=== PATIENT | female | born 1935 | race Hispanic/Latino ===

== ENCOUNTER 2018-04-25 15:42 | Inpatient (IN) | payer OTHER ==
--- OUTSIDE RECORDS SUMMARY | 2018-04-25 15:45 | XMS REPORT | Clinical Summary ---
:1935 Author Organization [facility] Address [address] [place] [address] Care Team Providers Name Role Phone Brandie Wilkerson DO Primary Care Provider Allergies Active Allergy Reactions Severity Noted Date Comments No Known Drug Allergies 05/27/2016 Current Medications Prescription Sig. Disp. Refills Start Date End Date Status amLODIPine Take 5 mg by mouth 06/24/2016 Active (NORVASC) 5 mg daily. tablet TRADJENTA 5 mg Take 5 mg by mouth 3 06/18/2016 Active tablet daily with breakfast. aspirin (ECOTRIN) Take 81 mg by Active 81 MG enteric mouth daily. coated tablet CHOLECALCIFEROL, Take 3,000 Units Active VITAMIN D3, by mouth daily. (VITAMIN D3 ORAL) clopidogrel Take 1 tablet (75 90 tablet 3 03/03/2017 Active (PLAVIX) 75 mg mg total) by mouth tablet once daily. fenofibrate Take 1 tablet (145 90 tablet 3 05/06/2017 Active (TRICOR) 145 MG mg total) by mouth tabletIndications: daily. Coronary artery disease involving [place] heart with angina pectoris, unspecified vessel or lesion type (HCC) pravastatin Take 1 tablet (80 90 tablet 3 06/07/2017 Active (PRAVACHOL) 80 MG mg total) by mouth tablet once daily. alendronate Take 70 mg by Active (FOSAMAX) 70 MG mouth every 7 tablet days. Take in the morning with a full glass of water on an empty stomach, do NOT take anything else by mouth or lie down for the next 30 min. famotidine TAKE 1 TABLET BY 60 tablet 0 09/23/2017 Active (PEPCID) 20 MG MOUTH NIGHTLY tablet NEEDED FOR HEARTBURN FOR UP TO 30 DAYS levothyroxine 01/21/2018 Active (SYNTHROID, LEVOXYL) 50 mcg tablet furosemide (LASIX) Take 80 mg by 3 04/22/2016 07/26/19 Discontinued 80 mg tablet mouth once daily. 18 metoprolol Take 25 mg by 3 04/20/2016 07/26/19 Discontinued succinate XL mouth 2 (two) 18 (TOPROL-XL) 25 mg times a day. 24 hr tablet pravastatin Take 80 mg by 3 05/25/2016 06/07/20 Discontinued (PRAVACHOL) 80 MG mouth once daily. 17 tablet metroNIDAZOLE metronidazole 500 07/09/20 Discontinued (FLAGYL) 500 MG mg tablet 17 tablet MULTIVIT-MINERALS/ Take by mouth. 07/09/20 Discontinued FERROUS FUM (MULTI 17 VITAMIN ORAL) potassium chloride Take 1 tablet (10 90 tablet 3 07/01/2016 07/09/20 Discontinued (K-DUR,KLOR-CON) mEq total) by 17 10 MEQ CR mouth once daily. tabletIndications: Essential hypertension fenofibrate Take 1 tablet (145 90 tablet 3 07/03/2016 05/06/20 Discontinued (TRICOR) 145 MG mg total) by mouth 17 tabletIndications: daily. Coronary artery disease involving [place] heart with angina pectoris, unspecified vessel or lesion type (HCC) valsartan (DIOVAN) Take 40 mg by 0 02/19/2017 07/26/19 Discontinued 40 MG tablet mouth daily. 18 alendronate TAKE 1 TABLET ONCE 0 06/09/2017 07/09/20 Discontinued (FOSAMAX) 70 MG A WEEK 17 tablet colchicine 0.6 mg Take 1 tablet (0.6 90 tablet 3 07/09/2017 07/26/19 Discontinued tablet mg total) by mouth 18 daily. metoprolol Take 0.5 tablets 15 tablet 0 07/27/2017 08/26/19 succinate XL (12.5 mg total) by 18 (TOPROL-XL) 25 mg mouth daily for 30 24 hr tablet days. famotidine Take 1 tablet (20 60 tablet 0 07/26/2017 07/26/19 Discontinued (PEPCID) 20 MG mg total) by mouth 18 tablet 2 (two) times a day for 30 days. furosemide (LASIX) Take 1 tablet (40 30 tablet 0 07/27/2017 08/26/19 40 mg tablet mg total) by mouth 18 daily for 30 days. famotidine Take 1 tablet (20 60 tablet 0 07/26/2017 08/25/19 (PEPCID) 20 MG mg total) by mouth 18 tablet nightly as needed for heartburn for up to 30 days. Active Problems Problem Noted Date hypotension due to pericardial effusion 07/21/2017 cardio-renal syndrome 07/21/2017 H/O AICD 07/21/2017 Overview: [employer] Coronary artery disease involving [place] heart with angina pectoris ([facility]) Overview: Added automatically from request for surgery [id number] large anterior pericardial effusion s/p window 03/02/2017 Systolic congestive heart failure ([facility]) 03/02/2017 Stented coronary artery 06/30/2016 PAD (peripheral artery disease) ([facility]) 06/30/2016 Chronic kidney disease, stage III (moderate) ([facility]) 06/30/2016 Cardiomyopathy ([facility]) 05/27/2016 Coronary arteriosclerosis 05/27/2016 Essential hypertension 05/27/2016 Hyperlipidemia 05/27/2016 Encounters Date Type Specialty Care Team Description 01/25/2018 Office Visit Cardiology Mandeep Sellers CAD in [place] artery ( Primary Dx); MD Don Ischemic cardiomyopathy 09/22/2017 Refill Internal Medicine Nedra Pruitt MD 08/11/2017 Telephone Cardiology Rand Mckeon MA 08/10/2017 Office Visit Cardiology Mandeep Sellers Pericardial effusion ( Primary Dx); MD Don Systolic congestive heart failure, unspecified congestive heart failure chronicity 07/27/2017 Patient Outreach Quality Ingrid Patel, PharmCurtis 07/21/2017 Anesthesia Event Cardiothoracic Ronda Vaughn MD 07/21/2017 Procedure Pass Cardiothoracic Surgery 07/21/2017 Surgery Cardiothoracic Fuentes, Michael, Pericardial Surgery Joes Valle MD 07/20/2017 Hospital Cardiovascular Ahmed, Pericardial effusion (Primary Dx) ; - Encounter MD Matias Cardiomyopathy, unspecified type; 07/26/2017 Jadyn Pure hypercholesterolemia MD Love 07/09/2017 Hospital Procedural Mandeep Sellers Essential hypertension ( Primary Dx); Encounter Cardiology MD Don Pericardial effusion; Coronary artery disease involving [place] heart with angina pectoris, unspecified vessel or lesion type 07/09/2017 Procedure Pass Procedural Cardiology 07/09/2017 Surgery Procedural Mandeep Sellers Cv periocardiocentesis Cardiology MD Don [[id number] (CPT)] 07/06/2017 Orders Only Cardiology Linda Pericardial effusion (Primary Dx); RYLIE Arevalo Coronary artery disease involving [place] heart with angina pectoris, unspecified vessel or lesion type 06/29/2017 Office Visit Cardiology Mandeep Sellers Pericardial effusion ( Primary Dx); MD Don Coronary arteriosclerosis; Cardiomyopathy, unspecified type 06/07/2017 Refill Cardiology Linda Med Refill RYLIE Arevalo 05/06/2017 Refill Cardiology Ankit Purcell MA Med Refill after 04/24/2017 Family History Relation Name Status Comments Father Mother Social History Tobacco Use Types Packs/Day Years Used Date Never Smoker Smokeless Tobacco: Never Used Alcohol Use Drinks/Week oz/Week Comments No Sex Assigned at Date Recorded Not on file Last Filed Vital Signs Vital Sign Reading Time Taken Blood Pressure 149/75 01/25/2018 8:38 AM CDT Pulse 68 01/25/2018 8:38 AM CDT Temperature 35.7 C (96.3 F) 07/26/2017 7:43 AM PERIPHERAL EDP EQUIPMENT OPERATOR Respiratory Rate 20 07/26/2017 1:11 PM PERIPHERAL EDP EQUIPMENT OPERATOR Oxygen Saturation 92% 07/26/2017 1:05 PM PERIPHERAL EDP EQUIPMENT OPERATOR Inhaled Oxygen Concentration - - Weight 67.6 kg (149 lb) 01/25/2018 8:38 AM CDT Height 149.9 cm (4' 11") 08/10/2017 8:10 AM PERIPHERAL EDP EQUIPMENT OPERATOR Body Mass Index 30.09 01/25/2018 8:38 AM CDT Plan of Treatment Date Type Specialty Care Team Description 08/02/2018 Office Visit Cardiology Mandeep Sellers MD [address] [address] Health Maintenance Due Date Last Done Comments SHINGRIX VACCINE (#1) 1987 ZOSTER VACCINE 1997 PNEUMOCOCCAL POLYSACCHARIDE VACCINE AGE 65 AND OVER 2002 PNEUMOCOCCAL-13 2002 INFLUENZA VACCINE 02/16/2018 Implants Implanted Type Area Shipfitters Supervisor Device Expiration Model / Identifier Date Serial / Lot Kit Prcrdocnts Perivac - [id number] Central N/A: N/A BOST[place] [id number] / Implanted: 07/09/2017 (Quantity not on file) Venous SCIENTIFIC EDDI / Catheters Drain Wnd Chnl 24fr 5/16in Rnd Hbls Fl-Flut Pari - [id number] Surgical N/A: N/ A [employer] DIV OF 11/15/2021 [id number] / Implanted: Qty: 1 on 07/21/2017 by Jose Dill MD Implants; JESSE & / Expanders; JESSE Extenders; Surgical Wires Procedures Procedure Name Priority Date/Time Associated Comments Diagnosis ECHOCARDIOGRAM 2D Routine 08/10/2017 12:14 Systolic congestive Results for this COMPLETE W MMODE PM PERIPHERAL EDP EQUIPMENT OPERATOR heart failure, procedure are in SPECTRAL COLOR DOPPLER unspecified the results (17336) congestive heart section. failure chronicity Pericardial effusion XR CHEST 2 VW Routine 08/10/2017 9:46 Systolic congestive Results for this AM PERIPHERAL EDP EQUIPMENT OPERATOR heart failure, procedure are in unspecified the results congestive heart section. failure chronicity Pericardial effusion POC GLUCOSE Routine 07/26/2017 11:24 Results for this AM PERIPHERAL EDP EQUIPMENT OPERATOR procedure are in the results section. POC GLUCOSE Routine 07/26/2017 7:42 Results for this AM PERIPHERAL EDP EQUIPMENT OPERATOR procedure are in the results section. XR CHEST 1 VW PORTABLE Routine 07/26/2017 6:50 Results for this AM PERIPHERAL EDP EQUIPMENT OPERATOR procedure are in the results section. HC COMPLETE BLD COUNT Routine 07/26/2017 4:52 Results for this W/AUTO DIFF AM PERIPHERAL EDP EQUIPMENT OPERATOR procedure are in the results section. ZZESTIMATED GFR Routine 07/26/2017 4:00 Results for this AM PERIPHERAL EDP EQUIPMENT OPERATOR procedure are in the results section. BASIC METABOLIC PANEL Routine 07/26/2017 4:00 Results for this AM PERIPHERAL EDP EQUIPMENT OPERATOR procedure are in the results section. PHOSPHORUS LEVEL Routine 07/26/2017 4:00 Results for this AM PERIPHERAL EDP EQUIPMENT OPERATOR procedure are in the results section. MAGNESIUM LEVEL Routine 07/26/2017 4:00 Results for this AM PERIPHERAL EDP EQUIPMENT OPERATOR procedure are in the results section. POC GLUCOSE Routine 07/25/2017 8:51 Results for this PM PERIPHERAL EDP EQUIPMENT OPERATOR procedure are in the results section. POC GLUCOSE Routine 07/25/2017 5:13 Results for this PM PERIPHERAL EDP EQUIPMENT OPERATOR procedure are in the results section. XR CHEST 1 VW PORTABLE STAT 07/25/2017 12:38 Results for this PM PERIPHERAL EDP EQUIPMENT OPERATOR procedure are in the results section. POC GLUCOSE Routine 07/25/2017 11:56 Results for this AM PERIPHERAL EDP EQUIPMENT OPERATOR procedure are in the results section. POC GLUCOSE Routine 07/25/2017 7:41 Results for this AM PERIPHERAL EDP EQUIPMENT OPERATOR procedure are in the results section. ZZESTIMATED GFR Routine 07/25/2017 4:00 Results for this AM PERIPHERAL EDP EQUIPMENT OPERATOR procedure are in the results section. BASIC METABOLIC PANEL Routine 07/25/2017 4:00 Results for this AM PERIPHERAL EDP EQUIPMENT OPERATOR procedure are in the results section. HC COMPLETE BLD COUNT Routine 07/25/2017 4:00 Results for this W/AUTO DIFF AM PERIPHERAL EDP EQUIPMENT OPERATOR procedure are in the results section. PHOSPHORUS LEVEL Routine 07/25/2017 4:00 Results for this AM PERIPHERAL EDP EQUIPMENT OPERATOR procedure are in the results section. MAGNESIUM LEVEL Routine 07/25/2017 4:00 Results for this AM PERIPHERAL EDP EQUIPMENT OPERATOR procedure are in the results section. POC GLUCOSE Routine 07/24/2017 9:47 Results for this PM PERIPHERAL EDP EQUIPMENT OPERATOR procedure are in the results section. XR CHEST 1 VW PORTABLE STAT 07/24/2017 5:40 Results for this PM PERIPHERAL EDP EQUIPMENT OPERATOR procedure are in the results section. ECHOCARDIOGRAM 2D STAT 07/24/2017 5:35 Results for this COMPLETE W MMODE PM PERIPHERAL EDP EQUIPMENT OPERATOR procedure are in SPECTRAL COLOR DOPPLER the results (60999) section. POC GLUCOSE Routine 07/24/2017 5:29 Results for this PM PERIPHERAL EDP EQUIPMENT OPERATOR procedure are in the results section. XR CHEST 1 VW PORTABLE Routine 07/24/2017 12:22 Results for this PM PERIPHERAL EDP EQUIPMENT OPERATOR procedure are in the results section. POC GLUCOSE Routine 07/24/2017 7:41 Results for this AM PERIPHERAL EDP EQUIPMENT OPERATOR procedure are in the results section. XR CHEST 1 VW PORTABLE Routine 07/24/2017 6:45 Results for this AM PERIPHERAL EDP EQUIPMENT OPERATOR procedure are in the results section. HC COMPLETE BLD COUNT Routine 07/24/2017 5:42 Results for this W/AUTO DIFF AM PERIPHERAL EDP EQUIPMENT OPERATOR procedure are in the results section. ZZESTIMATED GFR Routine 07/24/2017 4:00 Results for this AM PERIPHERAL EDP EQUIPMENT OPERATOR procedure are in the results section. PHOSPHORUS LEVEL Routine 07/24/2017 4:00 Results for this AM PERIPHERAL EDP EQUIPMENT OPERATOR procedure are in the results section. MAGNESIUM LEVEL Routine 07/24/2017 4:00 Results for this AM PERIPHERAL EDP EQUIPMENT OPERATOR procedure are in the results section. BASIC METABOLIC PANEL Routine 07/24/2017 4:00 Results for this AM PERIPHERAL EDP EQUIPMENT OPERATOR procedure are in the results section. POC GLUCOSE Routine 07/23/2017 9:28 Results for this PM PERIPHERAL EDP EQUIPMENT OPERATOR procedure are in the results section. POC GLUCOSE Routine 07/23/2017 4:41 Results for this PM PERIPHERAL EDP EQUIPMENT OPERATOR procedure are in the results section. POC GLUCOSE Routine 07/23/2017 12:16 Results for this PM PERIPHERAL EDP EQUIPMENT OPERATOR procedure are in the results section. HC COMPLETE BLD COUNT STAT 07/23/2017 11:35 Results for this W/AUTO DIFF AM PERIPHERAL EDP EQUIPMENT OPERATOR procedure are in the results section. XR CHEST 1 VW PORTABLE Routine 07/23/2017 11:25 Results for this AM PERIPHERAL EDP EQUIPMENT OPERATOR procedure are in the results section. ZZESTIMATED GFR STAT 07/23/2017 11:19 Results for this AM PERIPHERAL EDP EQUIPMENT OPERATOR procedure are in the results section. PHOSPHORUS LEVEL STAT 07/23/2017 11:19 Results for this AM PERIPHERAL EDP EQUIPMENT OPERATOR procedure are in the results section. MAGNESIUM LEVEL STAT 07/23/2017 11:19 Results for this AM PERIPHERAL EDP EQUIPMENT OPERATOR procedure are in the results section. COMPREHENSIVE METABOLIC STAT 07/23/2017 11:19 Results for this PANEL AM PERIPHERAL EDP EQUIPMENT OPERATOR procedure are in the results section. POC GLUCOSE Routine 07/23/2017 7:41 Results for this AM PERIPHERAL EDP EQUIPMENT OPERATOR procedure are in the results section. POC GLUCOSE Routine 07/22/2017 8:59 Results for this PM PERIPHERAL EDP EQUIPMENT OPERATOR procedure are in the results section. POC GLUCOSE Routine 07/22/2017 4:39 Results for this PM PERIPHERAL EDP EQUIPMENT OPERATOR procedure are in the results section. POC GLUCOSE Routine 07/22/2017 11:13 Results for this AM PERIPHERAL EDP EQUIPMENT OPERATOR procedure are in the results section. POC GLUCOSE Routine 07/22/2017 7:18 Results for this AM PERIPHERAL EDP EQUIPMENT OPERATOR procedure are in the results section. XR CHEST 1 VW PORTABLE Routine 07/22/2017 6:45 Results for this AM PERIPHERAL EDP EQUIPMENT OPERATOR procedure are in the results section. HC COMPLETE BLD COUNT Routine 07/22/2017 5:30 Results for this W/AUTO DIFF AM PERIPHERAL EDP EQUIPMENT OPERATOR procedure are in the results section. SEDIMENTATION RATE Routine 07/22/2017 5:30 Results for this AM PERIPHERAL EDP EQUIPMENT OPERATOR procedure are in the results section. ZZESTIMATED GFR Routine 07/22/2017 4:00 Results for this AM PERIPHERAL EDP EQUIPMENT OPERATOR procedure are in the results section. COMPREHENSIVE METABOLIC Routine 07/22/2017 4:00 Results for this PANEL AM PERIPHERAL EDP EQUIPMENT OPERATOR procedure are in the results section. TOTAL IRON BINDING Routine 07/22/2017 4:00 Results for this CAPACITY AM PERIPHERAL EDP EQUIPMENT OPERATOR procedure are in the results section. FERRITIN LEVEL Routine 07/22/2017 4:00 Results for this AM PERIPHERAL EDP EQUIPMENT OPERATOR procedure are in the results section. C-REACTIVE PROTEIN Routine 07/22/2017 4:00 Results for this AM PERIPHERAL EDP EQUIPMENT OPERATOR procedure are in the results section. US RENAL Routine 07/21/2017 9:35 Results for this PM PERIPHERAL EDP EQUIPMENT OPERATOR procedure are in the results section. POC GLUCOSE Routine 07/21/2017 8:57 Results for this PM PERIPHERAL EDP EQUIPMENT OPERATOR procedure are in the results section. POC GLUCOSE Routine 07/21/2017 5:33 Results for this PM PERIPHERAL EDP EQUIPMENT OPERATOR procedure are in the results section. PROTEIN, MISC FLUID Timed 07/21/2017 4:48 Results for this PM PERIPHERAL EDP EQUIPMENT OPERATOR procedure are in the results section. LDH, MISC FLUID Timed 07/21/2017 4:48 Results for this PM PERIPHERAL EDP EQUIPMENT OPERATOR procedure are in the results section. CELL COUNT AND Timed 07/21/2017 4:48 Results for this DIFFERENTIAL, BODY PM PERIPHERAL EDP EQUIPMENT OPERATOR procedure are in FLUID the results section. ZZESTIMATED GFR Timed 07/21/2017 3:57 Results for this PM PERIPHERAL EDP EQUIPMENT OPERATOR procedure are in the results section. HC COMPLETE BLD COUNT Timed 07/21/2017 3:57 Results for this W/AUTO DIFF PM PERIPHERAL EDP EQUIPMENT OPERATOR procedure are in the results section. COMPREHENSIVE METABOLIC Timed 07/21/2017 3:57 Results for this PANEL PM PERIPHERAL EDP EQUIPMENT OPERATOR procedure are in the results section. LACTIC ACID LEVEL Timed 07/21/2017 3:57 Results for this PM PERIPHERAL EDP EQUIPMENT OPERATOR procedure are in the results section. XR CHEST 1 VW PORTABLE Routine 07/21/2017 3:08 Results for this PM PERIPHERAL EDP EQUIPMENT OPERATOR procedure are in the results section. CELL COUNT AND Routine 07/21/2017 2:57 Results for this DIFFERENTIAL, BODY PM PERIPHERAL EDP EQUIPMENT OPERATOR procedure are in FLUID the results section. AFB STAIN Timed 07/21/2017 1:10 Results for this PM PERIPHERAL EDP EQUIPMENT OPERATOR procedure are in the results section. GRAM STAIN Timed 07/21/2017 1:10 Results for this PM PERIPHERAL EDP EQUIPMENT OPERATOR procedure are in the results section. AFB STAIN Timed 07/21/2017 1:10 Results for this PM PERIPHERAL EDP EQUIPMENT OPERATOR procedure are in the results section. GRAM STAIN Timed 07/21/2017 1:10 Results for this PM PERIPHERAL EDP EQUIPMENT OPERATOR procedure are in the results section. FUNGUS SMEAR Timed 07/21/2017 1:10 Results for this PM PERIPHERAL EDP EQUIPMENT OPERATOR procedure are in the results section. AFB CULTURE Timed 07/21/2017 1:10 Results for this PM PERIPHERAL EDP EQUIPMENT OPERATOR procedure are in the results section. AEROBIC CULTURE Timed 07/21/2017 1:10 Results for this PM PERIPHERAL EDP EQUIPMENT OPERATOR procedure are in the results section. FUNGUS CULTURE Timed 07/21/2017 1:10 Results for this PM PERIPHERAL EDP EQUIPMENT OPERATOR procedure are in the results section. ANAEROBIC CULTURE Timed 07/21/2017 1:10 Results for this PM PERIPHERAL EDP EQUIPMENT OPERATOR procedure are in the results section. FUNGUS SMEAR Timed 07/21/2017 1:10 Results for this PM PERIPHERAL EDP EQUIPMENT OPERATOR procedure are in the results section. AFB CULTURE Timed 07/21/2017 1:10 Results for this PM PERIPHERAL EDP EQUIPMENT OPERATOR procedure are in the results section. AEROBIC CULTURE Timed 07/21/2017 1:10 Results for this PM PERIPHERAL EDP EQUIPMENT OPERATOR procedure are in the results section. FUNGUS CULTURE Timed 07/21/2017 1:10 Results for this PM PERIPHERAL EDP EQUIPMENT OPERATOR procedure are in the results section. ANAEROBIC CULTURE Timed 07/21/2017 1:10 Results for this PM PERIPHERAL EDP EQUIPMENT OPERATOR procedure are in the results section. KS AN ELECTIVE Routine 07/21/2017 1:09 ENDOTRACHEAL AIRWAY PM PERIPHERAL EDP EQUIPMENT OPERATOR Procedure Note - Ronda Vaughn MD - 07/21/2017 1:09 PM PERIPHERAL EDP EQUIPMENT OPERATOR Airway Performed by: RONDA VAUGHN Authorized by: RONDA VAUGHN Location: OR Urgency: Elective Difficult Airway: No Anesthesiologist: RONDA VAUGHN Performed by: resident/SEWAGE PLANT OPERATOR Preoxygenated with 100% O2: Yes C-spine Precautions Maintained Throughout: Yes Mask Ventilation: Easy mask Final Airway Type: Endotracheal airway Final Endotracheal Airway: ETT Cuffed: Yes Technique Used: Direct laryngoscopy Devices/Methods Used in Placement: Intubating stylet Insertion Site: Oral Blade Type: Jacob Laryngoscope Blade/Videolaryngoscope Blade Size: 2 ETT Size (mm): 7.0 Cuff at minimum occlusion pressure: Yes Measured from: Lips Placement Verified by: CO2 detection, direct visualization and equal breath sounds Laryngoscopic view: Grade IIa - partial view of glottis Rapid Sequence Induction (RSI): No Modified RSI: No Number of Attempts at Approach: 1 CYTOLOGY (NON-GYNECOLOGICAL) Routine 07/21/2017 1:07 PM Results for this REQUEST PERIPHERAL EDP EQUIPMENT OPERATOR procedure are in the results section. GLUCOSE LEVEL, SYRINGE STAT 07/21/2017 1:05 PM Results for this PERIPHERAL EDP EQUIPMENT OPERATOR procedure are in the results section. IONIZED CALCIUM, ARTERIAL STAT 07/21/2017 1:05 PM Results for this PERIPHERAL EDP EQUIPMENT OPERATOR procedure are in the results section. HEMOGLOBIN, SYRINGE STAT 07/21/2017 1:05 PM Results for this PERIPHERAL EDP EQUIPMENT OPERATOR procedure are in the results section. POTASSIUM, SYRINGE STAT 07/21/2017 1:05 PM Results for this PERIPHERAL EDP EQUIPMENT OPERATOR procedure are in the results section. ARTERIAL BLOOD GAS, CORRECTED STAT 07/21/2017 1:05 PM Results for this PERIPHERAL EDP EQUIPMENT OPERATOR procedure are in the results section. SODIUM LEVEL, SYRINGE STAT 07/21/2017 1:05 PM Results for this PERIPHERAL EDP EQUIPMENT OPERATOR procedure are in the results section. ARTERIAL LINE Routine 07/21/2017 12:45 PM PERIPHERAL EDP EQUIPMENT OPERATOR Procedure Note - Ronda Vaughn MD - 07/21/2017 12:45 PM PERIPHERAL EDP EQUIPMENT OPERATOR Arterial line Performed by: RONDA VAUGHN Authorized by: RONDA VAUGHN Patient Location: Pre-op Staff: Anesthesiologist: RONDA VAUGHN Performed by: Anesthesiologist Pre-procedure: patient identified, IV checked, site and side verified, risks and benefits discussed, procedure verified, surgical consent complete, patient position confirmed, monitors and equipment checked and pre-op evaluation complete MSBT: antiseptic used, all elements of maximal sterile barrier technique followed, hand hygiene performed, cap/gown used by other personnel and solutions labeled Indications: Indications: hemodynamic monitoring Anesthesia: Anesthesia: Local infiltration Procedure Details: Arterial Line placement: Placed pre-induction Line placement site: Radial Line placement side: Right Arterial line gauge: 20 G Number of attempts: 1 Ultrasound guidance used: No Post-procedure: Post-procedure: Sterile dressing applied Post procedure circulation, sensation, movement: Normal Patient tolerance: Patient tolerated the procedure well with no immediate complications HC COMPLETE BLD COUNT Routine 07/21/2017 12:21 Results for this W/AUTO DIFF PM PERIPHERAL EDP EQUIPMENT OPERATOR procedure are in the results section. PARTIAL THROMBOPLASTIN Routine 07/21/2017 12:21 Results for this TIME (PTT) PM PERIPHERAL EDP EQUIPMENT OPERATOR procedure are in the results section. PROTHROMBIN TIME WITH INR Routine 07/21/2017 12:21 Results for this PM PERIPHERAL EDP EQUIPMENT OPERATOR procedure are in the results section. ZZESTIMATED GFR Routine 07/21/2017 12:13 Results for this PM PERIPHERAL EDP EQUIPMENT OPERATOR procedure are in the results section. LDH Routine 07/21/2017 12:13 Results for this PM PERIPHERAL EDP EQUIPMENT OPERATOR procedure are in the results section. COMPREHENSIVE METABOLIC Routine 07/21/2017 12:13 Results for this PANEL PM PERIPHERAL EDP EQUIPMENT OPERATOR procedure are in the results section. TYPE AND SCREEN Routine 07/21/2017 12:13 Results for this PM PERIPHERAL EDP EQUIPMENT OPERATOR procedure are in the results section. PARATHYROID HORMONE Routine 07/21/2017 12:13 Results for this PM PERIPHERAL EDP EQUIPMENT OPERATOR procedure are in the results section. POC GLUCOSE Routine 07/21/2017 11:27 Results for this AM PERIPHERAL EDP EQUIPMENT OPERATOR procedure are in the results section. SURGICAL PATHOLOGY REQUEST Routine 07/21/2017 8:46 Results for this AM PERIPHERAL EDP EQUIPMENT OPERATOR procedure are in the results section. UREA NITROGEN, URINE, Routine 07/21/2017 7:45 Results for this RANDOM AM PERIPHERAL EDP EQUIPMENT OPERATOR procedure are in the results section. SODIUM LEVEL, URINE, Routine 07/21/2017 7:45 Results for this RANDOM AM PERIPHERAL EDP EQUIPMENT OPERATOR procedure are in the results section. POC GLUCOSE Routine 07/21/2017 7:40 Results for this AM PERIPHERAL EDP EQUIPMENT OPERATOR procedure are in the results section. BLOOD CULTURE, AEROBIC & Routine 07/21/2017 2:15 Results for this ANAEROBIC AM PERIPHERAL EDP EQUIPMENT OPERATOR procedure are in the results section. C4 COMPLEMENT COMPONENT Routine 07/21/2017 2:00 Results for this AM PERIPHERAL EDP EQUIPMENT OPERATOR procedure are in the results section. LDH Routine 07/21/2017 2:00 Results for this AM PERIPHERAL EDP EQUIPMENT OPERATOR procedure are in the results section. C3 COMPLEMENT COMPONENT Routine 07/21/2017 2:00 Results for this AM PERIPHERAL EDP EQUIPMENT OPERATOR procedure are in the results section. ZZESTIMATED GFR Routine 07/21/2017 2:00 Results for this AM PERIPHERAL EDP EQUIPMENT OPERATOR procedure are in the results section. BASIC METABOLIC PANEL Routine 07/21/2017 2:00 Results for this AM PERIPHERAL EDP EQUIPMENT OPERATOR procedure are in the results section. HC COMPLETE BLD COUNT Routine 07/21/2017 2:00 Results for this W/AUTO DIFF AM PERIPHERAL EDP EQUIPMENT OPERATOR procedure are in the results section. ANTI-NEUTROPHILIC Routine 07/21/2017 2:00 Results for this CYTOPLASMIC ABS PANEL AM PERIPHERAL EDP EQUIPMENT OPERATOR procedure are in the results section. HANY Routine 07/21/2017 2:00 Results for this AM PERIPHERAL EDP EQUIPMENT OPERATOR procedure are in the results section. BLOOD CULTURE, AEROBIC & Routine 07/21/2017 2:00 Results for this ANAEROBIC AM PERIPHERAL EDP EQUIPMENT OPERATOR procedure are in the results section. POC GLUCOSE Routine 07/20/2017 9:14 Results for this PM PERIPHERAL EDP EQUIPMENT OPERATOR procedure are in the results section. CREATININE LEVEL, URINE, Routine 07/20/2017 7:48 Results for this RANDOM PM PERIPHERAL EDP EQUIPMENT OPERATOR procedure are in the results section. PROTEIN, URINE, RANDOM Routine 07/20/2017 7:48 Results for this PM PERIPHERAL EDP EQUIPMENT OPERATOR procedure are in the results section. POC GLUCOSE Routine 07/20/2017 5:35 Results for this PM PERIPHERAL EDP EQUIPMENT OPERATOR procedure are in the results section. URINALYSIS SCREEN AND STAT 07/20/2017 2:48 Results for this MICROSCOPY, WITH REFLEX TO PM PERIPHERAL EDP EQUIPMENT OPERATOR procedure are in CULTURE the results section. GRAM STAIN STAT 07/20/2017 2:48 Results for this PM PERIPHERAL EDP EQUIPMENT OPERATOR procedure are in the results section. URINE CULTURE STAT 07/20/2017 2:48 Results for this PM PERIPHERAL EDP EQUIPMENT OPERATOR procedure are in the results section. ZZESTIMATED GFR Timed 07/20/2017 2:46 Results for this PM PERIPHERAL EDP EQUIPMENT OPERATOR procedure are in the results section. BASIC METABOLIC PANEL Timed 07/20/2017 2:46 Results for this PM PERIPHERAL EDP EQUIPMENT OPERATOR procedure are in the results section. TROPONIN Timed 07/20/2017 2:46 Results for this PM PERIPHERAL EDP EQUIPMENT OPERATOR procedure are in the results section. ECG 12-LEAD STAT 07/20/2017 2:24 Results for this PM PERIPHERAL EDP EQUIPMENT OPERATOR procedure are in the results section. POC GLUCOSE Routine 07/20/2017 11:57 Results for this AM PERIPHERAL EDP EQUIPMENT OPERATOR procedure are in the results section. RESPIRATORY PATHOGEN PANEL Routine 07/20/2017 11:30 Results for this AM PERIPHERAL EDP EQUIPMENT OPERATOR procedure are in the results section. URINE DRUGS OF ABUSE Timed 07/20/2017 11:10 Results for this SCREEN AM PERIPHERAL EDP EQUIPMENT OPERATOR procedure are in the results section. XR CHEST 1 VW PORTABLE STAT 07/20/2017 10:37 Results for this AM PERIPHERAL EDP EQUIPMENT OPERATOR procedure are in the results section. B NATRIURETIC PEPTIDE Timed 07/20/2017 10:23 Results for this AM PERIPHERAL EDP EQUIPMENT OPERATOR procedure are in the results section. HC COMPLETE BLD COUNT Timed 07/20/2017 10:22 Results for this W/AUTO DIFF AM PERIPHERAL EDP EQUIPMENT OPERATOR procedure are in the results section. HEMOGLOBIN A1C Timed 07/20/2017 10:21 Results for this AM PERIPHERAL EDP EQUIPMENT OPERATOR procedure are in the results section. PARTIAL THROMBOPLASTIN Timed 07/20/2017 10:21 Results for this TIME (PTT) AM PERIPHERAL EDP EQUIPMENT OPERATOR procedure are in the results section. PROTHROMBIN TIME WITH INR Timed 07/20/2017 10:21 Results for this AM PERIPHERAL EDP EQUIPMENT OPERATOR procedure are in the results section. POC GLUCOSE Routine 07/20/2017 9:46 Results for this AM PERIPHERAL EDP EQUIPMENT OPERATOR procedure are in the results section. ECHOCARDIOGRAM 2D COMPLETE STAT 07/20/2017 9:37 Results for this W MMODE SPECTRAL COLOR AM PERIPHERAL EDP EQUIPMENT OPERATOR procedure are in DOPPLER ([id number]) the results section. ZZESTIMATED GFR Timed 07/20/2017 8:46 Results for this AM PERIPHERAL EDP EQUIPMENT OPERATOR procedure are in the results section. TROPONIN Timed 07/20/2017 8:46 Results for this AM PERIPHERAL EDP EQUIPMENT OPERATOR procedure are in the results section. T4, FREE Timed 07/20/2017 8:46 Results for this AM PERIPHERAL EDP EQUIPMENT OPERATOR procedure are in the results section. THYROID STIMULATING Timed 07/20/2017 8:46 Results for this HORMONE AM PERIPHERAL EDP EQUIPMENT OPERATOR procedure are in the results section. COMPREHENSIVE METABOLIC Timed 07/20/2017 8:46 Results for this PANEL AM PERIPHERAL EDP EQUIPMENT OPERATOR procedure are in the results section. CV ECHO 2D FOLLOW UP OR Routine 07/09/2017 4:36 Results for this LIMITED STUDY PM PERIPHERAL EDP EQUIPMENT OPERATOR procedure are in the results section. CV PERICARDIOCENTESIS Routine 07/09/2017 4:35 Pericardial PM PERIPHERAL EDP EQUIPMENT OPERATOR effusion Coronary artery disease involving [place] heart with angina pectoris, unspecified vessel or lesion type CREATININE LEVEL, MISC Routine 07/09/2017 4:18 Results for this FLUID PM PERIPHERAL EDP EQUIPMENT OPERATOR procedure are in the results section. SODIUM LEVEL, MISC FLUID Routine 07/09/2017 4:18 Results for this PM PERIPHERAL EDP EQUIPMENT OPERATOR procedure are in the results section. GLUCOSE LEVEL, MISC FLUID Routine 07/09/2017 4:18 Results for this PM PERIPHERAL EDP EQUIPMENT OPERATOR procedure are in the results section. CELL COUNT AND Routine 07/09/2017 4:18 Results for this DIFFERENTIAL, BODY FLUID PM PERIPHERAL EDP EQUIPMENT OPERATOR procedure are in the results section. TRIGLYCERIDES, MISC FLUID Routine 07/09/2017 4:18 Results for this PM PERIPHERAL EDP EQUIPMENT OPERATOR procedure are in the results section. PROTEIN, MISC FLUID Routine 07/09/2017 4:18 Results for this PM PERIPHERAL EDP EQUIPMENT OPERATOR procedure are in the results section. LIPASE LEVEL, MISC FLUID Routine 07/09/2017 4:18 Results for this PM PERIPHERAL EDP EQUIPMENT OPERATOR procedure are in the results section. CHOLESTEROL, MISC FLUID Routine 07/09/2017 4:18 Results for this PM PERIPHERAL EDP EQUIPMENT OPERATOR procedure are in the results section. AMYLASE LEVEL, MISC FLUID Routine 07/09/2017 4:18 Results for this PM PERIPHERAL EDP EQUIPMENT OPERATOR procedure are in the results section. ALBUMIN, MISC FLUID Routine 07/09/2017 4:18 Results for this PM PERIPHERAL EDP EQUIPMENT OPERATOR procedure are in the results section. LDH, MISC FLUID Routine 07/09/2017 4:18 Results for this PM PERIPHERAL EDP EQUIPMENT OPERATOR procedure are in the results section. CYTOLOGY Routine 07/09/2017 4:10 Results for this (NON-GYNECOLOGICAL) PM PERIPHERAL EDP EQUIPMENT OPERATOR procedure are in REQUEST the results section. CYTOLOGY Routine 07/09/2017 4:10 Results for this (NON-GYNECOLOGICAL) PM PERIPHERAL EDP EQUIPMENT OPERATOR procedure are in REQUEST the results section. POTASSIUM LEVEL STAT 07/09/2017 12:09 Results for this PM PERIPHERAL EDP EQUIPMENT OPERATOR procedure are in the results section. HC COMPLETE BLD COUNT STAT 07/09/2017 10:45 Results for this W/AUTO DIFF AM PERIPHERAL EDP EQUIPMENT OPERATOR procedure are in the results section. POC GLUCOSE Routine 07/09/2017 10:35 Results for this AM PERIPHERAL EDP EQUIPMENT OPERATOR procedure are in the results section. ECG 12-LEAD STAT 07/09/2017 10:18 Results for this AM PERIPHERAL EDP EQUIPMENT OPERATOR procedure are in the results section. ZZESTIMATED GFR STAT 07/09/2017 10:11 Results for this AM PERIPHERAL EDP EQUIPMENT OPERATOR procedure are in the results section. BASIC METABOLIC PANEL STAT 07/09/2017 10:11 Results for this AM PERIPHERAL EDP EQUIPMENT OPERATOR procedure are in the results section. ECHOCARDIOGRAM 2D COMPLETE Routine 06/29/2017 1:06 Pericardial Results for this W MMODE SPECTRAL COLOR PM PERIPHERAL EDP EQUIPMENT OPERATOR effusion procedure are in DOPPLER ([id number]) the results section. after 04/24/2017 Results Echocardiogram complete w contrast and 3D if needed (08/10/2017 12:14 PM) Narrative Performed At [facility] Echocardiography Report Pat.Name:Alyssa GOMEZ.ID:[id number] .Date: 08/10/2017 Refer.MD:MANDEEP SELLERS MD Exam Time: 11:37:00 AM Study Type:Routine Echo Height:60inWeight: 148lb BSA: 1.64 m2 DOBAge:1935,82Y Sex: FEMALEBP:139/65 Sonogrphr: Shamika Guy RDCS, RVTPat. Stat.:Outpatient Room:[facility] Status:Final Echo Event ID:[id number] Order ID:[id number] Reason for Study:S/P pericardial effusion, Systolic congestive heart failure History / Clinical:Diabetes, Hyperlipidemia, Hypertension Procedures:2D Echo, Colorflow Doppler Race:C SUMMARY: Small effusion Large anterior MN FINDINGS: LV: LV size is upper limits of normal. There is mild concentric LVhypertrophy. LV EF is mildly depressed. Estimated EF is 45-49%. RV: RV size is normal. RV systolic function is normal. LA: LA volume is mildly enlarged. RA: RA size is normal. AO: Aortic root diameter is normal. STEPHANIE: Small anterior pericardial effusion. Extra echoes within the pericardialspace suggesting presence of fibro-adhesive material. AV: Moderate thickening and calcification of AV leaflets. Mild aorticregurgitation. Mild aortic valve stenosis. MV: Mild mitral annular calcification. Mild mitral regurgitation. PV: No structural PV abnormalities noted. TV: No structural TV abnormalities noted. Mild tricuspid regurgitation Blankenship: LV relaxation is impaired. Other:Estimated PA systolic pressure is 35 mmHg, assuming a mean RAPof 5 mmHg. MEASUREMENTS: 2D Parasternal [place] LVOT 1.2 cmLA Ds4 cm LVIDd5.6 cmIndex3.4 cm/m Ao An1.4 cm LVIDs3.1 cmAo Rtd 3 cm Index1.9 cm/m LV%fs 44.4 % LV Ihim255 g(87-129) IVSd 0.9 cmRWT0.3 LVPWd0.8 cm LA Sng Plane LA Area 17.9 cm2(8.8-23.4) LA Vol49.1 ml Index29.9 ml/m LA LngAx 5.5 cm DOPPLER AV For Flow/Valve Assess AV pkVel 201.1 cm/s (100-170) AV ET293 msec AV mnVel 128.3 cm/Dorota AC/ET 0.4 AV pkPG 16.2 mmHgAV TVI37.6 cm AV Mean G7.6 mmHgAVpkAcRt 2382.5 cm/s2 AV AC121 msec (83-118) WALL MOTION: RESTING WALL MOTION: Apical Anterior, Apical Septal, Apical Inferior, Apical Lateral, Apical del angel are akinetic.Mid Anterior, Mid Anteroseptal, Mid Inferoseptal del angel are hypokinetic. Normal in all other del angel. Wall Index=1.8 Signed 08/11/2017 08:30 AM Soraya Jackson M.D. Procedure Note Interface, Radiology Results In - 08/11/2017 8:30 AM PERIPHERAL EDP EQUIPMENT OPERATOR [facility] Echocardiography Report Pat.Name: MENDY GOMEZ Pat.ID: [id number] .Date: 08/10/2017 Refer.MD: MANDEEP SELLERS MD Exam Time: 11:37:00 AM Study Type:Routine Echo Height: 60in Weight: 148lb BSA: 1.64 m2 Age: 9 1935,82Y Sex: FEMALE BP: 139/65 Sonogrphr: Shamika Guy RDCS, RVT Pat. Stat.:Outpatient Room: [place] Study Status:Final Echo Event ID:[id number] Order ID: [id number] Reason for Study:S/P pericardial effusion, Systolic congestive heart failure History / Clinical:Diabetes, Hyperlipidemia, Hypertension Procedures:2D Echo, Colorflow Doppler Race: C SUMMARY: Small effusion Large anterior MN FINDINGS: LV: LV size is upper limits of normal. There is mild concentric LV hypertrophy. LV EF is mildly depressed. Estimated EF is 45-49%. RV: RV size is normal. RV systolic function is normal. LA: LA volume is mildly enlarged. RA: RA size is normal. AO: Aortic root diameter is normal. STEPHANIE: Small anterior pericardial effusion. Extra echoes within the pericardial space suggesting presence of fibro-adhesive material. AV: Moderate thickening and calcification of AV leaflets. Mild aortic regurgitation. Mild aortic valve stenosis. MV: Mild mitral annular calcification. Mild mitral regurgitation. PV: No structural PV abnormalities noted. TV: No structural TV abnormalities noted. Mild tricuspid regurgitation Blankenship: LV relaxation is impaired. Other: Estimated PA systolic pressure is 35 mmHg, assuming a mean RAP of 5 mmHg. MEASUREMENTS: 2D Parasternal [place] LVOT 1.2 cm LA Ds 4 cm LVIDd 5.6 cm Index 3.4 cm/m Ao An 1.4 cm LVIDs 3.1 cm Ao Rtd 3 cm Index 1.9 cm/m LV%fs 44.4 % LV Mass 185 g (87-129) IVSd 0.9 cm RWT 0.3 LVPWd 0.8 cm LA Sng Plane LA Area 17.9 cm2 (8.8-23.4) LA Vol 49.1 ml Index 29.9 ml/m LA LngAx 5.5 cm DOPPLER AV For Flow/Valve Assess AV pkVel 201.1 cm/s (100-170) AV ET 293 msec AV mnVel 128.3 cm/s AV AC/ET 0.4 AV pkPG 16.2 mmHg AV TVI 37.6 cm AV Mean G 7.6 mmHg AVpkAcRt 2382.5 cm/s2 AV AC 121 msec (83-118) WALL MOTION: RESTING WALL MOTION: Apical Anterior, Apical Septal, Apical Inferior, Apical Lateral, Apical del angel are akinetic. Mid Anterior, Mid Anteroseptal, Mid Inferoseptal del angel are hypokinetic. Normal in all other del angel. Wall Index=1.8 Signed 08/11/2017 08:30 AM Soraya Jackson M.D. Performing Organization Address [facility]/Zipcode Phone Number [facility] [address] [place] [address] XR Chest 2 Vw (08/10/2017 9:46 AM) Narrative Performed At EXAMINATION:XR CHEST 2 VW HM [facility] CLINICAL HISTORY:I50.20 Unspecified systolic (congestive) heart failure, I31.3 Pericardial effusion (noninflammatory), CHFPERICARDIAL EFFUSION IMPRESSION: Follow-up PA and lateral views compared to July 26 demonstrates interval improvement in pulmonary vascular congestion. Minimal residual blunting of the costophrenic angles. There is no segmental infiltrate. Transvenous pacemaker remains in place. Heart size is slightly enlarged. [facility]-[id number] Procedure Note Hm Interface, Radiology Results Incoming - 08/10/2017 11:03 AM PERIPHERAL EDP EQUIPMENT OPERATOR EXAMINATION: XR CHEST 2 VW CLINICAL HISTORY: I50.20 Unspecified systolic (congestive) heart failure, I31.3 Pericardial effusion (noninflammatory), CHF PERICARDIAL EFFUSION IMPRESSION: Follow-up PA and lateral views compared to July 26 demonstrates interval improvement in pulmonary vascular congestion. Minimal residual blunting of the costophrenic angles. There is no segmental infiltrate. Transvenous pacemaker remains in place. Heart size is slightly enlarged. [facility]-[id number] Performing Organization Address [facility] Phone Number [facility] [address] [place] [address] POC glucose (07/26/2017 11:24 AM)Only the most recent of26 resultswithin the time period is included. POC glucose 140 (H) 65 - 99 mg/dL [facility] DEPARTMENT OF PATHOLOGY AND Comment: GENOMIC MEDICINE [facility] Notified RN Meter ID: [id number] Senior Telecommunications Consultant: Ney Reza Performing Organization Address [facility]/Zipcode Phone Number [facility] DEPARTMENT OF PATHOLOGY AND [address] [place] [address] GENOMIC MEDICINE XR Chest 1 Vw Portable (07/26/2017 6:50 AM)Only the most recent of9 resultswithin the time period is included. Narrative Performed At EXAMINATION:XR CHEST 1 VW PORTABLE [facility] CLINICAL HISTORY:Chest Tube Placement COMPARISON:07/25/2017 IMPRESSION: 1.Left subclavian unipolar pacemaker/defibrillator is present. 2.The heart is moderately enlarged. The aorta is atherosclerotic. 3.Vascular congestion, bibasilar volume loss, and tiny bilateral pleural effusions persist. [facility]-[id number] Procedure Note Hm Interface, Radiology Results Incoming - 07/26/2017 7:32 AM PERIPHERAL EDP EQUIPMENT OPERATOR EXAMINATION: XR CHEST 1 VW PORTABLE CLINICAL HISTORY: Chest Tube Placement COMPARISON: 07/25/2017 IMPRESSION: 1. Left subclavian unipolar pacemaker/defibrillator is present. 2. The heart is moderately enlarged. The aorta is atherosclerotic. 3. Vascular congestion, bibasilar volume loss, and tiny bilateral pleural effusions persist. [facility]-[id number] Performing Organization Address City/State/Zipcode Phone Number [facility] [address] [place] [address] CBC with platelet and differential (07/26/2017 4:52 AM)Only the most recent of10 resultswithin the time period is included. WBC 8.32 4.50 - 11.00 k/uL [facility] DEPARTMENT OF PATHOLOGY AND GENOMIC MEDICINE RBC 3.13 (L) 4.20 - 5.50 m/uL [facility] DEPARTMENT OF PATHOLOGY AND GENOMIC MEDICINE HGB 9.4 (L) 12.0 - 16.0 g/dL [facility] DEPARTMENT OF PATHOLOGY AND GENOMIC MEDICINE HCT 30.0 (L) 37.0 - 47.0 % [facility] DEPARTMENT OF PATHOLOGY AND GENOMIC MEDICINE MCV 95.8 82.0 - 100.0 fL [facility] DEPARTMENT OF PATHOLOGY AND GENOMIC MEDICINE MCH 30.0 27.0 - 34.0 pg [facility] DEPARTMENT OF PATHOLOGY AND GENOMIC MEDICINE MCHC 31.3 31.0 - 37.0 g/dL [facility] DEPARTMENT OF PATHOLOGY AND GENOMIC MEDICINE RDW - SD 47.2 37.0 - 55.0 fL [facility] DEPARTMENT OF PATHOLOGY AND GENOMIC MEDICINE MPV 10.5 8.8 - 13.2 fL [facility] DEPARTMENT OF PATHOLOGY AND GENOMIC MEDICINE Platelet count 388 150 - 400 k/uL [facility] DEPARTMENT OF PATHOLOGY AND GENOMIC MEDICINE Nucleated RBC 0.00 /100 WBC [facility] DEPARTMENT OF PATHOLOGY AND GENOMIC MEDICINE Neutrophils 69.5 (H) 39.0 - 69.0 % [facility] DEPARTMENT OF PATHOLOGY AND GENOMIC MEDICINE Lymphocytes 11.3 (L) 25.0 - 45.0 % [facility] DEPARTMENT OF PATHOLOGY AND GENOMIC MEDICINE Monocytes 11.7 (H) 0.0 - 10.0 % [facility] DEPARTMENT OF PATHOLOGY AND GENOMIC MEDICINE Eosinophils 5.9 (H) 0.0 - 5.0 % [facility] DEPARTMENT OF PATHOLOGY AND GENOMIC MEDICINE Basophils 0.5 0.0 - 1.0 % [facility] DEPARTMENT OF PATHOLOGY AND GENOMIC MEDICINE Immature granulocytes 1.1 (H)Comment: 0.0 - 1.0 % [facility] DEPARTMENT OF "Immature PATHOLOGY AND GENOMIC granulocytes" MEDICINE (promyelocytes, myelocytes, metamyelocytes) Specimen Blood Performing Organization Address [facility] Phone Number [facility] DEPARTMENT OF PATHOLOGY AND [address] [place] [address] Estimated GFR (07/26/2017 4:00 AM)Only the most recent of11 resultswithin the time period is included. GFR Non Af Amer 21 (A) mL/min/1.73 m2 [facility] DEPARTMENT OF PATHOLOGY AND GENOMIC MEDICINE GFR Af Amer 26 (A) mL/min/1.73 m2 [facility] DEPARTMENT OF Comment: PATHOLOGY AND GENOMIC Chronic kidney disease: <60 mL/min/1.73m2 MEDICINE Kidney failure: <15 mL/min/1.73m2 The estimated GFR is calculated from the IDMS-traceable Modification of Diet in Renal Disease Equation. The accuracy of the calculation is poor when the creatinine is normal. Calculated values >90 mL/min/1.73m2 are not reported. This equation has not been validated in children (<18 years), women, the elderly (>70 years), or ethnic groups other than Caucasians and Americans. Specimen Plasma specimen Performing Organization Address [facility] Phone Number [facility] DEPARTMENT OF PATHOLOGY AND [address] [place] [address] Phosphorus level (07/26/2017 4:00 AM)Only the most recent of4 resultswithin the time period is included. Phosphorus 2.8 2.4 - 4.5 mg/dL [facility] DEPARTMENT OF PATHOLOGY AND GENOMIC MEDICINE Specimen Plasma specimen Performing Organization Address [facility] Phone Number [facility] DEPARTMENT OF PATHOLOGY AND [address] [place] [address] Magnesium level (07/26/2017 4:00 AM)Only the most recent of4 resultswithin the time period is included. Magnesium 2.7 (H) 1.6 - 2.4 mg/dL [facility] DEPARTMENT OF PATHOLOGY AND GENOMIC MEDICINE Specimen Plasma specimen Performing Organization Address City/[facility]/Zipcode Phone Number [facility] DEPARTMENT OF PATHOLOGY AND [address] MEDICINE Basic metabolic panel (07/26/2017 4:00 AM)Only the most recent of6 resultswithin the time period is included. Sodium 140 135 - 148 mEq/L [facility] DEPARTMENT OF PATHOLOGY AND GENOMIC MEDICINE Potassium 5.0 3.5 - 5.0 mEq/L [facility] DEPARTMENT OF PATHOLOGY AND GENOMIC MEDICINE Chloride 100 98 - 112 mEq/L [facility] DEPARTMENT OF PATHOLOGY AND GENOMIC MEDICINE CO2 29 24 - 31 mEq/L [facility] DEPARTMENT OF PATHOLOGY AND GENOMIC MEDICINE Anion gap 11 7 - 15 mEq/L [facility] DEPARTMENT OF PATHOLOGY Comment: [facility] GENOMIC [facility] Starting from October , anion gap calculation no longer incorporates potassium. Please note the change. BUN 56 (H) 8 - 23 mg/dL [facility] DEPARTMENT OF PATHOLOGY AND GENOMIC MEDICINE Creatinine 2.2 (H) 0.5 - 0.9 mg/dL [facility] DEPARTMENT OF PATHOLOGY AND GENOMIC MEDICINE Glucose 102 (H) 65 - 99 mg/dL [facility] DEPARTMENT OF PATHOLOGY AND GENOMIC MEDICINE Calcium 9.0 8.8 - 10.2 mg/dL [facility] DEPARTMENT OF PATHOLOGY AND GENOMIC MEDICINE Specimen Plasma specimen Performing Organization Address City/[facility] Phone Number [facility] DEPARTMENT OF PATHOLOGY AND [address] [place] [address] Echocardiogram complete w contrast and 3D if needed (07/24/2017 5:35 PM) Narrative Performed At [facility] Echocardiography Report [address]Name:Alyssa GOMEZ.ID:[id number] .Date: 07/24/2017Exam Time: 4:40:00 PM Study Type:Routine EchoHeight:60in Weight:164lb BSA: 1.72 m2 DOBAge:1935,82Y Sex: FEMALE BP:124/80HR: 64 bpm Sonogrphr: Madeleine Penaloza. Stat.:Inpatient Room:[id number] Status:Final Echo Event ID:[id number] Order ID:[id number] Reason for Study:pericardial effusion s/p chest tube removal. Hypotensive again. Plese do with respiratory variation to look for constriction History / Clinical:Diabetes, Hyperlipidemia, Hypertension Procedures:2D Echo, Colorflow Doppler, Portable, Stat, Intravenous Definity Contrast Race:C SUMMARY: LV EF is normal. Abnormal regional wall motion. LA volume is moderately enlarged. Small to moderate circumferential pericardial effusion. Extra echoes within the pericardial space suggesting presence of fibro-adhesive material. LV respiratory variation is not present. Diastolic dysfunction Grade II (Moderate): Impaired relaxation with elevated LV filling pressures. Estimated PA systolic pressure is 37 mmHg, assuming a mean RAP of 10 mmHg. Mild aortic valve stenosis. FINDINGS: LV: LV size is normal. LV EF is normal. EF=60%. Abnormal regionalwall motion. RV: RV size is normal. A pacemaker wire is seen in the RV. RV systolicfunction is normal. LA: LA volume is moderately enlarged. RA: RA volume is difficult to assess. A pacemaker wire is seen. AO: Aortic root diameter is normal. STEPHANIE: Small to moderate circumferential pericardial effusion. Extraechoes within the pericardial space suggesting presenceof fibro-adhesive material. AV: Moderate thickening and calcification of AV leaflets. Mild aorticregurgitation. Mild aortic valve stenosis. MV: Mild mitral annular calcification. PV: No structural PV abnormalities noted. TV: No structural TV abnormalities noted. Mild tricuspid regurgitation Blankenship: LV respiratory variation is not present. Diastolic dysfunctionGrade II (Moderate): Impaired relaxation with elevatedLV filling pressures. Other:Estimated PA systolic pressure is 37 mmHg, assuming a mean RAPof 10 mmHg. MEASUREMENTS: 2D Parasternal Long [place] LVOT 1.8 cmLVPWd0.6 cm LVIDd5.2 cmIndex3 cm/m LV Sqkr266.2 g(87-129) LVIDs2.4 cmLVM Index 86.2 g/m2 LV%fs 54.1 % RWT0.2 IVSd 1 cm LV EF SinglePlane LV Ad 40.4 cm2(9.5-22.3) LVESV 59 ml Index34.3 ml/m WKVES348.7 ml (59-136) Index86.5 ml/m LV SV 89.7 ml LV As 23.8 cm2(4-11.6) LV EF 60.3 %(55-75) LV Sng Plane LV Ad 40.4 cm2(9.5-22.3) NQNMI104 ml (59-136) Index87.2 ml/m LA Sng Plane LA Area 23.8 cm2(8.8-23.4) LA Vol80 ml Index46.5 ml/m LA LngAx 6 cm DOPPLER AV For Flow/HAILEY AV pkVel 282 cm/s (100-170) AV AC/ET 0.3 AV mnVel 200.9 cm/Dorota TVI58.7 cm AV pkPG 31.8 snCgNIuoBbAh2001 cm/s2 AV Mean G 18.8 mmHgAV ElJu575.5 cm/s2 AV AC 79 msec (83-118) AV Area1.2 cm2(3-5) AV ET292 msec LVOT For Flow LVOT Area2.5 cm2 LVOT SV 69.2 ml XTYKzoFtw256.9 cm/sHR68.2 bpm LVOTpkPG 7.6 mmHgLVOT CO4.7 l/min LVOTmnPG 3.3 mmHgLVOT CI2.7 l/m/m2 LVOT TVI27.2 cm WALL MOTION: RESTING WALL MOTION: Apical Anterior, Apical Septal, Apical Inferior, Apical Lateral, Apical del angel are akinetic.Mid Anterior, Mid Anteroseptal del angel are hypokinetic.Mid Inferoseptal, Mid Inferolateral, Mid Anterolateral del angel are mildly hypokinetic. Normal in all other del angel. Wall Index=1.8 Signed 07/24/2017 06:56 PM Bogdan Licona M.D. Procedure Note Interface, Radiology Results In - 07/24/2017 6:57 PM PERIPHERAL EDP EQUIPMENT OPERATOR Echocardiography Report [id number]Name: MENDY GOMEZ Pat.ID: [id number] .Date: 07/24/2017 Exam Time: 4:40:00 PM Study Type:Routine Echo Height: 60in Weight: 164lb BSA: 1.72 m2 Age: 7 1935,82Y Sex: FEMALE BP: 124/80 HR: 64 bpm Sonogrphr: MARIELA Penaloza Pat. Stat.:Inpatient Room: [facility] Study Status:Final Echo Event ID:[id number] Order ID: [id number] Reason for Study:pericardial effusion s/p chest tube removal. Hypotensive again. Plese do with respiratory variation to look for constriction History / Clinical:Diabetes, Hyperlipidemia, Hypertension Procedures:2D Echo, Colorflow Doppler, Portable, Stat, Intravenous Definity Contrast Race: C SUMMARY: LV EF is normal. Abnormal regional wall motion. LA volume is moderately enlarged. Small to moderate circumferential pericardial effusion. Extra echoes within the pericardial space suggesting presence of fibro-adhesive material. LV respiratory variation is not present. Diastolic dysfunction Grade II (Moderate): Impaired relaxation with elevated LV filling pressures. Estimated PA systolic pressure is 37 mmHg, assuming a mean RAP of 10 mmHg. Mild aortic valve stenosis. FINDINGS: LV: LV size is normal. LV EF is normal. EF=60%. Abnormal regional wall motion. RV: RV size is normal. A pacemaker wire is seen in the RV. RV systolic function is normal. LA: LA volume is moderately enlarged. RA: RA volume is difficult to assess. A pacemaker wire is seen. AO: Aortic root diameter is normal. STEPHANIE: Small to moderate circumferential pericardial effusion. Extra echoes within the pericardial space suggesting presence of fibro-adhesive material. AV: Moderate thickening and calcification of AV leaflets. Mild aortic regurgitation. Mild aortic valve stenosis. MV: Mild mitral annular calcification. PV: No structural PV abnormalities noted. TV: No structural TV abnormalities noted. Mild tricuspid regurgitation Blankenship: LV respiratory variation is not present. Diastolic dysfunction Grade II (Moderate): Impaired relaxation with elevated LV filling pressures. Other: Estimated PA systolic pressure is 37 mmHg, assuming a mean RAP of 10 mmHg. MEASUREMENTS: 2D Parasternal Long [place] LVOT 1.8 cm LVPWd 0.6 cm LVIDd 5.2 cm Index 3 cm/m LV Mass 148.2 g (87-129) LVIDs 2.4 cm LVM Index 86.2 g/m2 LV%fs 54.1 % RWT 0.2 IVSd 1 cm LV EF SinglePlane LV Ad 40.4 cm2 (9.5-22.3) LVESV 59 ml Index 34.3 ml/m LVEDV 148.7 ml (59-136) Index 86.5 ml/m LV SV 89.7 ml LV As 23.8 cm2 (4-11.6) LV EF 60.3 % (55-75) LV Sng Plane LV Ad 40.4 cm2 (9.5-22.3) LVEDV 150 ml (59-136) Index 87.2 ml/m LA Sng Plane LA Area 23.8 cm2 (8.8-23.4) LA Vol 80 ml Index 46.5 ml/m LA LngAx 6 cm DOPPLER AV For Flow/HAILEY AV pkVel 282 cm/s (100-170) AV AC/ET 0.3 AV mnVel 200.9 cm/s AV TVI 58.7 cm AV pkPG 31.8 mmHg AVpkAcRt 5023 cm/s2 AV Mean G 18.8 mmHg AV DeRt 964.5 cm/s2 AV AC 79 msec (83-118) AV Area 1.2 cm2 (3-5) AV ET 292 msec LVOT For Flow LVOT Area 2.5 cm2 LVOT SV 69.2 ml LVOTpkVel 137.9 cm/s HR 68.2 bpm LVOTpkPG 7.6 mmHg LVOT CO 4.7 l/min LVOTmnPG 3.3 mmHg LVOT CI 2.7 l/m/m2 LVOT TVI 27.2 cm WALL MOTION: RESTING WALL MOTION: Apical Anterior, Apical Septal, Apical Inferior, Apical Lateral, Apical del angel are akinetic. Mid Anterior, Mid Anteroseptal del angel are hypokinetic. Mid Inferoseptal, Mid Inferolateral, Mid Anterolateral del angel are mildly hypokinetic. Normal in all other del angel. Wall Index=1.8 Signed 07/24/2017 06:56 PM Bogdan Licona M.D. Performing Organization Address City/[facility]/Zipcode Phone Number [facility] [address] [place] [address] Comprehensive metabolic panel (07/23/2017 11:19 AM)Only the most recent of5 resultswithin the time period is included. Sodium 137 135 - 148 mEq/L [facility] DEPARTMENT OF PATHOLOGY AND GENOMIC MEDICINE Potassium 4.6 3.5 - 5.0 mEq/L [facility] DEPARTMENT OF PATHOLOGY AND GENOMIC MEDICINE Chloride 95 (L) 98 - 112 mEq/L [facility] DEPARTMENT OF PATHOLOGY AND GENOMIC MEDICINE CO2 28 24 - 31 mEq/L [facility] DEPARTMENT OF PATHOLOGY AND GENOMIC MEDICINE Anion gap 14 7 - 15 mEq/L [facility] DEPARTMENT OF Comment: PATHOLOGY AND GENOMIC Starting from October , anion gap calculation MEDICINE no longer incorporates potassium. Please note the change. BUN 72 (H) 8 - 23 mg/dL [facility] DEPARTMENT OF PATHOLOGY AND GENOMIC MEDICINE Creatinine 3.3 (H) 0.5 - 0.9 mg/dL [facility] DEPARTMENT OF PATHOLOGY AND GENOMIC MEDICINE Glucose 123 (H) 65 - 99 mg/dL [facility] DEPARTMENT OF PATHOLOGY AND GENOMIC MEDICINE Calcium 8.5 (L) 8.8 - 10.2 mg/dL [facility] DEPARTMENT OF PATHOLOGY AND GENOMIC MEDICINE Protein 6.5 6.3 - 8.3 g/dL [facility] DEPARTMENT OF Comment: PATHOLOGY AND GENOMIC [place] 4.6-7.0 g/dL MEDICINE 1 week 4.4-7.6 g/dL 7 months-1year5.1-7.3 g/dL 1-2 years5.6-7.5 g/dL >3 years6.0-8.0 g/dL 18-150 6.3-8.3 g/dL Albumin 2.4 (L) 3.5 - 5.0 g/dL [facility] DEPARTMENT OF PATHOLOGY AND GENOMIC MEDICINE A/G ratio 0.6 (L) 0.7 - 3.8 [facility] DEPARTMENT OF PATHOLOGY AND GENOMIC MEDICINE Alkaline phosphatase 50 35 - 104 U/L [facility] DEPARTMENT OF PATHOLOGY AND GENOMIC MEDICINE AST 52 (H) 10 - 35 U/L [facility] DEPARTMENT OF PATHOLOGY AND GENOMIC MEDICINE ALT 20 5 - 50 U/L [facility] DEPARTMENT OF PATHOLOGY AND GENOMIC MEDICINE Total bilirubin 0.3 0.0 - 1.2 mg/dL [facility] DEPARTMENT OF PATHOLOGY AND GENOMIC MEDICINE Specimen Plasma specimen Performing Organization Address City/[facility] Phone Number [facility] DEPARTMENT OF PATHOLOGY AND [address] [place] [id number] [facility] Sedimentation rate (07/22/2017 5:30 AM) Sedimentation rate 122 (H) 0 - 20 mm/hr [facility] DEPARTMENT OF PATHOLOGY AND GENOMIC MEDICINE Specimen Blood Performing Organization Address City/[facility] Hospital[facility] Phone Number [facility] DEPARTMENT OF PATHOLOGY AND [address] [place] [id number] [facility] Total iron binding capacity (07/22/2017 4:00 AM) Iron level 32 (L) 37 - 145 ug/dL [facility] DEPARTMENT OF PATHOLOGY AND GENOMIC MEDICINE Iron binding capacity 226 200 - 400 ug/dL [facility] DEPARTMENT OF PATHOLOGY AND GENOMIC MEDICINE % Saturation 14.2 (L) 15.0 - 38.0 % [facility] DEPARTMENT OF PATHOLOGY AND GENOMIC MEDICINE Specimen Plasma specimen Performing Organization Address [facility] Phone Number [facility] DEPARTMENT OF PATHOLOGY AND [address] [place] [address] C-reactive protein (07/22/2017 4:00 AM) CRP 9.41 (H) 0.00 - 0.50 mg/dL [facility] DEPARTMENT OF PATHOLOGY AND GENOMIC MEDICINE Specimen Plasma specimen Performing Organization Address [facility] Phone Number [facility] DEPARTMENT OF PATHOLOGY AND [address] [place] [address] Ferritin level (07/22/2017 4:00 AM) Ferritin level 533 (H) 13 - 150 ng/mL [facility] DEPARTMENT OF PATHOLOGY AND GENOMIC MEDICINE Specimen Plasma specimen Performing Organization Address [facility] Phone Number [facility] DEPARTMENT OF PATHOLOGY AND [address] [place] [address] US Renal (07/21/2017 9:35 PM) Narrative Performed At Examination:US RENAL [facility] Clinical History: Elevated abnormal renal function tests Comparison: None. Findings: Bilateral renal ultrasound was performed. The right kidney measures 9.6 x 4.1 x 4.8 cm. The cortex measures 0.9 cm. The left kidney measures 9.6 x 4.4 x 4.5 cm. The cortex measures 1.0 cm. No hydronephrosis or urinary calculus is seen. Urinary bladder is unremarkable. IMPRESSION: 1. No focal abnormality identified in the kidneys. 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 Findings: Bilateral renal ultrasound was performed. The right kidney measures 9.6 x 4.1 x 4.8 cm. The cortex measures 0.9 cm. The left kidney measures 9.6 x 4.4 x 4.5 cm. The cortex measures 1.0 cm. No hydronephrosis or urinary calculus is seen. Urinary bladder is unremarkable. IMPRESSION: 1. No focal abnormality identified in the kidneys. [facility]-[id number] Performing Organization Address [facility] Phone Number [facility] [address] [place] [address] Cell count and differential, body fluid (07/21/2017 4:48 PM)Only the most recent of3 resultswithin the time period is included. [facility] [place] type Pericardial [facility] DEPARTMENT OF PATHOLOGY AND GENOMIC MEDICINE Color, fluid Footnote [facility] DEPARTMENT OF Comment: PATHOLOGY AND GENOMIC Unable to perform cell count, LDH and TP due to insufficient sample (only a MEDICINE couple of drops of specimen remains in cup sent to [place]). Called Roxi Swain/D9W07/22/201712:56 RC1. Patient will be credited for tests. Appearance, fluid Footnote [facility] DEPARTMENT OF PATHOLOGY AND GENOMIC MEDICINE RBC, fluid SEE COMMENTComment: /[facility] DEPARTMENT OF Footnote--------- PATHOLOGY AND GENOMIC MEDICINE Nucleated cells, fluid SEE COMMENTComment: /[facility] DEPARTMENT OF Footnote--------- PATHOLOGY AND GENOMIC MEDICINE Fluid mononuclear cell Footnote [facility] DEPARTMENT OF PATHOLOGY AND GENOMIC MEDICINE Specimen Fluid Narrative Performed At ESTEL[facility] SEA CELL COUNT, LDH, [facility] DEPARTMENT OF PATHOLOGY AND GENOMIC TP07/22/201711:47 AD MEDICINE Performing Organization Address City/[facility] Hospitalcode Phone Number [facility] DEPARTMENT PATHOLOGY AND [address] [place] [address] GENOMIC MEDICINE Protein, misc fluid (07/21/2017 4:48 PM)Only the most recent of2 resultswithin the time period is included. Fluid type Pericardial [facility] DEPARTMENT OF PATHOLOGY AND GENOMIC MEDICINE Protein, fluid SEE COMMENT g/dL [facility] DEPARTMENT OF PATHOLOGY Comment: AND GENOMIC MEDICINE Analysis performed on Leslie 8000 analyzer. This is not an approved methodology for this specimen type;accuracy and clinical significance uncertain. Footnote--------- Specimen Fluid Narrative Performed At SETELA SEA CELL COUNT, LDH, [facility] DEPARTMENT OF PATHOLOGY AND GENOMIC TP07/22/201711:47 AD MEDICINE Performing Organization Address City/[facility] Phone Number [facility] DEPARTMENT PATHOLOGY AND [address] [place] [address] GENOMIC MEDICINE [facility] (07/21/2017 4:48 PM)Only the most recent of2 resultswithin the time period is included. Fluid type Pericardial [facility] DEPARTMENT OF PATHOLOGY AND GENOMIC MEDICINE LDH, fluid SEE COMMENT U/L [facility] DEPARTMENT OF PATHOLOGY AND Comment: GENOMIC MEDICINE Analysis performed on Leslie 8000 analyzer. This is not an approved methodology for this specimen type;accuracy and clinical significance uncertain. Footnote--------- Unable to perform cell count, LDH and TP due to insufficient sample (only a couple of drops of specimen remains in cup sent to [facility]). Called Roxi Swain/D9W 07/22/2017 12:56 RC1. Patient will be credited for tests. Specimen Fluid Narrative Performed At [facility] CELL COUNT, LDH, [facility] DEPARTMENT OF PATHOLOGY AND GENOMIC TP07/22/201711:47 AD MEDICINE Performing Organization Address [facility] Phone Number [facility] DEPARTMENT OF PATHOLOGY AND [address] [place] [address] GENOMIC MEDICINE Lactic acid level (07/21/2017 3:57 PM) Lactic acid 1.8 0.5 - 2.2 mmol/L [facility] DEPARTMENT OF PATHOLOGY AND GENOMIC MEDICINE Specimen Blood Performing Organization Address [facility] Phone Number [facility] DEPARTMENT OF PATHOLOGY AND [address] [place] [address] [employer] MEDICINE Fungus smear (07/21/2017 1:10 PM)Only the most recent of2 resultswithin the time period is included. Fungus smear No fungi observed. [facility] DEPARTMENT OF PATHOLOGY Comment: AND GENOMIC MEDICINE Specimen Information Specimen Source: Pericardial fluid Specimen Site: Other #B Specimen Pericardial fluid Narrative Performed At ESTELA [employer] CELL COUNT, LDH, [facility] DEPARTMENT OF PATHOLOGY AND GENOMIC TP07/22/201711:47 AD MEDICINE Performing Organization Address [facility] Phone Number [facility] DEPARTMENT OF PATHOLOGY AND [address] [place] [address] [employer] MEDICINE AFB culture (07/21/2017 1:10 PM)Only the most recent of2 resultswithin the time period is included. AFB culture isolate No growth after 6 weeks of incubation. [facility] DEPARTMENT OF PATHOLOGY Comment: AND GENOMIC MEDICINE Specimen Information Specimen Source: Pericardial fluid Specimen Site: Other #B Specimen Pericardial fluid - Other Narrative Performed At ESTELA ADDED CELL COUNT, LDH, [facility] DEPARTMENT OF PATHOLOGY AND GENOMIC TP07/22/201711:47 AD MEDICINE Performing Organization Address [facility] Phone Number [facility] DEPARTMENT OF PATHOLOGY AND [address] [place] [address] GENOMIC MEDICINE Aerobic culture (07/21/2017 1:10 PM)Only the most recent of2 resultswithin the time period is included. Aerobic culture isolate No growth after 3 days. [facility] DEPARTMENT OF Comment: PATHOLOGY AND GENOMIC Specimen Information MEDICINE Specimen Source: Pericardial fluid Specimen Site: Other #B Specimen Pericardial fluid - Other Narrative Performed At ESTELA ADDED CELL COUNT, LDH, [facility] DEPARTMENT OF PATHOLOGY AND GENOMIC TP07/22/201711:47 AD MEDICINE Performing Organization Address City/[facility] Phone Number [facility] DEPARTMENT OF PATHOLOGY AND [address] [place] [address] GENOMIC MEDICINE Gram stain (07/21/2017 1:10 PM)Only the most recent of3 resultswithin the time period is included. Gram stain isolate No WBC's or organisms seen. [facility] DEPARTMENT OF PATHOLOGY Comment: AND GENOMIC MEDICINE Specimen Information Specimen Source: Pericardial fluid Specimen Site: Other #A Specimen Pericardial fluid Performing Organization Address [facility] Phone Number [facility] DEPARTMENT OF PATHOLOGY AND [address] [place] [address] GENOMIC MEDICINE AFB stain (07/21/2017 1:10 PM)Only the most recent of2 resultswithin the time period is included. AFB stain No acid fast bacilli (AFB) seen. [facility] DEPARTMENT OF PATHOLOGY AND Comment: GENOMIC MEDICINE Specimen Information Specimen Source: Pericardial fluid Specimen Site: Other #A Specimen Pericardial fluid Performing Organization Address [facility] Phone Number [facility] DEPARTMENT OF PATHOLOGY AND [address] [place] [address] GENOMIC MEDICINE Fungus culture (07/21/2017 1:10 PM)Only the most recent of2 resultswithin the time period is included. Fungus culture isolate No growth after 4 weeks of incubation. [facility] DEPARTMENT OF Comment: PATHOLOGY AND GENOMIC Specimen Information MEDICINE Specimen Source: Pericardial fluid Specimen Site: Other #B Specimen Pericardial fluid - Other Narrative Performed At ESTELA ADDED CELL COUNT, LDH, [facility] DEPARTMENT OF PATHOLOGY AND GENOMIC TP07/22/201711:47 AD MEDICINE Performing Organization Address [facility] Phone Number [facility] DEPARTMENT OF PATHOLOGY AND [address] [place] [address] GENOMIC MEDICINE Anaerobic culture (07/21/2017 1:10 PM)Only the most recent of2 resultswithin the time period is included. Anaerobic culture No anaerobic organisms isolated. [facility] DEPARTMENT OF isolate Comment: PATHOLOGY AND GENOMIC Specimen Information MEDICINE Specimen Source: Pericardial fluid Specimen Site: Other #B Specimen Pericardial fluid - Other Narrative Performed At ESTELA SEA CELL COUNT, LDH, [facility] DEPARTMENT OF PATHOLOGY AND GENOMIC TP07/22/201711:47 AD MEDICINE Performing Organization Address [facility] Phone Number [facility] DEPARTMENT OF PATHOLOGY AND [address] [place] [address] GENOMIC MEDICINE Cytology (non-gynecological) request (07/21/2017 1:07 PM)Only the most recent of3 resultswithin the time period is included. [facility] DEPARTMENT OF PATHOLOGY AND GENOMIC MEDICINE Cytology See link below for PDF [facility] DEPARTMENT OF (non-gynecological) report Lab Report PATHOLOGY AND GENOMIC MEDICINE Result status This is Final Report to [facility] DEPARTMENT OF [id number] PATHOLOGY AND GENOMIC MEDICINE Performing Organization Address [facility] Phone Number [facility] DEPARTMENT OF PATHOLOGY AND [address] [place] [address] MEDICINE Sodium level, syringe (07/21/2017 1:05 PM) Sodium, syringe 136 135 - 148 mEq/L [facility] DEPARTMENT OF PATHOLOGY AND GENOMIC MEDICINE Specimen Blood Performing Organization Address [facility] Phone Number [facility] DEPARTMENT OF PATHOLOGY AND [address] [place], [place] [phone] GENOMIC MEDICINE Potassium, syringe (07/21/2017 1:05 PM) Potassium, syringe 5.1 (H) 3.5 - 5.0 mEq/L [facility] DEPARTMENT OF PATHOLOGY AND GENOMIC MEDICINE Specimen Blood Performing Organization Address [facility] Phone Number [facility] DEPARTMENT OF PATHOLOGY AND [address] [place] [address] Ionized calcium, arterial (07/21/2017 1:05 PM) Ionized calcium, arterial 1.09 (L) 1.11 - 1.32 mmol/L [facility] DEPARTMENT OF PATHOLOGY AND GENOMIC MEDICINE Specimen Blood Performing Organization Address City/[facility] Phone Number [facility] DEPARTMENT OF PATHOLOGY AND [address] [place], [place] [phone] [facility] Hemoglobin, syringe (07/21/2017 1:05 PM) Hemoglobin, syringe 8.8 (L) 12.0 - 16.0 g/dL [facility] DEPARTMENT OF PATHOLOGY AND GENOMIC MEDICINE Specimen Blood Performing Organization Address [facility] Phone Number [facility] DEPARTMENT OF PATHOLOGY AND [address] [place] [address] Glucose level, syringe (07/21/2017 1:05 PM) Glucose, syringe 103 (H) 65 - 99 mg/dL [facility] DEPARTMENT OF PATHOLOGY AND GENOMIC MEDICINE Specimen Blood Performing Organization Address [facility] Phone Number [facility] [facility] DEPARTMENT OF PATHOLOGY AND [address] [place] [address] Arterial blood gas, corrected (07/21/2017 1:05 PM) pH, arterial 7.27 (L) 7.35 - 7.45 [facility] DEPARTMENT OF PATHOLOGY AND GENOMIC MEDICINE pCO2, arterial 40 35 - 45 mmHg [facility] DEPARTMENT OF PATHOLOGY AND GENOMIC MEDICINE pO2, arterial 173 (H) 80 - 90 mmHg [facility] DEPARTMENT OF PATHOLOGY AND GENOMIC MEDICINE Temperature, Celsius 37.0 Degrees C [facility] DEPARTMENT OF PATHOLOGY AND GENOMIC MEDICINE O2 saturation, arterial 98 95 - 100 % [facility] DEPARTMENT OF PATHOLOGY AND GENOMIC MEDICINE pH, arterial corrected 7.27 [facility] DEPARTMENT OF PATHOLOGY AND GENOMIC MEDICINE pCO2, arterial corrected 40 mmHg [facility] DEPARTMENT OF PATHOLOGY AND GENOMIC MEDICINE pO2, arterial corrected 173 mmHg [facility] DEPARTMENT OF PATHOLOGY AND GENOMIC MEDICINE Base excess, arterial -8 (L) -2 - 2 mEq/L [facility] DEPARTMENT OF PATHOLOGY AND GENOMIC MEDICINE Specimen Blood Performing Organization Address [facility] Phone Number [facility] DEPARTMENT OF PATHOLOGY AND [address] [place] [address] Partial thromboplastin time, activated (07/21/2017 12:21 PM)Only the most recent of2 resultswithin the time period is included. PTT 37.4 (H) 23.0 - 36.0 sec [facility] DEPARTMENT OF PATHOLOGY Comment: AND GENOMIC MEDICINE PTT therapeutic range for unfractionated heparin is 61.0-112.0 seconds which corresponds to Anti-Xa 0.3-0.7 U/ml. Specimen Blood Performing Organization Address [facility] Phone Number [facility] DEPARTMENT OF PATHOLOGY AND [address] [place] [address] Prothrombin time with INR (07/21/2017 12:21 PM)Only the most recent of2 resultswithin the time period is included. Prothrombin time 20.9 (H) 12.0 - 15.0 sec [facility] DEPARTMENT OF PATHOLOGY AND GENOMIC MEDICINE INR 1.8 [facility] DEPARTMENT OF Comment: PATHOLOGY AND GENOMIC The International Normalized Ratio (INR) is a therapeutic MEDICINE monitoring tool for patients who are stable on oral anticoagulant therapy. An INR of 2.0-3.0 is suggested for deep vein thrombosis/pulmonary embolism. Specimen Blood Performing Organization Address City/State/Zipcode Phone Number [facility] DEPARTMENT OF PATHOLOGY AND [address] [place] [address] GENOMIC MEDICINE Type and screen (07/21/2017 12:13 PM) ABO grouping A [facility] DEPARTMENT OF PATHOLOGY AND GENOMIC MEDICINE Rh type POS [facility] DEPARTMENT OF PATHOLOGY AND GENOMIC MEDICINE Antibody screen (gel) NEG [facility] DEPARTMENT OF PATHOLOGY AND GENOMIC MEDICINE Specimen Blood Performing Organization Address [facility] Phone Number [facility] DEPARTMENT OF PATHOLOGY AND [address] [place] [address] Parathyroid hormone (07/21/2017 12:13 PM) PTH 232 (H) 15 - 65 pg/mL [facility] DEPARTMENT OF PATHOLOGY AND GENOMIC MEDICINE Specimen Blood Performing Organization Address [facility]/Zipcode Phone Number [facility] DEPARTMENT OF PATHOLOGY AND [address] [place] [address] LDH (07/21/2017 12:13 PM)Only the most recent of2 resultswithin the time period is included. LDH 303 (H) 87 - 225 U/L [facility] DEPARTMENT OF PATHOLOGY AND GENOMIC MEDICINE Specimen Plasma specimen Performing Organization Address City/[facility]/Zipcode Phone Number [facility] DEPARTMENT OF PATHOLOGY AND [address] [place] [address] Surgical pathology request (07/21/2017 8:46 AM) [facility] DEPARTMENT OF PATHOLOGY AND GENOMIC MEDICINE Surgical pathology report See link below for PDF [facility] DEPARTMENT OF Lab Report PATHOLOGY AND GENOMIC MEDICINE Result status This is Final Report to [facility] DEPARTMENT OF [id number] PATHOLOGY AND GENOMIC MEDICINE Performing Organization Address City/[facility]/Zipcode Phone Number [facility] DEPARTMENT OF PATHOLOGY AND [address] [place] [address] Urea nitrogen, urine, random (07/21/2017 7:45 AM) Urea nitrogen, urine, random 277 mg/dL [facility] DEPARTMENT OF PATHOLOGY AND GENOMIC MEDICINE Specimen Urine Narrative Performed At ADD ON URINE UREA NITROGEN BY HIWOT [facility] DEPARTMENT OF PATHOLOGY AND GENOMIC AT07/21/201710:09//FREDDY1 MEDICINE Performing Organization Address [facility] Phone Number [facility] DEPARTMENT OF PATHOLOGY AND [address] [place] [address] Sodium level, urine, random (07/21/2017 7:45 AM) Sodium, urine, random 46 mEq/L [facility] DEPARTMENT OF PATHOLOGY AND GENOMIC MEDICINE Specimen Urine Narrative Performed At ADD ON URINE UREA NITROGEN BY HIWOT [facility] DEPARTMENT OF PATHOLOGY AND GENOMIC AT07/21/201710:09//FREDDY1 MEDICINE Performing Organization Address [facility] Phone Number [facility] DEPARTMENT OF PATHOLOGY AND [address] [place] [address] Blood culture, aerobic & anaerobic (07/21/2017 2:15 AM)Only the most recent of2 resultswithin the time period is included. Blood culture isolate No growth after 5 days of incubation. [facility] DEPARTMENT OF Comment: PATHOLOGY AND GENOMIC Specimen Information MEDICINE Specimen Source: Blood Specimen Site: Forearm, left Specimen Blood - Forearm, left Performing Organization Address [facility] Phone Number [facility] DEPARTMENT OF PATHOLOGY AND [address] [place] [address] MEDICINE Anti-neutrophilic cytoplasmic Abs panel (07/21/2017 2:00 AM) ANCA screen Negative Negative [facility] DEPARTMENT OF PATHOLOGY AND GENOMIC MEDICINE Specimen Blood Performing Organization Address City/[facility] Phone Number [facility] DEPARTMENT OF PATHOLOGY AND [address] [place] [address] C3 complement component (07/21/2017 2:00 AM) C3 complement 149 90 - 180 mg/dL [facility] DEPARTMENT OF PATHOLOGY AND GENOMIC MEDICINE Specimen Plasma specimen Performing Organization Address [facility] Phone Number [facility] DEPARTMENT OF PATHOLOGY AND [address] [place] [address] C4 complement component (07/21/2017 2:00 AM) C4 complement 21 10 - 40 mg/dL [facility] DEPARTMENT OF PATHOLOGY AND GENOMIC MEDICINE Specimen Plasma specimen Performing Organization Address [facility] Phone Number [facility] DEPARTMENT OF PATHOLOGY AND [address] [place] [address] HANY (07/21/2017 2:00 AM) HANY screen <1:80 <1:80 [facility] DEPARTMENT OF PATHOLOGY AND GENOMIC MEDICINE Specimen Blood Performing Organization Address [facility] Phone Number [facility] DEPARTMENT OF PATHOLOGY AND [address] [place] [address] Protein, urine, random (07/20/2017 7:48 PM) Protein, urine random 18 mg/dL [facility] DEPARTMENT OF PATHOLOGY AND GENOMIC MEDICINE Specimen Urine Performing Organization Address [facility] Phone Number [facility] DEPARTMENT OF PATHOLOGY AND [address] [place] [address] Creatinine level, urine, random (07/20/2017 7:48 PM) Creatinine, urine, random 66 mg/dL [facility] DEPARTMENT OF PATHOLOGY AND GENOMIC MEDICINE Specimen Urine Performing Organization Address [facility] Phone Number [facility] DEPARTMENT OF PATHOLOGY AND [address] [place] [address] Urinalysis screen and microscopy, with reflex to culture (07/20/2017 2:48 PM) Specimen site Clean catch [facility] DEPARTMENT OF PATHOLOGY AND GENOMIC MEDICINE Color, UA Yellow [facility] DEPARTMENT OF PATHOLOGY AND GENOMIC MEDICINE Appearance, UA Clear [facility] DEPARTMENT OF PATHOLOGY AND GENOMIC MEDICINE Specific gravity, UA 1.012 1.001 - 1.035 [facility] DEPARTMENT OF PATHOLOGY AND GENOMIC MEDICINE pH, UA 5.0 5.0 - 8.5 [facility] DEPARTMENT OF PATHOLOGY AND GENOMIC MEDICINE Protein, UA Negative Negative [facility] DEPARTMENT OF PATHOLOGY AND GENOMIC MEDICINE Glucose, UA Negative Negative [facility] DEPARTMENT OF PATHOLOGY AND GENOMIC MEDICINE Ketones, UA Negative Negative [facility] DEPARTMENT OF PATHOLOGY AND GENOMIC MEDICINE Bilirubin, UA Negative Negative [facility] DEPARTMENT OF PATHOLOGY AND GENOMIC MEDICINE Blood, UA Negative Negative [facility] DEPARTMENT OF PATHOLOGY AND GENOMIC MEDICINE Nitrite, UA Negative Negative [facility] DEPARTMENT OF PATHOLOGY AND GENOMIC MEDICINE Urobilinogen, UA <2.0 <2.0 [facility] DEPARTMENT OF PATHOLOGY AND GENOMIC MEDICINE Leukocyte esterase, UA Moderate (A) Negative [facility] DEPARTMENT OF PATHOLOGY AND GENOMIC MEDICINE Epithelial cells, UA 4 /HPF [facility] DEPARTMENT OF PATHOLOGY AND GENOMIC MEDICINE WBC, UA 85 (H) 0 - 4 /HPF [facility] DEPARTMENT OF PATHOLOGY AND GENOMIC MEDICINE RBC, UA 3 (H) 0 - 2 /HPF [facility] DEPARTMENT OF PATHOLOGY AND GENOMIC MEDICINE Bacteria, UA Few None seen [facility] DEPARTMENT OF PATHOLOGY AND GENOMIC MEDICINE WBC clumps, UA Few (A) [facility] DEPARTMENT OF PATHOLOGY AND GENOMIC MEDICINE Yeast, UA None seen [facility] DEPARTMENT OF PATHOLOGY AND GENOMIC MEDICINE Yeast with pseudohyphae, UA None seen [facility] DEPARTMENT OF PATHOLOGY AND GENOMIC MEDICINE Hyaline casts, UA 12 /LPF [facility] DEPARTMENT OF PATHOLOGY AND GENOMIC MEDICINE Specimen Urine Performing Organization Address City/[facility] Phone Number [facility] DEPARTMENT OF PATHOLOGY AND [address] [place] [address] MEDICINE Urine culture (07/20/2017 2:48 PM) Urine culture isolate Gram positive glenny [facility] DEPARTMENT OF PATHOLOGY 10-1 cfu/ml AND [employer] MEDICINE (A) Comment: Specimen Information Specimen Source: Urine Specimen Site: See UA Specimen Urine Performing Organization Address City/[facility] Phone Number [facility] DEPARTMENT OF PATHOLOGY AND [address] [place] [address] Troponin (07/20/2017 2:46 PM)Only the most recent of2 resultswithin the time period is included. Troponin <0.30 0.00 - 0.30 ng/mL [facility] DEPARTMENT OF PATHOLOGY Comment: AND GENOMIC MEDICINE 0.30 - 1.49 ng/mlMay indicate increased risk of acute coronary syndrome. >=1.5 ng/mlConsistent with acute myocardial infarction. The diagnostic value of a single normal or non-diagnostic result is questionable.Serial samples at 2-6 hour intervals are required to rule out acute myocardial injury. Specimen Plasma specimen Performing Organization Address City/[facility]/Zipcode Phone Number [facility] DEPARTMENT OF PATHOLOGY AND [address] [place] [address] [employer] ECG 12 lead (07/20/2017 2:24 PM)Only the most recent of2 resultswithin the time period is included. 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)- Abnormal ECG-In automated comparison with ECG of 09-JUL-2017 10:18,-Incomplete right bundle branch block has replaced [facility] MUSE Nonspecific intraventricular block-Questionable change in initial forces of Lateral leads- 6: 31:28 PM Performing Organization Address [facility] Phone Number [facility] MUSE [address] [place] [address] Respiratory pathogen panel (07/20/2017 11:30 AM) Respiratory pathogen Negative for all pathogens tested: [facility] DEPARTMENT OF panel Negative for Adenovirus PATHOLOGY AND GENOMIC Negative for Coronavirus HKU1 MEDICINE Negative for Coronavirus NL63 Negative for Coronavirus 229E Negative for Coronavirus OC43 Negative for Human Metapneumovirus Negative for Rhinovirus/Enterovirus Negative for Influenza A Negative for Influenza A/H1 Negative for Influenza A/H3 Negative for Influenza A/H1-2009 Negative for Influenza B Negative for Parainfluenza Virus 1 Negative for Parainfluenza Virus 2 Negative for Parainfluenza Virus 3 Negative for Parainfluenza Virus 4 Negative for Respiratory Syncytial Virus Negative for Bordetella pertussis Negative for Chlamydophila pneumoniae Negative for Mycoplasma pneumoniae This real-time PCR assay detects the presence of nucleic acids (RNA or DNA) for the respiratory pathogens listed. A result of "Not-detected" does not exclude the possibility of the presence of one or more pathogens at concentrations less than the detectable limits of the assay. Comment: Specimen Information Specimen Source: Nares Specimen Site: Left Specimen Nares - Left Performing Organization Address [facility] Phone Number [facility] DEPARTMENT OF PATHOLOGY AND [address] [place] [address] [employer] Urine drugs of abuse screen (07/20/2017 11:10 AM) Amphetamine screen, urine Negative [facility] DEPARTMENT OF PATHOLOGY AND GENOMIC MEDICINE Barbiturate screen, urine Negative [facility] DEPARTMENT OF PATHOLOGY AND GENOMIC MEDICINE Benzodiazepine screen, Negative [facility] DEPARTMENT OF urine PATHOLOGY AND GENOMIC MEDICINE Cannabinoid screen, urine Negative [facility] DEPARTMENT OF PATHOLOGY AND GENOMIC MEDICINE Cocaine screen, urine Negative [facility] DEPARTMENT OF PATHOLOGY AND GENOMIC MEDICINE Methadone metabolite Negative [facility] DEPARTMENT OF (EDDP), urine PATHOLOGY AND GENOMIC MEDICINE Opiates screen, urine Negative [facility] DEPARTMENT OF PATHOLOGY AND GENOMIC MEDICINE Oxycodone screen, urine Negative [facility] DEPARTMENT OF PATHOLOGY AND GENOMIC MEDICINE Phencyclidine screen, urine Negative [facility] DEPARTMENT OF PATHOLOGY AND GENOMIC MEDICINE Tricyclic screen, urine Negative [facility] DEPARTMENT OF Comment: PATHOLOGY AND GENOMIC Drug screen minimum concentration of detectability MEDICINE Vqzmxgfatvnj9312 ng/mL Barbiturates 200 ng/mL Cnjtseoowmwznrn774 ng/mL Nuedqem826 ng/mL Qzlihsfhi969 ng/mL Xgdizdy231 ng/mL Ggccbfwcj117 ng/mL Phencyclidine 25 ng/mL Rkgfijtktshg21 ng/mL Jdzwaaxfvj1388 ng/mL Negative test results indicates presumptive evidence of lack of clinically significant drug concentration in this urine specimen. Positive test results are presumptive evidence of clinically significant drug concentration in this urine specimen. Testing performed for medical purposes only. Specimen Urine Performing Organization Address City/[facility] Phone Number [facility] DEPARTMENT OF PATHOLOGY AND [address] [place] [address] B natriuretic peptide (07/20/2017 10:23 AM) BNP 390 (H) 0 - 100 pg/mL [facility] DEPARTMENT OF PATHOLOGY AND GENOMIC MEDICINE Performing Organization Address City/[facility] Phone Number [facility] DEPARTMENT OF PATHOLOGY AND [address] [place] [address] Hemoglobin A1c (07/20/2017 10:21 AM) Hemoglobin A1C 6.1 (H) 4.0 - 5.6 % [facility] DEPARTMENT OF PATHOLOGY Comment: AND [facility] MEDICINE HbA1c cutoffs for diagnosing diabetes: 4.0% - 5.6%=normal 5.7% - 6.4%=increased risk for diabetes (prediabetes) >=6.5%=diabetes Goals for glycemic control (ADA 2016) < 7.0%Target for non adults with diabetes. More or less stringent targets may be appropriate for individual patients. <7.5% Target for Children and adolescents with type 1 diabetes. Specimen Blood Performing Organization Address [facility] Phone Number [facility] DEPARTMENT OF PATHOLOGY AND [address] [place] [address] Echocardiogram complete w contrast and 3D if needed (07/20/2017 9:37 AM) Narrative Performed At [facility] Echocardiography Report [address] [place], [place] [id number] [address] [facility].Name:Alyssa GOMEZ.ID:[id number] .Date: 07/20/2017Refer.MD:MATIAS LANE MD Exam Time: 9:07:00 AMStudy Type:Routine Echo Height:60inWeight: 157lb BSA: 1.69 m2 DOBAge:1935,82Y Sex: FEMALEBP:129/79 HR:65 bpmSonogrphr: MARIELA Ramsey Pat. Stat.:Inpatient Room:[facility] Study Status:Final Echo Event ID:[id number] Order ID:[id number] Reason for Study:Acute Pericarditis - h/o pericardial effusion with worsening SOB, r/o cardiac tamponade History / Clinical:Diabetes, Hyperlipidemia, Hypertension Procedures:2D Echo, Colorflow Doppler, Portable, Stat Race:C SUMMARY: Large circumferential pericardial effusion with effusion largest anteriorly and inferolaterally. No evidence of RV diastolic collapse although RV is not well-visualized. Right atrial systolic collapse is present. These findings suggest cardiac tamponade. The [place] medicine team was notified with these results. FINDINGS: LV: LV size is normal. LV EF is severely depressed. Estimated EF is25-29%. RV: RV size is small. A catheter or pacemaker wire is seen in theRV. RV systolic function is hyperdynamic with cavity obliteration. LA: LA size is normal. RA: RA volume is normal. A catheter or pacemaker wire is seen. AO: Aortic root diameter is normal. STEPHANIE: Large circumferential pericardial effusion with effusion largestanteriorly and inferolaterally. No evidence of RV diastoliccollapse although RV is not well-visualized. Rightatrial systolic collapse is present. AV: Moderate thickening and calcification of AV leaflets. Mild aorticregurgitation. Mild aortic valve stenosis. MV: Mild mitral annular calcification. PV: Pulmonic valve not well seen. TV: No structural TV abnormalities noted. Blankenship: LV relaxation is impaired. Other:Insufficient TR jet to estimate PA systolic pressure. MEASUREMENTS: 2D Parasternal Long [place] LVOT 1.8 cmLA Ds4 cm LVIDd4.6 cmIndex2.7 cm/m Ao An2 cm LVIDs3.4 cmAo Rtd 3.5 cm Index2.1 cm/m LV%fs 26.1 % LV Jbrt074.9 g(87-129) IVSd 1.1 cmLVM Gfadx413.5 g/m2 LVPWd1 cmRWT0.4 LA Sng Plane LA Area 18.1 cm2(8.8-23.4) LA Vol50.6 ml Index29.9 ml/m LA LngAx 5.3 cm RA Sng Plane RA Area 13.8 cm2(8.3-19.5) RA Vol41.2 ml Index24.4 ml/m RA LngAx 3.8 cm DOPPLER AV For Flow/HAILEY AV pkVel 234.4 cm/s (100-170) AV AC/ET 0.4 AV mnVel 160.2 cm/Dorota TVI43.7 cm AV pkPG 22 mmHgAVpkAcRt 4851.3 cm/s2 AV Mean G 12.4 mmHgAV GvBw714.8 cm/s2 AV AC 98 msec (83-118) AV Area1.3 cm2(3-5) AV ET273 msec LVOT For Flow LVOT Area2.5 cm2 LVOT SV 56.3 ml GORQnwDzc903.6 cm/sHR61.4 bpm LVOTpkPG 4.3 mmHgLVOT CO3.5 l/min LVOTmnPG 2.1 mmHgLVOT CI2 l/m/m2 LVOT TVI22.1 cm WALL MOTION: RESTING WALL MOTION: Mid Anterior, Mid Anteroseptal, Mid Inferoseptal, Apical Anterior, Apical Septal, Apical Inferior, Apical Lateral, Apical del angel are akinetic.Basal Anteroseptal, Mid Inferior del angel are hypokinetic. Normal in all other del angel. Wall Index=2.1 Signed 07/20/2017 10:57 AM Rupinder Kearney M.D. Procedure Note Interface, Radiology Results In - 07/20/2017 10:57 AM PERIPHERAL EDP EQUIPMENT OPERATOR Echocardiography Report [id number]Name: MENDY GOMEZ [facility].ID: [id number] .Date: 07/20/2017 Refer.MD: MATIAS LANE MD Exam Time: 9:07:00 AM Study Type:Routine Echo Height: 60in Weight: 157lb BSA: 1.69 m2 Age: 9 1935,82Y Sex: FEMALE BP: 129/79 HR: 65 bpm Sonogrphr: MARIELA Ramsey Pat. Stat.:Inpatient Room: [facility] Study Status:Final Echo Event ID:[id number] Order ID: [id number] Reason for Study:Acute Pericarditis - h/o pericardial effusion with worsening SOB, r/o cardiac tamponade History / Clinical:Diabetes, Hyperlipidemia, Hypertension Procedures:2D Echo, Colorflow Doppler, Portable, Stat Race: C SUMMARY: Large circumferential pericardial effusion with effusion largest anteriorly and inferolaterally. No evidence of RV diastolic collapse although RV is not well-visualized. Right atrial systolic collapse is present. These findings suggest cardiac tamponade. The [place] medicine team was notified with these results. FINDINGS: LV: LV size is normal. LV EF is severely depressed. Estimated EF is 25-29%. RV: RV size is small. A catheter or pacemaker wire is seen in the RV. RV systolic function is hyperdynamic with cavity obliteration. LA: LA size is normal. RA: RA volume is normal. A catheter or pacemaker wire is seen. AO: Aortic root diameter is normal. STEPHANIE: Large circumferential pericardial effusion with effusion largest anteriorly and inferolaterally. No evidence of RV diastolic collapse although RV is not well-visualized. Right atrial systolic collapse is present. AV: Moderate thickening and calcification of AV leaflets. Mild aortic regurgitation. Mild aortic valve stenosis. MV: Mild mitral annular calcification. PV: Pulmonic valve not well seen. TV: No structural TV abnormalities noted. Blankenship: LV relaxation is impaired. Other: Insufficient TR jet to estimate PA systolic pressure. MEASUREMENTS: 2D Parasternal Long [place] LVOT 1.8 cm LA Ds 4 cm LVIDd 4.6 cm Index 2.7 cm/m Ao An 2 cm LVIDs 3.4 cm Ao Rtd 3.5 cm Index 2.1 cm/m LV%fs 26.1 % LV Mass 169.9 g (87-129) IVSd 1.1 cm LVM Index 100.5 g/m2 LVPWd 1 cm RWT 0.4 LA Sng Plane LA Area 18.1 cm2 (8.8-23.4) LA Vol 50.6 ml Index 29.9 ml/m LA LngAx 5.3 cm RA Sng Plane RA Area 13.8 cm2 (8.3-19.5) RA Vol 41.2 ml Index 24.4 ml/m RA LngAx 3.8 cm DOPPLER AV For Flow/HAILEY AV pkVel 234.4 cm/s (100-170) AV AC/ET 0.4 AV mnVel 160.2 cm/s AV TVI 43.7 cm AV pkPG 22 mmHg AVpkAcRt 4851.3 cm/s2 AV Mean G 12.4 mmHg AV DeRt 858.8 cm/s2 AV AC 98 msec (83-118) AV Area 1.3 cm2 (3-5) AV ET 273 msec LVOT For Flow LVOT Area 2.5 cm2 LVOT SV 56.3 ml LVOTpkVel 103.6 cm/s HR 61.4 bpm LVOTpkPG 4.3 mmHg LVOT CO 3.5 l/min LVOTmnPG 2.1 mmHg LVOT CI 2 l/m/m2 LVOT TVI 22.1 cm WALL MOTION: RESTING WALL MOTION: Mid Anterior, Mid Anteroseptal, Mid Inferoseptal, Apical Anterior, Apical Septal, Apical Inferior, Apical Lateral, Apical del angel are akinetic. Basal Anteroseptal, Mid Inferior del angel are hypokinetic. Normal in all other del angel. Wall Index=2.1 Signed 07/20/2017 10:57 AM Rupinder Kearney M.D. Performing Organization Address City/[facility]/Zipcode Phone Number [facility] [address] [place] [address] Thyroid stimulating hormone (07/20/2017 8:46 AM) TSH 7.19 (H) 0.27 - 4.20 uIU/mL [facility] DEPARTMENT OF PATHOLOGY AND GENOMIC MEDICINE Specimen Plasma specimen Performing Organization Address City/[facility]/Zipcode Phone Number [facility] DEPARTMENT OF PATHOLOGY AND [address] [place] [address] GENOMIC MEDICINE T4, free (07/20/2017 8:46 AM) T4, free 1.5 0.9 - 1.7 ng/dL [facility] DEPARTMENT OF PATHOLOGY AND GENOMIC MEDICINE Specimen Plasma specimen Performing Organization Address City/State/Zipcode Phone Number [facility] DEPARTMENT OF PATHOLOGY AND [address] [place] [address] GENOMIC MEDICINE Echocardiogram tte limited (07/09/2017 4:36 PM) Narrative Performed At [facility] Echocardiography Report [address], [facility] [address], [place] [address] Pat.Name:Alyssa GOMEZ.ID:[id number] .Date: 07/09/2017Refer.MD:MANDEEP SELLERS MD Exam Time: 3:39:00 PMStudy Type:Routine Echo Height:60inWeight: 168lb BSA: 1.73 m2 DOBAge:1935,82Y Sex: FEMALEBP:112/65 Sonogrphr: MARIELA Schmidt, IRWIN, VERÓNICA Pat. Stat.:Inpatient Study Status:Final Echo Event ID:[id number] Order ID:[id number] Reason for Study:PERICARDIOCENTESIS History / Clinical:Diabetes, Hyperlipidemia, Hypertension Procedures:2D Echo Race:H SUMMARY: Focused 2D exam for assessment of pericardial effusion pre- and post pericardiocentesis: -Pre: moderate almost circumferential pericardial effusion. -Post: significant decrease with a moderate effusion that is confined by the basal posterior wall and small effusion by the RA. FINDINGS: LV: LV EF is moderately to severely depressed. Estimated EF is 35-39%.Extensive wall motion abnormalities are noted. RV: A pacemaker wire is seen in the RV. RV systolic function is normal. LA: LA volume is moderately enlarged. RA: RA size is normal. STEPHANIE: Pre-pericardiocentesis: moderate anterior and posterior pericardialeffusion. Post-pericardiocentesis: moderate effusionthat is confined by the basal posterior wall; smalleffusion by the RA. SVn:Inferior vena cava is normal. AV: Mild thickening and calcification of AV leaflets. MV: No structural MV abnormalities noted. PV: Pulmonic valve not well seen. TV: No structural TV abnormalities noted. Blankenship: Hepatic vein pressure is normal, RA pressure < 5mmHg. MEASUREMENTS: 2D LA Sng Plane LA Area 23.8 cm2(8.8-23.4) LA Vol80.4 ml Index46.5 ml/m LA LngAx 6 cm WALL MOTION: RESTING WALL MOTION: Apical Anterior, Apical Septal, Apical Inferior, Apical Lateral, Apical del angel are aneurysmal.Mid Anterior, Mid Anteroseptal, Mid Inferoseptal del angel are akinetic.Basal Inferior wall is hypokinetic. Normal in all other del angel. Wall Index=2.6 Signed 07/09/2017 06:31 PM Luke Russell M.D. Procedure Note Interface, Radiology Results In - 07/09/2017 6:32 PM PERIPHERAL EDP EQUIPMENT OPERATOR Echocardiography Report [address] [place] [address] Pat.Name: MENDY GOMEZ Clarissa.ID: [id number] .Date: 07/09/2017 Refer.MD: MANDEEP SELLERS MD Exam Time: 3:39:00 PM Study Type:Routine Echo Height: 60in Weight: 168lb BSA: 1.73 m2 Age: 9 1935,82Y Sex: FEMALE BP: 112/65 Sonogrphr: aMtt Linder, MARIELA, RDWENDI, VERÓNICA Pat. Stat.:Inpatient Study Status:Final Echo Event ID:[id number] Order ID: [id number] Reason for Study:PERICARDIOCENTESIS History / Clinical:Diabetes, Hyperlipidemia, Hypertension Procedures:2D Echo Race: H SUMMARY: Focused 2D exam for assessment of pericardial effusion pre- and post pericardiocentesis: -Pre: moderate almost circumferential pericardial effusion. -Post: significant decrease with a moderate effusion that is confined by the basal posterior wall and small effusion by the RA. FINDINGS: LV: LV EF is moderately to severely depressed. Estimated EF is 35-39%. Extensive wall motion abnormalities are noted. RV: A pacemaker wire is seen in the RV. RV systolic function is normal. LA: LA volume is moderately enlarged. RA: RA size is normal. STEPHANIE: Pre-pericardiocentesis: moderate anterior and posterior pericardial effusion. Post-pericardiocentesis: moderate effusion that is confined by the basal posterior wall; small effusion by the RA. SVn: Inferior vena cava is normal. AV: Mild thickening and calcification of AV leaflets. MV: No structural MV abnormalities noted. PV: Pulmonic valve not well seen. TV: No structural TV abnormalities noted. Blankenship: Hepatic vein pressure is normal, RA pressure < 5mmHg. MEASUREMENTS: 2D LA Sng Plane LA Area 23.8 cm2 (8.8-23.4) LA Vol 80.4 ml Index 46.5 ml/m LA LngAx 6 cm WALL MOTION: RESTING WALL MOTION: Apical Anterior, Apical Septal, Apical Inferior, Apical Lateral, Apical del angel are aneurysmal. Mid Anterior, Mid Anteroseptal, Mid Inferoseptal del angel are akinetic. Basal Inferior wall is hypokinetic. Normal in all other del angel. Wall Index=2.6 Signed 07/09/2017 06:31 PM Luke Russell M.D. Performing Organization Address City/[facility] Phone Number [facility] [address] [place] [address] Cv cleaning laborer procedure (07/09/2017 4:35 PM) Narrative Performed At Performing Organization Address [facility] Phone Number [facility] [address] [place] [address] Lipase level, misc fluid (07/09/2017 4:18 PM) Fluid type Pericardial [facility] DEPARTMENT OF PATHOLOGY AND GENOMIC MEDICINE Lipase, fluid 12 U/L [facility] DEPARTMENT OF PATHOLOGY Comment: AND GENOMIC MEDICINE Analysis performed on Leslie 8000 analyzer. This is not an approved methodology for this specimen type;accuracy and clinical significance uncertain. Specimen Fluid Narrative Performed At PERICARDIAL [facility] DEPARTMENT OF PATHOLOGY AND GENOMIC MEDICINE Performing Organization Address [facility] Phone Number [facility] DEPARTMENT OF PATHOLOGY AND [address] [place] [phone] GENOMIC MEDICINE Cholesterol, misc fluid (07/09/2017 4:18 PM) Fluid type Pericardial [facility] DEPARTMENT OF PATHOLOGY AND GENOMIC MEDICINE Cholesterol, fluid 90 mg/dL [facility] DEPARTMENT OF PATHOLOGY Comment: AND GENOMIC MEDICINE Analysis performed on Leslie 8000 analyzer. This is not an approved methodology for this specimen type;accuracy and clinical significance uncertain. Specimen Fluid Narrative Performed At PERICARDIAL [facility] DEPARTMENT OF PATHOLOGY AND GENOMIC MEDICINE Performing Organization Address [facility] Phone Number [facility] DEPARTMENT OF PATHOLOGY AND [address] [place] [phone] GENOMIC MEDICINE Triglycerides, misc fluid (07/09/2017 4:18 PM) Fluid type Pericardial [facility] DEPARTMENT OF PATHOLOGY AND GENOMIC MEDICINE Triglyceride, fluid 20 mg/dL [facility] DEPARTMENT OF Comment: PATHOLOGY AND GENOMIC Analysis performed on Leslie 8000 analyzer. This is not an MEDICINE approved methodology for this specimen type;accuracy and clinical significance uncertain. Specimen Fluid Narrative Performed At PERICARDIAL [facility] DEPARTMENT OF PATHOLOGY AND GENOMIC MEDICINE Performing Organization Address City/[facility] Phone Number [facility] DEPARTMENT OF PATHOLOGY AND [address] [place] [address] GENOMIC MEDICINE Sodium level, misc fluid (07/09/2017 4:18 PM) Fluid type Pericardial [facility] DEPARTMENT OF PATHOLOGY AND GENOMIC MEDICINE Sodium, fluid 145 mEq/L [facility] DEPARTMENT OF PATHOLOGY Comment: AND GENOMIC MEDICINE Analysis performed on Leslie 8000 analyzer. This is not an approved methodology for this specimen type;accuracy and clinical significance uncertain. Specimen Fluid Narrative Performed At PERICARDIAL [facility] DEPARTMENT OF PATHOLOGY AND GENOMIC MEDICINE Performing Organization Address City/[facility] Phone Number [facility] DEPARTMENT OF PATHOLOGY AND [address] [place] [phone] GENOMIC MEDICINE Glucose level, misc fluid (07/09/2017 4:18 PM) Fluid type Pericardial [facility] DEPARTMENT OF PATHOLOGY AND GENOMIC MEDICINE Glucose, fluid 112 mg/dL [facility] DEPARTMENT OF PATHOLOGY Comment: AND GENOMIC MEDICINE Analysis performed on Leslie 8000 analyzer. This is not an approved methodology for this specimen type;accuracy and clinical significance uncertain. Specimen Fluid Narrative Performed At PERICARDIAL [facility] DEPARTMENT OF PATHOLOGY AND GENOMIC MEDICINE Performing Organization Address City/[facility] Phone Number [facility] DEPARTMENT OF PATHOLOGY AND [address] [place] [phone] GENOMIC MEDICINE Amylase level, misc fluid (07/09/2017 4:18 PM) Fluid type Pericardial [facility] DEPARTMENT OF PATHOLOGY AND GENOMIC MEDICINE Amylase, fluid 34 U/L [facility] DEPARTMENT OF PATHOLOGY Comment: AND GENOMIC MEDICINE Analysis performed on Leslie 8000 analyzer. This is not an approved methodology for this specimen type;accuracy and clinical significance uncertain. Specimen Fluid Narrative Performed At PERICARDIAL [facility] DEPARTMENT OF PATHOLOGY AND GENOMIC MEDICINE Performing Organization Address City/[facility] Phone Number [facility] DEPARTMENT OF PATHOLOGY AND [address] [place] [phone] GENOMIC MEDICINE Albumin, misc fluid (07/09/2017 4:18 PM) Fluid type Pericardial [facility] DEPARTMENT OF PATHOLOGY AND GENOMIC MEDICINE Albumin, fluid 2.8 g/dL [facility] DEPARTMENT OF PATHOLOGY Comment: AND GENOMIC MEDICINE Analysis performed on Leslie 8000 analyzer. This is not an approved methodology for this specimen type;accuracy and clinical significance uncertain. Specimen Fluid Narrative Performed At PERICARDIAL [facility] DEPARTMENT OF PATHOLOGY AND GENOMIC MEDICINE Performing Organization Address City/[facility] Phone Number [facility] DEPARTMENT OF PATHOLOGY AND [address] [place] [phone] GENOMIC MEDICINE Creatinine level, misc fluid (07/09/2017 4:18 PM) Fluid type Pericardial [facility] DEPARTMENT OF PATHOLOGY AND GENOMIC MEDICINE Creatinine, fluid 2.4 mg/dL [facility] DEPARTMENT OF PATHOLOGY Comment: AND GENOMIC MEDICINE Analysis performed on Leslie 8000 analyzer. This is not an approved methodology for this specimen type;accuracy and clinical significance uncertain. Specimen Fluid Narrative Performed At PERICARDIAL [facility] DEPARTMENT OF PATHOLOGY AND GENOMIC MEDICINE Performing Organization Address City/[facility] Phone Number [facility] DEPARTMENT OF PATHOLOGY AND [address] [place] [address] GENOMIC MEDICINE Potassium level (07/09/2017 12:09 PM) Potassium 4.4 3.5 - 5.0 mEq/L [facility] DEPARTMENT OF PATHOLOGY AND GENOMIC MEDICINE Specimen Plasma specimen Performing Organization Address [facility] Phone Number [facility] DEPARTMENT OF PATHOLOGY AND [address] [place] [phone] GENOMIC MEDICINE Echocardiogram complete w contrast and 3D if needed (06/29/2017 1:06 PM) Narrative Performed At [facility] Echocardiography Report Pat.Name:Alyssa GOMEZ.ID:[id number] .Date: 06/29/2017Refer.MD:MANDEEP SELLERS MD Exam Time: 2:09:00 PMStudy Type:Routine Echo Height:60inWeight: 156lb BSA: 1.68 m2 DOBAge:1935,82Y Sex: FEMALEBP:131/63 HR:76 bpmSonogrphr: Shamika Guy RDCS, RVT Pat. Stat.:OutpatientRoom:[place] Study Status:Final Echo Event ID:[id number] Order ID:[id number] Reason for Study:Pericardial effusion, small; no change in status -routine surveillance History / Clinical:Diabetes, Hyperlipidemia, Hypertension Procedures:2D Echo, Colorflow Doppler Race:H SUMMARY: Moderatecircumferential pericardial effusion. No significant changes FINDINGS: LV: LV size is upper limits of normal. LV EF is moderately depressed.Estimated EF is 35-39%. RV: RV size is normal. A pacemaker wire is seen in the RV. RV systolicfunction is normal. LA: LA volume is mildly enlarged. RA: RA volume is normal. A pacemaker wire is seen. AO: Aortic root diameter is not well visualized, but grossly appearsat least mildly enlarged. STEPHANIE: Moderatecircumferential pericardial effusion. No evidence ofcardiac chamber collapse. Extra echoes within the pericardialspace suggesting presence of fibro-adhesive material AV: Mild to moderate thickening and calcification of AV leaflets.Mild aortic regurgitation. Mild aortic valve stenosis. MV: Mild thickening and calcification of mitral leaflets. Moderatemitral annular calcification. Mild mitral regurgitation. PV: No structural PV abnormalities noted. TV: No structural TV abnormalities noted. A trace of tricuspid regurgitation Blankenship: LV relaxation is impaired. LV filling pressure is elevated. Other:Insufficient TR jet to estimate PA systolic pressure. MEASUREMENTS: 2D Parasternal [place] LVOT 1.9 cmLA Ds3.4 cm LVIDd5.4 cmIndex3.2 cm/m Ao An1.9 cm LVIDs3.5 cmAo Rtd 2.9 cm Index1.7 cm/m LV%fs 34.9 % LV Tznc123.2 g(87-129) IVSd 0.9 cmLVM Edsqu975.2 g/m2 LVPWd0.9 cmRWT0.3 LA Sng Plane LA Area 20.7 cm2(8.8-23.4) LA Vol64.3 ml Index38.3 ml/m LA LngAx 5.3 cm DOPPLER AV For Flow/Valve Assess AV pkVel 226.1 cm/s (100-170) AV ET309 msec AV mnVel 169.6 cm/Dorota AC/ET 0.3 AV pkPG 20.5 mmHgAV TVI52.3 cm AV Mean G 13.3 mmHgAVpkAcRt 8681.8 cm/s2 AV AC 90 msec (83-118) WALL MOTION: RESTING WALL MOTION: Mid Anteroseptal, Apical Anterior, Apical Inferior, Apical del angel are akinetic.Apical Septal, Apical Lateral del angel are hypokinetic. Normal in all other del angel. Wall Index=1.6 Signed 06/30/2017 11:20:00 AM Soraya Jackson M.D. 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 Stat.:Outpatient Room: [place] Study Status:Final Echo Event ID:[id number] Order ID: [id number] Reason for Study:Pericardial effusion, small; no change in status -routine surveillance History / Clinical:Diabetes, Hyperlipidemia, Hypertension Procedures:2D Echo, Colorflow Doppler Race: H SUMMARY: Moderate circumferential pericardial effusion. No significant changes FINDINGS: LV: LV size is upper limits of normal. LV EF is moderately depressed. Estimated EF is 35-39%. RV: RV size is normal. A pacemaker wire is seen in the RV. RV systolic function is normal. LA: LA volume is mildly enlarged. RA: RA volume is normal. A pacemaker wire is seen. AO: Aortic root diameter is not well visualized, but grossly appears at least mildly enlarged. STEPHANIE: Moderate circumferential pericardial effusion. No evidence of cardiac chamber collapse. Extra echoes within the pericardial space suggesting presence of fibro-adhesive material AV: Mild to moderate thickening and calcification of AV leaflets. Mild aortic regurgitation. Mild aortic valve stenosis. MV: Mild thickening and calcification of mitral leaflets. Moderate mitral annular calcification. Mild mitral regurgitation. PV: No structural PV abnormalities noted. TV: No structural TV abnormalities noted. A trace of tricuspid regurgitation Blankenship: LV relaxation is impaired. LV filling pressure is elevated. Other: Insufficient TR jet to estimate PA systolic pressure. MEASUREMENTS: 2D Parasternal [place] LVOT 1.9 cm LA Ds 3.4 cm LVIDd 5.4 cm Index 3.2 cm/m Ao An 1.9 cm LVIDs 3.5 cm Ao Rtd 2.9 cm Index 1.7 cm/m LV%fs 34.9 % LV Mass 185.2 g (87-129) IVSd 0.9 cm LVM Index 110.2 g/m2 LVPWd 0.9 cm RWT 0.3 LA Sng Plane LA Area 20.7 cm2 (8.8-23.4) LA Vol 64.3 ml Index 38.3 ml/m LA LngAx 5.3 cm DOPPLER AV For Flow/Valve Assess AV pkVel 226.1 cm/s (100-170) AV ET 309 msec AV mnVel 169.6 cm/s AV AC/ET 0.3 AV pkPG 20.5 mmHg AV TVI 52.3 cm AV Mean G 13.3 mmHg AVpkAcRt 8681.8 cm/s2 AV AC 90 msec (83-118) WALL MOTION: RESTING WALL MOTION: Mid Anteroseptal, Apical Anterior, Apical Inferior, Apical del angel are akinetic. Apical Septal, Apical Lateral del angel are hypokinetic. Normal in all other del angel. Wall Index=1.6 Signed 06/30/2017 11:20:00 AM Soraya Jackson M.D. Performing Organization Address City/State/[facility] Phone Number [facility] [address] [place] [address] after 04/24/2017 Insurance Payer Benefit Plan / Group Subscriber ID Type Phone Address MEDICARE MEDICARE PART A AND B xxxxxxxxxx Medicare [place], [place] Home: [address] [phone] [place] [id number]
--- OUTSIDE RECORDS SUMMARY | 2018-04-25 15:46 | XMS REPORT ---
:1935 Author Organization eClinicalWorks Care Team Providers Name Role Phone Wilkerson, Na Provider Role Unavailable Allergies, Adverse Reactions, Alerts Substance Reaction Event Type Morphine Sulfate Info Not Available Drug Allergy Codeine Sulfate Info Not Available Drug Allergy Problems Problem Type Condition Code Onset Dates Condition Status Assessment Unsteady gait R26.81 Active Assessment Anxiety F41.9 Active Assessment Primary insomnia F51.01 Active Assessment Primary osteoarthritis of both knees M17.0 Active Assessment CHF (congestive heart failure) I50.9 Active Problem CHF (congestive heart failure) I50.9 Active Assessment Hyperlipidemia E78.5 Active Problem GERD (gastroesophageal reflux K21.9 Active disease) Assessment Benign essential HTN I10 Active Problem Vitamin D deficiency E55.9 Active Problem Hyperlipidemia E78.5 Active Problem Benign essential HTN I10 Active Problem Elevated TSH R94.6 Active Problem Primary osteoarthritis of both knees M17.0 Active Assessment Diabetes mellitus type 2, 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 Problem Unsteady gait R26.81 Active Assessment Hypothyroidism, unspecified type E03.9 Active Problem Anxiety F41.9 Active Problem Diabetes mellitus type 2, 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 Problem Hypothyroidism, unspecified type E03.9 Active Problem Primary insomnia F51.01 Active Problem Seasonal allergic rhinitis, J30.2 Active unspecified trigger Problem Type 2 diabetes mellitus with other E11.69 Active specified complication Problem On supplemental oxygen therapy Z99.81 Active Problem 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 Active with diabetes mellitus due to underlying condition Problem Other chronic pain G89.29 Active Problem Family history of diabetes mellitus Z83.3 Active Problem Congestive heart failure, I50.9 Active unspecified congestive heart failure chronicity, unspecified congestive heart failure type Problem Arteriosclerosis of coronary artery I25.10 Active Medications Medication Code Code Instructions Start End Status Dosage System Date Date Pravachol ND 90673255546 80 MG Orally Active 1 tablet Once a day Klor-Con M10 NDC 30968676355 10 MEQ Orally Active 1 tablet Twice a day with food Tradjenta ND 76742307789 5 MG Orally Active 1 tablet Once a day Macrobid [facility] 84130174975 100 MG Orally Екатерина Active 1 capsule every 12 hrs 2017 with food Tricor [facility] 35005575224 145 MG Orally Active 1 tablet Once a day with food Aspirin 81 [facility] 97987499234 81 MG Orally Active 1 tablet Once a day Gabapentin [facility] 76664192818 100 MG Orally Active 1 capsule Three times a day Toprol XL [facility] 29282516591 25 MG Orally Active 1 tablet Once a day Fosamax [facility] 22922973073 70 MG Active TAKE 1 TABLET ONCE A WEEK Mirtazapine [facility] 92876728489 15 MG Orally Inactive 1 tablet Once a day at bedtime Flonase [facility] 30215646573 50 MCG/ACT Active 1 spray Nasally Once a in each day nostril Loratadine [facility] 06386986750 10 MG Orally Active 1 tablet Once a day Lasix [facility] 95283267423 40 MG Orally Active 1 tablet Once a day Levothyroxine [facility] 53581429325 50 MCG Orally Active 1 tablet Sodium Once a day on an empty stomach in the morning Vitamin D-3 [facility] 97089423845 1000 UNIT Active 1 capsule Orally Once a day Alprazolam [facility] 64757775146 0.25 MG Orally Active 1 tablet once a day prn anxiety Plavix [facility] 29514717802 75 MG Orally Active 1 tablet Once a day Amlodipine [facility] 46991297790 5 MG Orally Active 5 mg Besylate Once a day Valsartan [facility] 11263395741 40 MG Orally Active 1 tablet Twice a day Results No Known Results Summary Purpose eClinicalWorks Submission
--- OUTSIDE RECORDS SUMMARY | 2018-04-25 15:46 | XMS REPORT ---
:1935 Author Organization e[employer]Works Care Team Providers Name Role Phone Wilkerson, Na Provider Role Unavailable Allergies, Adverse Reactions, Alerts Substance Reaction Event Type Morphine Sulfate Info Not Available Drug Allergy Codeine Sulfate Info Not Available Drug Allergy Problems Problem Type Condition Code Onset Dates Condition Status Assessment Unsteady gait R26.81 Active Assessment CHF (congestive heart failure) I50.9 Active Problem Family history of diabetes mellitus Z83.3 Active Assessment Hyperlipidemia E78.5 Active Problem CHF (congestive heart failure) I50.9 Active Assessment Diabetes mellitus type 2, 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 Problem GERD (gastroesophageal reflux K21.9 Active disease) Problem Benign essential HTN I10 Active Problem Vitamin D deficiency E55.9 Active Problem Primary osteoarthritis of both knees M17.0 Active Problem Hypothyroidism, unspecified type E03.9 Active Assessment Hypothyroidism, unspecified type E03.9 Active Assessment Elevated TSH R94.6 Active Problem Elevated TSH R94.6 Active Assessment Benign essential HTN I10 Active Problem Diabetes mellitus type 2, 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 Problem Hyperlipidemia E78.5 Active Problem Primary insomnia F51.01 Active Problem Anxiety F41.9 Active Problem 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 Active with diabetes mellitus due to underlying condition Problem Seasonal allergic rhinitis, J30.2 Active unspecified trigger Assessment Primary osteoarthritis of both knees M17.0 Active Problem On supplemental oxygen therapy Z99.81 Active Problem Arteriosclerosis of coronary artery I25.10 Active Problem Other chronic pain G89.29 Active Problem Type 2 diabetes mellitus with other E11.69 Active specified complication Problem Congestive heart failure, I50.9 Active unspecified congestive heart failure chronicity, unspecified congestive heart failure type Medications Medication Code Code Instructions Start End Status Dosage System Date Date Levothyroxine [facility] 52532037890 50 MCG Orally November 30, Active 1 tablet Sodium Once a day 2017 on an empty stomach in the morning Lasix ND 75481520488 40 MG Orally Active 1 tablet Once a day Amlodipine ND 16821378325 5 MG Orally Active 5 mg Besylate Once a day Toprol XL [facility] 22518438666 25 MG Orally Active 1 tablet Once a day Mirtazapine [facility] 85143918172 15 MG Orally September Active 1 tablet Once a day 2017 at bedtime Vitamin D-3 [facility] 30926977813 1000 UNIT Active 1 capsule Orally Once a day Pravachol [facility] 20251741220 80 MG Orally Active 1 tablet Once a day Gabapentin [facility] 40832873285 100 MG Orally Active 1 capsule Three times a day Klor-Con M10 [facility] 69975211238 10 MEQ Orally Active 1 tablet Twice a day with food Fosamax [facility] 55326404777 70 MG Active TAKE 1 TABLET ONCE A WEEK Alprazolam [facility] 01671639236 0.25 MG Orally September Active 1 tablet once a day prn 2017 anxiety Tricor [facility] 48988917774 145 MG Orally Active 1 tablet Once a day with food Valsartan [facility] 63651636702 40 MG Orally Active 1 tablet Twice a day Tramadol HCl [facility] 17440010094 50 MG Orally November 30December Active 1 tablet once a night as 2017 14, as needed needed for pain 2017 ( 5-10 pain scale) Aspirin 81 [facility] 28894144141 81 MG Orally Active 1 tablet Once a day Loratadine [facility] 36830052785 10 MG Orally Active 1 tablet Once a day Macrobid [facility] 39882548473 100 MG Orally October Active 1 capsule every 12 hrs 2017 with food Plavix [facility] 12822572777 75 MG Orally Active 1 tablet Once a day Tradjenta [facility] 37118784487 5 MG Orally Active 1 tablet Once a day Flonase [facility] 66201410868 50 MCG/ACT Active 1 spray in Nasally Once a each day nostril Results No Known Results Summary Purpose eClinicalWorks Submission
[2018-04-25] MEDS ORDERED: FUROSEMIDE 20 MG/ 2ML VIAL ONE (16:30)
--- NOTE | 2018-04-25 16:42 | RAD REPORT ---
EXAM DESCRIPTION: RAD - Chest Single View - 04/25/2018 4:35 pm CLINICAL HISTORY: SOB Chest pain. COMPARISON: Chest Single View dated 07/20/2017; Chest Single View dated 02/16/2017; CHEST SINGLE VIEW da nahid 12/21/2012; CHEST SINGLE VIEW dated 08/22/2010 FINDINGS: Portable technique limits examination quality. Moderate bilateral pulmonary opacities are present compatible with pulmonary edema. Small bilateral p leural effusions are seen. The heart is significantly enlarged in size with a single lead pacer/defib rillator device. No displaced fractures. IMPRESSION: Moderate CHF versus volume overload pattern.
--- NOTE | 2018-04-25 16:52 | ER ---
Nurse's Notes [facility] Name: Mendy Gomez Age: 83 yrs Sex: Female : 1935 Arrival Date: 04/25/2018 Time: 15:45 Bed 20 Private MD: Brandie Wilkerson Diagnosis: Unspecified systolic (congestive) heart failure Presentation: 04/25 16:12 Presenting complaint: Patient states: SOB x 1 day with shakiness. Transition of care: jl7 patient was not received from another setting of care. Onset of symptoms was April 25, 2018. Risk Assessment: Do you want to hurt yourself or someone else? Patient reports no desire to harm self or others. Care prior to arrival: 16:12 Method Of Arrival: Wheelchair jl7 16:12 Acuity: BYRON 3 jl7 17:41 Initial Sepsis Screen: Does the patient meet any 2 criteria? RR > 20 per min. Temp jl7 <36.0*C (96.8*F)) or > 38.3*C (100.4*F). Yes Does the patient have a suspected source of infection? No. Patient's initial sepsis screen is negative. Triage Assessment: 16:45 General: Appears in no apparent distress. uncomfortable, Behavior is calm, cooperative, jl7 appropriate for age. Respiratory: Airway is patent Respiratory effort is even, labored, Respiratory pattern is symmetrical, tachypnea Breath sounds with wheezes bilaterally. Onset: The symptoms/episode began/occurred this morning, Historical: - Allergies: 16:20 PENICILLINS; jl7 - Home Meds: 16:20 nitrofurantoin macrocrystal 100 mg Oral cap [Active]; levothyroxine 50 mcg tab 1 tab jl7 once daily [Active]; fenofibrate 145 mg Oral tab 1 tab once daily [Active]; metoprolol succinate 25 mg oral Tb24 1 tab once daily [Active]; amlodipine 5 mg tab 1 tab once daily [Active]; Zegerid OTC 20-1.1 mg-gram oral cap 1 cap once daily [Active]; aspirin 81 mg Oral chew once daily [Active]; amlodipine 5 mg tab 1 tab once daily [Active]; Vitamin D3 2,000 unit Oral tab daily [Active]; pravastatin 80 mg Oral tab once daily [Active]; Plavix 75 mg Oral tab 1 tab once daily [Active]; Tradjenta 5 mg Oral tab 1 tab once daily [Active]; furosemide 80 mg Oral tab once daily [Active]; - PMHx: 16:20 Hyperlipidemia; Hypertension; pacemaker/defibrillator; PR; jl7 - PSHx: 16:20 Heart stents; ; jl7 - Immunization history:: Adult Immunizations up to date. - Social history:: Smoking status: Patient/guardian denies using tobacco. - Ebola Screening: : No symptoms or risks identified at this time. Screenin:46 Abuse screen: Denies threats or abuse. Denies injuries from another. Nutritional jl7 screening: No deficits noted. Tuberculosis screening: No symptoms or risk factors identified. 16:46 Fall Risk No fall in past 12 months (0 pts). No secondary diagnosis (0 pts). IV access jl7 (20 points). Ambulatory Aid- None/Bed Rest/Nurse Assist (0 pts). Gait- Impaired (20 pts.). Mental Status- Oriented to own ability (0 pts). Total Clay Fall Scale indicates Low Risk Score (25-44 pts). Fall prevention measures have been instituted. Side Rails Up X 2 Placed close to Nursing Station Frequent Obs/Assesments occuring Family Present and informed to notify staff if they need to leave bedside As available Patient and Family Educated on Fall Prevention Program and strategies. Assessment: 16:30 General: Appears in no apparent distress. uncomfortable, Behavior is calm, cooperative, jl7 appropriate for age. Pain: Denies pain. Neuro: Level of Consciousness is awake, alert, obeys commands, Oriented to person, place, time, situation. Cardiovascular: Murmur present Patient's skin is warm and dry. Rhythm is sinus rhythm. Respiratory: Airway is patent Respiratory effort is even, labored, Respiratory pattern is symmetrical, tachypnea Breath sounds with wheezes bilaterally. GI: No signs and/or symptoms were reported involving the gastrointestinal system. : Reports Dx with UTI on , began antibiotics on Wednesday. Derm: Skin is pink, warm \T\ dry. Musculoskeletal: Pt is able to transfer with assist from wheelchair to bed, chair, and toilet. 17:25 Reassessment: Dr. Calloway at bedside discussing plan of care. jl7 18:20 Reassessment: Attempted to call report, Mobile Lounge Driver Or Operator reports BRYAN Almeida will call back [facility] for report. 19:45 General: Appears in no apparent distress. Behavior is calm, cooperative, appropriate ea for age. Pain: Denies pain. Neuro: Level of Consciousness is awake, alert, obeys commands, Oriented to person, place, time, situation. Cardiovascular: Heart tones S1 S2 present. Respiratory: Airway is patent Respiratory effort is even, unlabored, Respiratory pattern is regular, symmetrical, Breath sounds are diminished. GI: No signs and/or symptoms were reported involving the gastrointestinal system. Derm: Skin is pink, warm \T\ dry. 20:22 Reassessment: Report called to Shaila ADAMS on second floor. ea Vital Signs: 16:20 BP 130 / 64; Pulse 77; Resp 25 S; Temp 100.1(O); Pulse Ox 95% on R/A; Weight 66.68 kg jl7 (R); Height 4 ft. 11 in. (149.86 cm) (R); 16:46 BP 120 / 60; Pulse 67; Resp 24 S; Pulse Ox 96% on R/A; jl7 17:15 BP 115 / 98; Pulse 65; Resp 22 S; Pulse Ox 96% on R/A; jl7 17:39 BP 120 / 60; Pulse 62; Resp 19 S; Pulse Ox 96% on R/A; jl7 19:45 BP 119 / 63; Pulse 59; Resp 20; Temp 98.7; Pulse Ox 96% ; Pain 0/10; ea 20:41 BP 120 / 60; Pulse 60; Resp 18; Pulse Ox 96% ; Pain 0/10; ea 16:20 Body Mass Index 29.69 (66.68 kg, 149.86 cm) [facility] ED Course: 15:45 Patient arrived in ED. mr 15:46 Brandie Wilkerson MD is Private Physician. mr 15:59 Milagros Reardon FNP-C is [facility]. snw 15:59 Jeremy Eason MD is Attending Physician. snw 16:12 Diana Michel, BRYAN is Primary Nurse. jl7 16:13 Triage completed. jl7 16:20 Arm band placed on right wrist. jl7 16:30 Patient has correct armband on for positive identification. Placed in gown. Bed in low jl7 position. Call light in reach. Side rails up X2. manager monitoring on. Pulse ox on. NIBP on. Warm blanket given. 16:36 XRAY Chest (1 view) In Process Unspecified. EDMS 16:40 Inserted saline lock: 22 gauge in right hand, using aseptic technique. Blood collected. jl7 16:45 EKG done, by mathematical engineering technician. reviewed by Milagros CARRENO. sm3 16:45 Initial lab(s) drawn, by nc, sent to lab. First set of blood cultures drawn Second set jl7 of blood cultures drawn. 16:52 Travis Calloway MD is Hospitalizing Provider. snw 17:15 Muñoz cath inserted, using sterile technique, 18 Fr., by nc, balloon inflated, to jl7 gravity drainage, urine specimen collected. returned cloudy urine. Patient tolerated well. 17:40 No provider procedures requiring assistance completed. jl7 20:01 Patient admitted, IV remains in place. ea Administered Medications: 17:20 Drug: Lasix 20 mg Route: IVP; Site: right hand; jl7 18:31 Follow up: Response: No adverse reaction jl7 17:25 Drug: Rocephin 1 grams Route: IV; Rate: calculated rate; Site: right hand; jl7 17:28 Follow up: Response: No adverse reaction; IV Status: Completed infusion jl7 Outcome: 16:52 Decision to Hospitalize by Provider. snw 20:01 Condition: stable ea 20:01 Instructed on the need for admit, Demonstrated understanding of instructions. 20:41 Admitted to Med/surg accompanied by tech, room 209, Report called to Shaila ADAMS ea 20:42 Patient left the ED. ea Signatures: Dispatcher [employer] EDVT Milagros Reardon FNP-C FNP-[facility] Tanvi Alaniz MichelDiana, RN RN Pat Ferraro RN RN ea Montes, Shakira 3 Corrections: (The following items were deleted from the chart) 16:49 16:46 BP 106 / 48; Pulse 67bpm; Resp 24bpm; Spontaneous; Pulse Ox 96% RA; jl7 jl7 16:58 16:46 BP 180 / 62; Pulse 67bpm; Resp 24bpm; Spontaneous; Pulse Ox 96% RA; marlon jl7 20:01 20:00 BP 119 / 63; Pulse 59bpm; Resp 20bpm; Pulse Ox 96%; Temp 98.7F; Pain 0/10; ea ea
--- NOTE | 2018-04-25 16:52 | EDPHYS ---
Physician Documentation [facility] Name: Mendy Gomez Age: 83 yrs Sex: Female : 1935 Arrival Date: 04/25/2018 Time: 15:45 Bed 20 Private MD: Brandie Wilkerson ED Physician Jeremy Eason HPI: 04/25 16:17 This 83 yrs old Female presents to ER via Wheelchair with complaints of snw Breathing Difficulty. 16:17 The patient has shortness of breath at rest. Onset: The symptoms/episode began/occurred snw suddenly, at 01:00, and became persistent. Duration: The symptoms are continuous. The patient's shortness of breath is aggravated by supine position. Associated signs and symptoms: The patient has no apparent associated signs or symptoms. Severity of symptoms: At their worst the symptoms were moderate. It is unknown whether or not the patient has had similar symptoms in the past. The patient has been recently seen by a physician: 1 week(s) ago. Pt sees Dr. Wilkerson, Dr. Frank, and Dr. Sterling, Saw all her Doctors last week and was doing well. Labs wer stable/good per report. Pt did have UTI and is on antibiotics. Today in ER, temp 100.1. Historical: - Allergies: 16:20 PENICILLINS; jl7 - Home Meds: 16:20 nitrofurantoin macrocrystal 100 mg Oral cap [Active]; levothyroxine 50 mcg tab 1 tab jl7 once daily [Active]; fenofibrate 145 mg Oral tab 1 tab once daily [Active]; metoprolol succinate 25 mg oral Tb24 1 tab once daily [Active]; amlodipine 5 mg tab 1 tab once daily [Active]; Zegerid OTC 20-1.1 mg-gram oral cap 1 cap once daily [Active]; aspirin 81 mg Oral chew once daily [Active]; amlodipine 5 mg tab 1 tab once daily [Active]; Vitamin D3 2,000 unit Oral tab daily [Active]; pravastatin 80 mg Oral tab once daily [Active]; Plavix 75 mg Oral tab 1 tab once daily [Active]; Tradjenta 5 mg Oral tab 1 tab once daily [Active]; furosemide 80 mg Oral tab once daily [Active]; - PMHx: 16:20 Hyperlipidemia; Hypertension; pacemaker/defibrillator; NM; jl7 - PSHx: 16:20 Heart stents; ; jl7 - Immunization history:: Adult Immunizations up to date. - Social history:: Smoking status: Patient/guardian denies using tobacco. - Ebola Screening: : No symptoms or risks identified at this time. ROS: 16:17 Constitutional: Negative for fever, chills, and weight loss, Eyes: Negative for injury, snw pain, redness, and discharge, ENT: Negative for injury, pain, and discharge, Neck: Negative for injury, pain, and swelling, Cardiovascular: Negative for chest pain, palpitations, and edema, Abdomen/GI: Negative for abdominal pain, nausea, vomiting, diarrhea, and constipation, Back: Negative for injury and pain, : Negative for injury, bleeding, discharge, and swelling, MS/Extremity: Negative for injury and deformity, Skin: Negative for injury, rash, and discoloration, Neuro: Negative for headache, weakness, numbness, tingling, and seizure, Psych: Negative for depression, anxiety, suicide ideation, homicidal ideation, and hallucinations. 16:17 Respiratory: Positive for shortness of breath, at rest. Exam: 16:15 Constitutional: This is a well developed, well nourished patient who is awake, alert, snw and in no acute distress. Head/Face: Normocephalic, atraumatic. Eyes: Pupils equal round and reactive to light, extra-ocular motions intact. Lids and lashes normal. Conjunctiva and sclera are non-icteric and not injected. Cornea within normal limits. Periorbital areas with no swelling, redness, or edema. ENT: Nares patent. No nasal discharge, no septal abnormalities noted. Tympanic membranes are normal and external auditory canals are clear. Oropharynx with no redness, swelling, or masses, exudates, or evidence of obstruction, uvula midline. Mucous membranes moist. Neck: Trachea midline, no thyromegaly or masses palpated, and no cervical lymphadenopathy. Supple, full range of motion without nuchal rigidity, or vertebral point tenderness. No Meningismus. Chest/axilla: Normal chest wall appearance and motion. Nontender with no deformity. No lesions are appreciated. 16:15 Cardiovascular: Rate: normal, Rhythm: regular, Pulses: no pulse deficits are appreciated, Heart sounds: murmur, Edema: 2+ edema to level of left foot and right foot. 16:15 Respiratory: mild respiratory distress is noted, Respirations: accessory muscle usage, shallow respirations, tachypnea, Breath sounds: decreased breath sounds, halting speech. Vital Signs: 16:20 BP 130 / 64; Pulse 77; Resp 25 S; Temp 100.1(O); Pulse Ox 95% on R/A; Weight 66.68 kg jl7 (R); Height 4 ft. 11 in. (149.86 cm) (R); 16:46 BP 120 / 60; Pulse 67; Resp 24 S; Pulse Ox 96% on R/A; jl7 17:15 BP 115 / 98; Pulse 65; Resp 22 S; Pulse Ox 96% on R/A; jl7 17:39 BP 120 / 60; Pulse 62; Resp 19 S; Pulse Ox 96% on R/A; jl7 19:45 BP 119 / 63; Pulse 59; Resp 20; Temp 98.7; Pulse Ox 96% ; Pain 0/10; ea 20:41 BP 120 / 60; Pulse 60; Resp 18; Pulse Ox 96% ; Pain 0/10; ea 16:20 Body Mass Index 29.69 (66.68 kg, 149.86 cm) jl7 MDM: 16:01 Patient medically screened. snw 16:50 Antibiotic administration: The patient is discharged and will get outpatient snw antibiotics, Macrobid. Data reviewed: vital signs, nurses notes. Data interpreted: Pulse oximetry: on room air is 95 %. Interpretation: normal. Counseling: I had a detailed discussion with the patient and/or guardian regarding: the historical points, exam findings, and any diagnostic results supporting the discharge/admit diagnosis, lab results, radiology results, the need for further work-up and treatment in the hospital. Physician consultation: Travis Calloway MD was called at 16:51, was contacted at 16:51, regarding admission, to the telemetry unit. 04/25 16:14 Order name: Basic Metabolic Panel; Complete Time: 17:16 snw 04/25 16:14 Order name: CBC with Diff snw 04/25 16:14 Order name: LFT's; Complete Time: 17:16 snw 04/25 16:14 Order name: Magnesium; Complete Time: 17:16 snw 04/25 16:14 Order name: NT PRO-BNP; Complete Time: 17:16 snw 04/25 16:14 Order name: PT-INR; Complete Time: 17:07 snw 04/25 16:14 Order name: Troponin (emerg Dept Use Only); Complete Time: 17:16 snw 04/25 16:14 Order name: XRAY Chest (1 view); Complete Time: 16:44 snw 04/25 16:14 Order name: EKG; Complete Time: 16:14 snw 04/25 16:14 Order name: Blood Culture Adult (2) snw 04/25 16:50 Order name: Urine Culture snw 04/25 17:35 Order name: Urine Dipstick--Ancillary (enter results) bd 04/25 16:14 Order name: Cardiac monitoring; Complete Time: 16:21 snw 04/25 16:14 Order name: EKG - Nurse/Tech; Complete Time: 16:21 snw 04/25 16:14 Order name: IV Saline Lock; Complete Time: 16:43 snw 04/25 16:14 Order name: Labs collected and sent; Complete Time: 16:43 snw 04/25 16:14 Order name: O2 Per Protocol; Complete Time: 16:21 snw 04/25 16:14 Order name: O2 Sat Monitoring; Complete Time: 16:21 snw 04/25 16:45 Order name: Muñoz; Complete Time: 17:19 snw Administered Medications: 17:20 Drug: Lasix 20 mg Route: IVP; Site: right hand; jl7 18:31 Follow up: Response: No adverse reaction jl 17:25 Drug: Rocephin 1 grams Route: IV; Rate: calculated rate; Site: right hand; jl7 17:28 Follow up: Response: No adverse reaction; IV Status: Completed infusion jl7 Disposition: 04/26 07:44 Co-signature as Attending Physician, Jeremy Eason MD I agree with the assessment and jaguar plan of care. Disposition: 04/25/18 16:52 Hospitalization ordered by Travis Calloway for Inpatient Admission. Preliminary diagnosis is Unspecified systolic (congestive) heart failure. - Bed requested for Telemetry/MedSurg (Inpatient). - Status is Inpatient Admission. ea - Condition is Stable. - Problem is new. - Symptoms have worsened. UTI on Admission? Yes Signatures: Dispatcher [employer] EDMS Violeta Egan Jeremy Vasquez MD MD cha Therrien, Shelly, GEOSPATIAL EXTRACTOR ANALYSIS-C GEOSPATIAL EXTRACTOR ANALYSIS-Csnw Diana Michel, RN RN jlPat Rose RN RN ea Corrections: (The following items were deleted from the chart) 04/25 18:19 16:52 Hospitalization Ordered by Travis Calloway MD for Inpatient Admission. Preliminary bd diagnosis is Unspecified systolic (congestive) heart failure. Bed requested for Telemetry/MedSurg (Inpatient). Status is Inpatient Admission. Condition is Stable. Problem is new. Symptoms have worsened. UTI on Admission? Yes. snw 20:42 18:19 04/25/2018 16:52 Hospitalization Ordered by Travis Calloway MD for Inpatient ea Admission. Preliminary diagnosis is Unspecified systolic (congestive) heart failure. Bed requested for Telemetry/MedSurg (Inpatient). Status is Inpatient Admission. Condition is Stable. Problem is new. Symptoms have worsened. UTI on Admission? Yes. bd
[2018-04-25 17:01] LABS: Absolute Lymphocytes (CBC) 0.4 K/uL (0.7-4.9); Absolute Monocytes 0.5 K/uL (0.1-1.3); Absolute Neutrophil 10.9 K/uL (1.8-8.0); Basophils % 0.2 % (0-1.3); Eosinophils % 2.2 % (0-4.4); Hematocrit 31.9 % (36.0-45.0); Lymphocytes % 3.4 % (15.3-44.8); MCH 31.8 pg (27.0-35.0); MCV 95.9 fL (80-100); MPV 10.1 fL (7.6-11.3); Monocytes % 3.9 % (3.3-12.3); Protime INR 1.13; RBC Red Blood Cell Count 3.32 M/uL (3.86-4.86)
[2018-04-25] MEDS ORDERED: ONDANSETRON 4 MG/2 ML VIAL IV PRN (17:06)
[2018-04-25 17:16] LABS: Albumin 3.4 g/dL (3.4-5.0); Bilirubin Direct 0.2 mg/dL (0-0.2); Bilirubin Total 0.6 mg/dL (0.2-1.0); Magnesium 2.6 mg/dL (1.8-2.4); Potassium 4.1 mmol/L (3.5-5.1); Protein, Total 7.3 g/dL (6.4-8.2); Troponin (Emerg Dept Use Only) 0.08 ng/mL (0.0-0.045)
[2018-04-25] MEDS ORDERED: GLUCAGON 1 MG/VIAL IM PRN (17:20)
[2018-04-25] MEDS ORDERED: D50W 25 GM/50 ML SYRINGE IV PRN (17:20)
[2018-04-25] MEDS ORDERED: CEFTRIAXONE/SWI 1gm 1 GM/10 ML SYR ONE (17:30)
--- NOTE | 2018-04-25 17:40 | EKG ---
Test Date: 2018-04-25 Test Time: 16:18:22 I&C Technician: DAVID MEASUREMENT RESULTS: Intervals: Rate: 68 GA: 144 QRSD: 132 QT: 394 QTc: 418 Evans: P: 26 GA: 144 QRS: -41 T: -62 INTERPRETIVE STATEMENTS: Normal sinus rhythm Left axis deviation Right bundle branch block Anteroseptal infarct, age undetermined Abnormal ECG Compared to ECG 07/20/2017 00:55:07 No significant changes Electronically Signed On 04-25-18 17:39:41 CDT by Yaakov Funes
[2018-04-25] MEDS ORDERED: AZITHROMYCIN IV 500 MG in NA CHLORIDE 0.9% 250 ML IVPB SCH (21:00)
[2018-04-25] MEDS: INSULIN -REGULAR HUMAN 50 UNIT/0.5 ML ML SQ SCH (21:00)
[2018-04-25 21:16] LABS: Blood Morphology Comment NOT SEEN (NOT SEEN); Platelet Estimate ADEQ
[2018-04-25 21:22] LABS: Urine Blood 1+ (NEG); Urine Glucose NEGATIVE (NEG); Urine Protein NEGATIVE (NEG); Urine Specific Gravity <1.005 (1.005-1.030)
[2018-04-25] MEDS: NA CHLORIDE 0.9% 0 ML ONE ×2 (22:52)
[2018-04-25] MEDS: ENOXAPARIN 30 MG/0.3 ML SQ SCH (22:53)
[2018-04-25] MEDS: METOPROLOL TAR 25 MG TAB PO SCH (22:54)
[2018-04-25] MEDS ORDERED: AZITHROMYCIN 500 MG/250 ML BAG ONE (23:14)
[2018-04-26] MEDS: ACETAMINOPHEN 500 MG TAB PO PRN ×2 (00:23→07:33)
[2018-04-26 02:05] VITALS: BMI 30.4
--- NOTE | 2018-04-26 04:34 | HP ---
Date of Admission: 04/25/2018 Primary Care Physician: Dr. Varma. Consultants: Dr. Frank with Nephrology. Code Status: Full. Chief Complaint: Shortness of breath, cough. History Of Present Illness: The patient is an 83-year-old female with past medical history of hypert ension, hyperlipidemia, history of CA, congestive heart failure, systolic heart failure with status p ost AICD, chronic kidney disease, diabetes, CA with stents, who was in her usual state of health unti l a couple of days prior to admission when the patient started having some shortness of breath along with some cough, sputum production. No ill contacts. Denies any fevers, however, did have a low-gra de fever of 100.1 here in the ER. The patient's symptoms are constant, moderate, progressively worse lonnie, was recently diagnosed with the UTI and was put on nitrofurantoin, has taken 1 day worth of dos e so far. The patient previously has had history of pericardial effusion, had to be transferred to [facility] and had pericardiocentesis and had recurrence and had to be tapped again. They are going t o explain some sort of procedure, it sounds like shunt. The patient's workup revealed a creatinine o f 2.2, which is around her baseline. BNP was elevated at 13,000. WBC count was high at 12, with a n eutrophilia. The patient's chest x-ray showed some pulmonary edema, moderate CHF, volume overload pa ttern. The patient's EKG showed normal sinus rhythm, rate of 68, left axis deviation, right bundle-b ranch block. No significant changes compared to previous. The patient was given Rocephin 1 g IV and 20 mg of Lasix IV and then referred for admission. When seen in the ER, the patient was awake, aler t, oriented x3, in some mild distress. Past Medical History: Hypertension, hyperlipidemia, history of CA status post stents, systolic conge stive heart failure, diabetes, [id number]. Past Surgical History: Hysterectomy, AICD placement, coronary stents, appendectomy. Allergies: NO KNOWN DRUG ALLERGIES. Medications: List reviewed. Social History: The patient denies any alcohol use, tobacco use, or illicit drug use. [facility]. Family History: Noncontributory for this 83-year-old female. Review of Systems: An 11-point system reviewed, negative except as per HPI. Physical Examination: Vital Signs: Blood pressure 130/64, pulse 77, respirations 25, temperature 100.1, O2 of 95% on room air. General: Awake, alert, oriented x3, ill-appearing female, elderly, in some mild distress. HEENT: Normocephalic, atraumatic. PERRLA. EOMI. Moist mucous membranes. Oropharynx is clear. Po or dentition. Conjunctivae anicteric. Neck: Supple. Trachea midline. CV: S1, S2. Regular rate and rhythm. Peripheral pulses present. Respiratory: Diminished breath sounds bilaterally. Crackles present throughout. No stridor. No us e of accessory muscles. Gastrointestinal: Abdomen is soft, obese, nontender, nondistended. Positive bowel sounds. No guard ing or rigidity. Extremities: No clubbing, cyanosis. The patient has 2+ edema bilateral lower extremities up to the shins. Neuro: Cranial nerves 2 through 12 intact grossly. No focal neurological deficit. Speech is normal . Strength is 5/5 bilateral upper and lower extremities. Sensation intact to light touch. Skin: No rashes. The patient does have some chronic venous stasis changes of the lower extremities. Psych: Mood is okay. Affect is full. Insight and judgment are good. Laboratory Data: UA is pending. Sodium 144, potassium 4.1, chloride 113, CO2 24, BUN 53, creatinine 2.2, glucose 161, calcium 8.9, magnesium 2.6. Troponin 0.08. BNP 13,933. INR 1.13. WBC 12, H and H 10.6 and 31.9, platelets 165, neutrophils 90%. Chest x-ray shows moderate CHF versus volume overl oad pattern. EKG wound shows normal sinus rhythm, rate of 68, left axis deviation, right bundle-bran ch block. No changes compared to previous. Assessment And Plan: An 83-year-old female with: 1.Lolwu-tb-bhasubc systolic heart failure. BNP is elevated. Chest x-ray shows volume overload. We will continue on congestive heart failure guidelines, beta-jen, TERRY inhibitor, and continue with diuresis with Lasix. We will obtain echocardiogram to rule out pericardial effusion. 2.Urinary tract infection, treated with Macrobid as an outpatient. We will obtain UA and urine cult ure. The patient was given Rocephin. 3.Status post defibrillator pacer, last checked was approximately 1 year ago. The patient does see a study lead, Dr. Sterling. The patient will need to have a defibrillator interrogated in his offic e. 4.Elevated troponin, likely from acute congestive heart failure. No chest pain. No changes on EKG. We will continue to monitor. 5.Chronic kidney disease stage 3. Creatinine is around baseline. We will avoid NSAIDs. Dr. Terrell torres, the patient's primary reports developer, has been consulted. 6.Normocytic normochromic anemia, likely anemia of chronic disease due to chronic kidney disease. W e will continue to monitor H and H. 7.Neutrophilic leukocytosis. The patient does have a recent urinary tract infection. Did have some mild low-grade fever. Complains of some cough, sputum production, possible pneumonia. We will obta in influenza screen as well. Cover with prophylactic antibiotics until cultures come back negative. 8.Essential hypertension, stable. 9.Mixed hyperlipidemia, statin. 10.History of myocardial infarction, status post stents. Continue home medications. 11.Diabetes mellitus type 2, frz-loqncbj-gfnpddkbe with hyperglycemia. We will continue Accu-Cheks and sliding scale insulin. 12.Gastrointestinal and deep venous thrombosis prophylaxis with PPI and Lovenox renally dosed. Plan: Admit the patient to Med-Surg, place as inpatient. The patient's code status is full. No med ical power of criminal defense attorney or living will. JACQUELYN Voice ID: [id number]
[2018-04-26 05:31] LABS: Absolute Lymphocytes (CBC) 0.7 K/uL (0.7-4.9); Absolute Monocytes 0.5 K/uL (0.1-1.3); Absolute Neutrophil 6.4 K/uL (1.8-8.0); Basophils % 0.4 % (0-1.3); Eosinophils % 4.7 % (0-4.4); Hematocrit 28.4 % (36.0-45.0); Lymphocytes % 8.7 % (15.3-44.8); MCH 32.8 pg (27.0-35.0); MCV 96.7 fL (80-100); MPV 10.3 fL (7.6-11.3); Monocytes % 6.1 % (3.3-12.3); RBC Red Blood Cell Count 2.94 M/uL (3.86-4.86)
[2018-04-26] MEDS: METOPROLOL TAR 25 MG TAB PO SCH ×2 (05:49→18:00)
[2018-04-26 05:52] LABS: Albumin 2.7 g/dL (3.4-5.0); Bilirubin Total 0.5 mg/dL (0.2-1.0); Magnesium 2.5 mg/dL (1.8-2.4); Phosphorus 3.5 mg/dL (2.5-4.9); Potassium 4.3 mmol/L (3.5-5.1); Protein, Total 6.4 g/dL (6.4-8.2); Uric Acid 7.5 mg/dL (2.6-6.0)
[2018-04-26 06:58] LABS: Urine Appearance CLOUDY; Urine Bilirubin NEGATIVE (NEG); Urine Blood 1+ (NEG); Urine Color YELLOW; Urine Glucose NEGATIVE (NEG); Urine Protein NEGATIVE (NEG); Urine Specific Gravity 1.015 (1.005-1.030); Urine Urobilinogen 0.2 mg/dL (0.2-1.0)
[2018-04-26 07:05] LABS: Urine Bacteria 20-50 /HPF (<20); Urine RBC NONE SEEN /HPF (NONE SEEN)
[2018-04-26 07:06] LABS: Urine Culture Reflex Order REFLEXED; Urine Mucus 1+ /HPF (NONE SEEN)
[2018-04-26 07:17] LABS: UR MICROALBUMIN 8.4 mg/dL (< 1.9)
[2018-04-26] MEDS: INSULIN -REGULAR HUMAN 50 UNIT/0.5 ML ML SQ SCH ×4 (07:30→21:00)
[2018-04-26] MEDS ORDERED: PNEUMOCOCCAL VACCINE 0.5 ML IMVAC ONE ×2 (08:00→14:00)
[2018-04-26] MEDS ORDERED: CEFTRIAXONE 1 GM/NS 50 ML 1 GM/50 ML BAG IV SCH (09:00)
[2018-04-26] MEDS: FUROSEMIDE 40 MG/4 ML VIAL IV SCH ×2 (09:50→18:11)
[2018-04-26] MEDS: CEFTRIAXONE/SWI 1gm 1 GM/10 ML SYR IVP SCH (09:50)
[2018-04-26] MEDS: LISINOPRIL 10 MG TAB PO SCH (09:51)
--- NOTE | 2018-04-26 12:55 | ECHO ---
HEIGHT: 4 ft 11 in WEIGHT: 152 lb 8 oz DATE OF STUDY: 04/26/[address]: 2-DIMENSIONAL: YES M.MODE: YES DOPPLER: YES COLOR FLOW: YES TDS: NO PORTABLE: NO DEFINITY: NO BUBBLE STUDY: NO DIAGNOSIS: CONGESTIVE HEART FAILURE CARDIAC HISTORY: CATHERIZATION: YES SURGERY: NO PROSTHETIC VALVE: NO PACEMAKER: YES MEASUREMENTS (cm) DIASTOLIC (NORMALS) SYSTOLIC (NORMALS) IVSd 1.2 (0.6-1.2) LA Diam 4.0 (1.9-4.0) LVEF 55% LVIDd 4.2 (3.5-5.7) LVIDs 3.0 (2.0-3.5) %FS 29% LVPWd 1.2 (0.6-1.2) Ao Diam 2.4 (2.0-3.7) 2 DIMENSIONAL ASSESSMENT: RIGHT ATRIUM: NORMAL LEFT ATRIUM: DILATED RIGHT VENTRICLE: PACEMAKER CATHETER LEFT VENTRICLE: LEFT VENTRICULAR HYPERTROPHY TRICUSPID VALVE: NORMAL MITRAL VALVE: NORMAL PULMONIC VALVE: NORMAL AORTIC VALVE: SCLEROSIS PERICARDIAL EFFUSION: NONE AORTIC ROOT: NORMAL LEFT VENTRICULAR WALL MOTION: ANTERIOR APICAL HYPOKINESIS. DOPPLER/COLOR FLOW: MILD AORTIC REGURGITATION AND TRICUSPID REGURGITATION. ESTIMATED RIGHT VENTRICULAR SYSTOLIC PRESSURE 52 MMHG ( MODERATE PULMONARY HYPERTENSION). MILD AORTIC STENOSIS. PEAK/MEAN GRADIENT 26/14. ESTIMATED AORTIC VALVE AREA 1.8 CM SQUARED. MODERATE TRICUSPID REGURGITATION. COMMENTS: NORMAL LEFT VENTRICULAR EJECTION FRACTION WITH WALL MOTION ABNORMALITY. LEFT VENTRICULAR HYPERTROPHY. DILATED LEFT ATRIUM. MODERATE MITRAL REGURGITATION. MILD AORTIC STENOSIS. MILD TRICUSPID REGURGITATION. MILD AORTIC REGURGITATION. MODERATE PULMONARY HYPERTENSION. PACEMAKER IN RIGHT VENTRICULAR [employer]PEX . TECHNOLOGIST: MARIELA LOERA
[2018-04-26] MEDS: ENOXAPARIN 30 MG/0.3 ML SQ SCH (18:10)
--- NOTE | 2018-04-26 20:06 | P.PN ---
Subjective Date of Service: 04/26/18 Chief Complaint: Shortness of breath, cough. Subjective: No C/O voiced, Improving Patient seen and examined at bedside. Improving symptomatically Physical Examination - Vital Signs Temperature: 98.0 F Blood Pressure: 122/64 Pulse: 63 Respirations: 16 Pulse Ox (%): 99 - Physical Exam General: Alert, Mild distress HEENT: Atraumatic Neck: Supple, 2+ carotid pulse no bruit Respiratory: Diminished, Other (no wheezing) Cardiovascular: Normal pulses, Regular rate/rhythm, Normal S1 S2 Gastrointestinal: Normal bowel sounds Neurological: Normal speech - Studies Laboratory Data (last 24 hrs) 04/25/18 16:40: WBC 12.0 H D, Hgb 10.6 L, Hct 31.9 L, Plt Count 165 Assessment And Plan - Plan An 83-year-old female with: 1. Sdbgf-vr-jedlugm systolic heart failure. BNP is elevated. Chest x-ray shows volume overload. We will continue on congestive heart failure guidelines , beta-jen, TERRY inhibitor, and continue with diuresis with Lasix. ECHO with no effusion and EF of 55%. Symptomatically improving. 2. Urinary tract infection, treated with Macrobid as an outpatient. We will obtain UA and urine culture. The patient was given Rocephin. 3.Status post defibrillator pacer, last checked was approximately 1 year ago. The patient does see a buttonhole machine operator, Dr. Sterling. The patient will need to have a defibrillator interrogated in his office. 4. Elevated troponin, likely from acute congestive heart failure. No chest pain. No changes on EKG. We will continue to monitor. 5. Chronic kidney disease stage 3. Creatinine is around baseline. We will avoid NSAIDs. Dr. Frank, the patient's primary pulp screen operator, has been consulted, recs appreciated. 6. Normocytic normochromic anemia, likely anemia of chronic disease due to chronic kidney disease. We will continue to monitor H and H. 7. Neutrophilic leukocytosis. The patient does have a recent urinary tract infection. Did have some mild low-grade fever. Complains of some cough, sputum production, possible pneumonia. We will obtain influenza screen as well. Cover with prophylactic antibiotics until cultures come back negative. 8. Essential hypertension, stable. 9. Mixed hyperlipidemia, statin. 10.history of myocardial infarction, status post stents. Continue home medications. 11.Diabetes mellitus type 2, nhz-aeitqnt-cvokasfdv with hyperglycemia. We will continue Accu-Cheks and sliding scale insulin. 12.Gastrointestinal and deep venous thrombosis prophylaxis with PPI and Lovenox renally dosed. Plan: Monitor symptomatically. Discharge Plan: Home Plan to discharge in: 48 Hours Time Spent Managing PTS Care (In Minutes): 35
[2018-04-27] MEDS: ACETAMINOPHEN 500 MG TAB PO PRN (00:30)
[2018-04-27] MEDS ORDERED: ACETAMIN/CAFFEINE/BUTALB TAB PO ONE (03:48)
[2018-04-27] MEDS: METOPROLOL TAR 25 MG TAB PO SCH ×2 (06:00→18:00)
[2018-04-27 06:32] LABS: Urine Appearance CLOUDY; Urine Bilirubin NEGATIVE (NEG); Urine Blood 2+ (NEG); Urine Color YELLOW; Urine Glucose NEGATIVE (NEG); Urine Protein NEGATIVE (NEG); Urine Specific Gravity 1.015 (1.005-1.030); Urine Urobilinogen 0.2 mg/dL (0.2-1.0)
[2018-04-27 06:49] LABS: UR MICROALBUMIN 5.4 mg/dL (< 1.9)
[2018-04-27 06:53] LABS: Urine Culture Reflex Order NOT NEEDED
[2018-04-27 06:56] LABS: Urine Bacteria <20 /HPF (<20)
[2018-04-27] MEDS: INSULIN -REGULAR HUMAN 50 UNIT/0.5 ML ML SQ SCH ×3 (07:30→16:30)
[2018-04-27 07:34] LABS: UR MICROALBUMIN 5.3 mg/dL (< 1.9)
[2018-04-27] MEDS: CEFTRIAXONE/SWI 1gm 1 GM/10 ML SYR IVP SCH (09:00)
[2018-04-27] MEDS: LISINOPRIL 10 MG TAB PO SCH (09:29)
[2018-04-27] MEDS: FUROSEMIDE 40 MG/4 ML VIAL IV SCH ×2 (09:29→17:00)
[2018-04-27 09:42] VITALS: O2SAT 93
--- NOTE | 2018-04-27 14:08 | P.CNS ---
Date of Consult: 04/26/18 Reason for Consult: RAGHAVENDRA/ CKD Requesting Physician: Dillon Simmons Chief Complaint: Shortness of breath, cough. History of Present Illness: The patient is an 83-year-old female with past medical history of hypertension, hyperlipidemia, history of WA, congestive heart failure, systolic heart failure with status post AICD, chronic kidney disease, diabetes, WA with stents, who was in her usual state of health until a couple of days prior to admission when the patient started having some shortness of breath along with some cough, sputum production. No ill contacts. Denies any fevers, however, did have a low -grade fever of 100.1 here in the ER. The patient's symptoms are constant, moderate, progressively worsening, was recently diagnosed with the UTI and was put on nitrofurantoin, has taken 1 day worth of dose so far. The patient previously has had history of pericardial effusion, had to be transferred to [facility] and had pericardiocentesis and had recurrence and had to be tapped again. They are going to explain some sort of procedure, it sounds like shunt. The patient's workup revealed a creatinine of 2.2, which is around her baseline. BNP was elevated at 13,000. WBC count was high at 12, with a neutrophilia. The patient's chest x-ray showed some pulmonary edema, moderate CHF, volume overload pattern. The patient's EKG showed normal sinus rhythm, rate of 68, left axis deviation, right bundle-branch block. No significant changes compared to previous. The patient was given Rocephin 1 g IV and 20 mg of Lasix IV and then referred for admission. 16:17 This 83 yrs old Female presents to ER via Wheelchair with complaints of snw Breathing Difficulty. 16:17 The patient has shortness of breath at rest. Onset: The symptoms/episode began/occurred snw suddenly, at 01:00, and became persistent. Duration: The symptoms are continuous. The patient's shortness of breath is aggravated by supine position. Associated signs and symptoms: The patient has no apparent associated signs or symptoms. Severity of symptoms: At their worst the symptoms were moderate. It is unknown whether or not the patient has had similar symptoms in the past. The patient has been recently seen by a physician: 1 week(s) ago. Pt sees Dr. Wilkerson, Dr. Frank, and Dr. Sterling, Saw all her Doctors last week and was doing well. Labs wer stable/good per report. Pt did have UTI and is on antibiotics. Today in ER, temp 100.1. Allergies No Known Allergies Allergy (Verified 04/25/18 21:09) Home medications list reviewed: Yes Home Medications: Amlodipine [Norvasc*] 1 tab PO DAILY 02/16/17 Furosemide 1 tab PO DAILY 02/16/17 Linagliptin [Tradjenta] 1 tab PO DAILY 02/16/17 Pravastatin Sodium 1 tab PO DAILY 02/16/17 Aspirin 1 tab PO DAILY 04/26/18 Clopidogrel Bisulfate [Plavix*] 1 tab PO DAILY 04/26/18 Fenofibrate Nanocrystallized [Fenofibrate] 1 tab PO DAILY 04/26/18 Levothyroxine [Synthroid*] 1 tab PO DAILY 04/26/18 Metoprolol Succinate 1 tab PO DAILY 04/26/18 Vit D3 2,000 units PO DAILY 04/26/18 - Past Medical/Surgical History Diabetic: No -: WA -: DM -: Htn -: Hyperlipidemia -: CHF -: Hyst -: Defibrillator -: Coronary stents -: Appendectomy - Family History Father Medical History: Cancer Mother Medical History: Lung disease - Social History Smoking Status: Never smoker Alcohol use: No CD- Drugs: No Caffeine use: No Review of Systems 10-point ROS is otherwise unremarkable General: Weakness, Malaise Respiratory: Shortness of Breath, SOB with Excertion Cardiovascular: Edema Physical Examination Temp Pulse Resp BP Pulse Ox 97.5 F 60 16 131/59 L 95 04/27/18 08:00 04/27/18 08:00 04/27/18 08:00 04/27/18 08:00 04/27/18 08:00 General: In no apparent distress, Oriented x3, Cooperative HEENT: Normocephalic, Mucous membr. moist/pink Neck: Supple Respiratory: Clear to auscultation bilaterally, Normal air movement Cardiovascular: No edema, Regular rate/rhythm, No rubs Gastrointestinal: Hypoactive, Soft and benign, No guarding Musculoskeletal: No clubbing, No contractures Integumentary: No rashes, No cyanosis Neurological: Normal speech Blood work reviewed in the chart. Cr 2.2 Imagings Data: DOPPLER/COLOR FLOW: MILD AORTIC REGURGITATION AND TRICUSPID REGURGITATION. ESTIMATED RIGHT VENTRICULAR SYSTOLIC PRESSURE 52 MMHG ( MODERATE PULMONARY HYPERTENSION). MILD AORTIC STENOSIS. PEAK/MEAN GRADIENT 26/14. ESTIMATED AORTIC VALVE AREA 1.8 CM SQUARED. MODERATE TRICUSPID REGURGITATION. COMMENTS: NORMAL LEFT VENTRICULAR EJECTION FRACTION WITH WALL MOTION ABNORMALITY. LEFT VENTRICULAR HYPERTROPHY. DILATED LEFT ATRIUM. MODERATE MITRAL REGURGITATION. MILD AORTIC STENOSIS. MILD TRICUSPID REGURGITATION. MILD AORTIC REGURGITATION. MODERATE PULMONARY HYPERTENSION. PACEMAKER IN RIGHT VENTRICULAR APEX . EXAM DESCRIPTION: RAD - Chest Single View - 04/25/2018 4:35 pm CLINICAL HISTORY: SOB Chest pain. COMPARISON: Chest Single View dated 07/20/2017; Chest Single View dated 02/16/2017 ; CHEST SINGLE VIEW dated 12/21/2012; CHEST SINGLE VIEW dated 08/22/2010 FINDINGS: Portable technique limits examination quality. Moderate bilateral pulmonary opacities are present compatible with pulmonary edema. Small bilateral pleural effusions are seen. The heart is significantly enlarged in size with a single lead pacer/defibrillator device. No displaced fractures. IMPRESSION: Moderate CHF versus volume overload pattern. Conclusions/Impression: A/ RAGHAVENDRA likely CRS. CKD IV with proteinuria. A/C Diastolic CHF. Pulmonary HTN. HTN with CKD. DM II with CKD. Anemia in chronic illness. P/ Continue current POC and Medications. Agree with diuretics. Low sodium diet. Counseled regarding CHF. Agree with abx. No NSAIDs. AM labs. Daily weight. Thank you kindly for the consultation.
--- NOTE | 2018-04-27 16:33 | P.DS ---
Admission Date: 04/25/18 Discharge Date: 04/27/18 Primary Care Provider: Dr. Varma Disposition: ROUTINE DISCHARGE Discharge Condition: GOOD Reason for Admission: Shortness of breath, cough. Consultations: Dr. Frank with Nephrology Brief History of Present Illness: 83-year-old female with past medical history of hypertension, hyperlipidemia, history of ID, congestive heart failure, systolic heart failure with status post AICD, chronic kidney disease, diabetes, ID with stents, who was in her usual state of health until a couple of days prior to admission when the patient started having some shortness of breath along with some cough, sputum production. No ill contacts. Denies any fevers, however, did have a low-grade fever of 100.1 here in the ER. The patient's symptoms are constant, moderate, progressively worsening, was recently diagnosed with the UTI and was put on nitrofurantoin, has taken 1 day worth of dose so far. The patient previously has had history of pericardial effusion, had to be transferred to [facility] and had pericardiocentesis and had recurrence and had to be tapped again. They are going to explain some sort of procedure, it sounds like shunt. The patient' s workup revealed a creatinine of 2.2, which is around her baseline. BNP was elevated at 13,000. WBC count was high at 12, with a neutrophilia. The patient 's chest x-ray showed some pulmonary edema, moderate CHF, volume overload pattern. The patient's EKG showed normal sinus rhythm, rate of 68, left axis deviation, right bundle-branch block. No significant changes compared to previous. The patient was given Rocephin 1 g IV and 20 mg of Lasix IV and then referred for admission. When seen in the ER, the patient was awake, alert, oriented x3, in some mild distress. Hospital Course: 1. Lajuh-ao-gptmkik systolic heart failure. BNP was elevated. Chest x-ray shows volume overload. Continued patient on congestive heart failure guidelines , beta-jen, TERRY inhibitor, and continue with diuresis with Lasix. An echocardiogram was done and a pericardial effusion was ruled out. Patient's symptoms improved after diuresis at the time of discharge patient's symptoms had improved drastically and patient is ready to go home. As patient is on an Arb, was discontinued lisinopril on discharge and have her continue with her home medication. 2. Urinary tract infection, treated with Macrobid as an outpatient. She was treated with a course of Zithromax and Rocephin in the hospital. Does not need to be discharged on any antibiotics at this time 3. Status post defibrillator pacer, last checked was approximately 1 year ago. The patient does see a chemist, Dr. Sterling. The patient will need to have a defibrillator interrogated in his office. 4. Elevated troponin, likely from acute congestive heart failure. Denied any chest pain. No changes on EKG. No further workup was required. 5. Chronic kidney disease stage 3. Creatinine is around baseline. We will avoid NSAIDs. Patient seen by, Dr. Frank, her regional engineer. 6. Normocytic normochromic anemia, likely anemia of chronic disease due to chronic kidney disease. H&H remained stable throughout her hospitalizion. 7. Essential hypertension, stable. 8. Mixed hyperlipidemia, statin. 9. History of myocardial infarction, status post stents. Continued home medications. 10. Diabetes mellitus type 2, xyy-ntffoxq-uxufmazkx with hyperglycemia. Remains stable on Accu-Cheks and sliding scale insulin. Vital Signs/Physical Exam: Temp Pulse Resp BP Pulse Ox 97.6 F 68 16 123/58 L 97 04/27/18 12:00 04/27/18 12:00 04/27/18 12:00 04/27/18 12:00 04/27/18 12:00 General: Alert, In no apparent distress, Oriented x3 HEENT: Atraumatic Neck: JVD not distended Respiratory: Clear to auscultation bilaterally, Normal air movement Cardiovascular: No edema, Normal pulses, Regular rate/rhythm, Normal S1 S2 Gastrointestinal: Normal bowel sounds, Soft and benign, No tenderness Musculoskeletal: No clubbing, No swelling Laboratory Data at Discharge: WBC 7.9 K/uL (4.3-10.9) D 04/26/18 05:08 Hgb 9.6 g/dL (12.0-15.0) L 04/26/18 05:08 Hct 28.4 % (36.0-45.0) L 04/26/18 05:08 Plt Count 145 K/uL (152-406) L 04/26/18 05:08 PT 13.3 SECONDS (9.5-12.5) H 04/25/18 16:40 INR 1.13 04/25/18 16:40 Sodium 145 mmol/L (136-145) 04/26/18 05:08 Potassium 4.3 mmol/L (3.5-5.1) 04/26/18 05:08 BUN 53 mg/dL (7-18) H 04/26/18 05:08 Creatinine 2.30 mg/dL (0.55-1.3) H 04/26/18 05:08 Glucose 99 mg/dL (74-106) 04/26/18 05:08 Uric Acid 7.5 mg/dL (2.6-6.0) H 04/26/18 05:08 Phosphorus 3.5 mg/dL (2.5-4.9) 04/26/18 05:08 Magnesium 2.5 mg/dL (1.8-2.4) H 04/26/18 05:08 Total Bilirubin 0.5 mg/dL (0.2-1.0) 04/26/18 05:08 AST 24 U/L (15-37) 04/26/18 05:08 ALT 20 U/L (12-78) 04/26/18 05:08 Alkaline Phosphatase 40 U/L (45-117) L 04/26/18 05:08 Home Medications: Amlodipine [Norvasc*] 1 tab PO DAILY 02/16/17 Furosemide 1 tab PO DAILY 02/16/17 Linagliptin [Tradjenta] 1 tab PO DAILY 02/16/17 Pravastatin Sodium 1 tab PO DAILY 02/16/17 Aspirin 1 tab PO DAILY 04/26/18 Clopidogrel Bisulfate [Plavix*] 1 tab PO DAILY 04/26/18 Fenofibrate Nanocrystallized [Fenofibrate] 1 tab PO DAILY 04/26/18 Levothyroxine [Synthroid*] 1 tab PO DAILY 04/26/18 Metoprolol Succinate 1 tab PO DAILY 04/26/18 Vit D3 2,000 units PO DAILY 04/26/18 Patient Discharge Instructions: Please follow up with a primary care physician in 1 week. Please follow up with the chemist in 1-2 weeks Diet: Low sodium Activity: Ad bradly Time spent managing pt's care (in minutes): 50
[2018-04-27] MEDS: ENOXAPARIN 30 MG/0.3 ML SQ SCH (17:00)
[2018-04-27 17:47] VITALS: BP 141/67; TEMP 97.7
--- NOTE | 2018-04-27 19:03 | PN ---
Date of Progress Note: 04/27/2018 Subjective: The patient is doing okay. She states that she is feeling much better. Physical Examination: Vital signs: Have been reviewed and are stable. She has had good diuresis. General: She appears in no acute distress. No JVD was noted. Lungs: Clear to auscultation. Heart: Revealed regular rate and rhythm. Extremities: Did not reveal any evidence of edema. Laboratory Data: Showing stable creatinine of 2.3. Electrolytes showing sodium of 145, potassium of 4.3, and bicarb of 25. Current Medications: Include Rocephin 1 g daily, Lasix 40 mg b.i.d., lisinopril 10 mg a day. Urine culture is negative. Impression: 1.Wfxcc-gi-kgiighq renal insufficiency secondary to cardiorenal syndrome, currently with overall sta ble renal function. 2.Dahvk-va-jqndbkd systolic heart failure. The patient's chest x-ray was showing pulmonary edema, w hich is improving clinically. At this time, equal with no effusion and EF of 55%. Will need follow up with Dr. Sterling as outpatient. 3.Hypertension, currently stable. Continue lisinopril as long as renal function remains stable. 4.Chronic anemia, stable. 5.Type 2 diabetes, non-insulin requiring. Currently not on any medications. Follow up closely. Plan: Overall patient's renal function is overall stable. The patient with stage IV CKD with some m ild acute component. Continue diuresis and she has been counseled on low-sodium diet and she can be discharged on p.o. diuretics. At this time as her volume are seems to be improving and she can be followed up as outpatient with Dr. Frank. VV/CHANDA Voice ID: [id number] Report ID: [id number]
== END 2018-04-27 18:13 | disposition home health service (06) | DRG 291 ==
LOC: ER 15:42 → ERHOLD 16:55 → 2ND 20:28
PROVIDERS: ADMIT Family Medicine; ATTEND Family Medicine
DX: I13.0 Hypertensive heart and chronic kidney disease with heart failure and stage 1 through stage 4 chronic kidney disease, or unspecified chronic kidney disease (principal); I50.23 Acute on chronic systolic (congestive) heart failure; N39.0 Urinary tract infection, site not specified; N18.4 Chronic kidney disease, stage 4 (severe); N17.9 Acute kidney failure, unspecified; Z88.0 Allergy status to penicillin; I25.2 Old myocardial infarction; Z95.810 Presence of automatic (implantable) cardiac defibrillator; E11.22 Type 2 diabetes mellitus with diabetic chronic kidney disease; D63.1 Anemia in chronic kidney disease; E78.2 Mixed hyperlipidemia; E11.65 Type 2 diabetes mellitus with hyperglycemia; Z95.5 Presence of coronary angioplasty implant and graft; I45.10 Unspecified right bundle-branch block; I27.20 Pulmonary hypertension, unspecified; R80.9 Proteinuria, unspecified
CPT/HCPCS: 36415; 51702; 71045; 80048; 80053; 80076; 81001; 81003; 82043; 82570; 82962; 83735; 83880; 84100; 84484; 84550; 85025; 85610; 87040; 87077; 87086; 87088; 87186; 90670; 93005; 93306; 94760; 96374; 96375; 99285; G0009; J0456; J0696; J1650; J1940

== ENCOUNTER 2018-09-18 04:18 | Observation (INO) | payer OTHER ==
--- OUTSIDE RECORDS SUMMARY | 2018-09-18 04:21 | XMS REPORT ---
[...] Status Dosage System Date Date Pravachol ND 44813578567 80 MG Orally Active 1 tablet Once a day Klor-Con M10 NDC 09431781370 10 MEQ Orally Active 1 tablet Twice a day with food Tradjenta ND 68069163010 5 MG Orally Active 1 tablet Once a day Macrobid [facility] 30187130729 100 MG Orally Екатерина Active 1 capsule every 12 hrs 2017 with food Tricor [facility] 16419784597 145 MG Orally Active 1 tablet Once a day with food Aspirin 81 [facility] 72368619569 81 MG Orally Active 1 tablet Once a day Gabapentin [facility] 96883066039 100 MG Orally Active 1 capsule Three times a day Toprol XL [facility] 64870328104 25 MG Orally Active 1 tablet Once a day Fosamax [facility] 70068397737 70 MG Active TAKE 1 TABLET ONCE A WEEK Mirtazapine [facility] 57515753076 15 MG Orally Inactive 1 tablet Once a day at bedtime Flonase [facility] 86849221917 50 MCG/ACT Active 1 spray Nasally Once a in each day nostril Loratadine [facility] 16782598145 10 MG Orally Active 1 tablet Once a day Lasix [facility] 91552524248 40 MG Orally Active 1 tablet Once a day Levothyroxine [facility] 12929771274 50 MCG Orally Active 1 tablet Sodium Once a day on an empty stomach in the morning Vitamin D-3 [facility] 71205041072 1000 UNIT Active 1 capsule Orally Once a day Alprazolam [facility] 92556139073 0.25 MG Orally Active 1 tablet once a day prn anxiety Plavix [facility] 86818084603 75 MG Orally Active 1 tablet Once a day Amlodipine [facility] 62936039775 5 MG Orally Active 5 mg Besylate Once a day Valsartan [facility] 22021553574 40 MG Orally Active 1 tablet Twice a day Results No Known Results Summary Purpose eClinicalWorks Submission
--- OUTSIDE RECORDS SUMMARY | 2018-09-18 04:21 | XMS REPORT ---
:1935 Author Organization [employer] Care Team Providers Name Role Phone Wlikerson, Na Provider Role Unavailable Allergies No Known Allergies Problems Problem Type Condition Code Onset Dates Condition Status Problem Vitamin D deficiency E55.9 Active Problem Hyperlipidemia E78.5 Active Problem Benign essential HTN I10 Active Problem Elevated TSH R94.6 Active Problem Primary osteoarthritis of both knees M17.0 Active Problem Unsteady gait R26.81 Active Problem Anxiety F41.9 Active Problem Diabetes [...] chronicity, unspecified congestive heart failure type Problem CHF (congestive heart failure) I50.9 Active Problem Arteriosclerosis of coronary artery I25.10 Active Problem GERD (gastroesophageal reflux K21.9 Active disease) Medications Medication Code System Code Instructions Start End Date Status Dosage Date Gabapentin [facility] 30455092852 100 MG Orally Active 1 capsule Three times a day Results No Known Results Summary Purpose [employer]ClinicalWorks Submission
--- OUTSIDE RECORDS SUMMARY | 2018-09-18 04:21 | XMS REPORT ---
:1935 Author Organization [employer] Care Team Providers Name Role Phone Wilkerson, Na Provider Role Unavailable Allergies No Known [...] Medications Medication Code System Code Instructions Start Date End Date Status Dosage Fosamax [facility] 92886143348 70 MG Active TAKE 1 TABLET ONCE A WEEK Results No Known Results Summary Purpose [employer]ClinicalWorks Submission
--- OUTSIDE RECORDS SUMMARY | 2018-09-18 04:21 | XMS REPORT ---
[...] Active Assessment Anxiety F41.9 Active Assessment Primary osteoarthritis of both knees [...] osteoarthritis of both knees M17.0 Active Assessment Hypothyroidism, unspecified type E03.9 Active Problem Unsteady gait R26.81 Active Assessment Diabetes mellitus type 2, 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 Problem Anxiety F41.9 Active Problem Diabetes mellitus [...] End Status Dosage System Date Date Pravachol [facility] 86862587975 80 MG Orally Active 1 tablet Once a day Toprol XL [facility] 16344322723 25 MG Orally Active 1 tablet Once a day Amlodipine [facility] 82651146681 5 MG Orally Active 5 mg Besylate Once a day Alprazolam NDC 64443998352 0.25 MG Orally Active 1 tablet once a day prn anxiety Flonase [facility] 41934791541 50 MCG/ACT Active 1 spray in Nasally Once a each day nostril Fosamax [facility] 71211507822 70 MG Active TAKE 1 TABLET ONCE A WEEK Levothyroxine [facility] 71705763902 50 MCG Orally Active 1 tablet Sodium Once a day on an empty stomach in the morning Tradjenta [facility] 04584596458 5 MG Orally Active 1 tablet Once a day Valsartan [facility] 81140790974 40 MG Orally Active 1 tablet Twice a day Gabapentin [facility] 92839588716 100 MG Orally Active 1 capsule Three times a day Tricor [facility] 79772316984 145 MG Orally Active 1 tablet Once a day with food Vitamin D-[address] [facility] 46862590785 1000 UNIT Active 1 capsule Orally Once a day Macrobid [facility] 60294841990 100 MG Orally Apr 21, Active 1 capsule every 12 hrs 2017 with food Aspirin [address] [facility] 83903535404 81 MG Orally Active 1 tablet Once a day Loratadine [facility] 93210968646 10 MG Orally Active 1 tablet Once a day Macrobid [facility] 53660925412 100 MG Orally Екатерина Active 1 capsule every 12 hrs 2017 with food Klor-Con M10 [facility] 02344951483 10 MEQ Orally Active 1 tablet Twice a day with food Lasix [facility] 46534085371 40 MG Orally Active 1 tablet Once a day Plavix [facility] 01403456482 75 MG Orally Active 1 tablet Once a day Results No Known Results Summary Purpose eClinicalWorks Submission
--- OUTSIDE RECORDS SUMMARY | 2018-09-18 04:21 | XMS REPORT | Clinical Summary ---
:1935 Author Organization [facility] Address [address] [place] [address] Care Team Providers Name Role Phone Brandie Wilkerson DO Primary Care Provider Allergies Active Allergy Reactions Severity Noted Date Comments No Known Drug Allergies 05/27/2016 Medications Medication Sig Dispensed Refills Start Date End Date Status amLODIPine Take 5 mg by 0 06/24/2016 Active (NORVASC) 5 mg mouth daily. tablet TRADJENTA 5 mg Take 5 mg by 3 06/18/2016 Active tablet mouth daily with breakfast. aspirin (ECOTRIN) Take 81 mg by 0 Active 81 MG enteric mouth daily. coated tablet CHOLECALCIFEROL, Take 3,000 0 Active VITAMIN D3, Units by mouth (VITAMIN D3 ORAL) daily. clopidogrel Take 1 tablet 90 tablet 3 03/03/2017 Active (PLAVIX) 75 mg (75 mg total) tablet by mouth once daily. alendronate Take 70 mg by 0 Active (FOSAMAX) 70 MG mouth every 7 tablet days. Take in the morning with a full glass of water on an empty stomach, do NOT take anything else by mouth or lie down for the next 30 min. famotidine (PEPCID) TAKE 1 TABLET 60 tablet 0 09/23/2017 Active 20 MG tablet BY MOUTH NIGHTLY NEEDED FOR HEARTBURN FOR UP TO 30 DAYS levothyroxine 0 01/21/2018 Active (SYNTHROID, LEVOXYL) 50 mcg tablet fenofibrate TAKE 1 TABLET 90 tablet 2 05/19/2018 Active (TRICOR) 145 MG (145 MG TOTAL) tabletIndications: BY MOUTH DAILY. Coronary artery disease involving [place] heart with angina pectoris, unspecified vessel or lesion type (HCC) pravastatin TAKE 1 TABLET 90 tablet 3 05/23/2018 Active (PRAVACHOL) 80 MG (80 MG TOTAL) tablet BY MOUTH ONCE DAILY. furosemide (LASIX) Take 80 mg by 3 05/29/2018 Active 80 mg tablet mouth daily. metoprolol Take 25 mg by 3 07/07/2018 Active succinate XL mouth 2 (two) (TOPROL-XL) 25 mg times a day. 24 hr tablet fenofibrate Take 1 tablet 90 tablet 3 05/06/2017 Discontinued (TRICOR) 145 MG (145 mg total) 8 tabletIndications: by mouth daily. Coronary artery disease involving [place] heart with angina pectoris, unspecified vessel or lesion type (HCC) pravastatin Take 1 tablet 90 tablet 3 06/07/2017 Discontinued (PRAVACHOL) 80 MG (80 mg total) 8 tablet by mouth once daily. Active Problems Problem Noted Date hypotension due to pericardial effusion 07/21/2017 cardio-renal syndrome 07/21/2017 H/O AICD 07/21/2017 Overview: [employer] Coronary artery disease involving [place] heart with angina pectoris 07/06/2017 Overview: Added automatically from request for surgery [id number] large anterior pericardial effusion s/p window 03/02/2017 Systolic congestive heart failure 03/02/2017 Stented coronary artery 06/30/2016 PAD (peripheral artery disease) 06/30/2016 Chronic kidney disease, stage III (moderate) 06/30/2016 Cardiomyopathy 05/27/2016 Coronary arteriosclerosis 05/27/2016 Essential hypertension 05/27/2016 Hyperlipidemia 05/27/2016 Encounters Date Type Specialty Care Team Description 08/02/2018 Office Visit Cardiology Ashok Matson, Systolic congestive heart failure, unspecified HF chronicity (HCC) (Primary Dx); H/O AICD; Stented coronary artery 05/22/2018 Refill Cardiology Ashok Matson Med Refill 05/19/2018 Refill Cardiology Ashok Matson Med Refill 01/25/2018 Office Visit Cardiology Ashok Matson, CAD in [place] artery ( Primary Dx); Ischemic cardiomyopathy 09/22/2017 Refill Internal Medicine Nedra Pruitt MD after 09/17/2017 Family History Relation Name Status Comments Father Mother Social History Tobacco Use Types Packs/Day Years Used Date Never Smoker Smokeless Tobacco: Never Used Alcohol Use Drinks/Week oz/Week Comments No Sex Assigned at Date Recorded Not on file Job Start Date Occupation Industry Not on file Not on file Not on file Travel History Travel Start Travel End No recent travel history available. Last Filed Vital Signs Vital Sign Reading Time Taken Blood Pressure 146/67 08/02/2018 9:14 AM [employer] Pulse 76 08/02/2018 9:14 AM [employer] Temperature - - Respiratory Rate - - Oxygen Saturation - - Inhaled Oxygen Concentration - - Weight 68.5 kg (151 lb) 08/02/2018 9:14 AM [employer] Height 149.9 cm (4' 11") 08/02/2018 9:14 AM [employer] Body Mass Index 30.5 08/02/2018 9:14 AM [employer] Plan of Treatment Date Type Specialty Care Team Description 01/31/2019 Office Visit Cardiology Ashok Matson MD [address] [address] Health Maintenance Due Date Last Done Comments SHINGLES VACCINES (#1) 1987 65+ PNEUMOCOCCAL VACCINE (1 of 2 - PCV13) 2002 PNEUMOCOCCAL POLYSACCHARIDE VACCINE AGE 65 AND OVER 2002 INFLUENZA VACCINE 02/16/2018 Implants Implanted Type Area Head Of Design Device Shelf Model / Identifier Expiration Serial / Date Lot Kit Prcrdocnts Perivac - [id number] Central N/A: N/A [place] [id number] / Implanted: 07/09/2017 (Quantity not on file) Venous SCIENTIFIC EDDI / Catheters Drain Wnd Chnl 24fr 16in Rnd Hbls Fl-Flut Pari - [id number] Surgical N/A: N/ A [employer] OF 11/15/2021 [id number] / Implanted: Qty: 1 on 07/21/2017 by Jose Dill MD Implants; JESSE & / Expanders; JESSE Extenders; Surgical Wires Results Not on fileafter 09/17/2017 Insurance Payer Benefit Plan / Group Subscriber ID Type Phone Address MEDICARE MEDICARE PART A AND B xxxxxxxxxxx Medicare [place], [place] Advance Directives Patient has advance care planning documents, and code status on file. For more information, please contact:[place] [address] Code Status Date Activated Date Inactivated Comments Modified Code 07/20/2017 7:17 PM 07/26/2017 6:59 PM Modified Code restrictions: No Intubation Code Status decision reached by: Patient
--- OUTSIDE RECORDS SUMMARY | 2018-09-18 04:21 | XMS REPORT ---
[...] GERD (gastroesophageal reflux K21.9 Active disease) Medications No Known Medications Results No Known Results Summary Purpose eClinicalWorks Submission
--- OUTSIDE RECORDS SUMMARY | 2018-09-18 04:21 | XMS REPORT ---
[...] End Status Dosage System Date Date Levothyroxine [facility] 17918501753 50 MCG Orally November 30, Active 1 tablet Sodium Once a day 2017 on an empty stomach in the morning Lasix ND 05080941549 40 MG Orally Active 1 tablet Once a day Amlodipine ND 95098751575 5 MG Orally Active 5 mg Besylate Once a day Toprol XL [facility] 31420885086 25 MG Orally Active 1 tablet Once a day Mirtazapine [facility] 33699419841 15 MG Orally September Active 1 tablet Once a day 2017 at bedtime Vitamin D-3 [facility] 51414909644 1000 UNIT Active 1 capsule Orally Once a day Pravachol [facility] 48413121839 80 MG Orally Active 1 tablet Once a day Gabapentin [facility] 52414467280 100 MG Orally Active 1 capsule Three times a day Klor-Con M10 [facility] 09069376600 10 MEQ Orally Active 1 tablet Twice a day with food Fosamax [facility] 54506881719 70 MG Active TAKE 1 TABLET ONCE A WEEK Alprazolam [facility] 77726042998 0.25 MG Orally September Active 1 tablet once a day prn 2017 anxiety Tricor [facility] 09317837504 145 MG Orally Active 1 tablet Once a day with food Valsartan [facility] 41016472552 40 MG Orally Active 1 tablet Twice a day Tramadol HCl [facility] 64959745777 50 MG Orally November 30December Active 1 tablet once a night as 2017 14, as needed needed for pain 2017 ( 5-10 pain scale) Aspirin 81 [facility] 00211005450 81 MG Orally Active 1 tablet Once a day Loratadine [facility] 80910669010 10 MG Orally Active 1 tablet Once a day Macrobid [facility] 74264736663 100 MG Orally October Active 1 capsule every 12 hrs 2017 with food Plavix [facility] 00400522358 75 MG Orally Active 1 tablet Once a day Tradjenta [facility] 90306178238 5 MG Orally Active 1 tablet Once a day Flonase [facility] 02259553467 50 MCG/ACT Active 1 spray in Nasally Once a each day nostril Results No Known Results Summary Purpose eClinicalWorks Submission
--- NOTE | 2018-09-18 05:06 | EDPHYS ---
Physician Documentation [facility] Name: Mendy Gomez Age: 83 yrs Sex: Female : 1935 Arrival Date: 09/18/2018 Time: 04:19 Bed 4 Private MD: ED Physician Jeremy Eason HPI: 09/18 05:00 This 83 yrs old Female presents to ER via Wheelchair with complaints of jaguar Shortness Of Breath. 05:00 The patient has shortness of breath at rest, with light activity. Onset: The jaguar symptoms/episode began/occurred 5 day(s) ago. The patient's shortness of breath has no apparent modifying factors. Associated signs and symptoms: Pertinent positives: productive cough, fever. Severity of symptoms: At their worst the symptoms were mild in the emergency department the symptoms are unchanged. The patient has not experienced similar symptoms in the past. Historical: - Allergies: 04:41 PENICILLINS; fc - Home Meds: 04:41 aspirin 81 mg Oral chew 1 tab once daily [Active]; amlodipine 5 mg tab 1 tab once daily fc [Active]; pravastatin 80 mg Oral tab 1 tab once daily [Active]; fenofibrate 145 mg Oral tab 1 tab once daily [Active]; metoprolol succinate 25 mg Oral Tb24 1 tab twice a day [Active]; levothyroxine 50 mcg tab 1 tab once daily [Active]; Vitamin D3 5,000 unit oral tab daily [Active]; Plavix 75 mg Oral tab 1 tab once daily [Active]; furosemide 80 mg Oral tab 1 tab once daily [Active]; gabapentin 100 mg oral cap nightly [Active]; multivitamin oral tab daily [Active]; Zegerid OTC 20-1.1 mg-gram Oral cap 1 cap once daily [Active]; - PMHx: 04:41 Hyperlipidemia; Hypertension; ND; pacemaker/defibrillator; High Cholesterol; fc Hypothyroidism; Diabetes - NIDDM; - PSHx: 04:41 Heart stents; ; pacemaker/defib; Hysterectomy; fc - Immunization history:: Last tetanus immunization: up to date Flu vaccine is up to date. - Social history:: Smoking status: Patient/guardian denies using tobacco, Patient/guardian denies using alcohol, street drugs. - Ebola Screening: : Patient negative for fever greater than or equal to 101.5 degrees Fahrenheit, and additional compatible Ebola Virus Disease symptoms Patient denies exposure to infectious person Patient denies travel to an Ebola-affected area in the 21 days before illness onset. - Family history:: not pertinent. ROS: 05:00 Eyes: Negative for injury, pain, redness, and discharge, ENT: Negative for injury, jaguar pain, and discharge, Neck: Negative for injury, pain, and swelling, Cardiovascular: Negative for chest pain, palpitations, and edema, Abdomen/GI: Negative for abdominal pain, nausea, vomiting, diarrhea, and constipation, Back: Negative for injury and pain, : Negative for injury, bleeding, discharge, and swelling, MS/Extremity: Negative for injury and deformity, Skin: Negative for injury, rash, and discoloration, Neuro: Negative for headache, weakness, numbness, tingling, and seizure, Psych: Negative for depression, anxiety, suicide ideation, homicidal ideation, and hallucinations, Allergy/Immunology: Negative for hives, rash, and allergies, Endocrine: Negative for neck swelling, polydipsia, polyuria, polyphagia, and marked weight changes, Hematologic/Lymphatic: Negative for swollen nodes, abnormal bleeding, and unusual bruising. 05:00 Constitutional: Positive for fever. 05:00 Respiratory: Positive for cough, shortness of breath, at rest. Exam: 05:00 Constitutional: This is a well developed, well nourished patient who is awake, alert, jaguar and in no acute distress. Head/Face: Normocephalic, atraumatic. Eyes: Pupils equal round and reactive to light, extra-ocular motions intact. Lids and lashes normal. Conjunctiva and sclera are non-icteric and not injected. Cornea within normal limits. Periorbital areas with no swelling, redness, or edema. ENT: Nares patent. No nasal discharge, no septal abnormalities noted. Tympanic membranes are normal and external auditory canals are clear. Oropharynx with no redness, swelling, or masses, exudates, or evidence of obstruction, uvula midline. Mucous membranes moist. Neck: Trachea midline, no thyromegaly or masses palpated, and no cervical lymphadenopathy. Supple, full range of motion without nuchal rigidity, or vertebral point tenderness. No Meningismus. Chest/axilla: Normal chest wall appearance and motion. Nontender with no deformity. No lesions are appreciated. Cardiovascular: Regular rate and rhythm with a normal S1 and S2. No gallops, murmurs, or rubs. Normal PMI, no JVD. No pulse deficits. Abdomen/GI: Soft, non-tender, with normal bowel sounds. No distension or tympany. No guarding or rebound. No evidence of tenderness throughout. Back: No spinal tenderness. No costovertebral tenderness. Full range of motion. Skin: Warm, dry with normal turgor. Normal color with no rashes, no lesions, and no evidence of cellulitis. MS/ Extremity: Pulses equal, no cyanosis. Neurovascular intact. Full, normal range of motion. Neuro: Awake and alert, GCS 15, oriented to person, place, time, and situation. Cranial nerves II-XII grossly intact. Motor strength 5/5 in all extremities. Sensory grossly intact. Cerebellar exam normal. Normal gait. Psych: Awake, alert, with orientation to person, place and time. Behavior, mood, and affect are within normal limits. 05:00 Respiratory: the patient does not display signs of respiratory distress, Respirations: normal, Breath sounds: bronchial sounds, decreased breath sounds, rhonchi, that are mild, wheezing: inspiratory expiratory Vital Signs: 04:25 Weight 83.91 kg; Height 5 ft. 1 in. (154.94 cm); Pain 2/10; fc 04:47 BP 112 / 87; Pulse 64; Resp 16 S; Temp 98.6(O); Pulse Ox 97% on R/A; jd3 05:14 BP 114 / 86; Pulse 61; Resp 20 S; Pulse Ox 96% on R/A; jd3 06:00 BP 120 / 82; Pulse 58; Resp 17; Pulse Ox 100% on R/A; Pain 0/10; tl1 07:00 BP 132 / 88; Pulse 60; Resp 18 S; Temp 98.7(O); Pulse Ox 97% on R/A; Pain 0/10; aa5 07:15 BP 116 / 62; Pulse 61; Resp 17; Pulse Ox 98% on R/A; Pain 0/10; tl1 04:25 Body Mass Index 34.96 (83.91 kg, 154.94 cm) fc MDM: 04:30 Patient medically screened. [facility] 05:03 Data reviewed: vital signs, nurses notes, lab test result(s), EKG, radiologic studies, [facility] plain films. 09/18 04:39 Order name: Urine Dipstick--Ancillary (enter results) ag4 09/18 04:43 Order name: Basic Metabolic Panel 09/18 04:43 Order name: CBC with Diff 09/18 04:43 Order name: LFT's 09/18 04:43 Order name: Magnesium 09/18 04:43 Order name: NT PRO-BNP 09/18 04:43 Order name: PT-INR 09/18 04:43 Order name: Troponin (emerg Dept Use Only) 09/18 04:58 Order name: Flu jd3 09/18 04:59 Order name: Blood Culture Adult (2) [facility] 09/18 04:59 Order name: Flu [facility] 09/18 04:59 Order name: Urine Culture [facility] 09/18 04:59 Order name: Procalcitonin [facility] 09/18 05:13 Order name: Basic Metabolic Panel; Complete Time: 06:38 EDMS 09/18 05:13 Order name: Liver (Hepatic) Function; Complete Time: 06:38 EDMS 09/18 05:13 Order name: Troponin (Emerg Dept Use Only); Complete Time: 06:38 EDMS 09/18 05:13 Order name: NT PRO-BNP; Complete Time: 06:38 EDMS 09/18 05:13 Order name: Magnesium; Complete Time: 06:38 EDMS 09/18 05:13 Order name: CBC with Automated Diff; Complete Time: 05:48 EDMS 09/18 05:13 Order name: Influenza Screen (A ; Complete Time: 05:48 EDMS 09/18 05:57 Order name: Procalcitonin EDMS 09/18 05:57 Order name: Basic Metabolic Panel; Complete Time: 06:38 EDMS 09/18 05:57 Order name: Liver (Hepatic) Function; Complete Time: 06:38 EDMS 09/18 05:57 Order name: Troponin (Emerg Dept Use Only); Complete Time: 06:38 EDMS 09/18 05:57 Order name: NT PRO-BNP; Complete Time: 06:38 EDMS 09/18 05:57 Order name: Magnesium; Complete Time: 06:38 EDMS 09/18 05:57 Order name: CBC with Automated Diff; Complete Time: 06:38 EDMS 09/18 05:57 Order name: Blood Culture EDMS 09/18 05:57 Order name: Blood Culture EDMS 09/18 05:59 Order name: CBC with Automated Diff EDMS 09/18 04:43 Order name: XRAY Chest (1 view) 09/18 04:43 Order name: EKG; Complete Time: 07:12 09/18 04:43 Order name: Cardiac monitoring; Complete Time: 04:50 09/18 04:43 Order name: EKG - Nurse/Tech; Complete Time: 04:50 09/18 04:43 Order name: IV Saline Lock; Complete Time: 05:00 09/18 04:43 Order name: Labs collected and sent; Complete Time: 04:58 09/18 04:43 Order name: O2 Per Protocol; Complete Time: 04:50 09/18 04:43 Order name: O2 Sat Monitoring; Complete Time: 04:50 09/18 05:00 Order name: Chest Single View EDMS 09/18 05:59 Order name: CONS Pharmacy Consult EDMS 09/18 05:59 Order name: Regular EDMS 09/18 05:59 Order name: CBC with Automated Diff EDMS 09/18 05:59 Order name: Comprehensive Metabolic Panel EDMS 09/18 05:59 Order name: Comprehensive Metabolic Panel EDMS 09/18 05:59 Order name: Troponin I EDMS 09/18 05:59 Order name: Troponin I EDMS 09/18 05:59 Order name: Troponin I EDMS 09/18 07:57 Order name: Influenza Screen (A EDMS 09/18 07:57 Order name: Blood Culture EDMS 09/18 07:58 Order name: Urine Culture EDMS Administered Medications: Discontinued: NS 0.9% 1000 ml IV at 75 ml/hr continuous 05:05 Drug: NS 0.9% 1000 ml Route: IV; Rate: 75 ml/hr; Site: left hand; jd3 07:09 Follow up: IV Status: Order to discontinue infusion tl1 06:18 Drug: Tamiflu 75 mg Route: PO; jd3 06:18 Drug: Albuterol 2.5 mg Route: Inhalation; jd3 07:09 Follow up: Response: No adverse reaction; No change in condition tl1 06:19 Drug: AtroVENT Aerosol 0.5 mg Route: Inhalation; jd3 06:19 Drug: Rocephin - (cefTRIAXone) 1 grams Route: IVPB; Infused Over: 30 mins; Site: left jd3 hand; 07:08 Follow up: IV Status: Completed infusion tl1 06:20 Not Given (ordered to cancel medication by Dr. Egan.): Zithromax 500 mg IVPB once over jd3 1 hrs; mix in 250 mL NS 07:08 Drug: Aspirin 81 mg Route: PO; tl1 07:49 Follow up: Response: No adverse reaction aa5 07:08 Drug: PlaVIX 75 mg Route: PO; tl1 07:49 Follow up: Response: No adverse reaction aa5 Disposition: 09/18/18 05:05 Hospitalization ordered by Zachariah Weir for Observation. Preliminary diagnosis are Dyspnea, Type 2 diabetes mellitus, Cardiomegaly, Influenza due to identified novel influenza A virus, Unspecified kidney failure. - Bed requested for Telemetry/MedSurg (observation). - Status is Observation. jl7 - Condition is Fair. - Problem is new. - Symptoms have improved. UTI on Admission? No Signatures: Dispatcher [employer] EDMS Angelika Govea RN RN mw Anderson, Corey, MD MD cha Chretien, Felicia RN RN Lulú Wiley RN RN tl1 Diana Michel RN RN jl7 Jey Contreras RN RN jd3 Gema Toro RN aa5 Corrections: (The following items were deleted from the chart) 05:50 05:05 Hospitalization Ordered by Zachariah Weir MD for Inpatient Admission. Preliminary jaguar diagnosis is Dyspnea; Type 2 diabetes mellitus; Cardiomegaly. Bed requested for Telemetry/MedSurg (Inpatient). Status is Inpatient Admission. Condition is Fair. Problem is new. Symptoms have improved. UTI on Admission? No. jaguar 06:02 05:50 09/18/2018 05:05 Hospitalization Ordered by Zachariah Weir MD for Observation. [email or web address] Preliminary diagnosis is Dyspnea; Type 2 diabetes mellitus; Cardiomegaly; Influenza due to identified novel influenza A virus. Bed requested for Telemetry/MedSurg (observation). Status is Observation. Condition is Fair. Problem is new. Symptoms have improved. UTI on Admission? No. jaguar 06:49 06:02 09/18/2018 05:05 Hospitalization Ordered by Zachariah Weir MD for Observation. jaguar Preliminary diagnosis is Dyspnea; Type 2 diabetes mellitus; Cardiomegaly; Influenza due to identified novel influenza A virus. Bed requested for Telemetry/MedSurg (observation). Status is Observation. Condition is Fair. Problem is new. Symptoms have improved. UTI on Admission? No. mw 08:10 06:49 09/18/2018 05:05 Hospitalization Ordered by Zachariah Weir MD for Observation. [email or web address] Preliminary diagnosis is Dyspnea; Type 2 diabetes mellitus; Cardiomegaly; Influenza due to identified novel influenza A virus; Unspecified kidney failure. Bed requested for Telemetry/MedSurg (observation). Status is Observation. Condition is Fair. Problem is new. Symptoms have improved. UTI on Admission? No. jaguar
--- NOTE | 2018-09-18 05:06 | ER ---
Nurse's Notes [facility] Name: Mendy Gomez Age: 83 yrs Sex: Female : 1935 Arrival Date: 09/18/2018 Time: 04:19 Bed 4 Private MD: Diagnosis: Dyspnea;Type 2 diabetes mellitus;Cardiomegaly;Influenza due to identified novel influenza A virus;Unspecified kidney failure Presentation: 09/18 04:25 Presenting complaint: Pts daughter states that pt has had a cough and congestion with fc green sputum x 5 days. Since midnight she has become very short of breath. Pt see's Dr Frank for her kidneys and Dr Matson for heart. Transition of care: patient was not received from another setting of care. Onset of symptoms was September 14, 2018. Risk Assessment: Do you want to hurt yourself or someone else? Patient reports no desire to harm self or others. Care prior to arrival: None. 04:25 Method Of Arrival: Wheelchair fc 04:25 Acuity: BYRON 3 fc 04:49 Initial Sepsis Screen: Does the patient meet any 2 criteria? No. Patient's initial jd3 sepsis screen is negative. Does the patient have a suspected source of infection? No. Patient's initial sepsis screen is negative. Triage Assessment: 04:47 Respiratory: Onset: The symptoms/episode began/occurred today, the patient has mild jd3 shortness of breath. Historical: - Allergies: 04:41 PENICILLINS; fc - Home Meds: 04:41 aspirin 81 mg Oral chew 1 tab once daily [Active]; amlodipine 5 mg tab 1 tab once daily fc [Active]; pravastatin 80 mg Oral tab 1 tab once daily [Active]; fenofibrate 145 mg Oral tab 1 tab once daily [Active]; metoprolol succinate 25 mg Oral Tb24 1 tab twice a day [Active]; levothyroxine 50 mcg tab 1 tab once daily [Active]; Vitamin D3 5,000 unit oral tab daily [Active]; Plavix 75 mg Oral tab 1 tab once daily [Active]; furosemide 80 mg Oral tab 1 tab once daily [Active]; gabapentin 100 mg oral cap nightly [Active]; multivitamin oral tab daily [Active]; Zegerid OTC 20-1.1 mg-gram Oral cap 1 cap once daily [Active]; - PMHx: 04:41 Hyperlipidemia; Hypertension; RI; pacemaker/defibrillator; High Cholesterol; fc Hypothyroidism; Diabetes - NIDDM; - PSHx: 04:41 Heart stents; ; pacemaker/defib; Hysterectomy; fc - Immunization history:: Last tetanus immunization: up to date Flu vaccine is up to date. - Social history:: Smoking status: Patient/guardian denies using tobacco, Patient/guardian denies using alcohol, street drugs. - Ebola Screening: : Patient negative for fever greater than or equal to 101.5 degrees Fahrenheit, and additional compatible Ebola Virus Disease symptoms Patient denies exposure to infectious person Patient denies travel to an Ebola-affected area in the 21 days before illness onset. - Family history:: not pertinent. Screenin:50 Abuse screen: Denies threats or abuse. Nutritional screening: No deficits noted. jd3 Tuberculosis screening: No symptoms or risk factors identified. Fall Risk Ambulatory Aid- Crutches/Cane/Walker (15 pts). Gait- Weak (10 pts.). Mental Status- Oriented to own ability (0 pts). Total Clay Fall Scale indicates Low Risk Score (25-44 pts). Fall prevention measures have been instituted. Side Rails Up X 2 Placed close to Nursing Station Frequent Obs/Assesments occuring Family Present and informed to notify staff if they need to leave bedside. Assessment: 04:44 General: Appears in no apparent distress. uncomfortable, Behavior is calm, cooperative, jd3 appropriate for age. Pain: Denies pain. Neuro: Level of Consciousness is awake, alert, obeys commands, Oriented to person, place, time, situation, Appropriate for age. Cardiovascular: Heart tones S1 S2 present Capillary refill < 3 seconds Patient's skin is warm and dry. Rhythm is irregular. Respiratory: Reports shortness of breath at rest Airway is patent Respiratory effort is even, unlabored, Respiratory pattern is regular, symmetrical, Breath sounds are diminished. GI: No signs and/or symptoms were reported involving the gastrointestinal system. : No signs and/or symptoms were reported regarding the genitourinary system. EENT: No signs and/or symptoms were reported regarding the EENT system. Derm: Skin is intact, Skin is dry, Skin is normal, Skin temperature is warm. Musculoskeletal: Circulation, motion, and sensation intact. Range of motion: intact in all extremities. 05:13 Reassessment: Patient appears in no apparent distress at this time. Patient and/or jd3 family updated on plan of care and expected duration. Pain level reassessed. Patient is alert, oriented x 3, equal unlabored respirations, skin warm/dry/pink. 07:05 Reassessment: Pt sitting up in bed. Pt notified of room assignment (424) and wait time aa5 to be transported to the room. Pt verbalized understanding. . General: Appears comfortable, Behavior is calm, cooperative. Pain: Complains of pain in chest only with cough Pain currently is 0 out of 10 on a pain scale. Neuro: Level of Consciousness is awake, alert, obeys commands, Oriented to person, place, time, situation. Cardiovascular: Heart tones S1 S2 present Edema is absent. Rhythm is sinus rhythm. Respiratory: Reports cough, currently denies SOB. Airway is patent Respiratory effort is even, unlabored, Respiratory pattern is regular, symmetrical, Breath sounds are diminished bilaterally. GI: Abdomen is round non-distended, Bowel sounds present X 4 quads. Abd is soft and non tender X 4 quads. : No signs and/or symptoms were reported regarding the genitourinary system. EENT: No signs and/or symptoms were reported regarding the EENT system. Derm: Skin is pink, warm \T\ dry. Musculoskeletal: Range of motion: intact in all extremities. 07:49 Reassessment: Patient is alert, oriented x 3, equal unlabored respirations, skin aa5 warm/dry/pink. Vital Signs: 04:25 Weight 83.91 kg; Height 5 ft. 1 in. (154.94 cm); Pain 2/10; fc 04:47 BP 112 / 87; Pulse 64; Resp 16 S; Temp 98.6(O); Pulse Ox 97% on R/A; jd3 05:14 BP 114 / 86; Pulse 61; Resp 20 S; Pulse Ox 96% on R/A; jd3 06:00 BP 120 / 82; Pulse 58; Resp 17; Pulse Ox 100% on R/A; Pain 0/10; tl1 07:00 BP 132 / 88; Pulse 60; Resp 18 S; Temp 98.7(O); Pulse Ox 97% on R/A; Pain 0/10; aa5 07:15 BP 116 / 62; Pulse 61; Resp 17; Pulse Ox 98% on R/A; Pain 0/10; tl1 04:25 Body Mass Index 34.96 (83.91 kg, 154.94 cm) ED Course: 04:19 Patient arrived in ED. ag3 04:25 Arm band placed on Patient placed in an exam room, on a stretcher. fc 04:30 Jeremy Eason MD is Attending Physician. jaguar 04:34 Triage completed. 04:43 Jey Contreras RN is Primary Nurse. jd3 04:47 Patient has correct armband on for positive identification. Bed in low position. Call jd3 light in reach. Side rails up X 1. Adult w/ patient. 05:04 Zachariah Weir MD is Hospitalizing Provider. jaguar 05:07 X-ray completed. Portable x-ray completed in exam room. Patient tolerated procedure sg4 well. 05:08 Chest Single View In Process Unspecified. EDMS 07:00 Report received from BRYAN Chino and BRYAN Khanna. aa5 07:12 No provider procedures requiring assistance completed. Patient admitted, IV remains in tl1 place. Administered Medications: Discontinued: NS 0.9% 1000 ml IV at 75 ml/hr continuous 05:05 Drug: NS 0.9% 1000 ml Route: IV; Rate: 75 ml/hr; Site: left hand; jd3 07:09 Follow up: IV Status: Order to discontinue infusion tl1 06:18 Drug: Tamiflu 75 mg Route: PO; jd3 06:18 Drug: Albuterol 2.5 mg Route: Inhalation; jd3 07:09 Follow up: Response: No adverse reaction; No change in condition tl1 06:19 Drug: AtroVENT Aerosol 0.5 mg Route: Inhalation; jd3 06:19 Drug: Rocephin - (cefTRIAXone) 1 grams Route: IVPB; Infused Over: 30 mins; Site: left [facility] hand; 07:08 Follow up: IV Status: Completed infusion tl1 06:20 Not Given (ordered to cancel medication by Dr. Egan.): Zithromax 500 mg IVPB once over jd3 1 hrs; mix in 250 mL NS 07:08 Drug: Aspirin 81 mg Route: PO; tl1 07:49 Follow up: Response: No adverse reaction aa5 07:08 Drug: PlaVIX 75 mg Route: PO; tl1 07:49 Follow up: Response: No adverse reaction aa5 Outcome: 05:05 Decision to Hospitalize by Provider. jaguar 07:05 Instructed on the need for admit, Demonstrated understanding of instructions. aa5 07:49 Admitted to Tele accompanied by tech, family with patient, via stretcher, room 424, aa5 with chart, Report called to BRYAN Worley 07:49 Condition: stable 08:10 Patient left the ED. jl7 Signatures: Dispatcher [employer] Jeremy Eller MD MD cha Chretien, Felicia, RN RN Gema Toro RN RN aa5 Lulú Wiley RN RN tl1 Diana Michel RN RN jl7 Jey Contreras RN RN jd3 Kristen Jordan Susana sg4
[2018-09-18] MEDS ORDERED: NA CHLORIDE 0.9% 1,000 ML ONE (05:13)
[2018-09-18 05:28] LABS: Absolute Lymphocytes (CBC) 1.4 K/uL (0.7-4.9); Absolute Monocytes 0.5 K/uL (0.1-1.3); Absolute Neutrophil 3.4 K/uL (1.8-8.0); Basophils % 0.5 % (0-1.3); Eosinophils % 4.5 % (0-4.4); Hematocrit 32.1 % (36.0-45.0); Monocytes % 9.2 % (3.3-12.3)
[2018-09-18] MEDS ORDERED: IPRATROPIUM BROM 0.5MG/2.5ML NEB PRN (05:55)
[2018-09-18] MEDS ORDERED: ACETAMINOPHEN 500 MG TAB PO PRN (05:55)
[2018-09-18] MEDS ORDERED: ALBUTEROL 2.5 MG/3 ML NEB SOL NEB PRN (05:55)
[2018-09-18] MEDS ORDERED: ONDANSETRON 4 MG/2 ML VIAL IV PRN (05:55)
[2018-09-18] MEDS ORDERED: MORPHINE 2 MG/ML SYR IV PRN (05:55)
[2018-09-18 06:02] LABS: Albumin 2.9 g/dL (3.4-5.0); Bilirubin Direct 0.2 mg/dL (0-0.2); Bilirubin Total 0.6 mg/dL (0.2-1.0); Magnesium 2.4 mg/dL (1.8-2.4); Potassium 4.5 mmol/L (3.5-5.1); Protein, Total 7.1 g/dL (6.4-8.2); Troponin (Emerg Dept Use Only) 0.3 ng/mL (0.0-0.045)
[2018-09-18 06:08] LABS: Absolute Lymphocytes (CBC) 1.1 K/uL (0.7-4.9); Absolute Monocytes 0.5 K/uL (0.1-1.3); Absolute Neutrophil 3.5 K/uL (1.8-8.0); Basophils % 0.4 % (0-1.3); Eosinophils % 4.2 % (0-4.4); Hematocrit 30.9 % (36.0-45.0); Lymphocytes % 21.4 % (15.3-44.8); Monocytes % 8.6 % (3.3-12.3); RBC Red Blood Cell Count 3.28 M/uL (3.86-4.86)
[2018-09-18] MEDS ORDERED: OSELTAMIVIR 75 MG CAP ONE (06:10)
[2018-09-18] MEDS ORDERED: CEFTRIAXONE/SWI 1gm 1 GM/10 ML SYR ONE (06:10)
[2018-09-18] MEDS ORDERED: AZITHROMYCIN 500 MG INJ IVPB ONE (06:10)
[2018-09-18] MEDS ORDERED: NA CHLORIDE 0.9% 250 ML ONE (06:12)
[2018-09-18 06:23] LABS: Albumin 2.9 g/dL (3.4-5.0); Bilirubin Direct 0.2 mg/dL (0-0.2); Bilirubin Total 0.6 mg/dL (0.2-1.0); Magnesium 2.4 mg/dL (1.8-2.4); Potassium 4.2 mmol/L (3.5-5.1); Protein, Total 6.8 g/dL (6.4-8.2); Troponin (Emerg Dept Use Only) 0.3 ng/mL (0.0-0.045)
[2018-09-18] MEDS ORDERED: ASPIRIN EC 81 MG TAB PO ONE (07:18)
[2018-09-18] MEDS ORDERED: CLOPIDOGREL 75 MG TABLET ONE (07:18)
[2018-09-18 08:49] LABS: Urine Blood 2+ (NEG); Urine Glucose NEGATIVE (NEG); Urine Protein 2+ (NEG); Urine Specific Gravity 1.015 (1.005-1.030); Urine pH 6.5 (5.0-7.0)
--- NOTE | 2018-09-18 09:34 | RAD REPORT ---
EXAM DESCRIPTION: RAD - Chest Single View - 09/18/2018 5:07 am CLINICAL HISTORY: Cough and congestion COMPARISON: April 25, 2018 TECHNIQUE: AP portable chest image was obtained 0459 hours . FINDINGS: No peripheral mass or consolidation. Lung markings are prominent but decreased compared to the failure pattern seen April 2018. Defibrillator is in place. Heart size and vasculature are not outside normal range for body habitus and portable imaging. No measurable pleural effusion and no pn eumothorax. No acute bony abnormality seen. No acute aortic findings suspected. IMPRESSION: Chronic interstitial lung disease. Vasculature and lung markings are decreased in prominence from the April comparison. A mild failure is not excluded.
[2018-09-18 10:01] VITALS: BMI 34.9
[2018-09-18] MEDS ORDERED: D50W 25 GM/50 ML SYRINGE IV PRN (10:02)
[2018-09-18] MEDS ORDERED: GLUCAGON 1 MG/VIAL IM PRN (10:02)
--- NOTE | 2018-09-18 10:54 | P.HP ---
Certification for Inpatient Patient admitted to: Observation With expected LOS: <2 Midnights Patient will require the following post-hospital care: None Practitioner: I am a practitioner with admitting privileges, knowledge of patient current condition, hospital course, and medical plan of care. Services: Services provided to patient in accordance with Admission requirements found in Title 42 Section 412.3 of the Code of Federal Regulations Patient History Date of Service: 09/18/18 Reason for admission: Influenza pneumonia History of Present Illness: Patient is an 83-year-old female came to the hospital with shortness of breath. She has been sick for the last week. Her respiratory status is been gradually worsening. She came into the hospital for further evaluation. In the emergency room she tested positive for influenza pneumonia. She also has a history of cardiomyopathy with defibrillator placement. She had a history of ventricular tachycardia with cardioversion. She was started on Tamiflu in the ER. She was tachypneic & weak. She will be admitted for observation. Allergies No Known Allergies Allergy (Verified 04/25/18 21:09) Home Medications: Amlodipine [Norvasc*] 1 tab PO DAILY 09/18/18 Aspirin 81 mg PO DAILY 09/18/18 Clopidogrel Bisulfate [Plavix*] 1 tab PO DAILY 09/18/18 Fenofibrate Nanocrystallized [Fenofibrate] 145 mg PO DAILY 09/18/18 Furosemide [Lasix] 80 mg PO DAILY 09/18/18 Gabapentin 100 mg PO BEDTIME 09/18/18 Levothyroxine Sodium 50 mcg PO DAILY 09/18/18 Metoprolol Succinate [Toprol Xl*] 1 tab PO DAILY 09/18/18 Multivitamin/Iron/Folic Acid [Centrum Women Tablet] 1 tab PO DAILY 09/18/18 Omeprazole/Sodium Bicarbonate [Zegerid 20 mg Capsule] 1 tab PO BEDTIME 09/18/18 Pravastatin Sodium 1 tab PO DAILY 09/18/18 Vit D3/Folic Acid/B2/B6/B12 [Folgard Tablet] 5,000 units PO DAILY 09/18/18 - Past Medical/Surgical History Has patient received pneumonia vaccine in the past: Yes Diabetic: Yes -: MD -: DM -: Htn -: Hyperlipidemia -: CHF -: Hysterectomy -: Defibrillator -: Coronary stents -: Appendectomy -: Right leg stent - Family History Father Medical History: Cancer Mother Medical History: Lung disease - Social History Smoking Status: Never smoker Alcohol use: No CD- Drugs: No Caffeine use: Yes Place of Residence: Home Review of Systems 10-point ROS is otherwise unremarkable Physical Examination - Vital Signs Temperature: 97.4 F Blood Pressure: 144/71 Pulse: 63 Respirations: 18 Pulse Ox (%): 95 - Physical Exam General: Alert, In no apparent distress, Oriented x3 HEENT: Atraumatic, PERRLA, Mucous membr. moist/pink, EOMI, Sclerae nonicteric Neck: Supple, 2+ carotid pulse no bruit, No LAD, Without JVD or thyroid abnormality Respiratory: Normal air movement, Diminished, Crackles/rales Cardiovascular: Regular rate/rhythm, Normal S1 S2, Systolic murmur Gastrointestinal: Normal bowel sounds, Soft and benign, Non-distended, No tenderness Musculoskeletal: No clubbing, No swelling, No tenderness Integumentary: No rashes Neurological: Normal gait, Normal speech, Normal tone, Sensation intact, Cranial nerves 3-12 intact, Normal affect, Abnormal strength Lymphatics: No axilla or inguinal lymphadenopathy - Studies Laboratory Data (last 24 hrs) 09/18/18 05:31: WBC 5.3, Hgb 10.1 L, Hct 30.9 L, Plt Count 146 L 09/18/18 05:31: Sodium 142, Potassium 4.2, BUN 82 H, Creatinine 3.48 H, Glucose 169 H, Magnesium 2.4, Total Bilirubin 0.6, AST 48 H, ALT 28, Alkaline Phosphatase 49 09/18/18 04:50: WBC 5.6, Hgb 10.8 L, Hct 32.1 L, Plt Count 147 L 09/18/18 04:50: Sodium 144, Potassium 4.5, BUN 82 H, Creatinine 3.56 H, Glucose 158 H, Magnesium 2.4, Total Bilirubin 0.6, AST 52 H, ALT 29, Alkaline Phosphatase 55 09/18/18 04:43: PT Cancelled, INR Cancelled 09/18/18 04:43: WBC Cancelled, Hgb Cancelled, Hct Cancelled, Plt Count Cancelled 09/18/18 04:43: Sodium Cancelled, Potassium Cancelled, BUN Cancelled, Creatinine Cancelled, Glucose Cancelled, Magnesium Cancelled, Total Bilirubin Cancelled, AST Cancelled, ALT Cancelled, Alkaline Phosphatase Cancelled Microbiology Data (last 24 hrs): 09/18/18 04:50 Nasopharnyx Influenza Type A Antigen Screen - Final 09/18/18 04:50 Nasopharnyx Influenza Type B Antigen Screen - Final Assessment & Plan - Problems (Diagnosis) (1) Influenza, pneumonia Current Visit: Yes Status: Acute (2) Coronary artery disease Current Visit: Yes Status: Acute (3) Cardiomyopathy Current Visit: Yes Status: Acute (4) Cardiac defibrillator in place Onset Date: 02/17/17 Current Visit: No Status: Acute (5) Diabetes Onset Date: 02/17/17 Current Visit: No Status: Acute Qualifiers: (6) Hyperlipidemia Onset Date: 02/17/17 Current Visit: No Status: Acute Qualifiers: (7) Hypertension Onset Date: 02/17/17 Current Visit: No Status: Acute Qualifiers: - Plan Plan: 1. Continue with Tamiflu 2. Monitor hemodynamics cautiously as patient with a history of cardiomyopathy 3. Resume cardiac meds 4. Strict blood pressure and blood sugar control 5. Monitor renal function closely 6. GI and DVT prophylaxis Discharge Plan: Home Plan to discharge in: 48 Hours - Advance Directives Does patient have a Living Will: No Does patient have a Durable POA for Healthcare: No - Code Status/Comfort Care Code Status Assessed: Yes Code Status: Full Code Critical Care: No Time Spent Managing PTS Care (In Minutes): 45
[2018-09-18] MEDS: INSULIN -REGULAR HUMAN 50 UNIT/0.5 ML ML SQ SCH ×3 (11:30→20:58)
[2018-09-18] MEDS: FUROSEMIDE 40 MG TABLET PO SCH (12:44)
[2018-09-18 13:07] LABS: Urine Appearance TURBID; Urine Bilirubin NEGATIVE (NEG); Urine Blood 3+ (NEG); Urine Color YELLOW; Urine Glucose NEGATIVE (NEG); Urine Protein TRACE (NEG); Urine Specific Gravity 1.015 (1.005-1.030); Urine Urobilinogen 0.2 mg/dL (0.2-1.0)
[2018-09-18 13:10] LABS: Urine Microscopic Reflex ORDER UMIC
[2018-09-18 13:56] LABS: Urine Bacteria >50 /HPF (<20); Urine RBC >50 /HPF (NONE SEEN)
[2018-09-18 13:57] LABS: Urine Culture Reflex Order REFLEXED
[2018-09-18] MEDS ORDERED: HYDROCODONE/APAP 10/325 TAB PO PRN (20:21)
[2018-09-18] MEDS ORDERED: GABAPENTIN 100 MG CAP PO SCH (21:00)
[2018-09-18] MEDS ORDERED: ATORVASTATIN 10 MG TAB PO SCH (21:00)
[2018-09-18] MEDS ORDERED: ZEGERID 20 MG PO SCH (21:00)
[2018-09-18] MEDS ORDERED: OSELTAMIVIR 75 MG CAP PO SCH (21:00)
[2018-09-19 04:57] LABS: Absolute Lymphocytes (CBC) 0.9 K/uL (0.7-4.9); Absolute Monocytes 0.5 K/uL (0.1-1.3); Absolute Neutrophil 4.1 K/uL (1.8-8.0); Basophils % 0.4 % (0-1.3); Hematocrit 28.8 % (36.0-45.0); Lymphocytes % 15.7 % (15.3-44.8); MPV 10.7 fL (7.6-11.3); Monocytes % 8.6 % (3.3-12.3); RBC Red Blood Cell Count 3.03 M/uL (3.86-4.86)
[2018-09-19 05:04] LABS: Albumin 2.7 g/dL (3.4-5.0); Bilirubin Total 0.4 mg/dL (0.2-1.0); Potassium 4.7 mmol/L (3.5-5.1); Protein, Total 6.6 g/dL (6.4-8.2)
[2018-09-19] MEDS ORDERED: LEVOTHYROXINE SOD 0.05 MG TABLET PO SCH (06:30)
[2018-09-19] MEDS: INSULIN -REGULAR HUMAN 50 UNIT/0.5 ML ML SQ SCH ×2 (07:30→11:30)
[2018-09-19] MEDS: FUROSEMIDE 40 MG TABLET PO SCH (08:50)
[2018-09-19] MEDS ORDERED: METOPROLOL XL 25 MG TAB PO SCH (09:00)
[2018-09-19] MEDS ORDERED: FENOFIBRATE 160 MG TAB PO SCH (09:00)
[2018-09-19] MEDS ORDERED: B6 PO SCH (09:00)
[2018-09-19] MEDS ORDERED: VITAMIN D 5,000 UNIT CAP PO SCH (09:00)
[2018-09-19] MEDS ORDERED: VIT D3 PO SCH (09:00)
[2018-09-19] MEDS ORDERED: ASPIRIN 81 MG CHEWABLE TABLET PO SCH (09:00)
[2018-09-19] MEDS ORDERED: FOLIC ACID PO SCH (09:00)
[2018-09-19] MEDS ORDERED: B2 PO SCH (09:00)
[2018-09-19] MEDS ORDERED: MULTIVIT W/ MINERAL TAB PO SCH (09:00)
[2018-09-19] MEDS ORDERED: AMLODIPINE 5 MG TAB PO SCH (09:00)
[2018-09-19] MEDS ORDERED: B12 PO SCH (09:00)
[2018-09-19] MEDS ORDERED: CLOPIDOGREL 75 MG TABLET PO SCH (09:00)
[2018-09-19] MEDS ORDERED: HOME MED 1 EA UNK (Pravastatin Sodium [Pravastatin Sodium] 1 TAB) PO SCH (09:00)
[2018-09-19] MEDS ORDERED: OSELTAMIVIR PHOSPHATE 30 MG/5 ML SUSPENSION UD PO SCH (09:00)
[2018-09-19 09:11] VITALS: O2SAT 90
--- NOTE | 2018-09-19 09:14 | EKG ---
Test Date: 2018-09-18 Test Time: 04:36:01 Sterile Processing Technician: JAX MEASUREMENT RESULTS: Intervals: Rate: 62 SD: 148 QRSD: 134 QT: 432 QTc: 438 Hughes: P: 42 SD: 148 QRS: -45 T: 92 INTERPRETIVE STATEMENTS: Normal sinus rhythm Right bundle branch block Left axis Anteroseptal infarct, age undetermined Abnormal ECG Compared to ECG 04/25/2018 16:18:22 Myocardial infarct finding still present Electronically Signed On 09-19-18 09:13:47 LEAD BASED PAINT TECHNICIAN by Yaakov Funes
--- NOTE | 2018-09-19 10:38 | P.DS ---
Admission Date: 09/18/18 Discharge Date: 09/19/18 Primary Care Provider: Dr. Wilkerson; Nephrology-Dr. Frank; Cardiology-Dr. Matson Disposition: ROUTINE DISCHARGE Discharge Condition: GOOD Reason for Admission: Influenza pneumonia Consultations: Nephrology-Dr. Frank Procedures: CXR: COMPARISON: April 25, 2018 TECHNIQUE: AP portable chest image was obtained 0459 hours . FINDINGS: No peripheral mass or consolidation. Lung markings are prominent but decreased compared to the failure pattern seen April 2018. Defibrillator is in place. Heart size and vasculature are not outside normal range for body habitus and portable imaging. No measurable pleural effusion and no pneumothorax. No acute bony abnormality seen. No acute aortic findings suspected. IMPRESSION: Chronic interstitial lung disease. Vasculature and lung markings are decreased in prominence from the April comparison. A mild failure is not excluded. Medical Problem List: Shortness of breath secondary to Influenza A CAD with history of cardiomyopathy with defibrillator Hypertension Hypothyroidism Chronic renal disease, stage IV Hyperlipidemia Neuropathy Anemia of chronic disease GERD Brief History of Present Illness: 83-year-old female presented to the emergency room with shortness of breath. Patient found to have Influenza A. Patient admitted for further evaluation. Hospital Course: Patient presented with shortness of breath. Patient found to have influenza A. Pro calcitonin negative. Chest x-ray showed no pneumonia. At discharge patient will continue with Tamiflu twice daily for 4 more days. Patient may continue with Mucinex 1 pill twice daily as needed for congestion. Tessalon Perles 100 mg 3 times a day as needed for cough will be provided. Recommend to recheck chest x-ray in 2-4 weeks to monitor resolution. Education on influenza will be provided. Patient with history of CAD and prior history of cardiomyopathy with defibrillator. At discharge she will continue with aspirin 81 mg daily, Lasix 80 mg daily and Plavix 75 mg daily. Recommend follow up with her nurse tech as directed. Patient with hypertension. Patient will continue with Norvasc 5 mg daily and metoprolol 25 mg daily. Recommend to maintain blood pressures less 150/80. Further adjustment can be done by her PCP or cardiology. Patient with hypothyroidism. Patient will continue with Levoxyl 50 mcg daily. Patient with hyperlipidemia. Patient will continue with fenofibrate 145 mg daily and pravastatin 80 mg daily. Patient with chronic renal disease, stage IV. Recommend to recheck lab-BMP in 1 -2 weeks to monitor progress. Recommend to follow up with nephrology in 2-4 weeks to monitor progress. Patient with neuropathy. Patient will continue with gabapentin 100 mg at bedtime. Patient with anemia of chronic disease. Recommend to recheck CBC in 2-4 weeks to monitor progress. Patient with GERD. Patient will continue with her medication. Vital Signs/Physical Exam: Temp Pulse Resp BP Pulse Ox 97.8 F 59 16 112/56 L 90 L 09/19/18 08:00 09/19/18 08:50 09/19/18 08:00 09/19/18 08:50 09/19/18 08:00 General: Alert, In no apparent distress, Oriented x3, Cooperative HEENT: Atraumatic Neck: Supple Respiratory: Clear to auscultation bilaterally, Normal air movement Cardiovascular: Normal pulses, Regular rate/rhythm Gastrointestinal: Normal bowel sounds, Soft and benign, Non-distended, No tenderness, No masses, No rebound, No guarding Musculoskeletal: No erythema, No tenderness, No warmth Integumentary: No tenderness/swelling, No erythema, No warmth, No cyanosis Neurological: Normal gait, Normal speech, Normal strength at 5/5 x4 extr, Normal tone, Normal affect Laboratory Data at Discharge: WBC 5.7 K/uL (4.3-10.9) 09/19/18 03:35 Hgb 9.5 g/dL (12.0-15.0) L 09/19/18 03:35 Hct 28.8 % (36.0-45.0) L 09/19/18 03:35 Plt Count 131 K/uL (152-406) L 09/19/18 03:35 PT Cancelled 09/18/18 04:43 INR Cancelled 09/18/18 04:43 Sodium 144 mmol/L (136-145) 09/19/18 03:35 Potassium 4.7 mmol/L (3.5-5.1) 09/19/18 03:35 BUN 86 mg/dL (7-18) H 09/19/18 03:35 Creatinine 3.27 mg/dL (0.55-1.3) H 09/19/18 03:35 Glucose 175 mg/dL (74-106) H 09/19/18 03:35 Magnesium 2.4 mg/dL (1.8-2.4) 09/18/18 05:31 Total Bilirubin 0.4 mg/dL (0.2-1.0) 09/19/18 03:35 AST 43 U/L (15-37) H 09/19/18 03:35 ALT 26 U/L (12-78) 09/19/18 03:35 Alkaline Phosphatase 50 U/L (45-117) 09/19/18 03:35 Troponin I 0.28 ng/mL (0.0-0.045) H 09/18/18 14:50 Home Medications: Amlodipine [Norvasc*] 1 tab PO DAILY 09/18/18 Aspirin 81 mg PO DAILY 09/18/18 Cholecalciferol (Vitamin D3) [Vitamin D3] 5,000 unit PO DAILY 09/18/18 Clopidogrel Bisulfate [Plavix*] 1 tab PO DAILY 09/18/18 Fenofibrate Nanocrystallized [Fenofibrate] 145 mg PO DAILY 09/18/18 Furosemide [Lasix] 80 mg PO DAILY 09/18/18 Gabapentin 100 mg PO BEDTIME 09/18/18 Levothyroxine Sodium 50 mcg PO DAILY 09/18/18 Metoprolol Succinate [Toprol Xl*] 1 tab PO DAILY 09/18/18 Multivitamin/Iron/Folic Acid [Centrum Women Tablet] 1 tab PO DAILY 09/18/18 Omeprazole/Sodium Bicarbonate [Zegerid 20 mg Capsule] 1 tab PO BEDTIME 09/18/18 Pravastatin Sodium 1 tab PO DAILY 09/18/18 Benzonatate [Tessalon Perle] 100 mg PO TID PRN #15 cap 09/19/18 Guaifenesin [Mucinex] 600 mg PO BID PRN #15 tablet.er 09/19/18 Oseltamivir Phosphate [Tamiflu Suspension] 5 ml PO DAILY #1 bottle 09/19/18 New Medications: Benzonatate [Tessalon Perle] 100 mg PO TID PRN #15 cap PRN Reason: Cough Guaifenesin [Mucinex] 600 mg PO BID PRN #15 tablet.er PRN Reason: Cough Oseltamivir Phosphate [Tamiflu Suspension] 5 ml PO DAILY #1 bottle Patient Discharge Instructions: 1. Patient will follow up with her PCP in 1 week to follow up this hospitalization. 2. Patient presented with shortness of breath. Patient found to have influenza A. Pro calcitonin negative. Chest x-ray showed no pneumonia. At discharge patient will continue with Tamiflu twice daily for 4 more days. Patient may continue with Mucinex 1 pill twice daily as needed for congestion. Tessalon Perles 100 mg 3 times a day as needed for cough will be provided. Recommend to recheck chest x-ray in 2-4 weeks to monitor resolution. Education on influenza will be provided. 3. Patient with history of CAD and prior history of cardiomyopathy with defibrillator. At discharge she will continue with aspirin 81 mg daily, Lasix 80 mg daily and Plavix 75 mg daily. Recommend follow up with her nurse tech as directed. 4. Patient with hypertension. Patient will continue with Norvasc 5 mg daily and metoprolol 25 mg daily. Recommend to maintain blood pressures less 150/80. Further adjustment can be done by her PCP or cardiology. 5. Patient with hypothyroidism. Patient will continue with Levoxyl 50 mcg daily. 6. Patient with hyperlipidemia. Patient will continue with fenofibrate 145 mg daily and pravastatin 80 mg daily. 7. Patient with chronic renal disease, stage IV. Recommend to recheck lab-BMP in 1-2 weeks to monitor progress. Recommend to follow up with nephrology in 2-4 weeks to monitor progress. 8. Patient with neuropathy. Patient will continue with gabapentin 100 mg at bedtime. 9. Patient with anemia of chronic disease. Recommend to recheck CBC in 2-4 weeks to monitor progress. 10. Patient with GERD. Patient will continue with her medication. Diet: AHA Activity: Fall precautions Time spent managing pt's care (in minutes): 55
[2018-09-19 12:17] VITALS: BP 123/59; TEMP 97.6
--- NOTE | 2018-09-19 20:54 | P.CNS ---
Date of Consult: 09/19/18 Reason for Consult: RAGHAVENDRA/ CKD Requesting Physician: Derek Lepe Primary Care Provider: Dr. Wilkerson; Nephrology-Dr. Frank; Cardiology-Dr. Matson Chief Complaint: Influenza pneumonia History of Present Illness: Patient is an 83-year-old female came to the hospital with shortness of breath. She has been sick for the last week. Her respiratory status is been gradually worsening. She came into the hospital for further evaluation. In the emergency room she tested positive for influenza pneumonia. She also has a history of cardiomyopathy with defibrillator placement. She had a history of ventricular tachycardia with cardioversion. She was started on Tamiflu in the ER. She was tachypneic & weak. She will be admitted for observation. 05:00 This 83 yrs old Female presents to ER via Wheelchair with complaints of jaguar Shortness Of Breath. 05:00 The patient has shortness of breath at rest, with light activity. Onset: The jaguar symptoms/episode began/occurred 5 day(s) ago. The patient's shortness of breath has no apparent modifying factors. Associated signs and symptoms: Pertinent positives: productive cough, fever. Severity of symptoms: At their worst the symptoms were mild in the emergency department the symptoms are unchanged. The patient has not experienced similar symptoms in the past. Allergies No Known Allergies Allergy (Verified 04/25/18 21:09) Home medications list reviewed: Yes Home Medications: Amlodipine [Norvasc*] 1 tab PO DAILY 09/18/18 Aspirin 81 mg PO DAILY 09/18/18 Cholecalciferol (Vitamin D3) [Vitamin D3] 5,000 unit PO DAILY 09/18/18 Clopidogrel Bisulfate [Plavix*] 1 tab PO DAILY 09/18/18 Fenofibrate Nanocrystallized [Fenofibrate] 145 mg PO DAILY 09/18/18 Furosemide [Lasix] 80 mg PO DAILY 09/18/18 Gabapentin 100 mg PO BEDTIME 09/18/18 Levothyroxine Sodium 50 mcg PO DAILY 09/18/18 Metoprolol Succinate [Toprol Xl*] 1 tab PO DAILY 09/18/18 Multivitamin/Iron/Folic Acid [Centrum Women Tablet] 1 tab PO DAILY 09/18/18 Omeprazole/Sodium Bicarbonate [Zegerid 20 mg Capsule] 1 tab PO BEDTIME 09/18/18 Pravastatin Sodium 1 tab PO DAILY 09/18/18 Benzonatate [Tessalon Perle] 100 mg PO TID PRN #15 cap 09/19/18 Guaifenesin [Mucinex] 600 mg PO BID PRN #15 tablet.er 09/19/18 Oseltamivir Phosphate [Tamiflu Suspension] 5 ml PO DAILY #1 bottle 09/19/18 - Past Medical/Surgical History Diabetic: Yes -: LA -: DM -: Htn -: Hyperlipidemia -: CHF -: Hysterectomy -: Defibrillator -: Coronary stents -: Appendectomy -: Right leg stent - Family History Father Medical History: Cancer Mother Medical History: Lung disease - Social History Smoking Status: Never smoker Alcohol use: No CD- Drugs: No Caffeine use: Yes Place of Residence: Home Review of Systems 10-point ROS is otherwise unremarkable General: Weakness, Malaise Respiratory: SOB with Excertion Physical Examination Temp Pulse Resp BP Pulse Ox 97.6 F 56 16 123/59 L 90 L 09/19/18 12:00 09/19/18 12:09/19/18 12:00 09/19/18 12:09/19/18 12:00 General: In no apparent distress, Oriented x3, Cooperative HEENT: Atraumatic Neck: Supple Respiratory: Clear to auscultation bilaterally Cardiovascular: No edema, Regular rate/rhythm Gastrointestinal: Soft and benign, Non-distended Musculoskeletal: No clubbing, No contractures Integumentary: No rashes, No cyanosis Neurological: Normal speech BUN 86/ Cr 3.27 Blood work reviewed in the chart. Imagings Data: EXAM DESCRIPTION: RAD - Chest Single View - 09/18/2018 5:07 am CLINICAL HISTORY: Cough and congestion COMPARISON: April 25, 2018 TECHNIQUE: AP portable chest image was obtained 0459 hours . FINDINGS: No peripheral mass or consolidation. Lung markings are prominent but decreased compared to the failure pattern seen April 2018. Defibrillator is in place. Heart size and vasculature are not outside normal range for body habitus and portable imaging. No measurable pleural effusion and no pneumothorax. No acute bony abnormality seen. No acute aortic findings suspected. IMPRESSION: Chronic interstitial lung disease. Vasculature and lung markings are decreased in prominence from the April comparison. A mild failure is not excluded. Conclusions/Impression: A/ Influenza A. HTN with CKD/ CHF. Diastolic CHF, A/C. RAGHAVENDRA/ CKD IV. DM II with CKD. Anemia in chronic illness. P/ Continue current POC and Medications. Agree with diuresis. Supportive care as ordered. Maintain nutrition. No NSAIDs. AM labs. Daily weight. Thank you kindly for the consultation.
[2018-09-20] MEDS ORDERED: VITAMIN D 5,000 UNIT CAP PO SCH (09:00)
== END 2018-09-19 13:51 | disposition home or self-care (01) ==
LOC: ER 04:18 → ERHOLD 06:31 → 4TH 07:50
PROVIDERS: ADMIT Hospitalist; ATTEND Hospitalist
DX: J09.X2 Influenza due to identified novel influenza A virus with other respiratory manifestations (principal); I13.0 Hypertensive heart and chronic kidney disease with heart failure and stage 1 through stage 4 chronic kidney disease, or unspecified chronic kidney disease; E11.22 Type 2 diabetes mellitus with diabetic chronic kidney disease; N18.4 Chronic kidney disease, stage 4 (severe); I50.32 Chronic diastolic (congestive) heart failure; I25.10 Atherosclerotic heart disease of native coronary artery without angina pectoris; E03.9 Hypothyroidism, unspecified; Z95.810 Presence of automatic (implantable) cardiac defibrillator; E78.5 Hyperlipidemia, unspecified; D63.1 Anemia in chronic kidney disease; E11.40 Type 2 diabetes mellitus with diabetic neuropathy, unspecified; K21.9 Gastro-esophageal reflux disease without esophagitis
CPT/HCPCS: 96365; 96361; 93005; 87040; 87088; 85025 ×3; 87086; 80048 ×2; 36415; 83735 ×2; 82962 ×5; 80076 ×2; 84484 ×4; 80053; 84145; 83880 ×2; 87804 ×2; 71045; 94640; 99285; J0456; G9035; J0696; J7030; J2405; G0378 ×2; 81003; 81015

== ENCOUNTER 2018-09-23 00:17 | Emergency (ER) | payer OTHER ==
--- OUTSIDE RECORDS SUMMARY | 2018-09-23 00:21 | XMS REPORT ---
[...] Start End Date Status Dosage Date Gabapentin [facility] 13022054333 100 MG Orally Active 1 capsule Three times a day Results No Known Results Summary Purpose eClinicalWorks Submission
--- OUTSIDE RECORDS SUMMARY | 2018-09-23 00:21 | XMS REPORT ---
[...] End Status Dosage System Date Date Levothyroxine [facility] 23145506351 50 MCG Orally November 30, Active 1 tablet Sodium Once a day 2017 on an empty stomach in the morning Lasix ND 11953674606 40 MG Orally Active 1 tablet Once a day Amlodipine ND 92293032748 5 MG Orally Active 5 mg Besylate Once a day Toprol XL [facility] 65800885572 25 MG Orally Active 1 tablet Once a day Mirtazapine [facility] 90823603731 15 MG Orally September Active 1 tablet Once a day 2017 at bedtime Vitamin D-3 [facility] 95955133397 1000 UNIT Active 1 capsule Orally Once a day Pravachol [facility] 23163415276 80 MG Orally Active 1 tablet Once a day Gabapentin [facility] 62371457721 100 MG Orally Active 1 capsule Three times a day Klor-Con M10 [facility] 70479619574 10 MEQ Orally Active 1 tablet Twice a day with food Fosamax [facility] 24576463989 70 MG Active TAKE 1 TABLET ONCE A WEEK Alprazolam [facility] 59262103620 0.25 MG Orally September Active 1 tablet once a day prn [address] [facility] 83747727762 145 MG Orally Active 1 tablet Once a day with food Valsartan [facility] 76299506065 40 MG Orally Active 1 tablet Twice a day Tramadol HCl [facility] 54455040242 50 MG Orally November 30December Active 1 tablet once a night as 2017 14, as needed needed for pain 2017 ( 5-10 pain scale) Aspirin 81 [facility] 84673203347 81 MG Orally Active 1 tablet Once a day Loratadine [facility] 71661532076 10 MG Orally Active 1 tablet Once a day Macrobid [facility] 39096798529 100 MG Orally October Active 1 capsule every 12 hrs [address] [facility] 95386101836 75 MG Orally Active 1 tablet Once a day Tradjenta [facility] 44946094655 5 MG Orally Active 1 tablet Once a day Flonase [facility] 48649761826 50 MCG/ACT Active 1 spray in Nasally Once a each day nostril Results No Known Results Summary Purpose eClinicalWorks Submission
--- OUTSIDE RECORDS SUMMARY | 2018-09-23 00:21 | XMS REPORT ---
[...] End Status Dosage System Date Date Pravachol [facility] 57419879315 80 MG Orally Active 1 tablet Once a day Toprol XL [facility] 05207624768 25 MG Orally Active 1 tablet Once a day Amlodipine [facility] 67066056653 5 MG Orally Active 5 mg Besylate Once a day Alprazolam NDC 27702190459 0.25 MG Orally Active 1 tablet once a day prn anxiety Flonase [facility] 53473892586 50 MCG/ACT Active 1 spray in Nasally Once a each day nostril Fosamax [facility] 56576938194 70 MG Active TAKE 1 TABLET ONCE A WEEK Levothyroxine [facility] 94286813547 50 MCG Orally Active 1 tablet Sodium Once a day on an empty stomach in the morning Tradjenta [facility] 01419016564 5 MG Orally Active 1 tablet Once a day Valsartan [facility] 97720540397 40 MG Orally Active 1 tablet Twice a day Gabapentin [facility] 91753879232 100 MG Orally Active 1 capsule Three times a day Tricor [facility] 40236545087 145 MG Orally Active 1 tablet Once a day with food Vitamin D-3 [facility] 66786753843 1000 UNIT Active 1 capsule Orally Once a day Macrobid [facility] 20035267499 100 MG Orally Apr 21, Active 1 capsule every 12 hrs 2017 with food Aspirin 81 [facility] 53988219291 81 MG Orally Active 1 tablet Once a day Loratadine [facility] 23954986315 10 MG Orally Active 1 tablet Once a day Macrobid [facility] 85406948092 100 MG Orally Екатерина Active 1 capsule every 12 hrs 2017 with food Klor-Con M10 [facility] 51592613823 10 MEQ Orally Active 1 tablet Twice a day with food Lasix [facility] 92388508963 40 MG Orally Active 1 tablet Once a day Plavix [facility] 41089849948 75 MG Orally Active 1 tablet Once a day Results No Known Results Summary Purpose eClinicalWorks Submission
--- OUTSIDE RECORDS SUMMARY | 2018-09-23 00:21 | XMS REPORT | Clinical Summary ---
:1935 Author Organization [facility] Address [address] [place] [address] Care Team Providers Name Role Phone Brandie [...] BY MOUTH DAILY. Coronary artery disease involving [place] heart with angina pectoris, unspecified vessel or [...] by mouth daily. Coronary artery disease involving [place] heart with angina pectoris, unspecified vessel or lesion type (HCC) pravastatin Take 1 tablet 90 tablet 3 06/07/2017 Discontinued (PRAVACHOL) 80 MG (80 mg total) 8 tablet by mouth once daily. Active Problems Problem Noted Date hypotension due to pericardial effusion 07/21/2017 cardio-renal syndrome 07/21/2017 H/O AICD 07/21/2017 Overview: Medtronic Coronary artery disease involving [place] heart with angina pectoris 07/06/2017 Overview: Added automatically from request for surgery [id number] large anterior pericardial effusion s/p window 03/02/2017 [...] Office Visit Cardiology Ashok Matson, CAD in [place] artery ( Primary Dx); Ischemic cardiomyopathy 09/22/2017 Refill Internal Medicine Nedra Pruitt MD after 09/22/2017 Family History Relation Name Status Comments Father [...] Taken Blood Pressure 146/67 08/02/2018 9:14 AM TEST [facility]KEIN WINDER Pulse 76 08/02/2018 9:14 AM TEST [facility] Temperature - - Respiratory Rate - - Oxygen Saturation - - Inhaled Oxygen Concentration - - Weight 68.5 kg (151 lb) 08/02/2018 9:14 AM TEST [facility]KE[facility]INDER Height 149.9 cm (4' 11") 08/02/2018 9:14 AM TEST [facility]ER Body Mass Index 30.5 08/02/2018 9:14 AM TEST [facility]KE[facility]ER Plan of Treatment Date Type Specialty Care Team Description 01/31/2019 Office Visit Cardiology Ashok Matson MD [address] [address] Health Maintenance Due Date Last Done Comments SHINGLES VACCINES (#1) 1987 65+ PNEUMOCOCCAL VACCINE (1 of 2 - PCV13) 2002 PNEUMOCOCCAL POLYSACCHARIDE VACCINE AGE 65 AND OVER 2002 INFLUENZA VACCINE 02/16/2018 Implants Implanted Type Area Sap Bw Bi Developer Device Shelf Model / Identifier Expiration Serial / Date Lot Kit Prcrdocnts Perivac - [id number] Central N/A: N/A [place] [id number] / Implanted: 07/09/2017 (Quantity not on file) Venous SCIENTIFIC EDDI / Catheters Drain Wnd Chnl 24fr 16in Rnd Hbls Fl-Flut Pari - [id number] Surgical N/A: N/ A [employer] OF 11/15/2021 [id number] / Implanted: Qty: 1 on 07/21/2017 by Jose Dill MD Implants; JESSE & / Expanders; JESSE Extenders; Surgical Wires Results Not on fileafter 09/22/2017 Insurance Payer Benefit Plan / Group Subscriber ID Type Phone Address MEDICARE MEDICARE PART A AND B xxxxxxxxxxx Medicare [place], [place] Advance Directives Patient has advance care planning documents, and code status on file. For more information, please contact:[place] [address] Code Status Date Activated Date Inactivated Comments Modified Code 07/20/2017 7:17 PM 07/26/2017 6:59 PM Modified Code restrictions: No Intubation Code Status decision reached by: Patient
--- OUTSIDE RECORDS SUMMARY | 2018-09-23 00:21 | XMS REPORT ---
[...] Status Dosage System Date Date Pravachol ND 59874757424 80 MG Orally Active 1 tablet Once a day Klor-Con M10 N[facility] 65255392284 10 MEQ Orally Active 1 tablet Twice a day with food Tradjenta ND 93101718533 5 MG Orally Active 1 tablet Once a day Macrobid [facility] 53844402514 100 MG Orally Екатерина Active 1 capsule every 12 hrs 2017 with food Tricor [facility] 10167628026 145 MG Orally Active 1 tablet Once a day with food Aspirin 81 [facility] 57660532337 81 MG Orally Active 1 tablet Once a day Gabapentin [facility] 34012973774 100 MG Orally Active 1 capsule Three times a day Toprol XL [facility] 25346123470 25 MG Orally Active 1 tablet Once a day Fosamax [facility] 56156237760 70 MG Active TAKE 1 TABLET ONCE A WEEK Mirtazapine [facility] 75643045785 15 MG Orally Inactive 1 tablet Once a day at bedtime Flonase [facility] 18956345589 50 MCG/ACT Active 1 spray Nasally Once a in each day nostril Loratadine [facility] 10128536882 10 MG Orally Active 1 tablet Once a day Lasix [facility] 56273012924 40 MG Orally Active 1 tablet Once a day Levothyroxine [facility] 72213752520 50 MCG Orally Active 1 tablet Sodium Once a day on an empty stomach in the morning Vitamin D-3 [facility] 07356836808 1000 UNIT Active 1 capsule Orally Once a day Alprazolam [facility] 46785760759 0.25 MG Orally Active 1 tablet once a day prn anxiety Plavix [facility] 26940544358 75 MG Orally Active 1 tablet Once a day Amlodipine [facility] 71703007045 5 MG Orally Active 5 mg Besylate Once a day Valsartan [facility] 40174279467 40 MG Orally Active 1 tablet Twice a day Results No Known Results Summary Purpose eClinicalWorks Submission
--- OUTSIDE RECORDS SUMMARY | 2018-09-23 00:22 | XMS REPORT ---
[...] Start Date End Date Status Dosage Fosamax [facility] 83868775094 70 MG Active TAKE 1 TABLET ONCE A WEEK Results No Known Results Summary Purpose eClinicalWorks Submission
--- NOTE | 2018-09-23 01:42 | ER ---
Nurse's Notes [facility] Name: Mendy Gomez Age: 83 yrs Sex: Female : 1935 Arrival Date: 09/23/2018 Time: 00:19 Bed 17 Private MD: Brandie Wilkerson Diagnosis: Presentation: 09/23 00:22 Presenting complaint: Patient states: elevated blood pressure at home after taking her tl3 HTN medication at about 5:30 pm, was just discharged from the hospital for the Flu on Wednesday. Transition of care: patient was not received from another setting of care. Onset of symptoms was September 23, 2018. Risk Assessment: Do you want to hurt yourself or someone else? Patient reports no desire to harm self or others. Initial Sepsis Screen: Does the patient meet any 2 criteria? No. Patient's initial sepsis screen is negative. Does the patient have a suspected source of infection? No. Patient's initial sepsis screen is negative. Care prior to arrival: None. 00:22 Method Of Arrival: Wheelchair tl3 00:22 Acuity: BYRON 3 tl3 Triage Assessment: 00:31 General: Appears uncomfortable, well groomed, well developed, well nourished, Behavior tl3 is calm, cooperative, appropriate for age. Pain: Denies pain. Respiratory: Reports cough that is productive, Onset: The symptoms/episode began/occurred today, the patient has mild shortness of breath. Historical: - Allergies: 00:31 PENICILLINS; tl3 - Home Meds: 00:31 aspirin 81 mg Oral chew 1 tab once daily [Active]; amlodipine 5 mg tab 1 tab once daily tl3 [Active]; fenofibrate 145 mg Oral tab 1 tab once daily [Active]; metoprolol succinate 25 mg Oral Tb24 1 tab twice a day [Active]; Vitamin D3 5,000 unit Oral tab daily [Active]; furosemide 80 mg Oral tab 1 tab once daily [Active]; gabapentin 100 mg Oral cap nightly [Active]; Zegerid OTC 20-1.1 mg-gram Oral cap 1 cap once daily [Active]; levothyroxine 50 mcg tab 1 tab once daily [Active]; Plavix 75 mg Oral tab 1 tab once daily [Active]; pravastatin 80 mg Oral tab 1 tab once daily [Active]; multivitamin Oral tab daily [Active]; - PMHx: 00:31 Diabetes - NIDDM; Hypertension; Hypothyroidism; OK; pacemaker/defibrillator; tl3 Hyperlipidemia; - PSHx: 00:31 Heart stents; ; pacemaker/defib; Hysterectomy; tl3 - Immunization history:: Adult Immunizations up to date. - Social history:: Smoking status: Patient/guardian denies using tobacco, never smoked. - Ebola Screening: : No symptoms or risks identified at this time. Screenin:44 Abuse screen: Denies threats or abuse. Denies injuries from another. Nutritional ed1 screening: No deficits noted. Tuberculosis screening: No symptoms or risk factors identified. Fall Risk None identified. Assessment: 00:44 General: Appears uncomfortable, Behavior is calm, cooperative. Pain: Denies pain. ed1 Neuro: Level of Consciousness is awake, alert, obeys commands, Oriented to person, place, time, situation, Reports weakness. Cardiovascular: Denies chest pain, Heart tones S1 S2 present Rhythm is regular. Respiratory: Reports shortness of breath on exertion Airway is patent Respiratory effort is even, unlabored, Respiratory pattern is regular, symmetrical, Breath sounds are clear bilaterally. GI: Reports nausea, Patient currently denies diarrhea, vomiting. : No signs and/or symptoms were reported regarding the genitourinary system. EENT: No signs and/or symptoms were reported regarding the EENT system. Derm: Skin is intact, is healthy with good turgor, Skin is dry, Skin is normal, Skin temperature is warm. Musculoskeletal: Circulation, motion, and sensation intact. Vital Signs: 00:22 BP 138 / 71; Pulse 61; Resp 18; Temp 98.3; Pulse Ox 98% on R/A; Weight 70.76 kg; Height tl3 4 ft. 9 in. (144.78 cm); 00:22 Body Mass Index 33.76 (70.76 kg, 144.78 cm) tl3 ED Course: 00:19 Patient arrived in ED. am2 00:19 Brandie Wilkerson MD is Private Physician. am2 00:25 Triage completed. tl3 00:31 Arm band placed on left wrist. tl3 00:35 Gabriela Terry, RN is Primary Nurse. ed1 00:44 Awaiting ED provider evaluation. ed1 00:44 Patient has correct armband on for positive identification. Bed in low position. Call ed1 light in reach. Side rails up X2. Adult w/ patient. Pulse ox on. NIBP on. Administered Medications: No medications were administered Outcome: 01:41 Eloped from patient exam room, before seeing physician Time discovered patient gone: ed1 September 23, 2018 at 01:42 01:42 Patient left the ED. ed1 Signatures: Gabriela Terry RN RN ed1 Darline Loja am2 Larisa Turner RN RN tl3
[2018-09-23 02:04] VITALS: BP 138/71; TEMP 98.3; O2SAT 98
== END 2018-09-23 01:42 | disposition left against medical advice (07) ==
LOC: ER 00:17
DX: Z02.9 Encounter for administrative examinations, unspecified (principal)
CPT/HCPCS: 99282

== ENCOUNTER 2018-12-30 04:02 | Inpatient (IN) | payer OTHER ==
--- OUTSIDE RECORDS SUMMARY | 2018-12-30 04:05 | XMS REPORT | Clinical Summary ---
:1935 Author Organization [facility] Address [address] [place] [address] Care Team Providers Name Role Phone Brandie [...] BY MOUTH DAILY. Coronary artery disease involving [place] heart with angina pectoris, unspecified vessel or lesion type (HCC) furosemide (LASIX) Take 80 mg by 3 05/29/2018 Active 80 mg tablet mouth daily. metoprolol Take 25 mg by 3 07/07/2018 Active succinate XL mouth 2 (two) (TOPROL-XL) 25 mg times a day. 24 hr tablet rosuvastatin Take 1 tablet 30 tablet 0 12/05/2018 Active (CRESTOR) 20 MG (20 mg total) tablet by mouth daily. fenofibrate Take 1 tablet 90 tablet 3 05/06/2017 Discontinued (TRICOR) 145 MG (145 mg total) 8 tabletIndications: by mouth daily. Coronary artery disease involving [place] heart with angina pectoris, unspecified vessel or lesion type (HCC) pravastatin Take 1 tablet 90 tablet 3 06/07/2017 Discontinued (PRAVACHOL) 80 MG (80 mg total) 8 tablet by mouth once daily. pravastatin TAKE 1 TABLET 90 tablet 3 05/23/2018 Discontinued (PRAVACHOL) 80 MG (80 MG TOTAL) 9 tablet BY MOUTH ONCE DAILY. Active Problems Problem Noted Date hypotension due to pericardial effusion 07/21/2017 cardio-renal syndrome 07/21/2017 H/O AICD 07/21/2017 Overview: Medtronic Coronary artery disease involving [place] heart with angina pectoris 07/06/2017 Overview: Added automatically from request for surgery [id number] large anterior pericardial effusion s/p window 03/02/2017 Systolic congestive heart failure 03/02/2017 Stented coronary artery 06/30/2016 PAD (peripheral artery disease) 06/30/2016 Chronic kidney disease, stage III (moderate) 06/30/2016 Cardiomyopathy 05/27/2016 Coronary arteriosclerosis 05/27/2016 Essential hypertension 05/27/2016 Hyperlipidemia 05/27/2016 Encounters Date Type Specialty Care Team Description 12/05/2018 Orders Only Cardiology Ankit Purcell MA 08/02/2018 Office Visit Cardiology Ashok Matson MD Systolic congestive heart failure, unspecified HF chronicity (HCC) (Primary Dx); H/O AICD; Stented coronary artery 05/22/2018 Refill Cardiology Ashok Matson MD Med Refill 05/19/2018 Refill Cardiology Ashok Matson MD Med Refill 01/25/2018 Office Visit Cardiology Ashko Matson MD CAD in [place] artery (Primary Dx); Ischemic cardiomyopathy after 12/29/2017 Family History Relation Name Status Comments Father [...] Taken Blood Pressure 146/67 08/02/2018 9:14 AM [employer] Pulse 76 08/02/2018 9:14 AM [employer] Temperature - - Respiratory Rate - - Oxygen Saturation - - Inhaled Oxygen Concentration - - Weight 68.5 kg (151 lb) 08/02/2018 9:14 AM CA[employer] SERVER Height 149.9 cm (4' 11") 08/02/2018 9:14 AM CA[employer] SERVER Body Mass Index 30.5 08/02/2018 9:14 AM CA[employer] SERVER Plan of Treatment Date Type Specialty Care Team Description 01/31/2019 Office Visit Cardiology Ashok Matson MD [address] [place] [address] Health Maintenance Due Date Last Done Comments SHINGLES VACCINES (#1) 1987 65+ PNEUMOCOCCAL VACCINE (1 of 2 - PCV13) 2002 INFLUENZA VACCINE 02/16/2019 Implants Implanted Type Area Program Aide Group Work Device Shelf Model / Identifier Expiration Serial / Date Lot Kit Prcrdocnts Perivac - [id number] Central N/A: N/A [place] [id number] / Implanted: 07/09/2017 (Quantity not on file) Venous [employer] EDDI / Catheters Drain Wnd Chnl 24fr 16in Rnd Hbls Fl-Flut Pari - [id number] Surgical N/A: N/ A [employer] 11/15/2021 [id number] / Implanted: Qty: 1 on 07/21/2017 by Jose Dill MD Implants; J[employer] & / Expanders; JESSE Extenders; Surgical Wires Results Not on fileafter 12/29/2017 Insurance Payer Benefit Plan / Subscriber ID Effective Dates Phone Address Type Group MEDICARE MEDICARE PART A xxxxxxxxxxx 2002-Present [place], [place] Medicare AND B Advance Directives Patient has advance care planning documents, and code status on file. For more information, please contact:Isaac Singh[address] [place] [address] Code Status Date Activated Date Inactivated Comments Modified Code 07/20/2017 7:17 PM 07/26/2017 6:59 PM Modified Code restrictions: No Intubation Code Status decision reached by: Patient
--- OUTSIDE RECORDS SUMMARY | 2018-12-30 04:05 | XMS REPORT ---
[...] Status Dosage System Date Date Pravachol ND 33612650600 80 MG Orally Active 1 tablet Once a day Klor-Con M10 NDC 54383614346 10 MEQ Orally Active 1 tablet Twice a day with food Tradjenta ND 89955718970 5 MG Orally Active 1 tablet Once a day Macrobid [facility] 04084503769 100 MG Orally Екатерина Active 1 capsule every 12 hrs 2017 with food Tricor [facility] 55792302092 145 MG Orally Active 1 tablet Once a day with food Aspirin 81 [facility] 11279893941 81 MG Orally Active 1 tablet Once a day Gabapentin [facility] 33052353702 100 MG Orally Active 1 capsule Three times a day Toprol XL [facility] 76708944046 25 MG Orally Active 1 tablet Once a day Fosamax [facility] 61217965330 70 MG Active TAKE 1 TABLET ONCE A WEEK Mirtazapine [facility] 74419844991 15 MG Orally Inactive 1 tablet Once a day at bedtime Flonase [facility] 64232611928 50 MCG/ACT Active 1 spray Nasally Once a in each day nostril Loratadine [facility] 26212595051 10 MG Orally Active 1 tablet Once a day Lasix [facility] 03236738228 40 MG Orally Active 1 tablet Once a day Levothyroxine [facility] 61256625840 50 MCG Orally Active 1 tablet Sodium Once a day on an empty stomach in the morning Vitamin D-3 [facility] 33980829361 1000 UNIT Active 1 capsule Orally Once a day Alprazolam [facility] 95361992112 0.25 MG Orally Active 1 tablet once a day prn anxiety Plavix [facility] 23731244141 75 MG Orally Active 1 tablet Once a day Amlodipine [facility] 53255148891 5 MG Orally Active 5 mg Besylate Once a day Valsartan [facility] 76829114055 40 MG Orally Active 1 tablet Twice a day Results No Known Results Summary Purpose eClinicalWorks Submission
--- OUTSIDE RECORDS SUMMARY | 2018-12-30 04:05 | XMS REPORT ---
[...] Start End Date Status Dosage Date Gabapentin [facility] [place][NOTE 3] 83145864805 100 MG Orally Active 1 capsule Three times a day Results No Known Results Summary Purpose eClinicalWorks Submission
--- OUTSIDE RECORDS SUMMARY | 2018-12-30 04:05 | XMS REPORT ---
[...] End Status Dosage System Date Date Pravachol [facility] 81312605255 80 MG Orally Active 1 tablet Once a day Toprol XL [facility] 30793417499 25 MG Orally Active 1 tablet Once a day Amlodipine [facility] 72297191745 5 MG Orally Active 5 mg Besylate Once a day Alprazolam NDC 71702126834 0.25 MG Orally Active 1 tablet once a day prn anxiety Flonase [facility] 13216216774 50 MCG/ACT Active 1 spray in Nasally Once a each day nostril Fosamax [facility] 71300900542 70 MG Active TAKE 1 TABLET ONCE A WEEK Levothyroxine [facility] 81727600793 50 MCG Orally Active 1 tablet Sodium Once a day on an empty stomach in the morning Tradjenta [facility] 31182574775 5 MG Orally Active 1 tablet Once a day Valsartan [facility] 15933019968 40 MG Orally Active 1 tablet Twice a day Gabapentin [facility] 15855548380 100 MG Orally Active 1 capsule Three times a day Tricor [facility] 63457345029 145 MG Orally Active 1 tablet Once a day with food Vitamin D-3 [facility] 65360113684 1000 UNIT Active 1 capsule Orally Once a day Macrobid [facility] 24820318566 100 MG Orally Apr 21, Active 1 capsule every 12 hrs 2017 with food Aspirin 81 [facility] 94800638622 81 MG Orally Active 1 tablet Once a day Loratadine [facility] 65288196688 10 MG Orally Active 1 tablet Once a day Macrobid [facility] 10635338924 100 MG Orally Екатерина Active 1 capsule every 12 hrs 2017 with food Klor-Con M10 [facility] 21039919378 10 MEQ Orally Active 1 tablet Twice a day with food Lasix [facility] 71585312426 40 MG Orally Active 1 tablet Once a day Plavix [facility] 66806304008 75 MG Orally Active 1 tablet Once a day Results No Known Results Summary Purpose eClinicalWorks Submission
--- OUTSIDE RECORDS SUMMARY | 2018-12-30 04:06 | XMS REPORT ---
[...] osteoarthritis of both knees M17.0 Active Assessment Medicare annual wellness visit, Z00.00 Active subsequent Assessment Encounter for screening mammogram Z12.31 Active for breast cancer Problem Unsteady gait R26.81 Active Problem Anxiety [...] reflux K21.9 Active disease) Medications Medication Code Code Instructions Start End Status Dosage System Date Date Lasix [facility] 57045870988 80 MG Orally Active 1 tablet Once a day Levothyroxine [facility] 68242915220 50 MCG Orally Active 1 tablet on Sodium Once a day an empty stomach in the morning Aspirin 81 ND 15071278469 81 MG Orally Active 1 tablet Once a day Klor-Con M10 [facility] 04532515434 10 MEQ Orally Active 1 tablet with Twice a day food Amlodipine ND 98064810631 5 MG Orally Active 5 mg Besylate Once a day Fosamax [facility] 55488793035 70 MG Active TAKE 1 TABLET ONCE A WEEK Loratadine [facility] 56694663616 10 MG Orally Active 1 tablet Once a day Lidocaine HCl [facility] 81574214492 3 % Externally Active 1 application Twice a day to affected area as needed Lasix [facility] 69732610890 40 MG Orally Active 1 tablet Once a day Gabapentin [facility] 85804750583 100 MG Orally Active 1 capsule Three times a day Plavix [facility] 01841667383 75 MG Orally Active 1 tablet Once a day Levothyroxine [facility] 49548860665 50 MCG Orally Active 1 tablet on Sodium Once a day an empty stomach in the morning Alprazolam [facility] 87750546495 0.25 MG Orally Active 1 tablet once a day prn anxiety Flonase [facility] 78092558102 50 MCG/ACT Active 1 spray in Nasally Once a each nostril day Valsartan [facility] 37479221311 40 MG Orally Active 1 tablet Twice a day Pravachol [facility] 82335723003 80 MG Orally Active 1 tablet Once a day Macrobid [facility] 76224432223 100 MG Orally Apr 21, Active 1 capsule every 12 hrs 2017 with food Vitamin D-3 [facility] 29900234704 1000 UNIT Active 1 capsule Orally Once a day Macrobid [facility] 52168311826 100 MG Orally October Active 1 capsule every 12 hrs , with food 2017 Toprol XL [facility] 44494708732 25 MG Orally Active 1 tablet Once a day Tylenol Extra [facility] 58544896038 500 MG Orally Active 1 tablet as Strength every 6 hrs needed Tradjenta [facility] 61685205424 5 MG Orally Active 1 tablet Once a day Tricor [facility] 28476148231 145 MG Orally Active 1 tablet with Once a day food Results No Known Results Summary Purpose eClinicalWorks Submission
--- OUTSIDE RECORDS SUMMARY | 2018-12-30 04:06 | XMS REPORT ---
[...] End Status Dosage System Date Date Lasix [facility] [place]NOTE 2] 31831676198 80 MG Orally Active 1 tablet Once a day Macrobid [facility] [place]NOTE 2] 08891980814 100 MG Orally Apr 21, Active 1 capsule every 12 hrs 2017 with food Gabapentin [facility] [place]NOTE 2] 36847293540 100 MG Orally Active 1 capsule Three times a day Aspirin 81 [facility] [place]NOTE 2] 72877936907 81 MG Orally Active 1 tablet Once a day Alprazolam [facility] [place]NOTE 2] 16255066659 0.25 MG Orally Active 1 tablet once a day prn anxiety Valsartan [facility] [place]NOTE 2] 63704810527 40 MG Orally Active 1 tablet Twice a day Amlodipine [facility] [place]NOTE 2] 00182303526 5 MG Orally Active 5 mg Besylate Once a day Lidocaine HCl [facility] [place]NOTE 2] 96193939859 3 % Externally Active 1 application Twice a day to affected area as needed Pravachol [facility] [place]NOTE 2] 53917452747 80 MG Orally Active 1 tablet Once a day Macrobid [facility] [place]NOTE 2] 18156287956 100 MG Orally Екатерина Active 1 capsule every 12 hrs , with food 2018 Levothyroxine [facility] [place][NOTE 2] 10291076035 50 MCG Orally Active 1 tablet on Sodium Once a day an empty stomach in the morning Loratadine [facility] [place][NOTE 2] 46010178291 10 MG Orally Active 1 tablet Once a day Vitamin D-3 [facility] [place]NOTE 2] 33436662363 1000 UNIT Active 1 capsule Orally Once a day Tradjenta [facility] [place]NOTE 2] 80125370808 5 MG Orally Active 1 tablet Once a day Toprol XL [facility] [place]NOTE 2] 38758828425 25 MG Orally Active 1 tablet Once a day Fosamax [facility] [place][NOTE 2] 24949888281 70 MG Active TAKE 1 TABLET ONCE A WEEK Levothyroxine [facility] [place][NOTE 2] 97324567685 50 MCG Orally Active 1 tablet on Sodium Once a day an empty stomach in the morning Plavix [facility] [place]NOTE 2] 99255043795 75 MG Orally Active 1 tablet Once a day Flonase [facility] [place]NOTE 2] 15839013286 50 MCG/ACT Active 1 spray in Nasally Once a each nostril day Lasix [facility] [place]NOTE 2] 73096774931 40 MG Orally Active 1 tablet Once a day Tylenol Extra [facility] [place][NOTE 2] 61341757974 500 MG Orally Active 1 tablet as Strength every 6 hrs needed Klor-Con M10 [facility] [place][NOTE 2] 11085442275 10 MEQ Orally Active 1 tablet with Twice a day food Tricor [facility] [place][NOTE 2] 15019180139 145 MG Orally Active 1 tablet with Once a day food Results No Known Results Summary Purpose eClinicalWorks Submission
--- OUTSIDE RECORDS SUMMARY | 2018-12-30 04:06 | XMS REPORT ---
[...] End Status Dosage System Date Date Levothyroxine [facility] 59941055492 50 MCG Orally Active 1 tablet on Sodium Once a day an empty stomach in the morning Gabapentin [facility] 63667592969 100 MG Orally Active 1 capsule Three times a day Lasix [facility] 24227881584 80 MG Orally Active 1 tablet Once a day Pravachol ND 34015085706 80 MG Orally Active 1 tablet Once a day Lasix [facility] 45452330775 40 MG Orally Active 1 tablet Once a day Flonase [facility] 11215191433 50 MCG/ACT Active 1 spray in Nasally Once a each nostril day Tricor ND 21659839298 145 MG Orally Active 1 tablet with Once a day food Alprazolam [facility] 62092431745 0.25 MG Orally Active 1 tablet once a day prn anxiety Fosamax [facility] 59222800942 70 MG Active TAKE 1 TABLET ONCE A WEEK Loratadine [facility] 32846641326 10 MG Orally Active 1 tablet Once a day Aspirin 81 [facility] 07959496794 81 MG Orally Active 1 tablet Once a day Macrobid [facility] 67484160914 100 MG Orally October Active 1 capsule every 12 hrs , with food 2017 Valsartan [facility] 32885558074 40 MG Orally Active 1 tablet Twice a day Plavix [facility] 66526666641 75 MG Orally Active 1 tablet Once a day Amlodipine [facility] 21682762940 5 MG Orally Active 5 mg Besylate Once a day Tylenol Extra [facility] 04563937132 500 MG Orally Active 1 tablet as Strength every 6 hrs needed Lidocaine HCl [facility] 22687945428 3 % Externally Active 1 application Twice a day to affected area as needed Tradjenta [facility] 55107924153 5 MG Orally Active 1 tablet Once a day Vitamin D-3 [facility] 93018014701 1000 UNIT Active 1 capsule Orally Once a day Macrod [facility] 93968730201 100 MG Orally Apr 21, Active 1 capsule every 12 hrs 2017 with food Klor-Con M10 [facility] 50830722749 10 MEQ Orally Active 1 tablet with Twice a day food Toprol XL [facility] 62941444651 25 MG Orally Active 1 tablet Once a day Results No Known Results Summary Purpose eClinicalWorks Submission
--- OUTSIDE RECORDS SUMMARY | 2018-12-30 04:06 | XMS REPORT ---
[...] Status Dosage Fosamax [facility] 11193417644 70 MG Active TAKE 1 TABLET ONCE A WEEK Results No Known Results Summary Purpose eClinicalWorks Submission
[2018-12-30 04:41] LABS: Arterial Blood Carboxyhemoglob 1.3 % (0-1.5); Blood Gas Oxyhemoglobin 90.1 % (94-97); Blood O2 Saturation 92.3 % (92-98.5)
[2018-12-30 05:00] LABS: Protime INR 1.19
[2018-12-30 05:01] LABS: Absolute Lymphocytes (CBC) 0.3 K/uL (0.7-4.9); Basophils % 0.2 % (0-1.3); Eosinophils % 0.9 % (0-4.4); Hematocrit 34.8 % (36.0-45.0); Lymphocytes % 2.9 % (15.3-44.8); MPV 10.8 fL (7.6-11.3); Monocytes % 4.1 % (3.3-12.3); RBC Red Blood Cell Count 3.68 M/uL (3.86-4.86)
[2018-12-30 05:24] LABS: Albumin 3.5 g/dL (3.4-5.0); Bilirubin Direct 0.4 mg/dL (0-0.2); Bilirubin Total 0.7 mg/dL (0.2-1.0); Potassium 4.1 mmol/L (3.5-5.1)
[2018-12-30 05:32] LABS: Blood Morphology Comment NOT SEEN (NOT SEEN); Platelet Estimate ADEQ
[2018-12-30 05:50] LABS: Urine Bacteria LOADED /HPF (<20); Urine Culture Reflex Order REFLEXED
[2018-12-30] MEDS ORDERED: CEFTRIAXONE 1000 MG/VIAL ONE (06:29)
[2018-12-30] MEDS ORDERED: NA CHLORIDE 0.9% 50 ML IV ONE (06:29)
[2018-12-30] MEDS ORDERED: ASPIRIN 81 MG CHEWABLE TABLET ONE (06:38)
--- NOTE | 2018-12-30 07:02 | ER ---
Nurse's Notes [facility] Name: Mendy Gomez Age: 83 yrs Sex: Female : 1935 Arrival Date: 12/30/2018 Time: 04:04 Bed 4 Private MD: Brandie Wilkerson Diagnosis: Sepsis due to Escherichia coli [E. coli];Acute tubulo-interstitial nephritis;Non-ST elevation (NSTEMI) myocardial infarction Presentation: 12/30 04:18 Presenting complaint: Child states: Shortness of breath and high blood sugar since tl2 yesterday. Daughter states she may have a UTI due to foul smelling urine. Shortness of breath got worse tonight and pt developed chills. Transition of care: patient was not received from another setting of care. Onset of symptoms was December 29, 2018. Risk Assessment: Do you want to hurt yourself or someone else? Patient reports no desire to harm self or others. Initial Sepsis Screen: Does the patient meet any 2 criteria? RR > 20 per min. Does the patient have a suspected source of infection? Yes: Dysuria/Frequency/Urgency/UTI. Care prior to arrival: None. 04:18 Method Of Arrival: Wheelchair tl2 04:18 Acuity: BYRON 2 tl2 Triage Assessment: 04:21 General: Appears distressed, uncomfortable, Behavior is calm, cooperative, appropriate tl2 for age. General: Reports chills for 12-24 hours. Pain: Denies pain. Neuro: Level of Consciousness is awake, obeys commands, listless, Oriented to person, place, time, situation. Cardiovascular: Denies chest pain, Rhythm is irregular. Respiratory: Reports shortness of breath at rest Onset: The symptoms/episode began/occurred yesterday, the patient has moderate shortness of breath. GI: No signs and/or symptoms were reported involving the gastrointestinal system. : Parent/caregiver report the patient having foul smelling urine. Derm: Skin is pink, warm \T\ dry. Historical: - Allergies: 04:21 PENICILLINS; tl2 04:41 Doxycycline; tl2 04:41 Codeine; tl2 - Home Meds: 04:41 amlodipine 5 mg tab 1 tab once daily [Active]; aspirin 81 mg Oral chew 1 tab once daily tl2 [Active]; metoprolol succinate 25 mg Oral Tb24 1 tab twice a day [Active]; Zegerid OTC 20-1.1 mg-gram Oral cap 1 cap once daily [Active]; Vitamin D3 5,000 unit Oral tab daily [Active]; furosemide 80 mg Oral tab 1 tab once daily [Active]; fenofibrate 145 mg Oral tab 1 tab once daily [Active]; levothyroxine 50 mcg tab 1 tab once daily [Active]; pravastatin 80 mg Oral tab 1 tab once daily [Active]; Plavix 75 mg Oral tab 1 tab once daily [Active]; multivitamin Oral tab daily [Active]; gabapentin 100 mg Oral cap nightly [Active]; - PMHx: 04:21 Diabetes - NIDDM; High Cholesterol; Hyperlipidemia; Hypertension; Hypothyroidism; AL; tl2 pacemaker/defibrillator; CHF; 04:41 ESRD; tl2 - PSHx: 04:41 Heart stents; tl2 - Immunization history:: Adult Immunizations up to date. - Social history:: Smoking status: Patient/guardian denies using tobacco. - Ebola Screening: : No symptoms or risks identified at this time. Screenin:24 Abuse screen: Denies threats or abuse. Nutritional screening: No deficits noted. tl2 Tuberculosis screening: No symptoms or risk factors identified. Fall Risk Ambulatory Aid- Crutches/Cane/Walker (15 pts). Gait- Weak (10 pts.). Assessment: 04:41 General: see triage assessment. Cardiovascular: Denies chest pain, Rhythm is irregular. tl2 Respiratory: Respiratory effort is. Respiratory: Airway is patent Respiratory effort is labored, Respiratory pattern is tachypnea Breath sounds with wheezes bilaterally. 05:36 Reassessment: Pt states she feels better with the BiPap, breathing is improved and pt tl2 can speak in full sentences. 06:18 Reassessment: Pt states that she is feeling better and wants to try to take the BiPap tl2 off. notified, ordered to call RT to try and wean pt off BiPap. 06:47 Reassessment: Pt responded well to being off of Bipap. No distress noted, pt states she tl2 was breathing easier. O2 decreased 90%, placed on 2 L nc, increased to 98% O2 sat. 07:14 Reassessment: Patient appears in no apparent distress at this time. Patient and/or ch family updated on plan of care and expected duration. Pain level reassessed. General: Appears in no apparent distress. comfortable, Behavior is calm, cooperative, appropriate for age. Pain: Denies pain. Neuro: Level of Consciousness is awake, alert, obeys commands, Oriented to person, place, time, situation, Meter Tester Polyphase are equal bilaterally Speech is normal, Facial symmetry appears normal, Facial symmetry: tongue is midline, Pupils are PERRLA. Cardiovascular: Denies chest pain, Heart tones S1 S2 present Capillary refill < 3 seconds in bilateral fingers toes Clubbing of nail beds is absent Pulses are all present. Rhythm is sinus rhythm. Cardiovascular: Edema is 1+ to left ankle and right ankle. Respiratory: Airway is patent Respiratory effort is even, labored, Respiratory pattern is regular, Breath sounds with crackles in left posterior lower lobe. GI: Abdomen is round non-distended, Bowel sounds present X 4 quads. : Reports foul smelling urine. Derm: Skin is pink, warm \T\ dry. 08:11 Reassessment: Patient appears in no apparent distress at this time. No changes from previously documented assessment. Patient and/or family updated on plan of care and expected duration. Pain level reassessed. Dr. Calloway reviews plan of care with family and patient. pt states she is ok with chest compressions but not intubation or being placed on a machine. pt and family verb understanding of admission to ICU. awaitng bed assignment. Vital Signs: 04:21 BP 146 / 94; Pulse 97; Resp 22; Temp 100.4(O); Pulse Ox 95% on R/A; Weight 81.65 kg; tl2 Height 5 ft. 0 in. (152.40 cm); 05:34 BP 100 / 53; Pulse 83; Resp 18; Pulse Ox 100% on BiPAP; tl2 06:29 BP 108 / 66; Pulse 75; Resp 20; Temp 99.1(O); Pulse Ox 95% on R/A; tl2 06:48 BP 108 / 66; Pulse 71; Resp 20; Pulse Ox 98% on NC; tl2 07:14 BP 99 / 54; Pulse 66; Resp 21; Temp 99.5; Pulse Ox 99% on 3 lpm NC; Pain 0/10; ch 08:11 BP 107 / 58; Pulse 65; Resp 18; Temp 99.9(O); Pulse Ox 99% on 3 lpm NC; Pain 0/10; ch 08:25 BP 110 / 60; Pulse 66; Resp 25; Temp 99.9; Pulse Ox 99% on 3 lpm NC; Pain 0/10; ch 04:21 Body Mass Index 35.15 (81.65 kg, 152.40 cm) tl2 Vitals: 07:14 Cardiac Rhythm Assessment Regular Sinus rhythm. ED Course: 04:04 Patient arrived in ED. am2 04:04 Brandie Wilkerson MD is Private Physician. am2 04:20 Triage completed. tl2 04:21 Sanjeev Kendrick MD is Attending Physician. gs 04:21 Arm band placed on left wrist. tl2 04:24 Patient has correct armband on for positive identification. Placed in gown. Bed in low tl2 position. Call light in reach. Side rails up X2. Adult w/ patient. 04:25 Initial lab(s) drawn, by ED staff, sent to lab. First set of blood cultures drawn EKG tl2 done, by surfacing technician. reviewed by Sanjeev Kendrick MD. 04:28 EKG done, by ED staff, reviewed by Sanjeev Kendrick MD. ag4 04:32 Inserted saline lock: 22 gauge in right forearm, using aseptic technique. Blood ak1 collected. Missed attempt(s): 20 gauge in right antecubital area. 04:38 X-ray completed. Portable x-ray completed in exam room. Patient tolerated procedure kw well. 04:41 Chest Single View XRAY In Process Unspecified. EDMS 05:20 Flu and/or RSV swab sent to lab. ag4 05:36 Straight cath inserted, using sterile technique, 16 Fr. Specimen obtained. Returned tl2 cloudy urine. Patient tolerated well. 05:37 Chikis Helm, RN is Primary Nurse. tl2 05:37 Assisted to bedside commode. tl2 05:47 Notified ED physician of a critical lab result(s). Trop 1.8. tl2 07:00 Travis Calloway MD is Hospitalizing Provider. gs 07:14 Primary Nurse role handed off by Chikis Helm, RN ch 07:14 Lesia Howard, BRYAN is Primary Nurse. ch 07:14 No apparent distress. Resting quietly. ch 07:14 site monitor on. Pulse ox on. NIBP on. Pillow given. PO fluids given. ch 07:14 No provider procedures requiring assistance completed. Patient admitted, IV remains in place. 08:09 Troponin I Sent. 08:11 No apparent distress. Resting quietly. Appears to be sleeping. Administered Medications: 05:30 Drug: Tylenol 650 mg Route: PO; 06:31 Follow up: Response: No adverse reaction; Temperature is decreased tl2 06:18 Drug: Rocephin - (cefTRIAXone) 1 grams Route: IVPB; Infused Over: 30 mins; Site: right tl2 forearm; 06:46 Follow up: IV Status: Completed infusion; IV Intake: 50ml tl2 06:30 Drug: Aspirin Chewable Tablet 324 mg Route: PO; tl2 06:46 Follow up: Response: No adverse reaction tl2 07:57 Drug: Lovenox 80 mg Route: Sub-Q; Site: left lower abdomen; 08:14 Follow up: Response: No adverse reaction Point of Care Testing: Blood Glucose: 04:21 Blood Glucose: 222 mg/dL; tl2 08:07 Blood Glucose: 174 mg/dL; Ranges: Intake: 06:46 IV: 50ml; Total: 50ml. tl2 Outcome: 07:01 Decision to Hospitalize by Provider. 08:27 Admitted to ICU accompanied by nurse, accompanied by tech, via stretcher, room 7, with oxygen, on monitor, with chart, Report called to Tammy 08:28 Condition: stable 08:28 Instructed on the need for admit. 08:45 Patient left the ED. Signatures: Dispatcher [employer] EDMS Lesia Howard RN BRYAN Kaitlynn Baez RN RN Dana Payne Amber, RN RN ak1 Chikis Helm RN RN tl2 Darline Loja Gregory, MD MD Naman Gonzales ag4 Corrections: (The following items were deleted from the chart) 05:48 05:36 Reassessment: notified of critical lab: Trop 1.80 tl2 tl2 07:56 07:56 Lovenox 1 mg/kg Sub-Q in left lower abdomen [facility]
--- NOTE | 2018-12-30 07:02 | EDPHYS ---
Physician Documentation [facility] Name: Mendy Gomez Age: 83 yrs Sex: Female : 1935 Arrival Date: 12/30/2018 Time: 04:04 Bed 4 Private MD: Brandie Wilkerson ED Physician Sanjeev Kendrick HPI: 12/30 06:03 This 83 yrs old Female presents to ER via Wheelchair with complaints of gs Shortness Of Breath, High Blood Sugar, Urinary Problem. 06:03 The patient has shortness of breath at rest. Onset: The symptoms/episode began/occurred gs 2 day(s) ago, and became worse and became persistent. Duration: The symptoms are continuous. The patient's shortness of breath is aggravated by exertion. Associated signs and symptoms: Pertinent positives: fever. Severity of symptoms: At their worst the symptoms were severe in the emergency department the symptoms are unchanged. The patient has experienced similar episodes in the past, a few times. Historical: - Allergies: 04:21 PENICILLINS; tl2 04:41 Doxycycline; tl2 04:41 Codeine; tl2 - Home Meds: 04:41 amlodipine 5 mg tab 1 tab once daily [Active]; aspirin 81 mg Oral chew 1 tab once daily tl2 [Active]; metoprolol succinate 25 mg Oral Tb24 1 tab twice a day [Active]; Zegerid OTC 20-1.1 mg-gram Oral cap 1 cap once daily [Active]; Vitamin D3 5,000 unit Oral tab daily [Active]; furosemide 80 mg Oral tab 1 tab once daily [Active]; fenofibrate 145 mg Oral tab 1 tab once daily [Active]; levothyroxine 50 mcg tab 1 tab once daily [Active]; pravastatin 80 mg Oral tab 1 tab once daily [Active]; Plavix 75 mg Oral tab 1 tab once daily [Active]; multivitamin Oral tab daily [Active]; gabapentin 100 mg Oral cap nightly [Active]; - PMHx: 04:21 Diabetes - NIDDM; High Cholesterol; Hyperlipidemia; Hypertension; Hypothyroidism; CO; tl2 pacemaker/defibrillator; CHF; 04:41 ESRD; tl2 - PSHx: 04:41 Heart stents; tl2 - Immunization history:: Adult Immunizations up to date. - Social history:: Smoking status: Patient/guardian denies using tobacco. - Ebola Screening: : No symptoms or risks identified at this time. ROS: 06:03 All other systems are negative. gs Exam: 06:03 Head/Face: Normocephalic, atraumatic. Eyes: Pupils equal round and reactive to light, gs extra-ocular motions intact. Lids and lashes normal. Conjunctiva and sclera are non-icteric and not injected. Cornea within normal limits. Periorbital areas with no swelling, redness, or edema. ENT: Nares patent. No nasal discharge, no septal abnormalities noted. Tympanic membranes are normal and external auditory canals are clear. Oropharynx with no redness, swelling, or masses, exudates, or evidence of obstruction, uvula midline. Mucous membranes moist. Neck: Trachea midline, no thyromegaly or masses palpated, and no cervical lymphadenopathy. Supple, full range of motion without nuchal rigidity, or vertebral point tenderness. No Meningismus. Chest/axilla: Normal chest wall appearance and motion. Nontender with no deformity. No lesions are appreciated. 06:03 Abdomen/GI: Soft, non-tender, with normal bowel sounds. No distension or tympany. No guarding or rebound. No evidence of tenderness throughout. Back: No spinal tenderness. No costovertebral tenderness. Full range of motion. Skin: Warm, dry with normal turgor. Normal color with no rashes, no lesions, and no evidence of cellulitis. MS/ Extremity: Pulses equal, no cyanosis. Neurovascular intact. Full, normal range of motion. Neuro: Awake and alert, GCS 15, oriented to person, place, time, and situation. Cranial nerves II-XII grossly intact. Motor strength 5/5 in all extremities. Sensory grossly intact. Cerebellar exam normal. Normal gait. 06:03 Constitutional: The patient appears alert, awake, in obvious distress, severely distressed. 06:03 Cardiovascular: Rate: normal, Rhythm: regular, Pulses: no pulse deficits are appreciated, Heart sounds: normal, Edema: 1+ edema to level of left ankle and right ankle. 06:03 ECG was reviewed by the Attending Physician. 06:03 Respiratory: mild respiratory distress is noted, Respirations: grunting, tachypnea, Breath sounds: rales, that are mild. Vital Signs: 04:21 BP 146 / 94; Pulse 97; Resp 22; Temp 100.4(O); Pulse Ox 95% on R/A; Weight 81.65 kg; tl2 Height 5 ft. 0 in. (152.40 cm); 05:34 BP 100 / 53; Pulse 83; Resp 18; Pulse Ox 100% on BiPAP; tl2 06:29 BP 108 / 66; Pulse 75; Resp 20; Temp 99.1(O); Pulse Ox 95% on R/A; tl2 06:48 BP 108 / 66; Pulse 71; Resp 20; Pulse Ox 98% on NC; tl2 07:14 BP 99 / 54; Pulse 66; Resp 21; Temp 99.5; Pulse Ox 99% on 3 lpm NC; Pain 0/10; ch 08:11 BP 107 / 58; Pulse 65; Resp 18; Temp 99.9(O); Pulse Ox 99% on 3 lpm NC; Pain 0/10; ch 08:25 BP 110 / 60; Pulse 66; Resp 25; Temp 99.9; Pulse Ox 99% on 3 lpm NC; Pain 0/10; ch 04:21 Body Mass Index 35.15 (81.65 kg, 152.40 cm) tl2 MDM: 04:21 Patient medically screened. 06:03 Differential diagnosis: CHF exacerbation, Chronic Obstructive Pulmonary Disease gs Myocardial Infarction Sepsis. Data reviewed: vital signs, nurses notes, old medical records, lab test result(s), EKG, radiologic studies. Counseling: I had a detailed discussion with the patient and/or guardian regarding: the historical points, exam findings, and any diagnostic results supporting the discharge/admit diagnosis, lab results, radiology results, the need for outpatient follow up. Response to treatment: the patient's symptoms have mildly improved after treatment, and as a result, I will admit patient. 12/30 04:23 Order name: Basic Metabolic Panel 12/30 04:23 Order name: Blood Culture Adult (2) 12/30 04:23 Order name: CBC with Diff 12/30 04:23 Order name: CPK; Complete Time: 06:03 12/30 04:23 Order name: Lactate; Complete Time: 06:03 12/30 04:23 Order name: LFT's; Complete Time: 06:03 12/30 04:23 Order name: Lipase; Complete Time: 06:03 12/30 04:23 Order name: Procalcitonin; Complete Time: 06:36 gs 12/30 04:23 Order name: Protime (+inr); Complete Time: 06:03 12/30 04:23 Order name: Troponin (emerg Dept Use Only); Complete Time: 06:03 gs 12/30 04:23 Order name: Urine Microscopic Only; Complete Time: 06:03 gs 12/30 04:23 Order name: ABG; Complete Time: 05:08 12/30 04:24 Order name: Basic Metabolic Panel; Complete Time: 06:03 EDMS 12/30 04:24 Order name: Blood Culture EDVA 12/30 04:23 Order name: Chest Single View XRAY 12/30 04:23 Order name: Accucheck; Complete Time: 04:33 12/30 04:23 Order name: Cardiac monitoring; Complete Time: 04:29 12/30 04:23 Order name: BIPAP 12/30 04:24 Order name: CBC with Automated Diff; Complete Time: 06:03 EDMS 12/30 05:08 Order name: Flu; Complete Time: 06:03 12/30 05:10 Order name: Manual Differential; Complete Time: 06:03 EDMS 12/30 05:08 Order name: PROBNP 12/30 05:52 Order name: Urine Culture EDVA 12/30 07:52 Order name: Troponin I 12/30 08:13 Order name: Glucose, Ancillary Testing EDVA 12/30 08:13 Order name: Glucose, Ancillary Testing EDVA 12/30 04:23 Order name: EKG - Nurse/Tech; Complete Time: 04:29 12/30 04:23 Order name: IV Saline Lock - Large Bore; Complete Time: 04:33 12/30 04:23 Order name: Labs collected and sent; Complete Time: 04:33 gs 12/30 04:23 Order name: O2 Per Protocol; Complete Time: 04:29 12/30 04:23 Order name: O2 Sat Monitoring; Complete Time: 04:29 12/30 04:23 Order name: Urine Dipstick-Ancillary (obtain specimen); Complete Time: 05:35 gs 12/30 05:35 Order name: Straight Cath; Complete Time: 05:35 tl2 12/30 07:53 Order name: FSBS; Complete Time: 08:09 ch EC:03 Rate is 87 beats/min. Rhythm is regular. ND interval is normal. QRS interval is gs prolonged. Q waves are Old. T waves are Normal. Clinical impression: Abnormal EKG without significant change. Interpreted by me. Administered Medications: 05:30 Drug: Tylenol 650 mg Route: PO; bb 06:31 Follow up: Response: No adverse reaction; Temperature is decreased tl2 06:18 Drug: Rocephin - (cefTRIAXone) 1 grams Route: IVPB; Infused Over: 30 mins; Site: right tl2 forearm; 06:46 Follow up: IV Status: Completed infusion; IV Intake: 50ml tl2 06:30 Drug: Aspirin Chewable Tablet 324 mg Route: PO; tl2 06:46 Follow up: Response: No adverse reaction tl2 07:57 Drug: Lovenox 80 mg Route: Sub-Q; Site: left lower abdomen; 08:14 Follow up: Response: No adverse reaction Point of Care Testing: Blood Glucose: 04:21 Blood Glucose: 222 mg/dL; tl2 08:07 Blood Glucose: 174 mg/dL; Ranges: Critical Glucose Levels:Adult <50 mg/dl or >400 mg/dl <40 mg/dl or >180 mg/dl Disposition: 12/30/18 07:01 Hospitalization ordered by Travis Calloway for Inpatient Admission. Preliminary diagnosis are Sepsis due to Escherichia coli [E. coli], Acute tubulo-interstitial nephritis, Non-ST elevation (NSTEMI) myocardial infarction. - Bed requested for Intensive Care Unit. - Status is Inpatient Admission. - Condition is Stable. - Problem is new. - Symptoms have improved. UTI on Admission? Yes Signatures: Dispatcher [employer] EDMS Lesia Howard RN RN Kaitlynn Baez RN RN Ilene Sprague ms Chikis Helm RN RN 2 Sanjeev Kendrick MD MD Corrections: (The following items were deleted from the chart) 08:19 07:01 Hospitalization Ordered by Travis Calloway MD for Inpatient Admission. Preliminary ms diagnosis is Sepsis due to Escherichia coli [E. coli]; Acute tubulo-interstitial nephritis; Non-ST elevation (NSTEMI) myocardial infarction. Bed requested for Telemetry/MedSurg (Inpatient). Status is Inpatient Admission. Condition is Stable. Problem is new. Symptoms have improved. UTI on Admission? Yes. 08:45 08:19 12/30/2018 07:01 Hospitalization Ordered by Travis Calloawy MD for Inpatient Admission. Preliminary diagnosis is Sepsis due to Escherichia coli [E. coli]; Acute tubulo-interstitial nephritis; Non-ST elevation (NSTEMI) myocardial infarction. Bed requested for Intensive Care Unit. Status is Inpatient Admission. Condition is Stable. Problem is new. Symptoms have improved. UTI on Admission? Yes. ms
[2018-12-30] MEDS ORDERED: ENOXAPARIN 80 MG/0.8 ML SQ ONE (08:14)
[2018-12-30] MEDS ORDERED: MORPHINE 2 MG/ML SYR IV PRN (08:26)
[2018-12-30] MEDS ORDERED: SODIUM CHL 0.9% 1000 ML BAG IV ONE (08:26)
[2018-12-30] MEDS ORDERED: NITROGLYCERIN 0.4 MG/TAB SL PRN (08:26)
[2018-12-30] MEDS ORDERED: NA CHLORIDE 0.9% 500 ML IV ONE (08:26)
--- NOTE | 2018-12-30 08:30 | RAD REPORT ---
EXAM DESCRIPTION: RAD - Chest Single View - 12/30/2018 4:40 am CLINICAL HISTORY: Shortness of breath COMPARISON: September 18 TECHNIQUE: AP portable chest image was obtained 0440 hours . FINDINGS: Lung volumes are low accentuating interstitial pattern. Substantial change to the intersti tial markings doubtful. No peripheral consolidation or mass. Left subclavian defibrillator in place. Heart and vasculature are normal. No measurable pleural effusion and no pneumothorax. No acute bony a bnormality seen. No acute aortic findings suspected. IMPRESSION: Shallow inspiration film showing no acute cardiopulmonary finding.
[2018-12-30] MEDS: INSULIN -REGULAR HUMAN 50 UNIT/0.5 ML ML SQ SCH ×3 (12:13→20:55)
[2018-12-30] MEDS ORDERED: Ringers Lactate 1,000 ML IV SCH (13:00)
--- NOTE | 2018-12-30 13:37 | CON ---
Chief Complaint: The patient was sent to the hospital via her family. They noted she was confused. They had known for several days that she had a urinary tract infection, they were trying to find some medical help so she gets started on antibiotics. When she was confused and they measured her blood sugars and they were over 300, they decided to bring her in. History Of Present Illness: Ms. Gomez has stage IV renal disease. Her creatinine is 3.61 today, apparently that is close to baseline. She has an elevated troponin, it is 1.8. She has not been crowell ving chest pain or shortness of breath. She has evidence of urinary tract infection and sepsis with a procalcitonin level of 0.65 and a normal white blood cell count with a left shift. Her urine appea rs to be pyuric, loaded with bacteria and white blood cells and she has been started on antibiotics. The patient has a history of intracoronary stents, history of defibrillator. She is followed by Dr. Matson. Apparently, it has been several years since she had a stress test. She is not having chest pa in. Her EKG has not become available yet. Physical Examination: General: She is alert, oriented, and pleasant. She denies having any chest pain. Vital Signs: Her blood pressure when she was first brought to the hospital was 146/94, pulse 97, her temperature was 100.4. Her more recent blood pressure is 108/66, pulse 71. Diagnostic Data: Her chest x-ray shows shallow inspiration. No evidence of pneumonia. There is a d efibrillator in the left subclavian region with no abnormalities apparent on radiography and her trop onin level is 1.8. N-terminal proBNP is 14,000. Plan: I think we should do an echocardiogram and nuclear stress test. The nuclear stress test shoul d probably wait. I suspect this is not really an acute coronary syndrome but myocardial injury from sepsis, severe hyperglycemia, she probably has fixed coronary heart disease that is fairly stable and I would not do a cardiac cath less unless a myocardial perfusion image stress test indicates a significant amount of ischemia. RADHAMES/CHANDA Voice ID: [id number] Report ID: [id number]
[2018-12-30] MEDS ORDERED: GLUCAGON 1 MG/VIAL IM PRN (13:43)
[2018-12-30] MEDS ORDERED: D50W 25 GM/50 ML SYRINGE IV PRN (13:43)
--- NOTE | 2018-12-30 14:01 | EKG ---
Test Date: 2018-12-30 Test Time: 04:26:58 Environmental Studies Professor: [id number] MEASUREMENT RESULTS: Intervals: Rate: 87 RI: 146 QRSD: 138 QT: 410 QTc: 493 Peak: P: 73 RI: 146 QRS: -57 T: 69 INTERPRETIVE STATEMENTS: Sinus rhythm with premature supraventricular complexes Right bundle branch block Left anterior fascicular block Bifascicular block Septal infarct, age undetermined Abnormal ECG Electronically Signed On 12-30-18 14:01:26 CDT by Yaakov Funes
[2018-12-30] MEDS: ACETAMINOPHEN 500 MG TAB PO PRN ×2 (16:56→22:23)
--- NOTE | 2018-12-30 17:40 | CON ---
Date of Consultation: 12/30/2018 Requesting Provider: Dr. Travis Calloway. Reason For Consultation: Acute kidney injury. History Of Present Illness: Ms. Mendy Gomez is a pleasant 83-year-old female, who present s to the emergency room feeling unwell. She had significant dyspnea. Workup revealed that the patie nt had sepsis/septic shock with urinary tract infection. She also had NSTEMI. The patient was seen here in the ICU. Yesterday in the emergency room, she received 500 mL IV fluid bolus and since that time she has been maintained here with IV antibiotics. She currently states she feels well. Denies any fevers, chills, chest pain, shortness of breath, nausea, vomiting, or diarrhea. She has finished most of her meal today morning. Chart does not reveal any use of NSAIDs or any recent contrast administration. The patient follows with Dr. Frank for chronic kidney disease. Baseline creatinine has been in the 2.4 to 2.7 range. On presentation, creatinine was 3.6. The patient has been having a slow urine ou tput, 150 mL was just drained from the urinal during my examination. Past Medical History: 1.Significant for chronic kidney disease, stage IIIB in the setting of hypertensive nephrosclerosis. 2.Peripheral vascular disease. 3.Congestive heart failure with a previously reported ejection fraction of 40%. 4.Hypertension. Family History: Noncontributory. Physical Examination: Vital Signs: Blood pressure is 95/55, pulse 60, afebrile. Input and output not yet measured; howeve r, as stated above. General: No acute distress. Heart: Regular rate and rhythm. No murmurs, rubs, gallops. Lungs: Clear to auscultation bilaterally. Abdomen: Soft, nontender, nondistended. Positive bowel sounds x4. Extremities: With no significant edema. Laboratory Data: Sodium 142, potassium 4.1, chloride 107, CO2 of 26, BUN 69, creatinine 3.61, glucos e 199, calcium is 8.4. ALT mildly elevated at 40. Troponin was 1.80. BNP 14,114. CBC was reviewed , no leukocytosis; however, the patient does have bandemia. UA; 20 to 50 WBCs, loaded with bacteria. Microbiology data; cultures are pending. Current Medications: Reviewed. Impression: 1.Acute kidney injury in the setting of acute tubular necrosis versus volume depletion, also on the background of sepsis. 2.Hypotension. 3.Urinary tract infection. 4.Non-ST segment elevation myocardial infarction. Plan: The patient does not appear to be volume overloaded. At this time, I will begin gentle IV hyd ration with lactated Ringer's 75 mL an hour for 1 L. We will avoid aggressive volume replenishment. This patient with a history of congestive heart failure. The patient's creatinine is off baseline a nd will need to be closely monitored. Absolutely no NSAIDs. Avoid contrast. Renal dose all medicat ions to creatinine clearance less than 10 secondary to the patient's acute renal failure. Current ga dications are reviewed and appear acceptable. If the patient's hypotension persists, then the patient may need more aggressive vasopressor support. The patient states that her usual blood pressure is in the 120s to 130s range. Can also cautiously use IV fluid boluses. Thank you kindly for the consultation. IRVING Voice ID: [id number] Report ID: [id number]
[2018-12-30] MEDS: Ringers Lactate 1,000 ML IV SCH (20:00)
[2018-12-30] MEDS: ATORVASTATIN 10 MG TAB PO SCH (20:54)
[2018-12-30] MEDS: TROLAMINE SALICYLATE 10% TOP SCH (20:54)
[2018-12-30] MEDS: GABAPENTIN 100 MG CAP PO SCH (20:54)
[2018-12-30] MEDS: OMEPRAZOLE PO SCH (21:00)
[2018-12-30] MEDS: SODIUM BICARBONATE PO SCH (21:00)
[2018-12-30] MEDS: MORPHINE 4 MG/ML SYR IV PRN (23:13)
--- NOTE | 2018-12-30 23:18 | HP ---
Date of Admission: 12/30/2018 Primary Care Physician: Dr. Wilkerson. Chief Complaint: UTI, sepsis. Code Status: Full History Of Present Illness: The patient is an 83-year-old female with past medical history of diabetes, hypertension, hyperlipidemia, congestive heart failure, history of PR, status post stents, who was in her usual state of health until 3 or 4 days prior to admission when the patient started having generalized weakness, confusion. The patient was more lethargic. She was found to have urinary frequency and odor to her urine. The patient did not complain of any dysuria, but she did have some pain in her back. The patient was brought into the ER for further evaluation. Her symptoms are constant, moderate, progressively worsening. In the ER, her workup revealed WBC count of 9.6. She did have a left shift with 6% bands. She was not acidotic. Her lactate was normal. Procalcitonin, however, was elevated at 0.65. Creatinine was elevated at 3.61, which is slightly above her baseline. She does have chronic kidney disease. She also had her troponin level of 1.8. The patient did not complain of chest pain. Her workup showed negative flu test. Her UA was positive and she was thought to have sepsis secondary to UTI. The patient was given Rocephin. No IV fluids were given due to her history of congestive heart failure initially. She was referred for admission. When I saw the patient, she was asleep, lethargic, however, able to wake up for history taking. Past Medical History: Hypertension; hyperlipidemia; chronic kidney disease, stage 3; diabetes, [id number]; congestive heart failure; PR, status post stent. Surgical History: Hysterectomy, defibrillator placement, coronary stents, appendectomy, right leg stent. Allergies: NO KNOWN DRUG ALLERGIES. Medications: List reviewed. Social History: The patient denies any smoking, alcohol use, or illicit drug use. Lives at home. Does need some assistance with her activities of daily living and needs sometimes drops by, has good social support. Family History: Father had cancer. Mother had lung disease. Review of Systems: Ten-point system reviewed, negative except as per HPI. Physical Examination: Vital Signs: Temperature 100.4, pulse 97, respirations 22, blood pressure 146/ 94, O2 95%. The patient was initially on BiPAP at 35% FiO2. General: Asleep, but arousable, lethargic, ill-appearing, elderly female, obese. HEENT: Normocephalic, atraumatic. PERRLA. EOMI. Dry mucous membranes. Oropharynx is clear. Conjunctivae are anicteric. Neck: Supple. No JVD. Trachea midline. CV: S1, S2. Regular rate and rhythm. Peripheral pulses weak bilaterally. Respiratory: Diminished breath sounds. No wheezing or stridor. No use of accessory muscles. Gastrointestinal: Abdomen is soft, nontender, nondistended. Positive bowel sounds. No guarding or rigidity. Extremities: No clubbing, cyanosis, or edema. No calf tenderness. Neuro: Oriented x2, elderly female. Cranial nerves 2-12 intact grossly. No focal neurological deficit. Speech is normal. Skin: No rashes. Normal skin turgor. Laboratory Data: Sodium 142, potassium 4.1, chloride 107, CO2 26, BUN 69, creatinine 3.61, glucose 199, lactate 1.8, procalcitonin 0.65, calcium 8.4. AST 40, ALT 25, troponin 1.8. BNP 14,114. Albumin 3.5, lipase 340. ABG; pH 7.44, pCO2 37, PO2 62, bicarb 24. INR 1.19. WBC 9.6, H and H 11.6 and 34.8, platelets 144, neutrophils 91%, 6% bands. UA, positive. Influenza screen is negative. Chest x-ray, personally reviewed, shows shallow inspiration film showing no acute cardiopulmonary finding, left subclavian defibrillator in place. Assessment And Plan: An 83-year-old female with: 1. Sepsis. The patient has temperature of 100.4, heart rate 97, respirations 22, requiring BiPAP. The patient is lethargic. Mental status is not at her baseline. She is somewhat confused. She has had end-organ damage including elevated troponin, elevated liver enzymes, and acute on chronic kidney injury. We will start her on sepsis guidelines. Due to the patient's history of congestive heart failure, we will be cautious with IV fluid resuscitation. By the time I examined her, her blood pressure was on the low side with systolic in the 90s/50s. We will bolus with 500 mL. We will obtain jefferson cultures. Start her on IV antibiotics. 2. Acute cystitis without hematuria. We will continue with Rocephin. Urine cultures have been obtained. 3. Acute on chronic kidney injury, stage 4. Creatinine is above baseline. We will continue to monitor. Avoid NSAIDs. Consult Nephrology. 4. NSTEMI. Troponin is 1.8. We will start her on chest pain guidelines. We will hold beta-jen and TERRY inhibitor due to low blood pressure and kidney injury. We will give full-dose Lovenox. Cardiology, Dr. Funes, has been consulted. He recommends medical management for now, possible catheterization once she is more stabilized from her sepsis. 5. Elevated liver enzymes, likely due to sepsis. 6. History of congestive heart failure. BNP is elevated, chronic. Last known ejection fraction from 2018 is 55%. Diastolic dysfunction. 7. Hypertensive heart disease. 8. Moderate pulmonary hypertension. 9. Diabetes mellitus, type 2, [id number], with chronic kidney disease and hyperglycemia. We will start her on sliding scale insulin and monitor blood glucose levels. 10. Mixed hyperlipidemia. Continue statin. 11. Coronary artery disease, huslia artery, huslia heart, without angina, status post stents. Continue aspirin. 12. Status post defibrillator. Admit the patient to ICU, place as inpatient. Length of stay, greater than 2 midnights. JACQUELYN Voice ID: [id number] [facility] CENTERCurtis
[2018-12-31] MEDS: Ringers Lactate 1,000 ML IV SCH (03:47)
[2018-12-31 05:09] LABS: Absolute Lymphocytes (CBC) 0.3 K/uL (0.7-4.9); Basophils % 0.3 % (0-1.3); Eosinophils % 0.7 % (0-4.4); MPV 11.1 fL (7.6-11.3); Monocytes % 7.4 % (3.3-12.3); RBC Red Blood Cell Count 3.08 M/uL (3.86-4.86)
[2018-12-31 05:27] LABS: Potassium 3.9 mmol/L (3.5-5.1)
[2018-12-31] MEDS: LEVOTHYROXINE SOD 0.05 MG TABLET PO SCH (05:35)
[2018-12-31] MEDS: INSULIN -REGULAR HUMAN 50 UNIT/0.5 ML ML SQ SCH ×4 (07:30→21:00)
[2018-12-31] MEDS: CLOPIDOGREL 75 MG TABLET PO SCH (08:34)
[2018-12-31] MEDS: ASPIRIN EC 81 MG TAB PO SCH (08:34)
[2018-12-31] MEDS: ACETAMINOPHEN 500 MG TAB PO PRN (08:34)
[2018-12-31] MEDS: FENOFIBRATE 160 MG TAB PO SCH (08:34)
[2018-12-31] MEDS ORDERED: CEFTRIAXONE/SWI 1gm 1 GM/10 ML SYR IV SCH (09:00)
[2018-12-31] MEDS: LINAGLIPTIN PO SCH (10:57)
--- NOTE | 2018-12-31 11:41 | RAD REPORT ---
EXAM DESCRIPTION: RAD - Chest Single View - 12/31/2018 6:15 am CLINICAL HISTORY: CHF Chest pain. COMPARISON: Chest Single View dated 12/30/2018; Chest Single View dated 09/18/2018; Chest Single View d ated 04/25/2018; Chest Single View dated 07/20/2017 FINDINGS: Portable technique limits examination quality. Since 12/30/2018, mild worsening in the bilateral pulmonary edema is seen. The heart is significantly prominent with single lead pacer/defibrillator device present. No displaced fractures. IMPRESSION: Mild worsening in CHF.
--- NOTE | 2018-12-31 12:53 | PN ---
Ms. Gomez is about the same condition as yesterday, asymptomatic with evidence of some myocardial necrosis. The troponins are trending downwards. Her creatinine is still 3.2 this morning, and the working diagnosis is that she had myocardial necrosis because of sepsis and underlying coronary heart disease. I do not think this is an acute coronary syndrome. I have recommended Wednesday we do a nucl ear pharmacologic stress test and consider cardiac cath on her only if her amount of ischemic burden is very large. RADHAMES/CHANDA Voice ID: [id number] Report ID: [id number]
--- NOTE | 2018-12-31 13:20 | PN ---
Date of Progress Note: 12/31/2018 Subjective: The patient is seen and examined. Chart reviewed and case discussed with RN. The patie nt is still significantly better, more awake and alert. No chest pain. Does report some shortness o f breath. Medications: List reviewed. Objective: Vital Signs: Temperature 97.6, heart rate 84, blood pressure 143/91, respirations 22, O2 92% on 1 L via nasal cannula. General: Awake, alert, oriented x3. Elderly female, in mild distress. Obese. CV: S1, S2. Regular rate and rhythm. Peripheral pulses are weak. Respiratory: Diminished breath sounds, some crackles heard. No wheezing or stridor. Gastrointestinal: Abdomen is soft, nontender, nondistended. Positive bowel sounds. Extremities: No clubbing, cyanosis, or edema. Neurologic: Nonfocal. Laboratory Data: Sodium 144, potassium 3.9, chloride 108. CO2 26, BUN 71, creatinine 3.2, glucose 1 37, calcium 7.8, triglycerides 222, cholesterol 67, LDL 9, HDL 14. WBC 7.2, H and H 9.9 and 29, plat elets 123, neutrophils 87%. Blood cultures growing out gram-negative rods, 4/4 bottles. Urine cultu re also growing out 3+ gram-negative rods. Chest x-ray pending. Assessment And Plan: An 83-year-old female with: 1.Sepsis secondary to gram-negative bacteremia and urinary tract infection. The patient is improvin g. Sepsis has improved. Blood pressure is better. We will discontinue IV fluids due to congestive heart failure. 2.Acute cystitis without hematuria. Continue Rocephin. Urine cultures showing gram-negative rods. ID and sensitivity pending. 3.Bacteremia secondary to gram-negative rods, currently on Rocephin. We will follow on ID and sensi tivity. 4.Sod-JK-dmnccqqdm myocardial infarction. Cardiology feels that this is likely due to her sepsis an d chronic kidney disease. Stress test on Wednesday. Appreciate Cardiology input. Continue aspirin and Plavix. 5.Acute on chronic kidney injury stage IV. Creatinine is improved. Appreciate Dr. Howell's input. Avoid NSAIDs. We will discontinue fluids for now due to pulmonary edema. 6.Elevated liver enzymes, likely secondary to sepsis. We will monitor. 7.Diastolic dysfunction, congestive heart failure, chronic. 8.Hypertensive heart disease. 9.Moderate pulmonary hypertension. 10.Diabetes mellitus type 2 lsp-gtqcgip-btfjcwkgu with chronic kidney disease and hyperglycemia. We will continue sliding scale insulin and monitor blood glucose levels. 11.Mixed hyperlipidemia continue statin. 12.Coronary artery disease [place] artery and [place] heart without angina status post stents. Contin ue aspirin and Plavix. 13.Status post defibrillator. Plan: Continue to monitor closely. Step-down from ICU if okay with Cardiology. Resume beta-jen . /CHANDA Voice ID: [id number] Report ID: [id number]
[2018-12-31] MEDS: CEFEPIME/SWI 1gm 10 ML IV SCH (17:38)
--- NOTE | 2018-12-31 19:11 | PN ---
Date of Progress Note: 12/31/2018 Subjective: The patient is seen at the bedside. No overnight events reported; however, the patient was found to have some crepitations in the lungs and the IV fluids were discontinued. Overall, she f eels well. Her blood pressure trend has improved. The urine output is nonoliguric. She denies any fevers, chills, chest pain. She is having some dyspnea, also she is having some orthopnea. No nause a, vomiting, or diarrhea. Objective: Vital Signs: Blood pressure is 116/77, pulse 81, temperature 97.3. Input and output, 25 21 in, 900 out. General: No acute distress. Heart: Regular rate and rhythm. No murmurs, rubs, gallops. Lungs: Grossly clear to auscultation bilaterally. Abdomen: Soft, nontender, nondistended with positive bowel sounds. Extremities: Without any significant edema. Laboratory Data: CBC reviewed. H and H 9.9/29.9. Serum chemistry; sodium 144, potassium 3.9, chlor igor 108, CO2 26, BUN 71, creatinine 3.2, glucose 137. Troponins have trended downward, had trended d ownward yesterday. Microbiology data, gram-negative rods in the urine with bacteria. The patient al so has blood cultures with bacteremia with gram-negative rods. Current Medications: Reviewed. Of note, the patient is on ceftriaxone 1 g IV daily. Remainder medi cations were reviewed. Impression: 1.Acute kidney injury on chronic kidney disease in the setting of hypotension and sepsis, possible a cute tubular necrosis. 2.Acute on chronic congestive heart failure. 3.Sepsis for urinary tract infection. Plan: Renal function appears to have improved. The patient is not in neftali volume overload, but julian s have some dyspnea while speaking. We will discontinue IV fluids and continue to monitor here in e ICU. The patient may need diuretic therapy by tomorrow. Please do not give any NSAIDs and avoid contrast if possible. Continue monitoring strict I's and O's. Continue renal d iet. We will continue to follow. SE/MODL Voice ID: [id number] Report ID: [id number]
[2018-12-31] MEDS: GABAPENTIN 100 MG CAP PO SCH (20:01)
[2018-12-31] MEDS: SODIUM BICARBONATE PO SCH (20:01)
[2018-12-31] MEDS: OMEPRAZOLE PO SCH (20:01)
[2018-12-31] MEDS: TROLAMINE SALICYLATE 10% TOP SCH (20:01)
[2018-12-31] MEDS: ATORVASTATIN 10 MG TAB PO SCH (20:01)
[2018-12-31] MEDS: MORPHINE 4 MG/ML SYR IV PRN (22:30)
[2019-01-01] MEDS: ACETAMINOPHEN 500 MG TAB PO PRN ×2 (00:46→20:36)
[2019-01-01] MEDS ORDERED: TRAMADOL HCL 50 MG TAB PO ONE (02:20)
[2019-01-01] MEDS: LEVOTHYROXINE SOD 0.05 MG TABLET PO SCH (06:04)
[2019-01-01 06:14] LABS: Potassium 3.9 mmol/L (3.5-5.1)
[2019-01-01 07:11] LABS: Absolute Lymphocytes (CBC) 0.4 K/uL (0.7-4.9); Basophils % 0.5 % (0-1.3); Eosinophils % 0.9 % (0-4.4); Hematocrit 30.7 % (36.0-45.0); Lymphocytes % 7.8 % (15.3-44.8); MPV 10.9 fL (7.6-11.3); Monocytes % 13.1 % (3.3-12.3); RBC Red Blood Cell Count 3.26 M/uL (3.86-4.86)
[2019-01-01] MEDS: INSULIN -REGULAR HUMAN 50 UNIT/0.5 ML ML SQ SCH ×4 (07:30→20:37)
[2019-01-01] MEDS ORDERED: ONDANSETRON 4 MG/2 ML VIAL IV PRN (08:14)
[2019-01-01] MEDS ORDERED: ONDANSETRON 4 MG/2 ML VIAL ONE (08:33)
[2019-01-01] MEDS: ASPIRIN EC 81 MG TAB PO SCH (09:48)
[2019-01-01] MEDS: CLOPIDOGREL 75 MG TABLET PO SCH (09:48)
[2019-01-01] MEDS: FENOFIBRATE 160 MG TAB PO SCH (09:48)
[2019-01-01] MEDS: LINAGLIPTIN PO SCH (09:49)
[2019-01-01] MEDS ORDERED: FUROSEMIDE 40 MG/4 ML VIAL IV ONE (11:00)
[2019-01-01] MEDS: ENOXAPARIN 80 MG/0.8 ML SQ SCH (12:16)
--- NOTE | 2019-01-01 12:18 | PN ---
Ms. Gomez has slightly improved renal function. She is due to get a pharmacologic nuclear stress test and echo to see if we think she is having an acute coronary syndrome, but the working diagnosis is sepsis causing some subendocardial myocardial necrosis without an acute coronary syndrome. RADHAMES/CHANDA Voice ID: [id number] Report ID: [id number]
--- NOTE | 2019-01-01 15:36 | PN ---
Date of Progress Note: 01/01/2019 Subjective: The patient seen and examined, chart reviewed and case discussed with RN. The patient c omplaining of some headache and was nauseous, had episode of emesis. The patient states that she usu ally gets headache and nausea with supplemental oxygen. The patient does not have any chest pain, di d not have any chest pain from the beginning. Her shortness of breath is improving, however, the pat ient desaturates 83% with activity. Medications: List reviewed. Physical Examination: Vital Signs: Temperature 98.8, heart rate 68, blood pressure 109/73, respirations 15, O2 98% on 1 L via nasal cannula. General: Awake, alert, oriented x3. Elderly female, obese, ill-appearing. CV: S1, S2. Peripheral pulses weak. Respiratory: Diminished breath sounds. Some crackles heard. Gastrointestinal: Abdomen is soft, nontender, nondistended. Positive bowel sounds. Extremities: No clubbing, cyanosis. Trace pedal edema. Neurologic: Nonfocal. Imaging Studies: Chest x-ray from 12/31/2018 shows mild worsening in CHF.. Laboratory Data: Sodium 139, potassium 3.9, chloride 104, CO2 25, BUN 67, creatinine 2.78, glucose 1 51, calcium is 8. WBC 5.8, H and H 10.1, 30.7, platelets 125, neutrophils 77%. Blood cultures and u rine culture growing out Escherichia coli. Assessment And Plan: An 83-year-old female with: 1.Sepsis secondary to Escherichia coli and urinary tract infection, improving. We will continue wit h IV antibiotics. Switch from Rocephin to cefepime due to intermediate sensitivity. 2.Acute cystitis without hematuria. IV antibiotics have been adjusted to cefepime. 3.Escherichia coli bacteremia. IV antibiotics adjusted. The patient will need 2 weeks of antibioti cs p.o. 4.Ybn-KH-lkvsqpnqm myocardial infarction likely due to sepsis and her acute medical condition. Stre ss test scheduled for a.m. We will continue with aspirin, Plavix, add Lovenox. 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 Creatinine is around baseline. Appreciate Nephrology inp ut. Avoid NSAIDs. Continue to monitor creatinine. 6.Elevated liver enzymes, likely due to sepsis with organ dysfunction. We will repeat level in a.m. 7.Diastolic dysfunction, congestive heart failure, chronic. We will continue to monitor I's and O's . Fluid restriction. Chest x-ray showed some worsening congestive heart failure. Fluids have been discontinued. 8.Hypertensive heart disease. 9.Moderate pulmonary hypertension. 10.Diabetes mellitus type 2 ifi-hopxesg-jnkaelpcb with chronic kidney disease and hyperglycemia. Co ntinue sliding scale insulin and Accu-Cheks. 11.Mixed hyperlipidemia. We will continue statin. 12.Coronary artery disease, [place] artery and [place] heart without angina, status post stents. Cont inue aspirin and Plavix. 13.Status post defibrillator. Plan: Step down from ICU if okay with Cardiology. Anticipate stress test in a.m. The patient may e nd up needing heart catheterization if stress test is abnormal. /CHANDA Voice ID: [id number] Report ID: [id number]
[2019-01-01] MEDS: CEFEPIME/SWI 1gm 10 ML IV SCH (18:29)
[2019-01-01] MEDS: MORPHINE 4 MG/ML SYR IV PRN (18:39)
[2019-01-01] MEDS: OMEPRAZOLE PO SCH (20:35)
[2019-01-01] MEDS: SODIUM BICARBONATE PO SCH (20:35)
[2019-01-01] MEDS: TROLAMINE SALICYLATE 10% TOP SCH (20:36)
[2019-01-01] MEDS: GABAPENTIN 100 MG CAP PO SCH (20:36)
[2019-01-01] MEDS: ATORVASTATIN 10 MG TAB PO SCH (20:36)
[2019-01-02 05:13] LABS: Absolute Lymphocytes (CBC) 0.6 K/uL (0.7-4.9); Basophils % 0.3 % (0-1.3); Eosinophils % 3.5 % (0-4.4); Hematocrit 29.1 % (36.0-45.0); Lymphocytes % 12.6 % (15.3-44.8); MPV 10.9 fL (7.6-11.3); Monocytes % 16.2 % (3.3-12.3); RBC Red Blood Cell Count 3.11 M/uL (3.86-4.86)
[2019-01-02 05:17] LABS: Albumin 2.4 g/dL (3.4-5.0); Bilirubin Total 0.4 mg/dL (0.2-1.0); Protein, Total 6.5 g/dL (6.4-8.2)
[2019-01-02 05:33] VITALS: BMI 36.8
[2019-01-02] MEDS: LEVOTHYROXINE SOD 0.05 MG TABLET PO SCH ×2 (05:53→06:27)
[2019-01-02] MEDS: INSULIN -REGULAR HUMAN 50 UNIT/0.5 ML ML SQ SCH ×4 (07:30→21:00)
[2019-01-02] MEDS ORDERED: REGADENOSON 0.4 MG/5 ML SYR IV ONE (08:26)
[2019-01-02] MEDS: ENOXAPARIN 80 MG/0.8 ML SQ SCH (08:46)
[2019-01-02] MEDS: LINAGLIPTIN PO SCH (08:47)
[2019-01-02] MEDS: FENOFIBRATE 160 MG TAB PO SCH (08:47)
[2019-01-02] MEDS: CLOPIDOGREL 75 MG TABLET PO SCH (08:47)
[2019-01-02] MEDS: ASPIRIN EC 81 MG TAB PO SCH (08:47)
[2019-01-02] MEDS: TRAMADOL HCL 50 MG TAB PO PRN (08:47)
--- NOTE | 2019-01-02 13:06 | RAD REPORT ---
EXAM DESCRIPTION: NM - Rest Stress Cardiac Imaging - 01/02/2019 12:58 pm CLINICAL HISTORY: Chest pain. COMPARISON: None. TECHNIQUE: The patient was administered approximately 10mCi of Tc 99m Sestamibi prior to resting SPE CT imaging of the heart. The patient was then administered approximately 30 mCi of Tc 99m Sestamibi f ollowing exercise or pharmacologic stress. Multiplanar SPECT images were reviewed. FINDINGS: A large area diminished radiotracer uptake involves anterior apical left ventricular myoca rdium rest and stress images. Small areas diminished radiotracer uptake involves the inferior left ventricular myocardium on rest a nd stress images The left ventricular ejection fraction equals 27% IMPRESSION: Large fixed perfusion defect involving the anterior apical left ventricular myocardium c onsistent with an infarct Small fixed perfusion defect involving the inferior left ventricular myocardium consistent with an in farct No evidence stress-induced ischemia
--- NOTE | 2019-01-02 13:41 | TREADPHA ---
DX: CHEST PAIN Date of Study: 01/02/2019 Ht: 4 10 Wt: 176 lb 6.4 oz Consulting Physician: EGRARDO MEDICATIONS: TYLENOL, ASPIRIN, LIPITOR, PLAVIX, DEXTROSE, LOVENOX, TRICOR HISTORY: 83 YEAR OLD FEMALE WITH COMPLAINTS OF CHEST PAIN. HISTORY OF MYOCARDIAL INFARCTION, DIABETES MELLITUS, HYPERTENSION, HYPERLIPIDEMIA, CONGESTIVE HEART FAILURE, RENAL INSUFFICIENCY, DEFIBRILLATION, CORONARY STENTS, RIGHT LEG STENT, NON SMOKER, NON DRINKER. PHYSICIAL EXAMINATION: RESTING B.P.: 157/91 RESTING H.R.: 76 RESTING EKG: SINUS, RIGHT BUNDLE BRANCH BLOCK, SEPTAL INFARCTION PROTOCOL: LEXISCAN EXERCISE TIME: 3:30 B.P. AT [place] STRESS: 133/81 IMPRESSION: LEXISCAN INJECTED, FOLLOWED BY CARDIOLITE PER PROTOCOL. SEE NUCLEAR MEDICINE REPORT. NO SUPRAVENTRICULAR TACHYCARDIA, VENTRICULAR TACHYCARDIA, PREMATURE VENTRICULAR COMPLEXES. PATIENT REPORTED NO CHEST PAIN. NON DIAGNOSTIC EKG WITH LEXISCAN STRESS.
[2019-01-02] MEDS ORDERED: MAGNES/ALUMIN/SIMET 30ML UCUP PO ONE (13:47)
--- NOTE | 2019-01-02 16:10 | ECHO ---
HEIGHT: 4 ft 10 in WEIGHT: 176 lb 6.4 oz DATE OF STUDY: 01/02/[address]: Travis Calloway MD 2-DIMENSIONAL: YES M.MODE: YES DOPPLER: YES COLOR FLOW: YES TDS: NO PORTABLE: NO DEFINITY: NO BUBBLE STUDY: NO DIAGNOSIS: CORONART ARTERY DISEASE CARDIAC HISTORY: CATHERIZATION: NO SURGERY: NO PROSTHETIC VALVE: NO PACEMAKER: YES MEASUREMENTS (cm) DIASTOLIC (NORMALS) SYSTOLIC (NORMALS) IVSd 1.1 (0.6-1.2) LA Diam 4.5 (1.9-4.0) LVEF 35% LVIDd 5.6 (3.5-5.7) LVIDs 4.7 (2.0-3.5) %FS 17% LVPWd 1.2 (0.6-1.2) Ao Diam 2.7 (2.0-3.7) 2 DIMENSIONAL ASSESSMENT: RIGHT ATRIUM: DILATED LEFT ATRIUM: DILATED RIGHT VENTRICLE: PACEMAKER CATHETER LEFT VENTRICLE: NORMAL TRICUSPID VALVE: NORMAL MITRAL VALVE: MITRAL ANNULAR CALCIFICATION PULMONIC VALVE: NORMAL AORTIC VALVE: STENOSIS PERICARDIAL EFFUSION: NONE AORTIC ROOT: NORMAL LEFT VENTRICULAR WALL MOTION: ANTERIOR, APICAL AKINESIS. DOPPLER/COLOR FLOW: MILD AORTIC STENOSIS. PEAK/MEAN VELOCITY 28/16. ESTIMATED AORTIC VALVE AREA 2 CENTIMETERS SQUARED. MILD AORTIC, MITRAL AND TRICUSPID REGURGITATION. ESTIMATED RIGHT VENTRICULAR SYSTOLIC PRESSURE 39mmHg. MILD PULMONARY HYPERTENSION. COMMENTS: DEPRESSED LEFT VENTRICULAR EJECTION FRACTION WITH WALL MOTION ABNORMALITY. DILATED LEFT AND RIGHT ATRIUM. PACEMAKER IN RIGHT VENTRICLE. MITRAL ANNULAR CALCIFICATION. MILD AORTIC STENOSIS. MILD AORTIC, MITRAL AND TRICUSPID REGURGITATION. MILD PULMONARY HYPERTENSION. TECHNOLOGIST: Mickey ALLEN
--- NOTE | 2019-01-02 16:23 | PN ---
Date of Progress Note: 01/02/2019 Subjective: The patient seen and examined, chart reviewed and case discussed with RN. The patient s till having headache, still getting hypoxic without oxygen. Medications list reviewed. Physical Examination: Vital Signs: Temperature 98.6, heart rate 70, blood pressure 117/69, respirations 17, O2 96% on 2 L via nasal cannula. General: Awake, alert oriented x3. Elderly female, obese, in some mild distress. CV: S1, S2. Regular rate and rhythm. Peripheral pulses present. Respiratory: Diminished breath sounds at the bases. No wheezing or stridor. Gastrointestinal: Abdomen is soft, nontender, nondistended. Positive bowel sounds. Extremities: No clubbing, cyanosis, or edema. Neurologic: Nonfocal. Laboratory Data: Sodium 138, potassium 4, chloride 103, CO2 27, BUN 71, creatinine 2.6, glucose 117, calcium 7.9, AST 32, ALT 20, albumin 2.4. WBC 4.9, H and H 9.4 and 29.1, platelets 120, neutrophils 67%. Blood cultures growing out Escherichia coli 4/4 bottles. Urine culture also growing out Esche richia coli. Assessment And Plan: An 83-year-old female with: 1.Sepsis secondary to Escherichia coli bacteremia and urinary tract infection. Continue with IV ant ibiotics. Currently on cefepime. The patient will need 2 weeks of antibiotics. 2.Acute cystitis without hematuria. Continue IV antibiotics. 3.Mcw-II-wenluswxc myocardial infarction, likely due to sepsis and her acute on chronic kidney injur y. The patient going for stress test today. May need cardiac catheterization depending on results. Appreciate Dr. Funes's input. Continue chest pain guidelines. 4.Escherichia coli bacteremia. Continue with IV antibiotics. Switched to oral antibiotics on disch arge for a total of 2 weeks. 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 Creatinine is improving, currently around baseline. Cont inue to monitor. Avoid NSAIDs. Nephrology on board. 6.Elevated liver enzymes secondary to sepsis and organ dysfunction, resolved. 7.Chronic congestive heart failure with diastolic dysfunction. We will continue to monitor I's and O's and fluid restriction. The patient responded well to Lasix. We will continue to monitor I's and O's. Continue fluid restriction. 8.Hypertensive heart disease. 9.Moderate pulmonary hypertension, stable. 10.Diabetes mellitus type 2 nue-dhdtkwd-qocokjfve with chronic kidney disease and hyperglycemia. We will continue sliding scale insulin and Accu-Cheks. 11.Mixed hyperlipidemia. We will continue statin. 12.Coronary artery disease, [place] artery and [place] heart without angina, status post stents. Cont inue aspirin and Plavix. 13.Status post defibrillator. Plan: The patient transferred to regular floor. No beds yesterday. Follow up on cardiac stress aaron pruitt SA/CHANDA Voice ID: [id number] Report ID: [id number]
[2019-01-02] MEDS: TROLAMINE SALICYLATE 10% TOP SCH ×2 (21:00→22:31)
[2019-01-02] MEDS: SODIUM BICARBONATE PO SCH (22:30)
[2019-01-02] MEDS: OMEPRAZOLE PO SCH (22:30)
[2019-01-02] MEDS: ATORVASTATIN 10 MG TAB PO SCH (22:32)
[2019-01-02] MEDS: GABAPENTIN 100 MG CAP PO SCH (22:32)
[2019-01-02] MEDS: AMOX/K CLAV 500 MG TAB PO SCH (22:34)
--- NOTE | 2019-01-02 22:53 | P.PN ---
Date of Service: 01/02/19 Vital Signs Temp Pulse Resp BP Pulse Ox 98.6 F 77 14 140/80 98 01/02/19 08:00 01/02/19 09:00 01/02/19 09:00 01/02/19 09:00 01/02/19 09:00 Medications Acetaminophen (Tylenol -Extra Strength) 500 mg PO Q4H PRN PRN Reason: Pain scale 2-4 (Mild) Stop: 01/29/19 16:38 Last Admin: 01/01/19 20:36 Dose: 500 mg Amoxicillin/Clavulanate Potassium (Augmentin 500-125 Mg Tab) 500 mg PO BID ABBY Stop: 02/01/19 21:01 Last Admin: 01/02/19 22:34 Dose: 500 mg Aspirin (Aspirin Ec) 81 mg PO DAILY ABBY Stop: 01/30/19 09:01 Last Admin: 01/02/19 08:47 Dose: 81 mg Atorvastatin Calcium (Lipitor) 10 mg PO BEDTIME ABBY Stop: 01/29/19 21:01 Last Admin: 01/02/19 22:32 Dose: 10 mg Clopidogrel Bisulfate (Plavix) 75 mg PO DAILY ABBY Stop: 01/30/19 09:01 Last Admin: 01/02/19 08:47 Dose: 75 mg Dextrose (Dextrose 50% Syringe) 12.5 gm IV PRN PRN PRN Reason: HYPOGLYCEMIA PROTOCOL Stop: 01/29/19 13:44 Enoxaparin Sodium (Lovenox 80 Mg Inj) 80 mg 1 mg/kg (80 mg) SQ DAILY ABBY Stop: 01/31/19 12:01 Last Admin: 01/02/19 08:46 Dose: 80 mg Fenofibrate (Tricor) 160 mg PO DAILY ABBY Stop: 01/30/19 09:01 Last Admin: 01/02/19 08:47 Dose: 160 mg Gabapentin (Neurontin) 100 mg PO BEDTIME ABBY Stop: 01/29/19 21:01 Last Admin: 01/02/19 22:32 Dose: 100 mg Glucagon (Glucagen) 1 mg IM 1X PRN PRN Reason: HYPOGLYCEMIA Stop: 01/29/19 13:44 Home Med (Omeprazole/Sodium Bicarbonate [Zegerid 20 Mg Capsule]) 1 tab PO BEDTIME ABBY Stop: 01/29/19 21:01 Last Admin: 01/02/19 22:30 Dose: 1 tab Home Med (Linagliptin [Tradjenta]) 0 mg PO DAILY [facility] Stop: 01/30/19 09:01 Last Admin: 01/02/19 08:47 Dose: 5 mg Home Med (Home Med) 1 ea TOP BEDTIME [facility] Stop: 01/29/19 21:01 Last Admin: 01/02/19 22:31 Dose: 1 ea Insulin Human Regular (Novolin -R) 0 unit SQ ACHS [facility]; Protocol Stop: 01/29/19 11:31 Last Admin: 01/02/19 21:00 Dose: Not Given Levothyroxine Sodium (Synthroid) 0.05 mg PO DAILYAC [facility] Stop: 01/30/19 06:31 Last Admin: 01/02/19 06:27 Dose: Not Given Morphine Sulfate (Morphine Sulfate) 2 mg IV Q4H PRN PRN Reason: Pain scale 8-10 (Severe) Stop: 01/29/19 08:48 Last Admin: 01/01/19 18:39 Dose: 2 mg Nitroglycerin (Nitrostat) 0.4 mg SL UD PRN PRN Reason: Pain scale 2-4 (Mild) Stop: 01/29/19 08:27 Ondansetron HCl (Zofran) 4 mg IV Q4H PRN PRN Reason: NAUSEA / VOMITING Stop: 01/31/19 08:15 Last Admin: 01/01/19 20:00 Dose: 4 mg Sodium Chloride (Normal Saline Flush) 10 ml IV BID [facility] Stop: 01/29/19 09:01 Last Admin: 01/02/19 22:31 Dose: 10 ml Tramadol HCl (Ultram) 50 mg PO TID PRN PRN Reason: Pain scale 5-7 (Moderate) Stop: 02/01/19 08:22 Last Admin: 01/02/19 08:47 Dose: 50 mg Microbiology Results 12/30/18 05:34 Clean Catch Urine [place] Count - Final >100,000 CFU/ML. 12/30/18 05:34 Clean Catch Urine - Final Escherichia Coli 12/30/18 04:35 Blood - Blood Aerobic Blood Culture - Final Escherichia Coli 12/30/18 04:35 Blood - Blood Gram Stain - Final 12/30/18 04:35 Blood - Blood Anaerobic Blood Culture - Final Escherichia Coli 12/30/18 04:35 Blood - Blood Gram Stain - Final 12/30/18 05:39 Blood - Blood Aerobic Blood Culture - Final Escherichia Coli 12/30/18 05:39 Blood - Blood Gram Stain - Final 12/30/18 05:39 Blood - Blood Anaerobic Blood Culture - Final Escherichia Coli 12/30/18 05:39 Blood - Blood Gram Stain - Final 12/30/18 05:18 Nasopharnyx Influenza Type A Antigen Screen - Final 12/30/18 05:18 Nasopharnyx Influenza Type B Antigen Screen - Final Assessment/ Plan: Nephrology. Feeling much better today. CPS stable without CP or SOB. No acute events overnight. Vitals, medications, blood work and imaging reviewed in the chart. NAD. Obese. MMM. Neck supple. CTA. RRR. Soft NT. No C/C. LE edema trace. No rash. AAO. Normal speech. A/ RAGHAVENDRA/ CKD IV. DM II with CKD. Systolic CHF, chronic. Moderate malnutrition. Anemia in chronic illness. Thrombocytopenia. CAD. Sepsis. Acute cystitis. P/ Continue current POC and Medications. Agree with abx. Follow up with cardiology for positive stress test. Encourage nutrition. Low sodium. No NSAIDs. AM labs. Daily weight.
[2019-01-03] MEDS: TRAMADOL HCL 50 MG TAB PO PRN (00:16)
[2019-01-03 04:54] LABS: Absolute Lymphocytes (CBC) 1.1 K/uL (0.7-4.9); Basophils % 0.4 % (0-1.3); Eosinophils % 4.5 % (0-4.4); Hematocrit 31.8 % (36.0-45.0); Lymphocytes % 19.3 % (15.3-44.8); MPV 10.4 fL (7.6-11.3); Monocytes % 13.9 % (3.3-12.3)
[2019-01-03] MEDS: LEVOTHYROXINE SOD 0.05 MG TABLET PO SCH (06:32)
[2019-01-03] MEDS: INSULIN -REGULAR HUMAN 50 UNIT/0.5 ML ML SQ SCH ×2 (07:30→11:30)
[2019-01-03] MEDS: CLOPIDOGREL 75 MG TABLET PO SCH (09:24)
[2019-01-03] MEDS: LINAGLIPTIN PO SCH (09:24)
[2019-01-03] MEDS: FENOFIBRATE 160 MG TAB PO SCH (09:24)
[2019-01-03] MEDS: ASPIRIN EC 81 MG TAB PO SCH (09:24)
[2019-01-03] MEDS: AMOX/K CLAV 500 MG TAB PO SCH (09:24)
[2019-01-03] MEDS: ENOXAPARIN 80 MG/0.8 ML SQ SCH (09:25)
--- NOTE | 2019-01-03 12:19 | PN ---
Date of Progress Note: 01/03/2019 Ms. Gomez is 83, who was admitted by Dr. Simmons on 12/30/2018, has been followed by Dr. Funes sin . She had came in with sepsis, non-ST elevation myocardial infarction, end-stage renal disease, coronar y artery disease, congestive heart failure history. Dr. Funes ordered echocardiogram and Lexiscan. Echocardiogram showed pacemaker present and ejection fraction of 35%. Lexiscan showed anteroapical scar with an ejection fraction of 27%. No ischemia. There is no plan for us to do any cardiac frankie terization. She needs to be on medical therapy for CHF and CAD, as well as end-stage renal disease. We will sign off her case. We will be available for questions if the need arise. She needs to foll ow up with us in the near future. NILA/CHANDA Voice ID: [id number] Report ID: [id number]
[2019-01-03 16:59] VITALS: BP 141/80; TEMP 97.6; O2SAT 93
--- NOTE | 2019-01-03 21:22 | P.PN ---
Date of Service: 01/03/19 Vital Signs Temp Pulse Resp BP Pulse Ox 97.6 F 66 18 141/80 H 98 01/03/19 16:00 01/03/19 16:00 01/03/19 16:00 01/03/19 16:00 01/02/19 09:00 Microbiology Results 12/30/18 05:34 Clean Catch Urine [place] Count - Final >100,000 CFU/ML. 12/30/18 05:34 Clean Catch Urine - Final Escherichia Coli 12/30/18 04:35 Blood - Blood Aerobic Blood Culture - Final Escherichia Coli 12/30/18 04:35 Blood - Blood Gram Stain - Final 12/30/18 04:35 Blood - Blood Anaerobic Blood Culture - Final Escherichia Coli 12/30/18 04:35 Blood - Blood Gram Stain - Final 12/30/18 05:39 Blood - Blood Aerobic Blood Culture - Final Escherichia Coli 12/30/18 05:39 Blood - Blood Gram Stain - Final 12/30/18 05:39 Blood - Blood Anaerobic Blood Culture - Final Escherichia Coli 12/30/18 05:39 Blood - Blood Gram Stain - Final 12/30/18 05:18 Nasopharnyx Influenza Type A Antigen Screen - Final 12/30/18 05:18 Nasopharnyx Influenza Type B Antigen Screen - Final Assessment/ Plan: Nephrology. Doing well today. Good appetite. CPS stable without CP or SOB. No acute events overnight. Vitals, medications, blood work and imaging reviewed in the chart. NAD. Obese. MMM. Neck supple. CTA. RRR. Soft NT. No C/C. LE edema trace. No rash. AAO. Normal speech. A/ RAGHAVENDRA in the setting of sepsis. CKD IV. DM II with CKD. Systolic CHF, chronic. Moderate malnutrition. Anemia in chronic illness. Thrombocytopenia. CAD. Sepsis. Acute cystitis. P/ Continue current POC and Medications. Agree with abx. Follow up with cardiology for positive stress test. Encourage nutrition. Low sodium. No NSAIDs. AM labs. Daily weight. PT as tolerated.
--- NOTE | 2019-01-05 14:09 | P.DS ---
Admission Date: 12/30/18 Discharge Date: 01/03/19 Disposition: ROUTINE DISCHARGE Discharge Condition: GOOD Reason for Admission: UTI, sepsis, and non ST elevation myocardial infarction Consultations: Cardiology Nephrology Procedures: Cardiac stress test Brief History of Present Illness: The patient is an 83-year-old female with past medical history of diabetes, hypertension, hyperlipidemia, congestive heart failure, history of VA, status post stents, who was in her usual state of health until 3 or 4 days prior to admission when the patient started having generalized weakness, confusion. The patient was more lethargic. She was found to have urinary frequency and odor to her urine. The patient did not complain of any dysuria, but she did have some pain in her back. The patient was brought into the ER for further evaluation. Her symptoms are constant, moderate, progressively worsening. In the ER, her workup revealed WBC count of 9.6. She did have a left shift with 6 % bands. She was not acidotic. Her lactate was normal. Procalcitonin, however , was elevated at 0.65. Creatinine was elevated at 3.61, which is slightly above her baseline. She does have chronic kidney disease. She also had her troponin level of 1.8. The patient did not complain of chest pain. Her workup showed negative flu test. Her UA was positive and she was thought to have sepsis secondary to UTI. The patient was given Rocephin. No IV fluids were given due to her history of congestive heart failure initially. She was referred for admission. When I saw the patient, she was asleep, lethargic, however, able to wake up for history taking. Hospital Course: Patient was admitted to the ICU. She was started on IV antibiotics, IV fluids, that were given cautiously due to her congestive heart failure history. Her symptoms slightly improved. Therefore she was then transferred to the floor. Her urine cultures were positive for E. coli, sensitive to. She was also found to be bacteremic with the same bacteria. She was discharged home on oral antibiotics for 2 weeks. Her stay was complicated by a non ST elevation myocardial infarction. Cardiology was consulted. They felt this was due to her sepsis and chronic kidney disease. An echocardiogram was done with ejection fraction 35%, wall motion abnormalities and dilated heart. Also noted to have moderate pulmonary hypertension and a pacemaker in place. The stress test was done. No further cardiac catheterization or intervention was planned at this time. She was medically managed. She did have acute on chronic kidney injury. Nephrology was consulted. Her creatinine improved with IV fluids and interventions. Her symptoms improved. Prior to discharge, she was alert oriented x3, in no acute distress and hemodynamically stable. Her breathing had improved, back to baseline and she was satting 93+ percent on room air. Her diagnoses and treatment plan were explained to her. All questions were answered and patient and family verbalized understanding. She was then discharged home in a safe and stable manner. Vital Signs/Physical Exam: Temp Pulse Resp BP Pulse Ox 97.6 F 66 18 141/80 H 98 01/03/19 16:00 01/03/19 16:00 01/03/19 16:00 01/03/19 16:00 01/02/19 09:00 General: Alert, In no apparent distress HEENT: Atraumatic, PERRLA, EOMI Neck: Supple, JVD not distended Respiratory: Clear to auscultation bilaterally, Normal air movement Cardiovascular: Regular rate/rhythm, Normal S1 S2 Gastrointestinal: Normal bowel sounds, No tenderness Musculoskeletal: No tenderness Integumentary: No rashes Neurological: Normal speech, Normal tone, Normal affect Lymphatics: No axilla or inguinal lymphadenopathy Laboratory Data at Discharge: WBC 5.6 K/uL (4.3-10.9) D 01/03/19 04:45 Hgb 10.4 g/dL (12.0-15.0) L 01/03/19 04:45 Hct 31.8 % (36.0-45.0) L 01/03/19 04:45 Plt Count 146 K/uL (152-406) L D 01/03/19 04:45 PT 13.9 SECONDS (9.5-12.5) H 12/30/18 04:35 INR 1.19 12/30/18 04:35 Sodium 138 mmol/L (136-145) 01/02/19 04:32 Potassium 4.0 mmol/L (3.5-5.1) 01/02/19 04:32 BUN 71 mg/dL (7-18) H 01/02/19 04:32 Creatinine 2.60 mg/dL (0.55-1.3) H 01/02/19 04:32 Glucose 117 mg/dL (74-106) H 01/02/19 04:32 Total Bilirubin 0.4 mg/dL (0.2-1.0) 01/02/19 04:32 AST 32 U/L (15-37) 01/02/19 04:32 ALT 20 U/L (12-78) 01/02/19 04:32 Alkaline Phosphatase 47 U/L (45-117) 01/02/19 04:32 Troponin I 0.90 ng/mL (0.0-0.045) H* 12/30/18 16:00 Triglycerides 222 mg/dL (<150) H 12/31/18 04:42 Cholesterol 67 mg/dL (<200) 12/31/18 04:42 HDL Cholesterol 14 mg/dL (40-60) L 12/31/18 04:42 Cholesterol/HDL Ratio 4.79 12/31/18 04:42 Lipase 340 U/L (73-393) 12/30/18 04:35 Home Medications: Amlodipine [Norvasc*] 1 tab PO DAILY 09/18/18 Aspirin 81 mg PO DAILY 09/18/18 Clopidogrel Bisulfate [Plavix*] 1 tab PO DAILY 09/18/18 Fenofibrate Nanocrystallized [Fenofibrate] 145 mg PO DAILY 09/18/18 Furosemide [Lasix] 80 mg PO DAILY 09/18/18 Gabapentin 100 mg PO BEDTIME 09/18/18 Levothyroxine Sodium 50 mcg PO DAILY 09/18/18 Metoprolol Succinate [Toprol Xl*] 1 tab PO DAILY 09/18/18 Multivitamin/Iron/Folic Acid [Centrum Women Tablet] 1 tab PO DAILY 09/18/18 Omeprazole/Sodium Bicarbonate [Zegerid 20 mg Capsule] 1 tab PO BEDTIME 09/18/18 Pravastatin Sodium 1 tab PO DAILY 09/18/18 Cholecalciferol (Vitamin D3) [Vitamin D3] 3,000 unit PO DAILY 12/30/18 Ergocalciferol (Vitamin D2) [Vitamin D 50,000 Unit Cap] 50,000 unit PO SEECOM Linagliptin [Tradjenta] 5 mg PO DAILY 12/30/18 Amox/Clavulanate [Augmentin 500-125 mg Tab*] 500 mg PO BID #26 tab 01/03/19 New Medications: Amox/Clavulanate [Augmentin 500-125 mg Tab*] 500 mg PO BID #26 tab Patient Discharge Instructions: Please follow up with the primary care physician in 2-3 days. Please follow up with the travel registered nurse icu. 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 Please return to the emergency room for worsening symptoms. New medications: Augmentin, an antibiotic for your urinary tract infection and your blood infection. Diet: ADA Activity: Ad bradly Followup: Reddy Frank DO [ACTIVE - CAN ADMIT] - 1-2 Weeks (kidney doctor- Call to schedule an appointment ) Brandie Wilkerson DO [Primary Care Provider] - 2-3 Days (Call to schedule an appointment ) Time spent managing pt's care (in minutes): 55
== END 2019-01-03 17:54 | disposition home or self-care (01) | DRG 871 ==
LOC: ER 04:02 → ERHOLD 07:09 → 3RD-ICU 08:29 → 4TH 01-02 09:45
PROVIDERS: ADMIT Family Medicine; ATTEND Family Medicine
DX: A41.50 Gram-negative sepsis, unspecified (principal); I21.4 Non-ST elevation (NSTEMI) myocardial infarction; N30.00 Acute cystitis without hematuria; I13.0 Hypertensive heart and chronic kidney disease with heart failure and stage 1 through stage 4 chronic kidney disease, or unspecified chronic kidney disease; N18.4 Chronic kidney disease, stage 4 (severe); I50.32 Chronic diastolic (congestive) heart failure; N17.9 Acute kidney failure, unspecified; E44.0 Moderate protein-calorie malnutrition; E11.22 Type 2 diabetes mellitus with diabetic chronic kidney disease; E11.65 Type 2 diabetes mellitus with hyperglycemia; I27.20 Pulmonary hypertension, unspecified; E78.2 Mixed hyperlipidemia; I25.10 Atherosclerotic heart disease of native coronary artery without angina pectoris; E03.9 Hypothyroidism, unspecified; D63.8 Anemia in other chronic diseases classified elsewhere; D69.6 Thrombocytopenia, unspecified; E66.9 Obesity, unspecified; Z68.36 Body mass index [BMI] 36.0-36.9, adult; Z95.5 Presence of coronary angioplasty implant and graft; Z95.810 Presence of automatic (implantable) cardiac defibrillator
CPT/HCPCS: 36415; 51702; 71045; 78452; 80048; 80053; 80061; 80076; 81015; 82550; 82805; 82962; 83605; 83690; 83880; 84145; 84484; 85025; 85610; 87040; 87077; 87086; 87088; 87186; 87205; 87804; 93005; 93017; 93306; 94660; 94760; 96365; 96372; 99285; A9500; J0692; J0696; J1650; J1940; J2405; J2785

== ENCOUNTER 2019-01-04 04:30 | Emergency (ER) | payer OTHER ==
--- OUTSIDE RECORDS SUMMARY | 2019-01-04 04:33 | XMS REPORT ---
[...] Status Dosage System Date Date Pravachol [facility] 64896341779 80 MG Orally Active 1 tablet Once a day Toprol XL [facility] 29696887157 25 MG Orally Active 1 tablet Once a day Amlodipine [facility] 96118087381 5 MG Orally Active 5 mg Besylate Once a day Alprazolam NDC 38719525149 0.25 MG Orally Active 1 tablet once a day prn anxiety Flonase [facility] 10075388116 50 MCG/ACT Active 1 spray in Nasally Once a each day nostril Fosamax [facility] 89200212768 70 MG Active TAKE 1 TABLET ONCE A WEEK Levothyroxine [facility] 98830563653 50 MCG Orally Active 1 tablet Sodium Once a day on an empty stomach in the morning Tradjenta [facility] 66453601764 5 MG Orally Active 1 tablet Once a day Valsartan [facility] 08985860765 40 MG Orally Active 1 tablet Twice a day Gabapentin [facility] 75685773345 100 MG Orally Active 1 capsule Three times a day Tricor [facility] 81844260853 145 MG Orally Active 1 tablet Once a day with food Vitamin D-[address] [facility] 39872006536 1000 UNIT Active 1 capsule Orally Once a day Macrobid [facility] 22031256142 100 MG Orally Apr 21, Active 1 capsule every 12 hrs 2017 with food Aspirin [address] [facility] 11974949235 81 MG Orally Active 1 tablet Once a day Loratadine [facility] 33434617595 10 MG Orally Active 1 tablet Once a day Macrobid [facility] 24332865658 100 MG Orally Екатерина Active 1 capsule every 12 hrs 2017 with food Klor-Con M10 [facility] 39312166980 10 MEQ Orally Active 1 tablet Twice a day with food Lasix [facility] 82981356221 40 MG Orally Active 1 tablet Once a day Plavix [facility] 30162242846 75 MG Orally Active 1 tablet Once a day Results No Known Results Summary Purpose eClinicalWorks Submission
--- OUTSIDE RECORDS SUMMARY | 2019-01-04 04:33 | XMS REPORT ---
[...] Start End Date Status Dosage Date Gabapentin [facility] 44127020172 100 MG Orally Active 1 capsule Three times a day Results No Known Results Summary Purpose eClinicalWorks Submission
--- OUTSIDE RECORDS SUMMARY | 2019-01-04 04:33 | XMS REPORT ---
[...] End Status Dosage System Date Date Levothyroxine [facility] 24892524705 50 MCG Orally Active 1 tablet on Sodium Once a day an empty stomach in the morning Gabapentin [facility] 31570798944 100 MG Orally Active 1 capsule Three times a day Lasix [facility] 40167833674 80 MG Orally Active 1 tablet Once a day Pravachol ND 45491588919 80 MG Orally Active 1 tablet Once a day Lasix [facility] 07339194486 40 MG Orally Active 1 tablet Once a day Flonase [facility] 38683916506 50 MCG/ACT Active 1 spray in Nasally Once a each nostril day Tricor ND 17071197916 145 MG Orally Active 1 tablet with Once a day food Alprazolam [facility] 57924810119 0.25 MG Orally Active 1 tablet once a day prn anxiety Fosamax [facility] 74616231731 70 MG Active TAKE 1 TABLET ONCE A WEEK Loratadine [facility] 32748740563 10 MG Orally Active 1 tablet Once a day Aspirin [address] [facility] 04719280338 81 MG Orally Active 1 tablet Once a day Macrobid [facility] 76198523677 100 MG Orally October Active 1 capsule every 12 hrs , with food 2017 Valsartan [facility] 83904167881 40 MG Orally Active 1 tablet Twice a day Plavix [facility] 08492280129 75 MG Orally Active 1 tablet Once a day Amlodipine [facility] 00124348114 5 MG Orally Active 5 mg Besylate Once a day Tylenol Extra [facility] 23814710485 500 MG Orally Active 1 tablet as Strength every 6 hrs needed Lidocaine HCl [facility] 89533792074 3 % Externally Active 1 application Twice a day to affected area as needed Tradjenta [facility] 08660632347 5 MG Orally Active 1 tablet Once a day Vitamin D-3 [facility] 89578068230 1000 UNIT Active 1 capsule Orally Once a day Macrod [facility] 69434662627 100 MG Orally Apr 21, Active 1 capsule every 12 hrs 2017 with food Klor-Con M10 [facility] 11814914271 10 MEQ Orally Active 1 tablet with Twice a day food Toprol XL [facility] 63259555155 25 MG Orally Active 1 tablet Once a day Results No Known Results Summary Purpose eClinicalWorks Submission
--- OUTSIDE RECORDS SUMMARY | 2019-01-04 04:33 | XMS REPORT ---
[...] Start Date End Date Status Dosage Fosamax [facility] 84432528415 70 MG Active TAKE 1 TABLET ONCE A WEEK Results No Known Results Summary Purpose eClinicalWorks Submission
--- OUTSIDE RECORDS SUMMARY | 2019-01-04 04:33 | XMS REPORT | Clinical Summary ---
:1935 Author Organization [facility] Address [address] [place] [address] Care Team Providers Name Role Phone Brandie [...] BY MOUTH DAILY. Coronary artery disease involving chilkat heart with angina pectoris, unspecified vessel or lesion type (HCC) furosemide (LASIX) Take 80 mg by 3 05/29/2018 Active 80 mg tablet mouth daily. metoprolol Take 25 mg by 3 07/07/2018 Active succinate XL mouth 2 (two) (TOPROL-XL) 25 mg times a day. 24 hr tablet rosuvastatin TAKE 1 TABLET 90 tablet 0 01/02/2019 Active (CRESTOR) 20 MG BY MOUTH EVERY tablet DAY fenofibrate Take 1 tablet 90 tablet 3 05/06/2017 Discontinued (TRICOR) 145 MG (145 mg total) 8 tabletIndications: by mouth daily. Coronary artery disease involving chilkat heart with angina pectoris, unspecified vessel or lesion type (HCC) pravastatin Take 1 tablet 90 tablet 3 06/07/2017 Discontinued (PRAVACHOL) 80 MG (80 mg total) 8 tablet by mouth once daily. pravastatin TAKE 1 TABLET 90 tablet 3 05/23/2018 Discontinued (PRAVACHOL) 80 MG (80 MG TOTAL) 9 tablet BY MOUTH ONCE DAILY. rosuvastatin Take 1 tablet 30 tablet 0 12/05/2018 Discontinued (CRESTOR) 20 MG (20 mg total) 9 tablet by mouth daily. Active Problems Problem Noted Date hypotension due to pericardial effusion 07/21/2017 cardio-renal syndrome 07/21/2017 H/O AICD 07/21/2017 Overview: [employer] Coronary artery disease involving chilkat heart with angina pectoris 07/06/2017 Overview: Added automatically from request for surgery [id number] large anterior pericardial effusion s/p window 03/02/2017 Systolic congestive heart failure 03/02/2017 Stented coronary artery 06/30/2016 PAD (peripheral artery disease) 06/30/2016 Chronic kidney disease, stage III (moderate) 06/30/2016 Cardiomyopathy 05/27/2016 Coronary arteriosclerosis 05/27/2016 Essential hypertension 05/27/2016 Hyperlipidemia 05/27/2016 Encounters Date Type Specialty Care Team Description 12/31/2018 Refill Cardiology Ashok Matson MD Med Refill 12/05/2018 Orders Only Cardiology Ankit Purcell MA 08/02/2018 Office Visit Cardiology Ashok Matson MD Systolic congestive heart failure, unspecified HF chronicity (HCC) (Primary Dx); H/O AICD; Stented coronary artery 05/22/2018 Refill Cardiology Ashok Matson MD Med Refill 05/19/2018 Refill Cardiology Ashok Matson MD Med Refill 01/25/2018 Office Visit Cardiology Ashok Matson MD CAD in chilkat artery (Primary Dx); Ischemic cardiomyopathy after 01/03/2018 Family History Relation Name Status Comments Father [...] Taken Blood Pressure 146/67 08/02/2018 9:14 AM SWIMMING INSTRUCTOR Pulse 76 08/02/2018 9:14 AM SWIMMING INSTRUCTOR Temperature - - Respiratory Rate - - Oxygen Saturation - - Inhaled Oxygen Concentration - - Weight 68.5 kg (151 lb) 08/02/2018 9:14 AM SWIMMING INSTRUCTOR Height 149.9 cm (4' 11") 08/02/2018 9:14 AM SWIMMING INSTRUCTOR Body Mass Index 30.5 08/02/2018 9:14 AM SWIMMING INSTRUCTOR Plan of Treatment Date Type Specialty Care Team Description 01/31/2019 Office Visit Cardiology Ashok Matson MD [address] [place] [id number] Health Maintenance Due Date Last Done Comments SHINGLES VACCINES (#1) 1987 65+ PNEUMOCOCCAL VACCINE (1 of 2 - PCV13) 2002 INFLUENZA VACCINE 02/16/2019 Implants Implanted Type Area Vessel Captain Device Shelf Model / Identifier Expiration Serial / Date Lot Kit Prcrdocnts Perivac - [id number] Central N/A: N/A [place] 4315 / Implanted: 07/09/2017 (Quantity not on file) Venous SCIENTIFIC EDDI / Catheters Drain Wnd Chnl 24fr 12/01in Rnd Hbls Fl-Flut Pari - [id number] Surgical N/A: N/ A [employer] OF 11/15/2021 [id number] / Implanted: Qty: 1 on 07/21/2017 by Jose Dill MD Implants; JESSE & / Expanders; JESSE Extenders; Surgical Wires Results Not on fileafter 01/03/2018 Insurance Payer Benefit Plan / Subscriber ID Effective Dates Phone Address Type Group MEDICARE MEDICARE PART A xxxxxxxxxxx 2002-Present [place], [place] Medicare AND B Advance Directives Patient has advance care planning documents, and code status on file. For more information, please contact:Isaac Acevedo[address] [place] [address] Code Status Date Activated Date Inactivated Comments Modified Code 07/20/2017 7:17 PM 07/26/2017 6:59 PM Modified Code restrictions: No Intubation Code Status decision reached by: Patient
--- OUTSIDE RECORDS SUMMARY | 2019-01-04 04:33 | XMS REPORT ---
[...] Status Dosage System Date Date Pravachol ND 70280655222 80 MG Orally Active 1 tablet Once a day Klor-Con M10 NDC 01562994109 10 MEQ Orally Active 1 tablet Twice a day with food Tradjenta ND 52943202919 5 MG Orally Active 1 tablet Once a day Macrobid [facility] 72973608761 100 MG Orally Екатерина Active 1 capsule every 12 hrs 2017 with food Tricor [facility] 82158164132 145 MG Orally Active 1 tablet Once a day with food Aspirin 81 [facility] 16149866952 81 MG Orally Active 1 tablet Once a day Gabapentin [facility] 20262045769 100 MG Orally Active 1 capsule Three times a day Toprol XL [facility] 34965243222 25 MG Orally Active 1 tablet Once a day Fosamax [facility] 86978314132 70 MG Active TAKE 1 TABLET ONCE A WEEK Mirtazapine [facility] 53043478233 15 MG Orally Inactive 1 tablet Once a day at bedtime Flonase [facility] 76401241335 50 MCG/ACT Active 1 spray Nasally Once a in each day nostril Loratadine [facility] 06423058618 10 MG Orally Active 1 tablet Once a day Lasix [facility] 48923788221 40 MG Orally Active 1 tablet Once a day Levothyroxine [facility] 93494088488 50 MCG Orally Active 1 tablet Sodium Once a day on an empty stomach in the morning Vitamin D-3 [facility] 64275841230 1000 UNIT Active 1 capsule Orally Once a day Alprazolam [facility] 33367492689 0.25 MG Orally Active 1 tablet once a day prn anxiety Plavix [facility] 92684841054 75 MG Orally Active 1 tablet Once a day Amlodipine [facility] 87031059647 5 MG Orally Active 5 mg Besylate Once a day Valsartan [facility] 13185051786 40 MG Orally Active 1 tablet Twice a day Results No Known Results Summary Purpose eClinicalWorks Submission
--- OUTSIDE RECORDS SUMMARY | 2019-01-04 04:34 | XMS REPORT ---
[...] End Status Dosage System Date Date Lasix [facility] 16931427573 80 MG Orally Active 1 tablet Once a day Levothyroxine [facility] 66492409749 50 MCG Orally Active 1 tablet on Sodium Once a day an empty stomach in the morning Aspirin 81 ND 41725533163 81 MG Orally Active 1 tablet Once a day Klor-Con M10 [facility] 11368187628 10 MEQ Orally Active 1 tablet with Twice a day food Amlodipine ND 89783289497 5 MG Orally Active 5 mg Besylate Once a day Fosamax [facility] 66747785653 70 MG Active TAKE 1 TABLET ONCE A WEEK Loratadine [facility] 25098774017 10 MG Orally Active 1 tablet Once a day Lidocaine HCl [facility] 54334559764 3 % Externally Active 1 application Twice a day to affected area as needed Lasix [facility] 20085542079 40 MG Orally Active 1 tablet Once a day Gabapentin [facility] 30069805684 100 MG Orally Active 1 capsule Three times a day Plavix [facility] 30230115649 75 MG Orally Active 1 tablet Once a day Levothyroxine [facility] 18128869964 50 MCG Orally Active 1 tablet on Sodium Once a day an empty stomach in the morning Alprazolam [facility] 60392919548 0.25 MG Orally Active 1 tablet once a day prn anxiety Flonase [facility] 30229739076 50 MCG/ACT Active 1 spray in Nasally Once a each nostril day Valsartan [facility] 57884267027 40 MG Orally Active 1 tablet Twice a day Pravachol [facility] 54051901996 80 MG Orally Active 1 tablet Once a day Macrobid [facility] 95693470501 100 MG Orally Apr 21, Active 1 capsule every 12 hrs 2017 with food Vitamin D-3 [facility] 58227694097 1000 UNIT Active 1 capsule Orally Once a day Macrobid [facility] 38951996757 100 MG Orally October Active 1 capsule every 12 hrs , with food 2017 Toprol XL [facility] 90395195084 25 MG Orally Active 1 tablet Once a day Tylenol Extra [facility] 99414843645 500 MG Orally Active 1 tablet as Strength every 6 hrs needed Tradjenta [facility] 52195639770 5 MG Orally Active 1 tablet Once a day Tricor [facility] 23537901420 145 MG Orally Active 1 tablet with Once a day food Results No Known Results Summary Purpose eClinicalWorks Submission
--- OUTSIDE RECORDS SUMMARY | 2019-01-04 04:34 | XMS REPORT ---
[...] End Status Dosage System Date Date Lasix [facility] 20101725374 80 MG Orally Active 1 tablet Once a day Macrobid [facility] 05293572375 100 MG Orally Apr 21, Active 1 capsule every 12 hrs 2017 with food Gabapentin [facility] 07444585314 100 MG Orally Active 1 capsule Three times a day Aspirin 81 [facility] 99081905650 81 MG Orally Active 1 tablet Once a day Alprazolam [facility] 86615697544 0.25 MG Orally Active 1 tablet once a day prn anxiety Valsartan [facility] 50098370973 40 MG Orally Active 1 tablet Twice a day Amlodipine [facility] 33777227076 5 MG Orally Active 5 mg Besylate Once a day Lidocaine HCl [facility] 73691739844 3 % Externally Active 1 application Twice a day to affected area as needed Pravachol [facility] 26145563035 80 MG Orally Active 1 tablet Once a day Macrobid [facility] 43420792523 100 MG Orally Екатерина Active 1 capsule every 12 hrs , with food 2018 Levothyroxine [facility] 82217273292 50 MCG Orally Active 1 tablet on Sodium Once a day an empty stomach in the morning Loratadine [facility] 77861477684 10 MG Orally Active 1 tablet Once a day Vitamin D-3 [facility] 73982790990 1000 UNIT Active 1 capsule Orally Once a day Tradjenta [facility] 45929924836 5 MG Orally Active 1 tablet Once a day Toprol XL [facility] 98948902216 25 MG Orally Active 1 tablet Once a day Fosamax [facility] 50658499068 70 MG Active TAKE 1 TABLET ONCE A WEEK Levothyroxine [facility] 88961562433 50 MCG Orally Active 1 tablet on Sodium Once a day an empty stomach in the morning Plavix [facility] 60334380724 75 MG Orally Active 1 tablet Once a day Flonase [facility] 16581322460 50 MCG/ACT Active 1 spray in Nasally Once a each nostril day Lasix [facility] 10996611148 40 MG Orally Active 1 tablet Once a day Tylenol Extra [facility] 96235176881 500 MG Orally Active 1 tablet as Strength every 6 hrs needed Klor-Con M10 [facility] 11244579368 10 MEQ Orally Active 1 tablet with Twice a day food Tricor [facility] 02811786811 145 MG Orally Active 1 tablet with Once a day food Results No Known Results Summary Purpose eClinicalWorks Submission
[2019-01-04 05:42] LABS: Absolute Lymphocytes (CBC) 0.9 K/uL (0.7-4.9); Basophils % 0.5 % (0-1.3); Eosinophils % 3.9 % (0-4.4); Hematocrit 30.6 % (36.0-45.0); Lymphocytes % 14.4 % (15.3-44.8); MPV 10.6 fL (7.6-11.3); Monocytes % 12.8 % (3.3-12.3); Protime INR 1.15; RBC Red Blood Cell Count 3.31 M/uL (3.86-4.86)
[2019-01-04 05:53] LABS: Albumin 2.7 g/dL (3.4-5.0); Bilirubin Direct 0.3 mg/dL (0-0.2); Bilirubin Total 0.5 mg/dL (0.2-1.0); Magnesium 2.8 mg/dL (1.8-2.4); Potassium 4.4 mmol/L (3.5-5.1); Protein, Total 7.2 g/dL (6.4-8.2); Troponin (Emerg Dept Use Only) 0.17 ng/mL (0.0-0.045)
[2019-01-04 06:35] LABS: Blood Morphology Comment NOT SEEN (NOT SEEN); Platelet Estimate ADEQ
[2019-01-04] MEDS ORDERED: FUROSEMIDE 100 MG/10 ML VIAL IV ONE (06:42)
[2019-01-04] MEDS ORDERED: ONDANSETRON 4 MG/2 ML VIAL ONE (07:49)
--- NOTE | 2019-01-04 07:54 | EKG ---
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
--- NOTE | 2019-01-04 08:15 | RAD REPORT ---
EXAM DESCRIPTION: RAD - Chest Single View - 01/04/2019 5:11 am CLINICAL HISTORY: DYSPNEA Chest pain. COMPARISON: Chest Single View dated 12/31/2018; Chest Single View dated 12/30/2018; Chest Single View dated 09/18/2018; Chest Single View dated 04/25/2018 FINDINGS: Portable technique limits examination quality. Moderate pulmonary edema is seen. Bilateral pleural effusions are likely, small. The heart is promine nt in size with a single lead pacer/ defibrillator device. No displaced fractures. IMPRESSION: Moderate CHF versus volume overload pattern.
--- NOTE | 2019-01-04 09:06 | RAD REPORT ---
EXAM DESCRIPTION: CT - Head Brain Wo Cont - 01/04/2019 8:58 am CLINICAL HISTORY: HEADACHE Drowsiness, COMPARISON: HEAD BRAIN W O CONTRAST dated 12/21/2012 TECHNIQUE: All CT scans are performed using dose optimization technique as appropriate and may inclu de automated exposure control or mA/KV adjustment according to patient size. FINDINGS: No intracranial hemorrhage, hydrocephalus or extra-axial fluid collection.No areas of brai n edema or evidence of midline shift. The paranasal sinuses and mastoids are clear. The calvarium is intact. IMPRESSION: No acute intracranial abnormality.
--- NOTE | 2019-01-04 10:27 | EDPHYS ---
Physician Documentation [facility] Name: Mendy Gomez Age: 83 yrs Sex: Female : 1935 Arrival Date: 01/04/2019 Time: 04:36 Bed 5 Private MD: ED Physician Boyd Ellis HPI: 01/04 06:51 This 83 yrs old Female presents to ER via EMS with complaints of Shortness Of gs Breath. 06:51 The patient has shortness of breath at rest. Onset: The symptoms/episode began/occurred gs suddenly, just prior to arrival. Duration: The symptoms are continuous, but are markedly better than the original presentation. The patient's shortness of breath has no apparent modifying factors. Associated signs and symptoms: Pertinent negatives: chest pain, non-productive cough, fever. Severity of symptoms: At their worst the symptoms were severe in the emergency department the symptoms have improved markedly. The patient has experienced similar episodes in the past, several times. The patient has been recently been admitted at [facility], was discharged yesterday. Historical: - Allergies: 04:48 Codeine; fc 04:48 Doxycycline; fc 04:48 PENICILLINS; fc - Home Meds: 04:48 amlodipine 5 mg tab 1 tab once daily [Active]; aspirin 81 mg Oral chew 1 tab once daily fc [Active]; Vitamin D3 5,000 unit Oral tab daily [Active]; Plavix 75 mg Oral tab 1 tab once daily [Active]; fenofibrate 145 mg Oral tab 1 tab once daily [Active]; furosemide 80 mg Oral tab 1 tab once daily [Active]; gabapentin 100 mg Oral cap nightly [Active]; levothyroxine 50 mcg tab 1 tab once daily [Active]; Tradjenta 5 mg oral tab 1 tab once daily [Active]; metoprolol succinate 25 mg Oral Tb24 1 tab once daily [Active]; multivitamin Oral tab daily [Active]; Zegerid OTC 20-1.1 mg-gram Oral cap 1 cap nightly [Active]; pravastatin 10 mg oral tab 1 tab once daily [Active]; - PMHx: 04:48 CHF; ESRD; High Cholesterol; Hypertension; Hypothyroidism; IA; pacemaker/defibrillator; fc Hyperlipidemia; Diabetes - NIDDM; Anemia; - PSHx: 04:48 Heart stents; fc - Immunization history:: Last tetanus immunization: unknown. - Social history:: Smoking status: Patient/guardian denies using tobacco, Patient/guardian denies using alcohol, street drugs. - Ebola Screening: : Patient negative for fever greater than or equal to 101.5 degrees Fahrenheit, and additional compatible Ebola Virus Disease symptoms Patient denies exposure to infectious person Patient denies travel to an Ebola-affected area in the 21 days before illness onset. ROS: 06:51 All other systems are negative. gs 16:13 Constitutional: Negative except as noted kdr Exam: 06:51 Head/Face: Normocephalic, atraumatic. Eyes: Pupils equal round and reactive to light, gs extra-ocular motions intact. Lids and lashes normal. Conjunctiva and sclera are non-icteric and not injected. Cornea within normal limits. Periorbital areas with no swelling, redness, or edema. ENT: Nares patent. No nasal discharge, no septal abnormalities noted. Tympanic membranes are normal and external auditory canals are clear. Oropharynx with no redness, swelling, or masses, exudates, or evidence of obstruction, uvula midline. Mucous membranes moist. Neck: Trachea midline, no thyromegaly or masses palpated, and no cervical lymphadenopathy. Supple, full range of motion without nuchal rigidity, or vertebral point tenderness. No Meningismus. Chest/axilla: Normal chest wall appearance and motion. Nontender with no deformity. No lesions are appreciated. 06:51 Abdomen/GI: Soft, non-tender, with normal bowel sounds. No distension or tympany. No guarding or rebound. No evidence of tenderness throughout. Back: No spinal tenderness. No costovertebral tenderness. Full range of motion. Skin: Warm, dry with normal turgor. Normal color with no rashes, no lesions, and no evidence of cellulitis. MS/ Extremity: Pulses equal, no cyanosis. Neurovascular intact. Full, normal range of motion. Neuro: Awake and alert, GCS 15, oriented to person, place, time, and situation. Cranial nerves II-XII grossly intact. Motor strength 5/5 in all extremities. Sensory grossly intact. Cerebellar exam normal. Normal gait. 06:51 Constitutional: The patient appears alert, awake. 06:51 Cardiovascular: Rate: normal, Rhythm: regular, Pulses: no pulse deficits are appreciated, Heart sounds: normal. 06:51 ECG was reviewed by the Attending Physician. 06:51 Respiratory: mild respiratory distress is noted, Respirations: shallow respirations, tachypnea, Breath sounds: rales, that are mild, are located in both bases. Vital Signs: 04:35 BP 150 / 76; Pulse 64; Resp 18; Temp 97.8(TE); Pulse Ox 97% on R/A; Weight 77.11 kg fc (R); Height 4 ft. 10 in. (147.32 cm) (R); Pain 0/10; 05:55 BP 116 / 64; Pulse 63; Resp 18; Pulse Ox 96% on R/A; ea 06:47 BP 111 / 61; Pulse 60; Resp 18; Temp 97.6; Pulse Ox 95% on R/A; ea 07:30 BP 123 / 72; Pulse 66; Resp 18; Pulse Ox 97% on R/A; Pain 0/10; sg 09:53 BP 127 / 79; Pulse 65; Pulse Ox 96% on R/A; Pain 0/10; sg 04:35 Body Mass Index 35.53 (77.11 kg, 147.32 cm) fc MDM: 04:37 Patient medically screened. gs 06:51 Differential diagnosis: Anemia CHF exacerbation, Myocardial Infarction pneumonia. Data gs reviewed: vital signs, nurses notes, old medical records, lab test result(s), EKG, radiologic studies. Counseling: I had a detailed discussion with the patient and/or guardian regarding: the historical points, exam findings, and any diagnostic results supporting the discharge/admit diagnosis, the need for outpatient follow up, family wants pt transferred to [facility] currently no beds. 09:02 Physician consultation: Dillon Simmons MD was called at 08:50, was contacted at 08:55, kdr regarding consult, need to come to ED to see patient, and will see patient in ED. 10:48 Data interpreted: Pulse oximetry:. Special discussion: Patient seen and examined at pd bedside in the ER by me. Labs reviewed, chart reviewed and imaging reviewed. Patient recently discharged yesterday from the hospital after being cleared for discharge by cardiology. ECHO yesterday with both diastolic and systolic dysfunction. Attempted to call Dr. 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 Called Dr. 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 Appointment available at Wednesday 8:30 am in [facility]. At the time of my exam, patient hemodynamically stable, in no acute distress. 95% oxygen saturation on RA. States headache has resolved and denies any chest pain, sob at this time, dizziness, vision changes, or any other complaints. Patient could be discharged form the Emergency room with outpatient cardiology follow up. . 10:50 ED course: Initially, the patient and family wanted to be transferred to [facility] for kdr admission however, after several attempts, they stated that they would be OK with staying here. I explained to them that the labs and x-rays did not necessarily support admission/re-admission at this time but that I would have Dr. Reeves come to re-evaluate her since she had been the one to discharge her yesterday. After Dr. Reeves's evaluation, she noted that the patient was stable and was not necessarily in need of immediate admission and could follow-up as needed with Dr. Singer in [place]. I reviewed the findings and discussions with the family and they were agreeable and comfortable with discharge and follow-up as needed. 01/04 04:45 Order name: Basic Metabolic Panel; Complete Time: 05:56 01/04 04:45 Order name: CBC with Diff; Complete Time: 06:55 01/04 04:45 Order name: LFT's; Complete Time: 05:56 01/04 04:45 Order name: Magnesium; Complete Time: 05:56 01/04 04:45 Order name: NT PRO-BNP; Complete Time: 05:56 01/04 04:45 Order name: PT-INR; Complete Time: 05:56 01/04 04:45 Order name: Troponin (emerg Dept Use Only); Complete Time: 05:56 01/04 04:45 Order name: XRAY Chest (1 view) 01/04 04:45 Order name: EKG; Complete Time: 04:47 01/04 06:39 Order name: Manual Differential EDMS 01/04 08:15 Order name: CT Head Brain wo Cont kdr 01/04 04:45 Order name: Cardiac monitoring; Complete Time: 06:15 01/04 04:45 Order name: EKG - Nurse/Tech; Complete Time: 05:08 01/04 04:45 Order name: IV Saline Lock; Complete Time: 05: 01/04 04:45 Order name: Labs collected and sent; Complete Time: 01/04 04:45 Order name: O2 Per Protocol; Complete Time: 05: 01/04 04:45 Order name: O2 Sat Monitoring; Complete Time: 05:08 EC:51 Rate is 61 beats/min. Rhythm is regular. CO interval is normal. QRS interval is gs prolonged. Q waves are Old. T waves are Flattened. Clinical impression: NSR w/ Non-specific ST/T Changes and Abnormal EKG without significant change. Interpreted by me. Administered Medications: 06:37 Drug: Lasix 80 mg Route: IVP; Site: right forearm; ea 06:56 Follow up: Response: No adverse reaction ea 07:37 Drug: Zofran 4 mg Route: IVP; Site: right forearm; sg 08:30 Follow up: Response: No adverse reaction; Nausea is decreased sg 11:26 Not Given (Patient Refused): Tylenol 1000 mg PO once sg Disposition: 01/04/19 10:49 Discharged to Home. Impression: Shortness of breath, Acute on chronic combined systolic (congestive) and diastolic (congestive) heart failure, Bilateral Pedal Edema. - Condition is Stable. - Discharge Instructions: Heart Failure, Shortness of Breath, [id number]. - Medication Reconciliation Form, Thank You Letter, Family Work Release form. - Follow up: Private Physician; When: 2 - 3 days; Reason: If symptoms return, Further diagnostic work-up, Recheck today's complaints, Continuance of care, Re-evaluation by your physician. - Problem is an acute exacerbation. - Symptoms have improved. Signatures: Dispatcher [employer] EDMS Wilton Kelley RN RN sg Rittger, Kevin, MD MD kdr Chretien, Felicia, RN RN fc Antunez, Elena, RN RN ea Starr, Gregory, MD MD gs Desai, Poyani, MD MD pd Corrections: (The following items were deleted from the chart) 10:48 10:25 Hospitalization Ordered by Dillon Simmons MD for Observation. Preliminary diagnosis kdr is Shortness of breath; Weakness; Bilateral Pedial Edema; CHF. Bed requested for Telemetry/MedSurg (observation). Status is Observation. Condition is Fair. Problem is an acute exacerbation. Symptoms have improved. UTI on Admission? No. kdr 11:27 10:49 01/04/2019 10:49 Discharged to Home. Impression: Shortness of breath; Acute on sg chronic combined systolic (congestive) and diastolic (congestive) heart failure; Bilateral Pedal Edema. Condition is Stable. Forms are Medication Reconciliation Form, Thank You Letter, Antibiotic Education, Prescription Opioid Use. Follow up: Private Physician; When: 2 - 3 days; Reason: If symptoms return, Further diagnostic work-up, Recheck today's complaints, Continuance of care, Re-evaluation by your physician. Problem is an acute exacerbation. Symptoms have improved. kdr
--- NOTE | 2019-01-04 10:27 | ER ---
Nurse's Notes [facility] Name: Mendy Gomez Age: 83 yrs Sex: Female : 1935 Arrival Date: 01/04/2019 Time: 04:36 Bed 5 Private MD: Diagnosis: Shortness of breath;Acute on chronic combined systolic (congestive) and diastolic (congestive) heart failure;Bilateral Pedal Edema Presentation: 01/04 04:35 Presenting complaint: EMS states: that they were toned for pt having shortness of fc breath and weakness that started tonight. Pt was just discharged from hospital yesterday for UTI. Denies any pain or discomfort at this time. Transition of care: patient was not received from another setting of care. Onset of symptoms was January 03, 2019. Risk Assessment: Do you want to hurt yourself or someone else? Patient reports no desire to harm self or others. Initial Sepsis Screen: Does the patient meet any 2 criteria? No. Patient's initial sepsis screen is negative. Does the patient have a suspected source of infection? No. Patient's initial sepsis screen is negative. Care prior to arrival: Glucose check: 112 Oxygen administered. via nasal cannula. 04:35 Method Of Arrival: EMS: [facility] 04:35 Acuity: BYRON 3 fc Historical: - Allergies: 04:48 Codeine; fc 04:48 Doxycycline; fc 04:48 PENICILLINS; fc - Home Meds: 04:48 amlodipine 5 mg tab 1 tab once daily [Active]; aspirin 81 mg Oral chew 1 tab once daily fc [Active]; Vitamin D3 5,000 unit Oral tab daily [Active]; Plavix 75 mg Oral tab 1 tab once daily [Active]; fenofibrate 145 mg Oral tab 1 tab once daily [Active]; furosemide 80 mg Oral tab 1 tab once daily [Active]; gabapentin 100 mg Oral cap nightly [Active]; levothyroxine 50 mcg tab 1 tab once daily [Active]; Tradjenta 5 mg oral tab 1 tab once daily [Active]; metoprolol succinate 25 mg Oral Tb24 1 tab once daily [Active]; multivitamin Oral tab daily [Active]; Zegerid OTC 20-1.1 mg-gram Oral cap 1 cap nightly [Active]; pravastatin 10 mg oral tab 1 tab once daily [Active]; - PMHx: 04:48 CHF; ESRD; High Cholesterol; Hypertension; Hypothyroidism; PR; pacemaker/defibrillator; fc Hyperlipidemia; Diabetes - NIDDM; Anemia; - PSHx: 04:48 Heart stents; fc - Immunization history:: Last tetanus immunization: unknown. - Social history:: Smoking status: Patient/guardian denies using tobacco, Patient/guardian denies using alcohol, street drugs. - Ebola Screening: : Patient negative for fever greater than or equal to 101.5 degrees Fahrenheit, and additional compatible Ebola Virus Disease symptoms Patient denies exposure to infectious person Patient denies travel to an Ebola-affected area in the 21 days before illness onset. Screenin:35 Abuse screen: Denies threats or abuse. Nutritional screening: No deficits noted. fc Tuberculosis screening: No symptoms or risk factors identified. 05:20 Fall Risk IV access (20 points). ea Assessment: 04:44 General: Appears uncomfortable, obese, Behavior is restless. Pain: Denies pain. Neuro: ea Level of Consciousness is awake, alert, obeys commands, Oriented to person, place, time. Cardiovascular: Patient's skin is warm and dry. Respiratory: Airway is patent Respiratory effort is even, unlabored, Respiratory pattern is regular, symmetrical, Breath sounds are clear Breath sounds are diminished. GI: Abdomen is non-distended, obese. Derm: Skin is pink, warm \T\ dry. 05:57 Reassessment: Patient and/or family updated on plan of care and expected duration. Pain ea level reassessed. Pt resting with eyes closed, respirations even and unlabored. Chest expansions even and symmetrical. No s/s of pain or discomfort noted at this time. 06:40 Reassessment: Patient and/or family updated on plan of care and expected duration. Pain ea level reassessed. Patient is alert, oriented x 3, equal unlabored respirations, skin warm/dry/pink. 07:30 Reassessment: Patient appears in no apparent distress at this time. Patient and/or sg family updated on plan of care and expected duration. Pain level reassessed. pt complaining of nausea, notified, awaiting order at this time. 07:37 Reassessment: pt medicated for nausea as ordered, see EMAR. sg 08:20 Reassessment: pt offered PO tylenol as ordered, pt requesting I hold PO medication sg until later, will hold as requested. 09:25 Reassessment: Patient appears in no apparent distress at this time. Patient and/or sg family updated on plan of care and expected duration. Pain level reassessed. Patient is alert, oriented x 3, equal unlabored respirations, skin warm/dry/pink. Patient states feeling better. Vital Signs: 04:35 BP 150 / 76; Pulse 64; Resp 18; Temp 97.8(TE); Pulse Ox 97% on R/A; Weight 77.11 kg fc (R); Height 4 ft. 10 in. (147.32 cm) (R); Pain 0/10; 05:55 BP 116 / 64; Pulse 63; Resp 18; Pulse Ox 96% on R/A; ea 06:47 BP 111 / 61; Pulse 60; Resp 18; Temp 97.6; Pulse Ox 95% on R/A; ea 07:30 BP 123 / 72; Pulse 66; Resp 18; Pulse Ox 97% on R/A; Pain 0/10; sg 09:53 BP 127 / 79; Pulse 65; Pulse Ox 96% on R/A; Pain 0/10; sg 04:35 Body Mass Index 35.53 (77.11 kg, 147.32 cm) ED Course: 04:35 Arm band placed on Patient placed in an exam room, on a stretcher. fc 04:35 Patient has correct armband on for positive identification. Bed in low position. Call fc light in reach. Side rails up X 1. Pulse ox on. NIBP on. 04:35 No provider procedures requiring assistance completed. fc 04:36 Patient arrived in ED. fc 04:37 Sanjeev Kendrick MD is Attending Physician. gs 04:39 Triage completed. fc 04:43 Pat Quintanilla RN is Primary Nurse. ea 05:09 X-ray completed. Portable x-ray completed in exam room. Patient tolerated procedure kw well. 05:13 XRAY Chest (1 view) In Process Unspecified. EDMS 05:20 Inserted saline lock: 22 gauge in right forearm, using aseptic technique. Blood ea collected. 07:18 Primary Nurse role handed off by Pat Quintanilla, BRYAN sg 07:18 Wilton Kelley, RN is Primary Nurse. sg 07:27 Attending Physician role handed off by Sanjeev Kendrick MD kdr 07:27 Boyd Ellis MD is Attending Physician. kdr 08:[address] Scan. sg 08:57 CT Head Brain wo Cont In Process Unspecified. EDMS 10:24 Dillon Simmons MD is Hospitalizing Provider. kdr 11:20 IV discontinued, intact, bleeding controlled, No redness/swelling at site. Pressure sg dressing applied. Administered Medications: 06:37 Drug: Lasix 80 mg Route: IVP; Site: right forearm; ea 06:56 Follow up: Response: No adverse reaction ea 07:37 Drug: Zofran 4 mg Route: IVP; Site: right forearm; sg 08:30 Follow up: Response: No adverse reaction; Nausea is decreased sg 11:26 Not Given (Patient Refused): Tylenol 1000 mg PO once sg Output: 09:53 Urine: 1000ml (Voided); Total: 1000ml. sg 10:49 Urine: 350ml (Voided); Total: 1350ml. sg Outcome: 10:25 Decision to Hospitalize by Provider. kdr 10:49 Discharge ordered by . kdr 11:20 Discharged to home via wheelchair, with family. sg 11:20 Condition: good 11:20 Discharge instructions given to patient, family, human resources representative, Instructed on discharge instructions, follow up and referral plans. safety practices, Demonstrated understanding of instructions, follow-up care. 11:27 Patient left the ED. sg Signatures: Dispatcher [employer] EDMS Wilton Kelley RN RN Boyd Ellis MD MD [facility] Anny Vazquez RN RN fc Whitley, Kimberlee kw Antunez, Elena, RN RN ea Starr, Gregory, MD MD
[2019-01-04 11:46] VITALS: TEMP 97.6
[2019-01-04 11:49] VITALS: BP 127/79; O2SAT 96
== END 2019-01-04 11:27 | disposition home or self-care (01) ==
LOC: ER 04:30
DX: I13.2 Hypertensive heart and chronic kidney disease with heart failure and with stage 5 chronic kidney disease, or end stage renal disease (principal); I50.43 Acute on chronic combined systolic (congestive) and diastolic (congestive) heart failure; N18.6 End stage renal disease; E11.22 Type 2 diabetes mellitus with diabetic chronic kidney disease; E03.9 Hypothyroidism, unspecified; Z95.0 Presence of cardiac pacemaker; I25.2 Old myocardial infarction; D64.9 Anemia, unspecified; Z88.1 Allergy status to other antibiotic agents; Z88.5 Allergy status to narcotic agent; Z88.0 Allergy status to penicillin; Z79.82 Long term (current) use of aspirin
CPT/HCPCS: 93005; 85025; 80048; 36415; 83735; 85610; 80076; 84484; 83880; 70450; 71045; 96375; 96374; 99284; J2405

== ENCOUNTER 2019-09-21 12:28 | Emergency (ER) | payer OTHER ==
--- OUTSIDE RECORDS SUMMARY | 2019-09-21 12:31 | XMS REPORT ---
[...] osteoarthritis of both knees M17.0 Active Assessment Urinary tract infection, site not N39.0 Active specified Problem Unsteady gait R26.81 Active Problem Anxiety [...]
--- OUTSIDE RECORDS SUMMARY | 2019-09-21 12:32 | XMS REPORT ---
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6 Active Problem Arteriosclerosis of coronary artery I25.10 Active Problem Other chronic pain G89.29 Active Problem 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 Active with diabetes mellitus due to underlying condition Problem Seasonal allergic rhinitis, J30.2 Active unspecified trigger Problem GERD (gastroesophageal reflux K21.9 Active disease) Problem Vitamin D deficiency E55.9 Active Problem Family history of diabetes mellitus Z83.3 Active Problem Benign essential HTN I10 Active Problem CHF (congestive heart failure) I50.9 Active Problem Congestive heart failure, I50.9 Active unspecified congestive heart failure chronicity, unspecified congestive heart failure type Medications Medication Code System Code Instructions Start Date End Date Status Dosage Tradjenta [facility] [id number] 5 MG Orally Once Active 1 tablet a day Results No Known Results Summary Purpose eClinicalWorks Submission
--- OUTSIDE RECORDS SUMMARY | 2019-09-21 12:32 | XMS REPORT ---
[...] chronicity, unspecified congestive heart failure type Medications No Known Medications Results No Known Results Summary Purpose [employer]ClinicalWorks Submission
--- OUTSIDE RECORDS SUMMARY | 2019-09-21 12:32 | XMS REPORT ---
[...] Instructions Start Date End Date Status Dosage Cipro [facility] [place] 2] 81010031874 500 MG Orally Aug 04, Aug 11, Active 1 tablet every 12 hrs 2019 2019 Results No Known Results Summary Purpose [employer] Submission
--- OUTSIDE RECORDS SUMMARY | 2019-09-21 12:32 | XMS REPORT ---
:1935 Author Organization e[employer]Works Care Team Providers Name Role Phone Wilkerson, Na Provider Role Unavailable Allergies, Adverse Reactions, Alerts Substance Reaction Event Type Morphine Sulfate Info Not Available Drug Allergy Codeine Sulfate Info Not Available Drug Allergy Problems Problem Type Condition Code Onset Dates Condition Status Assessment Anxiety F41.9 Active Assessment Arteriosclerosis of coronary artery I25.10 Active Assessment Primary osteoarthritis of both knees M17.0 Active Assessment Diabetic neuropathy, painful E11.40 Active Assessment Benign essential HTN I10 Active Assessment Hyperlipidemia E78.5 Active Assessment Chronic kidney disease, stage 5 N18.5 Active Assessment Hypothyroidism, unspecified type E03.9 Active Assessment 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 chronic kidney disease Problem Benign essential HTN I10 Active Assessment CHF (congestive heart failure) I50.9 Active Problem Congestive heart failure, I50.9 Active unspecified congestive heart failure chronicity, unspecified congestive heart failure type Problem Diabetes mellitus type 2, 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6 Active Assessment Hyperuricemia E79.0 Active Problem Arteriosclerosis of coronary artery I25.10 Active Assessment Unsteady gait R26.81 Active Problem Other chronic pain G89.29 Active Problem 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 Active with diabetes mellitus due to underlying condition Assessment Elevated brain natriuretic peptide R79.89 Active (BNP) level Problem Seasonal allergic rhinitis, J30.2 Active unspecified trigger Problem GERD (gastroesophageal reflux K21.9 Active disease) Problem Vitamin D deficiency E55.9 Active Problem Family history of diabetes mellitus Z83.3 Active Problem CHF (congestive heart failure) I50.9 Active Medications Medication Code Code Instructions Start End Status Dosage System Date Date Lasix [facility] 28859511208 80 MG Orally Active 1 tablet twice a day Tradjenta [facility] 71499501803 5 MG Orally Active 1 tablet Once a day Klor-Con M10 [facility] 12218621536 10 MEQ Orally Active 1 tablet with Twice a day food Amlodipine [facility] 46130437356 5 MG Orally Active 5 mg Besylate Once a day Vitamin D-3 [facility] 20721670009 1000 UNIT Active 1 capsule Orally Once a day Macrobid [facility] 89458168645 100 MG Orally October Active 1 capsule every 12 hrs , with food 2017 Gabapentin [facility] 74644360357 100 MG Orally Active 1 capsule Three times a day Lidocaine HCl [facility] 88724504595 3 % Externally Active 1 application Twice a day to affected area as needed Toprol XL [facility] 45997774531 25 MG Orally Active 1 tablet Once a day Macrobid [facility] 72146411232 100 MG Orally Apr 21, Active 1 capsule every 12 hrs 2017 with food Loratadine [facility] 21261825165 10 MG Orally Active 1 tablet Once a day Lasix [facility] 65042588051 80 MG Orally Active 1 tablet twice a day Levothyroxine [facility] 86149162743 50 MCG Orally Active 1 tablet on Sodium Once a day an empty stomach in the morning Alprazolam [facility] 62316877575 0.25 MG Orally Active 1 tablet once a day prn anxiety Fosamax [facility] 02338833781 70 MG Active TAKE 1 TABLET ONCE A WEEK Pravachol [facility] 83904942485 80 MG Orally Active 1 tablet Once a day Aspirin 81 [facility] 62574374105 81 MG Orally Active 1 tablet Once a day Levothyroxine [facility] 93404836375 50 MCG Orally Active 1 tablet on Sodium Once a day an empty stomach in the morning Valsartan [facility] 92741450813 40 MG Orally Active 1 tablet Twice a day Plavix [facility] 57949111192 75 MG Orally Active 1 tablet Once a day Tylenol Extra [facility] 75343801435 500 MG Orally Active 1 tablet as Strength every 6 hrs needed Tricor [facility] 56068556170 145 MG Orally Active 1 tablet with Once a day food Flonase [facility] 64270554626 50 MCG/ACT Active 1 spray in Nasally Once a each nostril day Results No Known Results Summary Purpose eClinicalWorks Submission
--- OUTSIDE RECORDS SUMMARY | 2019-09-21 12:32 | XMS REPORT ---
[...] Start End Date Status Dosage Date Gabapentin [facility] 23568868739 100 MG Orally Active 1 capsule Three times a day Results No Known Results Summary Purpose eClinicalWorks Submission
--- NOTE | 2019-09-21 14:12 | RAD REPORT ---
EXAM DESCRIPTION: RAD - Forearm Right - 09/21/2019 2:04 pm CLINICAL HISTORY: Right arm pain FINDINGS: No fracture is seen. Osteoporosis Proximal to mid soft tissue swelling
--- NOTE | 2019-09-21 14:56 | RAD REPORT ---
EXAM DESCRIPTION: USExtremity Venous Uni Ltd09/21/2019 2:40 pm CLINICAL HISTORY: Right arm swelling COMPARISON: None FINDINGS: The right internal jugular, right subclavian, right cephalic, right axillary, right brach ial, right basilic, right ulnar and right radial veins are generally compressible and demonstrate au gmentation. Doppler demonstrates good flow. A 3.9 by 1.1 x 3 centimeter heterogeneous mass is palpable within the right forearm. It contains mild blood flow. It contains sonolucent and echogenic areas. IMPRESSION: No evidence of thrombus within the veins of the right upper extremity 3.9 centimeter palpable mass within the right forearm has nonspecific sonographic characteristics. Fu rther evaluation with CT may be helpful
--- NOTE | 2019-09-21 17:02 | RAD REPORT ---
EXAM DESCRIPTION: US - Upper Ext Artery Uni David - 09/21/2019 4:54 pm CLINICAL HISTORY: SWELLING, right arm pain COMPARISON: No comparisons FINDINGS: No occlusion or flow restricting lesion identifiable. No suspicious waveform pattern ident ified. No abnormal velocity value identified. IMPRESSION: Right upper extremity arterial study shows no significant finding.
--- NOTE | 2019-09-21 17:31 | ER ---
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 Coronavirus screen: The patient has NOT traveled to a country currently being monitored by the CDC within the last 14 days. Proceed with normal triage procedures. Ebola Screen: Patient negative for fever greater than or equal to 101.5 degrees Fahrenheit, and additional compatible Ebola Virus Disease symptoms Patient denies exposure to infectious person. Patient denies travel to an Ebola-affected area in the 21 days before illness onset. No symptoms or risks identified at this time. Initial Sepsis Screen: Does the patient meet any 2 criteria? No. Patient's initial sepsis screen is negative. Does the patient have a suspected source of infection? No. Patient's initial sepsis screen is negative. Risk Assessment: Do you want to hurt yourself or someone else? Patient reports no desire to harm self or others. 12:59 Method Of Arrival: Wheelchair iw 12:59 Acuity: BYRON 3 iw 13:55 Onset of symptoms was September 21, 2019. ca1 Historical: - Allergies: 13:02 Codeine; iw 13:02 Doxycycline; iw 13:02 PENICILLINS; iw 13:02 Morphine; iw - PMHx: 13:02 Anemia; CHF; Diabetes - NIDDM; ESRD; High Cholesterol; Hyperlipidemia; Hypertension; iw Hypothyroidism; SD; pacemaker/defibrillator; - PSHx: 13:02 Heart stents; iw - Immunization history:: Adult Immunizations up to date. - Social history:: Smoking status: Patient denies any tobacco usage or history of. Screenin:35 Abuse screen: Denies threats or abuse. Denies injuries from another. Nutritional ca1 screening: No deficits noted. Tuberculosis screening: No symptoms or risk factors identified. Fall Risk Fall in past 12 months (25 points). Ambulatory Aid- Crutches/Cane/Walker (15 pts). Gait- Weak (10 pts.). Total Clay Fall Scale indicates High Risk Score (45 or more points). Fall prevention measures have been instituted. Side Rails Up X 2 Family Present and informed to notify staff if the need to leave the bedside As available patient and family educated on Fall Prevention Program and Strategies. Assessment: 13:35 General: Appears in no apparent distress. comfortable, Behavior is calm, cooperative, ca1 appropriate for age. Pain: Complains of pain in right arm Pain currently is 4 out of 10 on a pain scale. Neuro: Level of Consciousness is awake, alert, obeys commands, Oriented to person, place, time, situation. Derm: Skin is intact, is healthy with good turgor, Skin is pink, warm \T\ dry. Bruising that is dark purple, on dorsal aspect of right forearm. Musculoskeletal: Circulation, motion, and sensation intact. Capillary refill < 3 seconds, Swelling present in dorsal aspect of right forearm. 15:19 Reassessment: Patient appears in no apparent distress at this time. Patient and/or ca1 family updated on plan of care and expected duration. Pain level reassessed. Patient is alert, oriented x 3, equal unlabored respirations, skin warm/dry/pink. 16:50 Reassessment: Patient appears in no apparent distress at this time. Patient and/or ca1 family updated on plan of care and expected duration. Pain level reassessed. Patient is alert, oriented x 3, equal unlabored respirations, skin warm/dry/pink. US at bedside. 17:34 Reassessment: Patient appears in no apparent distress at this time. Patient and/or em family updated on plan of care and expected duration. Pain level reassessed. Patient is alert, oriented x 3, equal unlabored respirations, skin warm/dry/pink. Vital Signs: 12:59 BP 144 / 76; Pulse 64; Resp 16; Temp 97.9; Pulse Ox 97% on R/A; Weight 73.48 kg; Height iw 4 ft. 11 in. (149.86 cm); Pain 5/10; 15:19 BP 127 / 62; Pulse 57; Resp 15 S; Pulse Ox 97% on R/A; ca1 16:00 BP 120 / 67; Pulse 65; Resp 18 S; Pulse Ox 98% on R/A; ca1 17:02 BP 150 / 62; Pulse 60; Resp 16 S; Pulse Ox 99% on R/A; ca1 12:59 Body Mass Index 32.72 (73.48 kg, 149.86 cm) ED Course: 12:32 Patient arrived in ED. mr 12:33 Brandie Wilkerson MD is Private Physician. mr 13:01 Triage completed. iw 13:02 Arm band placed on. iw 13:32 Jesus Alberto Perez PA is PHCP. [facility] 13:32 Boyd Ellis MD is Attending Physician. jmm 13:35 Patient has correct armband on for positive identification. Bed in low position. Call ca1 light in reach. Pulse ox on. NIBP on. 13:35 No provider procedures requiring assistance completed. Patient did not have IV access ca1 during this emergency room visit. 13:36 Yamilet Santoro, RN is Primary Nurse. ca1 14:07 Forearm Right XRAY In Process Unspecified. EDMS 14:38 US Extremity Venous Unilateral Ltd In Process Unspecified. EDMS 16:12 US LE Artery Uni Ltd In Process Unspecified. EDMS 16:55 Upper Ext Artery Uni David In Process Unspecified. EDMS 17:30 Brandie Wilkerson MD is Referral Physician. [facility] Administered Medications: No medications were administered Outcome: 17:30 Discharge ordered by MD. [facility] 17:46 Discharged to home with family. em 17:46 Condition: good 17:46 Discharge instructions given to patient, family, Instructed on discharge instructions, follow up and referral plans. Demonstrated understanding of instructions, follow-up care. 17:47 Patient left the ED. em Signatures: Dispatcher [employer] ED[facility] Jesus Alberto Perez PA PA jmm Rivera, Mary mr AnsariHaresh, RN RN em Elsa Negro, RN RN Yamielt Santoro, BRYAN RN ca1
--- NOTE | 2019-09-21 17:31 | EDPHYS ---
Physician Documentation [facility] Name: Mendy Gomez Age: 84 yrs Sex: Female : 1935 Arrival Date: 09/21/2019 Time: 12:32 Bed 19 Private MD: Brandie Wilkerson ED Physician Boyd Ellis HPI: 09/20 13:38 This 84 yrs old Female presents to ER via Wheelchair with complaints of Arm jmm Problem. 13:38 The patient or guardian complains of an abscess, pain, that is acute. Onset: The jmm symptoms/episode began/occurred acutely, just prior to arrival. This is an 84 year old female with a history of anemia, CHF, DM, ESRD, HLP that presents to the ED with complaints of swelling to the right forearm which developed after hitting it against plywood at a tool store. Patient she did not notice the swelling until yesterday when she went home. Patient now complains of pain and diffuse swelling to the right forearm. . Historical: - Allergies: 13:02 Codeine; iw 13:02 Doxycycline; iw 13:02 PENICILLINS; iw 13:02 Morphine; iw - PMHx: 13:02 Anemia; CHF; Diabetes - NIDDM; ESRD; High Cholesterol; Hyperlipidemia; Hypertension; iw Hypothyroidism; [place]; pacemaker/defibrillator; - PSHx: 13:02 Heart stents; iw - Immunization history:: Adult Immunizations up to date. - Social history:: Smoking status: Patient denies any tobacco usage or history of. ROS: 13:38 Constitutional: Negative for fever, chills, and weight loss, Cardiovascular: Negative jmm for chest pain, palpitations, and edema, Respiratory: Negative for shortness of breath, cough, wheezing, and pleuritic chest pain. 13:38 MS/extremity: Positive for swelling, tenderness. 13:38 All other systems are negative. Exam: 13:38 Constitutional: This is a well developed, well nourished patient who is awake, alert, jmm and in no acute distress. Head/Face: atraumatic. Eyes: EOMI, no conjunctival erythema appreciated ENT: Moist Mucus Membranes Neck: Trachea midline, Supple Chest/axilla: Normal chest wall appearance and motion. Cardiovascular: Regular rate and rhythm. No edema appreciated Respiratory: Normal respirations, no respiratory distress appreciated Abdomen/GI: Non distended, soft Back: Normal ROM 13:38 Skin: hematoma noted to the right forearm, TTP, full radial pulse, compartments are soft. . 13:38 Neuro: Orientation: is normal, Mentation: is normal, Memory: is normal. 13:38 Psych: Behavior/mood is pleasant, cooperative. Vital Signs: 12:59 BP 144 / 76; Pulse 64; Resp 16; Temp 97.9; Pulse Ox 97% on R/A; Weight 73.48 kg; Height iw 4 ft. 11 in. (149.86 cm); Pain 5/10; 15:19 BP 127 / 62; Pulse 57; Resp 15 S; Pulse Ox 97% on R/A; ca1 16:00 BP 120 / 67; Pulse 65; Resp 18 S; Pulse Ox 98% on R/A; ca1 17:02 BP 150 / 62; Pulse 60; Resp 16 S; Pulse Ox 99% on R/A; ca1 12:59 Body Mass Index 32.72 (73.48 kg, 149.86 cm) iw MDM: 13:38 Patient medically screened. [facility] 16:44 Data reviewed: vital signs, nurses notes. Counseling: I had a detailed discussion with [facility] the patient and/or guardian regarding: the historical points, exam findings, and any diagnostic results supporting the discharge/admit diagnosis, radiology results. 17:29 ED course: Arterial US normal. Patient advised to follow up with pcp and otherwise jmm given strict return precautions. patient understood and agrees with the plan of care. . 09/20 13:45 Order name: Extremity Venous Unilateral Ltd; Complete Time: 15:07 [facility] 09/20 13:45 Order name: Forearm Right XRAY; Complete Time: 14:29 [facility] 09/20 15:35 Order name: US LE Artery Uni Ltd [facility] 09/20 16:23 Order name: Upper Ext Artery Uni David; Complete Time: 06:46 EDMS Administered Medications: No medications were administered Disposition: 09/21 07:01 Co-signature as Attending Physician, Boyd Ellis MD I agree with the assessment and kdr plan of care. Disposition: 09/21/19 17:30 Discharged to Home. Impression: Hematoma of the Right Forearm. - Condition is Stable. - Discharge Instructions: Hematoma. - Medication Reconciliation Form, Thank You Letter, Antibiotic Education, Prescription Opioid Use form. - Follow up: Brandie Wilkerson MD; When: 2 - 3 days; Reason: Recheck today's complaints, Continuance of care, Re-evaluation by your physician. Signatures: Dispatcher [employer] [facility] Boyd Ellis MD MD kdr Mickail, Joel, PA PA jmm Munoz, Edgar, RN RN em Elsa Negro RN RN iw Corrections: (The following items were deleted from the chart) 09/20 16:23 15:51 Lower Extremity Artery Uni Ltd+[email or web address].RAD.BRZ ordered. [facility] 17:47 17:30 09/21/2019 17:30 Discharged to Home. Impression: Hematoma of the Right Forearm. em Condition is Stable. Forms are Medication Reconciliation Form, Thank You Letter, Antibiotic Education, Prescription Opioid Use. Follow up: Brandie Wilkerson; When: 2 - 3 days; Reason: Recheck today's complaints, Continuance of care, Re-evaluation by your physician. [facility]
[2019-09-21 17:59] VITALS: TEMP 97.9
[2019-09-21 18:03] VITALS: BP 150/62; O2SAT 99
== END 2019-09-21 17:47 | disposition home or self-care (01) ==
LOC: ER 12:28
DX: S50.11XA Contusion of right forearm, initial encounter (principal); W22.8XXA Striking against or struck by other objects, initial encounter; Y93.9 Activity, unspecified; Y92.512 Supermarket, store or market as the place of occurrence of the external cause; E11.22 Type 2 diabetes mellitus with diabetic chronic kidney disease; I12.0 Hypertensive chronic kidney disease with stage 5 chronic kidney disease or end stage renal disease; N18.6 End stage renal disease; Z88.0 Allergy status to penicillin; Z88.1 Allergy status to other antibiotic agents; Z88.5 Allergy status to narcotic agent; Z95.810 Presence of automatic (implantable) cardiac defibrillator; Z95.818 Presence of other cardiac implants and grafts
CPT/HCPCS: 93926; 93931; 93971; 99283

== ENCOUNTER 2019-10-09 15:18 | Inpatient (IN) | payer OTHER ==
--- OUTSIDE RECORDS SUMMARY | 2019-10-09 15:21 | XMS REPORT ---
[...] Start Date End Date Status Dosage Tradjenta [facility] 85518946520 5 MG Orally Once Active 1 tablet a day Results No Known Results Summary Purpose eClinicalWorks Submission
--- OUTSIDE RECORDS SUMMARY | 2019-10-09 15:21 | XMS REPORT ---
[...] Start End Date Status Dosage Date Gabapentin [facility] 14017188821 100 MG Orally Active 1 capsule Three times a day Results No Known Results Summary Purpose eClinicalWorks Submission
--- OUTSIDE RECORDS SUMMARY | 2019-10-09 15:21 | XMS REPORT ---
[...] Start Date End Date Status Dosage Cipro [facility] 05574875892 500 MG Orally Aug 04, Aug 11, Active 1 tablet every 12 hrs 2019 2019 Results No Known Results Summary Purpose SpringestinicalWorks Submission
--- OUTSIDE RECORDS SUMMARY | 2019-10-09 15:22 | XMS REPORT ---
[...] End Status Dosage System Date Date Lasix [facility] 92357831285 80 MG Orally Active 1 tablet twice a day Tradjenta [facility] 24729678675 5 MG Orally Active 1 tablet Once a day Klor-Con M10 [facility] 48668407835 10 MEQ Orally Active 1 tablet with Twice a day food Amlodipine [facility] 03585964221 5 MG Orally Active 5 mg Besylate Once a day Vitamin D-3 [facility] 67039797057 1000 UNIT Active 1 capsule Orally Once a day Macrobid [facility] 23970167077 100 MG Orally October Active 1 capsule every 12 hrs , with food 2017 Gabapentin [facility] 16916962965 100 MG Orally Active 1 capsule Three times a day Lidocaine HCl [facility] 50147126995 3 % Externally Active 1 application Twice a day to affected area as needed Toprol XL [facility] 99192054524 25 MG Orally Active 1 tablet Once a day Macrobid [facility] 35300635159 100 MG Orally Apr 21, Active 1 capsule every 12 hrs 2017 with food Loratadine [facility] 74725371048 10 MG Orally Active 1 tablet Once a day Lasix [facility] 31169150148 80 MG Orally Active 1 tablet twice a day Levothyroxine [facility] 97350226954 50 MCG Orally Active 1 tablet on Sodium Once a day an empty stomach in the morning Alprazolam [facility] 50118141701 0.25 MG Orally Active 1 tablet once a day prn anxiety Fosamax [facility] 96947738876 70 MG Active TAKE 1 TABLET ONCE A WEEK Pravachol [facility] 05839774826 80 MG Orally Active 1 tablet Once a day Aspirin 81 [facility] 16370383528 81 MG Orally Active 1 tablet Once a day Levothyroxine [facility] 78690321335 50 MCG Orally Active 1 tablet on Sodium Once a day an empty stomach in the morning Valsartan [facility] 56749200811 40 MG Orally Active 1 tablet Twice a day Plavix [facility] 62675120143 75 MG Orally Active 1 tablet Once a day Tylenol Extra [facility] 36377235082 500 MG Orally Active 1 tablet as Strength every 6 hrs needed Tricor [facility] 55959452419 145 MG Orally Active 1 tablet with Once a day food Flonase [facility] 86632030892 50 MCG/ACT Active 1 spray in Nasally Once a each nostril day Results No Known Results Summary Purpose eClinicalWorks Submission
[2019-10-09] MEDS ORDERED: VANCOMYCIN/NS 1 gm 1 GM/250 ML BAG IVPB ONE (16:00)
--- NOTE | 2019-10-09 16:23 | RAD REPORT ---
EXAM DESCRIPTION: RAD - Tib Fib Left - 10/09/2019 4:09 pm CLINICAL HISTORY: Left leg pain and swelling COMPARISON: January 2013 FINDINGS: No fracture is identified. There is no dislocation or periosteal reaction noted. Knee join t degenerative changes are present primarily in the medial compartment. These a showing a mild progre ssion from 2012. Patella degenerative changes are mildly progressive. Bones are mildly osteopenic. No air or foreign body in the soft tissues. Soft tissues appear mildly edematous. IMPRESSION: Mild osteopenic change as well as degenerative change at the joints. No acute finding.
[2019-10-09 16:36] LABS: Absolute Lymphocytes (CBC) 1.4 K/uL (0.7-4.9); Basophils % 0.8 % (0-1.3); Hematocrit 28.4 % (36.0-45.0); Lymphocytes % 15.4 % (15.3-44.8); MPV 10.9 fL (7.6-11.3); RBC Red Blood Cell Count 2.99 M/uL (3.86-4.86)
[2019-10-09 16:46] LABS: Potassium 4.9 mmol/L (3.5-5.1)
--- NOTE | 2019-10-09 16:56 | ER ---
Nurse's Notes [facility] Name: Mendy Gomez Age: 84 yrs Sex: Female : 1935 Arrival Date: 10/09/2019 Time: 15:22 Bed 24 Private MD: Brandie Wilkerson Diagnosis: Cellulitis of left lower limb;Failure of outpatient therapy of cellulitis Presentation: 10/08 15:26 Chief complaint: Patient states: Pain, swelling, and redness on L leg x 3 days. Called ca1 PCP and was prescribed Clindamycin. But it is still the same. Denies fever. Coronavirus screen: Patient denies fever greater than 100.4F, cough, shortness of breath, or difficulty breathing. Proceed with normal triage process. Ebola Screen: Patient negative for fever greater than or equal to 101.5 degrees Fahrenheit, and additional compatible Ebola Virus Disease symptoms Patient denies exposure to infectious person. Patient denies travel to an Ebola-affected area in the 21 days before illness onset. No symptoms or risks identified at this time. Initial Sepsis Screen: Does the patient meet any 2 criteria? No. Patient's initial sepsis screen is negative. Does the patient have a suspected source of infection? No. Patient's initial sepsis screen is negative. Risk Assessment: Do you want to hurt yourself or someone else? Patient reports no desire to harm self or others. Onset of symptoms was October 09, 2019. 15:26 Method Of Arrival: Wheelchair ca1 15:26 Acuity: BYRON 3 ca1 Historical: - Allergies: 15:31 Codeine; ca1 15:31 Doxycycline; ca1 15:31 Morphine; ca1 15:31 PENICILLINS; ca1 - PMHx: 15:31 Anemia; CHF; Diabetes - NIDDM; ESRD; High Cholesterol; Hyperlipidemia; Hypertension; ca1 Hypothyroidism; [place]; pacemaker/defibrillator; - PSHx: 15:31 Heart stents; ca1 - Immunization history:: Adult Immunizations up to date, Pneumococcal vaccine is up to date, Flu vaccine is up to date. - Social history:: Smoking status: Patient denies any tobacco usage or history of. - Family history:: not pertinent. - Hospitalizations: : No recent hospitalization is reported. Screenin:45 Abuse screen: Denies threats or abuse. Denies injuries from another. Nutritional wh screening: No deficits noted. Tuberculosis screening: No symptoms or risk factors identified. Fall Risk None identified. Assessment: 16:45 General: Appears in no apparent distress. Behavior is calm, cooperative, appropriate wh for age. Pain: Denies pain. Neuro: Level of Consciousness is awake, alert, obeys commands, Oriented to person, place, time, situation, Appropriate for age. Cardiovascular: Heart tones S1 S2 Edema is 1+ to left ankle. Respiratory: Airway is patent Respiratory effort is even, unlabored, Respiratory pattern is regular, symmetrical, Breath sounds are clear bilaterally. GI: Abdomen is flat, non-distended. : No signs and/or symptoms were reported regarding the genitourinary system. EENT: No signs and/or symptoms were reported regarding the EENT system. Derm: Skin is intact, is healthy with good turgor, Skin is pink, warm \T\ dry. normal. Musculoskeletal: Circulation, motion, and sensation intact. 18:05 Reassessment: Patient appears in no apparent distress at this time. No changes from previously documented assessment. Patient and/or family updated on plan of care and expected duration. Pain level reassessed. Patient is alert, oriented x 3, equal unlabored respirations, skin warm/dry/pink. MD at bedside explaining POC need for admit. 19:56 Reassessment: Patient appears in no apparent distress at this time. No changes from previously documented assessment. Patient and/or family updated on plan of care and expected duration. Pain level reassessed. Patient is alert, oriented x 3, equal unlabored respirations, skin warm/dry/pink. Vital Signs: 15:26 BP 113 / 63; Pulse 58; Resp 17 S; Temp 98.7(O); Pulse Ox 99% on R/A; Weight 76.66 kg ca1 (R); Height 5 ft. (152.40 cm) (R); Pain 7/10; 18:00 BP 112 / 66; Pulse 55; Resp 18; Pulse Ox 99% on R/A; wh 19:30 BP 144 / 69; Pulse 57; Resp 18; Pulse Ox 99% on R/A; wh 15:26 Body Mass Index 33.01 (76.66 kg, 152.40 cm) ca1 ED Course: 15:22 Patient arrived in ED. mr 15:22 Brandie Wilkerson MD is Private Physician. mr 15:30 Triage completed. ca1 15:31 Arm band placed on right wrist. ca1 15:32 Duarte Blake MD is Attending Physician. rn 15:32 Mile Nelson is Primary Nurse. 16:25 Inserted saline lock: 22 gauge in left antecubital area, using aseptic technique. Blood jp3 collected. Patient maintains SpO2 saturation greater than 95% on room air. 16:25 Second set of blood cultures drawn by al. jp3 16:29 Blood Culture Adult (2) Sent. jp3 16:45 Patient has correct armband on for positive identification. Bed in low position. Call light in reach. Side rails up X 1. Pulse ox on. NIBP on. 16:54 Travis Calloway MD is Hospitalizing Provider. rn 19:57 No provider procedures requiring assistance completed. Patient admitted, IV remains in place. Administered Medications: 16:20 Drug: vancoMYCIN 1 grams Route: IVPB; Infused Over: 2 hrs; Site: left antecubital; 18:27 Follow up: Response: No adverse reaction; IV Status: Completed infusion Outcome: 16:55 Decision to Hospitalize by Provider. rn 19:58 Admitted to Med/surg accompanied by tech, via stretcher, room 231, with chart, Report called to Javier Tovar RN 19:58 Condition: stable 19:58 Instructed on the need for admit. 20:17 Patient left the ED. Signatures: Tanvi Alaniz Duarte Blake MD MD rn Habalo, Winsy Rod Mchugh jp3 Yamilet Santoro RN RN ca1
--- NOTE | 2019-10-09 16:58 | EDPHYS ---
Physician Documentation [facility] Name: Mendy Gomez Age: 84 yrs Sex: Female : 1935 Arrival Date: 10/09/2019 Time: 15:22 Bed 24 Private MD: Brandie Wilkerson ED Physician Duarte Blake HPI: 10/08 15:41 This 84 yrs old Female presents to ER via Wheelchair with complaints of Leg rn Swelling. 15:41 The patient presents with cellulitis of the left leg. Description: erythematous, rn swollen, warm. Onset: The symptoms/episode began/occurred 3 day(s) ago. Possible cause(s): unknown. Associated signs and symptoms: Pertinent positives: erythema, swelling. Modifying factors: the symptoms are alleviated by nothing, the symptoms are aggravated by walking, touching. Severity of symptoms: At their worst the symptoms were moderate, in the emergency department the symptoms are unchanged. The patient has not experienced similar symptoms in the past. Reports fall in bath 1 week ago, didn't feel like broke anything, seen by pcp recently due to increased swelling and redness, called in clindamycin, now taking for 3 days, no improvement, feels worse. . Historical: - Allergies: 15:31 Codeine; ca1 15:31 Doxycycline; ca1 15:31 Morphine; ca1 15:31 PENICILLINS; ca1 - PMHx: 15:31 Anemia; CHF; Diabetes - NIDDM; ESRD; High Cholesterol; Hyperlipidemia; Hypertension; ca1 Hypothyroidism; [place]; pacemaker/defibrillator; - PSHx: 15:31 Heart stents; ca1 - Immunization history:: Adult Immunizations up to date, Pneumococcal vaccine is up to date, Flu vaccine is up to date. - Social history:: Smoking status: Patient denies any tobacco usage or history of. - Family history:: not pertinent. - Hospitalizations: : No recent hospitalization is reported. ROS: 15:41 Constitutional: Negative for fever, chills, and weight loss, Eyes: Negative for injury, rn pain, redness, and discharge, Neck: Negative for injury, pain, and swelling, Cardiovascular: Negative for chest pain, palpitations, and edema, Respiratory: Negative for shortness of breath, cough, wheezing, and pleuritic chest pain, Abdomen/GI: Negative for abdominal pain, nausea, vomiting, diarrhea, and constipation, MS/Extremity: + left leg injury and swelling Skin: + redness and warmth to LLE Neuro: Negative for headache, weakness, numbness, tingling, and seizure. Exam: 15:41 Constitutional: This is a well developed, well nourished patient who is awake, alert, rn requires assistance getting into bed Head/Face: Normocephalic, atraumatic. Cardiovascular: Regular rhythm, bradycardic, No pulse deficits. Respiratory: Speaking full sentences. No increased work of breathing, no retractions or nasal flaring. Abdomen/GI: soft, non-tender Skin: Warm, dry, + erythema and warmth LLE MS/ Extremity: Pulses equal, no cyanosis. + mottled LLE with 1+ pitting edema, no streaking. + small skin tear just distal to left knee. Neuro: Awake and alert, GCS 15 Vital Signs: 15:26 BP 113 / 63; Pulse 58; Resp 17 S; Temp 98.7(O); Pulse Ox 99% on R/A; Weight 76.66 kg ca1 (R); Height 5 ft. (152.40 cm) (R); Pain 7/10; 18:00 BP 112 / 66; Pulse 55; Resp 18; Pulse Ox 99% on R/A; wh 19:30 BP 144 / 69; Pulse 57; Resp 18; Pulse Ox 99% on R/A; wh 15:26 Body Mass Index 33.01 (76.66 kg, 152.40 cm) ca1 MDM: 15:32 Patient medically screened. rn 16:49 Differential diagnosis: cellulitis. Data reviewed: vital signs, nurses notes, lab test rn result(s), radiologic studies, plain films, and as a result, I will admit patient. Counseling: I had a detailed discussion with the patient and/or guardian regarding: the historical points, exam findings, and any diagnostic results supporting the discharge/admit diagnosis, lab results, radiology results, the need for further work-up and treatment in the hospital. Admission orders: after a detailed discussion of the patient's condition and case, the admit orders are written by me. ED course: Pt admitted for failure of outpatient therapy of cellulitis, admitted to [facility] . 10/08 15:39 Order name: CBC with Diff rn 10/08 15:39 Order name: Basic Metabolic Panel; Complete Time: 16:49 rn 10/08 15:39 Order name: Blood Culture Adult (2) rn 10/08 15:39 Order name: XRAY Tib Fib LEFT rn 10/08 15:39 Order name: Procalcitonin rn 10/08 15:39 Order name: IV Start; Complete Time: 16:20 rn Administered Medications: 16:20 Drug: vancoMYCIN 1 grams Route: IVPB; Infused Over: 2 hrs; Site: left antecubital; 18:27 Follow up: Response: No adverse reaction; IV Status: Completed infusion Disposition: 10/09/19 16:55 Hospitalization ordered by Travis Calloway for Inpatient Admission. Preliminary diagnosis are Cellulitis of left lower limb, Failure of outpatient therapy of cellulitis. - Bed requested for Telemetry/MedSurg (Inpatient). - Status is Inpatient Admission. - Condition is Stable. - Problem is new. - Symptoms are unchanged. Signatures: Dispatcher [employer] EDMS Violeta Egan Duarte Blake MD MD rn Habsaint alphonsus eagle, [facility] Yvan, BRYAN Woodard RN ca1 Corrections: (The following items were deleted from the chart) 18:20 16:55 Hospitalization Ordered by Travis Calloway MD for Inpatient Admission. Preliminary bd diagnosis is Cellulitis of left lower limb; Failure of outpatient therapy of cellulitis. Bed requested for Telemetry/MedSurg (Inpatient). Status is Inpatient Admission. Condition is Stable. Problem is new. Symptoms are unchanged. rn 20:17 18:20 10/09/2019 16:55 Hospitalization Ordered by Travis Calloway MD for Inpatient Admission. Preliminary diagnosis is Cellulitis of left lower limb; Failure of outpatient therapy of cellulitis. Bed requested for Telemetry/MedSurg (Inpatient). Status is Inpatient Admission. Condition is Stable. Problem is new. Symptoms are unchanged. bd
[2019-10-09] MEDS ORDERED: ONDANSETRON 4 MG/2 ML VIAL IV PRN (20:30)
[2019-10-09] MEDS: INSULIN -REGULAR HUMAN 50 UNIT/0.5 ML ML SQ SCH (21:00)
[2019-10-09] MEDS ORDERED: CEFEPIME 1 GM/VIAL IV SCH (21:00)
[2019-10-09] MEDS: NA CHLORIDE 0.9% 1,000 ML IV SCH (21:02)
--- NOTE | 2019-10-09 21:02 | HP ---
Date of Admission: 10/09/2019 Chief Complaint: Left leg redness, swelling. Primary Care Physician: Dr. Wilkerson. Code Status: Do not intubate. 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 History Of Present Illness: Patient is an 84-year-old female with past medical history of diabetes, uqx-[id number]-ttwxwtyms; hypertension; hyperlipidemia; congestive heart failure; history of ID; status post stents; chronic kidney disease, not on dialysis, comes in with redness and swelling of her left lower extremity. Patient was in her usual state of health until 3 days prior to admission when the seda corbett had slight fall in the bathroom and had an abrasion below her knee. Patient subsequently deve loped cellulitis of that leg. She had redness, swelling, subjective fevers. Patient otherwise denie s any cough, respiratory symptoms. No contact with any patients tested positive for Vyas virus. Seda corbett reported pain in her leg. She was seen by PCP and was started on clindamycin. She has been o n clindamycin for the past 3 days with no improvement. Patient's symptoms are constant, moderate, pr ogressively worsening. Patient came into the ER for further evaluation. Her workup revealed normal WBC count. Creatinine level was 4.14, which is close to her baseline. Her procalcitonin was 0.2, wh ich indicates local bacterial infection. Blood cultures were obtained. X-ray of the leg did not cher w any acute fracture, did show osteopenic changes and degenerative changes at the joint, personally r juliocesar. Patient was then given 1 dose of vancomycin and referred for admission. When seen in the E R, she was awake, alert, oriented x3, in some mild distress. Past Medical History: Diabetes mellitus type 2, eri-npuqlnn-tcfmyrnsv; hypertension; hyperlipidemia; chronic kidney disease, stage 3; congestive heart failure; ID, status post stent. Surgical History: Hysterectomy, defibrillator placement, coronary stents, appendectomy, right leg st ent. Allergies: NO KNOWN DRUG ALLERGIES. Medications: List reviewed. Social History: Patient denies any tobacco use, alcohol use, or illicit drug use. Lives at home. N eeds assistance with her activities of daily living. Otherwise, has good social support with the fam betzy around. Family History: Father had cancer. Mother had lung disease. Review of Systems: Ten-point system reviewed, negative except as per HPI. Physical Examination: VITAL SIGNS: Blood pressure 113/63, pulse 58, respirations 17, temperature 98.7, O2 99% on room air. BMI of 33. General: Awake, alert, oriented x3. Elderly female, in some mild distress. HEENT: Normocephalic, atraumatic. PERRLA, EOMI. Moist mucous membranes. Oropharynx is clear. Con junctivae anicteric. Neck: Supple. No JVD. Trachea midline. CV: S1, S2. Regular rate and rhythm. Peripheral pulses are weak. Respiratory: Moving air well bilaterally. No wheezing or stridor. No use of accessory muscles. Gastrointestinal: Abdomen is soft, nontender, nondistended. Positive bowel sounds. Extremities: No clubbing, cyanosis. Patient has edema of the left lower extremity. No calf tendern ess. Neuro: Cranial nerves 2 through 12 intact grossly. No focal neurological deficits. Speech is katlyn l. Strength is symmetric bilateral upper and lower extremities. Sensation intact to light touch. Skin: Left lower extremity erythema, warm to touch. Tenderness to palpation. Patient has an abrasi on below the knee. Well-healing scar present, scab present. Laboratory Data: Sodium 140, potassium 4.9, chloride 103, CO2 of 29, BUN 98, creatinine 4.14, glucos e 128, calcium 8.6. Procalcitonin 0.2. WBC 8.9, H and H 9.4 and 28.4, platelets 202, neutrophils 69 %. Blood cultures have been obtained. X-ray of the tibia and fibula of the left shows osteopenia, n o acute fracture. Assessment: 84-year-old female with 1.Cellulitis of the left lower extremity with failed outpatient treatment. The patient failed on cl indamycin has been on it for the past 3 days. We will obtain blood cultures. Start on broad spectru m IV antibiotics with vancomycin and cefepime. Patient is at risk for MRI say given her diabetes and wean compromise status with chronic kidney disease. We will follow up on culture results. Patient instructed to elevate her leg, ice as needed. 2.Acute on chronic kidney disease stage 3. Creatinine is somewhat above baseline of 3. 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 Frank. We will monitor creatinine levels and avoid NSAIDs. 3.Diastolic congestive heart failure, chronic. Continue with home medications. Monitor I's and O's , free fluid restriction. 4.Hypertensive heart disease. 5.Moderate pulmonary hypertension. 6.Diabetes mellitus type 2, kks-knmveup-cfrzzxrlj with chronic kidney disease and hyperglycemia. Co ntinue sliding scale insulin. Monitor blood glucose levels. 7.Mixed hyperlipidemia. Continue statin. 8.Coronary artery disease [place] artery and [place] heart without angina status post stent. 9.Status post defibrillator. 10.Essential hypertension, stable. Plan: Admit patient to Med-Surg, place as inpatient. Length of stay greater than 2 midnights. JACQUELYN Voice ID: [id number]
[2019-10-09 21:53] VITALS: BMI 33.1
[2019-10-09] MEDS ORDERED: VANCOMYCIN 1.25 GM in NA CHLORIDE 0.9% 250 ML IVPB ONE (22:00)
[2019-10-10] MEDS: ACETAMINOPHEN 500 MG TAB PO PRN ×4 (00:19→21:36)
[2019-10-10 03:59] LABS: Urine Appearance CLEAR; Urine Bilirubin NEGATIVE (NEG); Urine Blood NEGATIVE (NEG); Urine Color YELLOW; Urine Glucose NEGATIVE (NEG); Urine Protein NEGATIVE (NEG)
[2019-10-10 04:19] LABS: UR MICROALBUMIN 6.9 mg/dL (< 1.9)
[2019-10-10 04:45] LABS: Urine Bacteria <20 /HPF (<20); Urine Culture Reflex Order NOT NEEDED; Urine RBC NONE SEEN /HPF (NONE SEEN)
[2019-10-10 05:30] LABS: Absolute Lymphocytes (CBC) 0.8 K/uL (0.7-4.9); Basophils % 0.9 % (0-1.3); Hematocrit 27.6 % (36.0-45.0); Lymphocytes % 15.4 % (15.3-44.8); MPV 10.1 fL (7.6-11.3); RBC Red Blood Cell Count 2.96 M/uL (3.86-4.86)
[2019-10-10] MEDS: NA CHLORIDE 0.9% 1,000 ML IV SCH ×2 (05:41→16:30)
[2019-10-10 05:45] LABS: Bilirubin Direct 0.3 mg/dL (0-0.2); Bilirubin Total 0.6 mg/dL (0.2-1.0); Magnesium 2.9 mg/dL (1.8-2.4); Phosphorus 4.5 mg/dL (2.5-4.9); Potassium 4.3 mmol/L (3.5-5.1); Protein, Total 6.7 g/dL (6.4-8.2); Uric Acid 12.2 mg/dL (2.6-6.0)
[2019-10-10] MEDS: INSULIN -REGULAR HUMAN 50 UNIT/0.5 ML ML SQ SCH ×4 (07:30→21:00)
[2019-10-10] MEDS: VANCOMYCIN 1.25 GM in NA CHLORIDE 0.9% 250 ML IVPB SCH (08:00)
[2019-10-10] MEDS ORDERED: VANCOMYCIN/NS 1 gm 1 GM/250 ML BAG IVPB SCH (09:00)
--- NOTE | 2019-10-10 12:35 | P.PN ---
Subjective Date of Service: 10/10/19 Chief Complaint: LLE worsened pain Review of Systems Unremarkable General: Unremarkable Musculoskeletal: Pedal edema Integumentary: Other (Redness) Physical Examination - Vital Signs Temperature: 97.3 F Blood Pressure: 133/65 Pulse: 60 Respirations: 16 Pulse Ox (%): 93 - Physical Exam General: Alert, In no apparent distress HEENT: Atraumatic, PERRLA, EOMI Neck: Supple, JVD not distended Respiratory: Clear to auscultation bilaterally, Normal air movement Cardiovascular: Regular rate/rhythm, Normal S1 S2 Gastrointestinal: Normal bowel sounds, No tenderness Musculoskeletal: Erythema, Tenderness Integumentary: Erythema, Warmth Neurological: Normal speech, Normal tone, Normal affect Lymphatics: No axilla or inguinal lymphadenopathy - Studies Laboratory Data (last 24 hrs) 10/09/19 16:15: Sodium 140, Potassium 4.9, BUN 98 H, Creatinine 4.14 H, Glucose 128 H 10/09/19 16:15: WBC 8.9, Hgb 9.4 L, Hct 28.4 L, Plt Count 202 Medications List Reviewed: Yes Assessment & Plan Physician Review Additional Text: #Cellulitis of the left lower extremity with failed outpatient treatment, was on clindamycin for 3 days. -Blood cultures pending. -continue IV antibiotics with vancomycin and cefepime. -Patient instructed to elevate her leg, ice as needed. - rule out acute DVT #Acute on chronic kidney disease stage 3- cr is trending down. - Nephro on consult. - We will monitor creatinine levels and avoid NSAIDs. #Diastolic congestive heart failure, chronic- compensated. - Continue with home medications. Monitor I's and O's, free fluid restriction. #Hypertensive heart disease. #Moderate pulmonary hypertension. #Diabetes mellitus type 2, cya-dgpgzfp-caaptwcmg with chronic kidney disease and hyperglycemia. -Continue sliding scale insulin. Monitor blood glucose levels. #Mixed hyperlipidemia- Continue statin. #Coronary artery disease [place] artery and [place] heart without angina status post stent. #Status post defibrillator. #Essential hypertension, stable. Patient is a DNR and dw patient/daughter at bedside.
--- NOTE | 2019-10-10 14:45 | RAD REPORT ---
EXAM DESCRIPTION: [facility]10/10/2019 1:56 pm CLINICAL HISTORY: left leg swelling. COMPARISON: None. FINDINGS: Left common femoral, superficial femoral, popliteal and posterior tibial veins are compre ssible and demonstrate augmentation. Doppler demonstrates good flow. IMPRESSION: No evidence of deep venous thrombosis involving the left lower extremity.
[2019-10-10] MEDS: ENOXAPARIN 30 MG/0.3 ML SQ SCH (16:48)
--- NOTE | 2019-10-10 20:36 | P.CNS ---
Date of Consult: 10/10/19 Reason for Consult: RAGHAVENDRA/ CKD Requesting Physician: Travis Calloway Chief Complaint: LLE worsened pain History of Present Illness: 84 yo HF CKD, CHF presented to the ER with 3 days of a moderate, progressive LLE pain with associated erythema and edema secondary to trauma. Worse with movement. Patient is an 84-year-old female with past medical history of diabetes, non- insulin-requiring; hypertension; hyperlipidemia; congestive heart failure; history of IN; status post stents; chronic kidney disease, not on dialysis, comes in with redness and swelling of her left lower extremity. Patient was in her usual state of health until 3 days prior to admission when the patient had slight fall in the bathroom and had an abrasion below her knee. Patient subsequently developed cellulitis of that leg. She had redness, swelling, subjective fevers. Patient otherwise denies any cough, respiratory symptoms. No contact with any patients tested positive for Vyas virus. Patient reported pain in her leg. She was seen by PCP and was started on clindamycin. She has been on clindamycin for the past 3 days with no improvement. Patient's symptoms are constant, moderate, progressively worsening. Patient came into the ER for further evaluation. Her workup revealed normal WBC count. Creatinine level was 4.14, which is close to her baseline. Her procalcitonin was 0.2, which indicates local bacterial infection. Blood cultures were obtained. X-ray of the leg did not show any acute fracture, did show osteopenic changes and degenerative changes at the joint, personally reviewed. Patient was then given 1 dose of vancomycin and referred for admission. When seen in the ER, she was awake, alert, oriented x3, in some mild distress. 15:41 This 84 yrs old Female presents to ER via Wheelchair with complaints of Leg rn Swelling. 15:41 The patient presents with cellulitis of the left leg. Description: erythematous, rn swollen, warm. Onset: The symptoms/episode began/occurred 3 day(s) ago. Possible cause(s): unknown. Associated signs and symptoms: Pertinent positives: erythema, swelling. Modifying factors: the symptoms are alleviated by nothing, the symptoms are aggravated by walking, touching. Severity of symptoms: At their worst the symptoms were moderate, in the emergency department the symptoms are unchanged. The patient has not experienced similar symptoms in the past. Reports fall in bath 1 week ago , didn't feel like broke anything, seen by pcp recently due to increased swelling and redness, called in clindamycin, now taking for 3 days, no improvement, feels worse. Allergies codeine Allergy (Verified 10/10/19 01:53) unknown doxycycline Allergy (Verified 10/10/19 01:53) unknown morphine Allergy (Verified 10/10/19 01:53) unknown Home medications list reviewed: Yes Home Medications: Amlodipine [Norvasc*] 1 tab PO DAILY 09/18/18 Aspirin 81 mg PO DAILY 09/18/18 Clopidogrel Bisulfate [Plavix*] 1 tab PO DAILY 09/18/18 Fenofibrate Nanocrystallized [Fenofibrate] 140 mcg PO DAILY 09/18/18 Furosemide [Lasix] 80 mg PO DAILY 09/18/18 Gabapentin 100 mg PO BEDTIME 09/18/18 Levothyroxine Sodium 50 mcg PO DAILY 09/18/18 Multivitamin/Iron/Folic Acid [Centrum Women Tablet] 1 tab PO DAILY 09/18/18 Linagliptin [Tradjenta] 5 mg PO DAILY 12/30/18 Cetirizine HCl [Zyrtec] 1 tab PO DAILY 10/09/19 Metoprolol Tartrate 1 tab PO BID 10/09/19 Rosuvastatin Calcium 20 mg PO DAILY 10/09/19 - Past Medical/Surgical History Diabetic: Yes -: IN -: IDDM -: Htn -: Hyperlipidemia -: CHF -: PVD -: Renal Insufficiency -: ANEMIA -: Hysterectomy -: Defibrillator -: Coronary stents -: Appendectomy -: Right leg stent - Family History Father Medical History: Diabetes, Cancer Mother Medical History: Lung disease, Diabetes, Other (see notes) Notes: asthma - Social History Smoking Status: Never smoker Alcohol use: Yes CD- Drugs: No Caffeine use: No Place of Residence: Home Review of Systems 10-point ROS is otherwise unremarkable General: Weakness, Malaise Cardiovascular: Edema Musculoskeletal: Arm Pain, Leg Pain Integumentary: Rash Neurological: Weakness Physical Examination Temp Pulse Resp BP Pulse Ox 97.7 F 66 16 126/66 94 10/10/19 16:00 10/10/19 16:00 10/10/19 16:00 10/10/19 16:00 10/10/19 16:00 General: In no apparent distress, Oriented x3, Cooperative HEENT: Atraumatic Neck: Supple Respiratory: Clear to auscultation bilaterally, Normal air movement Cardiovascular: Regular rate/rhythm, Edema Gastrointestinal: Soft and benign, Non-distended Musculoskeletal: No clubbing, No contractures Integumentary: No cyanosis, Erythema Neurological: Normal speech Blood work reviewed in the chart. Hgb 9; BUN 97; Cr 3.52 Imagings Data: EXAM DESCRIPTION: RAD - Tib Fib Left - 10/09/2019 4:09 pm CLINICAL HISTORY: Left leg pain and swelling COMPARISON: January 2013 FINDINGS: No fracture is identified. There is no dislocation or periosteal reaction noted. Knee joint degenerative changes are present primarily in the medial compartment. These a showing a mild progression from 2013. Patella degenerative changes are mildly progressive. Bones are mildly osteopenic. No air or foreign body in the soft tissues. Soft tissues appear mildly edematous. IMPRESSION: Mild osteopenic change as well as degenerative change at the joints. No acute finding. Conclusions/Impression: A/ RAGHAVENDRA vs Progressive CKD. CKD V with proteinuria. DM II with CKD. HTN with CKD/ CHF. Diastolic CHF, chronic. Pulmonary HTN. CALISTA/ Secondary HyperPTH. Hypocalcemia. Hyperuricemia. Anemia in chronic illness/ CKD. LLE Cellulitis. P/ Continue current POC and Medications. Change IVF 1/2NS. Continue abx. Follow up cultures. Give Retacrit. No NSAIDs. AM Labs PRN. Daily weight. Hepatitis panel pending. Thank you kindly for the consultation.
[2019-10-10] MEDS ORDERED: NACHLORIDE 0.45% 1,000 ML IV SCH (21:00)
[2019-10-10] MEDS: CEFEPIME/SWI 1gm 10 ML IV SCH (21:13)
[2019-10-11] MEDS ORDERED: FENTANYL CITR 100 MCG/2 ML IV ONE (00:02)
[2019-10-11 05:44] LABS: Absolute Lymphocytes (CBC) 0.8 K/uL (0.7-4.9); Basophils % 0.7 % (0-1.3); Hematocrit 26.8 % (36.0-45.0); Lymphocytes % 15.4 % (15.3-44.8); MPV 9.9 fL (7.6-11.3); RBC Red Blood Cell Count 2.87 M/uL (3.86-4.86)
[2019-10-11 05:54] LABS: Potassium 4.2 mmol/L (3.5-5.1)
[2019-10-11] MEDS: INSULIN -REGULAR HUMAN 50 UNIT/0.5 ML ML SQ SCH ×4 (07:30→20:43)
[2019-10-11] MEDS: ACETAMINOPHEN 500 MG TAB PO PRN (09:45)
[2019-10-11] MEDS ORDERED: FUROSEMIDE 40 MG/4 ML VIAL IV ONE (11:59)
--- NOTE | 2019-10-11 12:36 | P.PN ---
Subjective Date of Service: 10/11/19 Chief Complaint: Improving. Subjective: Improving Physical Examination - Vital Signs Temperature: 97.7 F Blood Pressure: 144/70 Pulse: 71 Respirations: 18 Pulse Ox (%): 94 - Physical Exam General: Alert, In no apparent distress HEENT: Atraumatic, PERRLA, EOMI Neck: Supple, JVD not distended Respiratory: Clear to auscultation bilaterally, Normal air movement Cardiovascular: Regular rate/rhythm, Normal S1 S2 Gastrointestinal: Normal bowel sounds, No tenderness Musculoskeletal: No tenderness Integumentary: Tenderness/swelling, Erythema Neurological: Normal speech, Normal tone, Normal affect Lymphatics: No axilla or inguinal lymphadenopathy - Studies Medications List Reviewed: Yes Assessment & Plan Physician Review Additional Text: #Cellulitis of the left lower extremity with failed outpatient treatment, was on clindamycin for 3 days. -Blood cultures pending. -continue IV antibiotics with vancomycin and cefepime. -Patient instructed to elevate her leg, ice as needed. -ruled out acute DVT #Acute on chronic kidney disease stage 3- cr is trending down. - Nephro on consult. - We will monitor creatinine levels and avoid NSAIDs. #Diastolic congestive heart failure, chronic- compensated. - Continue with home medications. Monitor I's and O's, free fluid restriction. #Hypertensive heart disease. #Moderate pulmonary hypertension. #Diabetes mellitus type 2, fgh-wzxjbpv-tklujsrdl with chronic kidney disease and hyperglycemia. -Continue sliding scale insulin. Monitor blood glucose levels. #Mixed hyperlipidemia- Continue statin. #Coronary artery disease [place] artery and [place] heart without angina status post stent. #Status post defibrillator. #Essential hypertension, stable. Patient is a DNR and dw patient/daughter at bedside. DC home in a.m on oral abx
[2019-10-11] MEDS: FENTANYL CITR 100 MCG/2 ML IV PRN ×2 (13:16→20:38)
--- NOTE | 2019-10-11 14:01 | PN ---
Date of Progress Note: 10/11/2019 Subjective: Patient was seen and examined at bedside. She has been having some difficulty breathing . Her daughters reporting that she is not able to talk in full sentences and feels out of breath. H er lower extremity edema, however, has significantly improved. She remains on IV antibiotics. Physical Examination: Vital Signs: Showing temperature of 97.7, pulse rate of 71, respiratory rate of 18, and blood pressu re 144/70. General: She appears in no acute distress; however, she is not able to talk in full sentences becaus e of shortness of breath. Neck: No JVD was noted. Heart: Auscultation of heart revealed regular rate and rhythm. Abdomen: Soft and nontender. Lungs: Auscultation of the lungs revealed diminished breath sounds at bilateral bases. Extremities: She has a hematoma noted on her right upper arm. She also has a hematoma on her left l ower leg and her swelling in the legs are also improving. Laboratory Data: Showing creatinine of 3.09. Other electrolytes are stable. CBC showing stable hem oglobin, hematocrit, and platelet count. Current Medications: Have been reviewed in detail. Impression: 1.Acute on chronic renal insufficiency secondary to acute tubular necrosis, currently improving. 2.Left lower extremity cellulitis, currently on antibiotics with vancomycin and cefepime, which is a lso improving. 3.Mild volume overload and congestive heart failure. I agree with stopping the fluids and giving a dose of Lasix and monitoring closely. 4.Chronic congestive heart failure, slightly volume overloaded. As discussed above, we will give a dose of Lasix. 5.Coronary artery disease, currently stable. Plan: Overall patient's renal function is significantly improved at this time. Her IV fluids have b een stopped secondary to concern for volume overload. She has mild anemia related to her chronic dis ease. We will give her a dose of Lasix and we will continue to monitor closely. Avoid further IV fl uids or nephrotoxins. We will follow up on a.m. labs. VV/MODL Voice ID: [id number] Report ID: [id number]
[2019-10-11] MEDS: ENOXAPARIN 30 MG/0.3 ML SQ SCH (16:09)
[2019-10-11] MEDS: CEFEPIME/SWI 1gm 10 ML IV SCH (20:38)
[2019-10-11 21:08] VITALS: O2SAT 91
[2019-10-12 02:12] LABS: HBsAG Nonreactive (Nonreactive)
[2019-10-12] MEDS: INSULIN -REGULAR HUMAN 50 UNIT/0.5 ML ML SQ SCH ×4 (07:30→21:00)
[2019-10-12] MEDS: VANCOMYCIN 1.25 GM in NA CHLORIDE 0.9% 250 ML IVPB SCH (08:08)
[2019-10-12] MEDS ORDERED: FUROSEMIDE 40 MG/4 ML VIAL IV ONE ×2 (10:33→16:00)
--- NOTE | 2019-10-12 12:08 | RAD REPORT ---
EXAM DESCRIPTION: RAD - Chest Pa And Lat (2 Views) - 10/12/2019 11:54 am CLINICAL HISTORY: abnormal breath sounds COMPARISON: Portable January 05, 2020 TECHNIQUE: Frontal and lateral views of the chest were obtained. FINDINGS: The lungs are underinflated. Defibrillator is in place. Interstitial opacification is pres ent in both lung garcia slightly increased over the comparison. Cardiomegaly is present with vascul ar engorgement, increased over comparison. No pneumothorax or large pleural effusion. No acute bony f inding noted. No aortic abnormality. IMPRESSION: Mild CHF/volume overload pattern.
[2019-10-12] MEDS: FENTANYL CITR 100 MCG/2 ML IV PRN (12:14)
--- NOTE | 2019-10-12 13:27 | P.PN ---
Subjective Date of Service: 10/12/19 Chief Complaint: Improving. Subjective: Worsening SOB with minimal movement. Physical Examination - Vital Signs Temperature: 98.9 F Blood Pressure: 175/81 Pulse: 89 Respirations: 18 Pulse Ox (%): 98 - Physical Exam General: Alert, In no apparent distress HEENT: Atraumatic, PERRLA, EOMI Neck: Supple, JVD not distended Respiratory: Diminished, Crackles/rales Cardiovascular: Regular rate/rhythm, Normal S1 S2 Gastrointestinal: Normal bowel sounds, No tenderness Musculoskeletal: Swelling, Erythema, Tenderness, Warmth Integumentary: No rashes Neurological: Normal speech, Normal tone, Normal affect Lymphatics: No axilla or inguinal lymphadenopathy - Studies Laboratory Tests 10/11/19 10/12/19 10/12/19 05:17 07:09 10:49 Hgb 8.8 L Hct 26.8 L Sodium 148 H Potassium 4.0 Chloride 115 H BUN 63 H Creatinine 2.53 H Glucose 123 H POC Glucose NT-Pro-B Natriuret Pep 77911 H Procalcitonin 10/12/19 10/12/19 10:49 11:40 Hgb Hct Sodium Potassium Chloride BUN Creatinine Glucose POC Glucose 132 H NT-Pro-B Natriuret Pep Procalcitonin 0.08 Medications List Reviewed: Yes Assessment & Plan Discharge Plan: Home - Code Status/Comfort Care Code Status Assessed: Yes Physician Review Additional Text: #Cellulitis of the left lower extremity with failed outpatient treatment, was on clindamycin for 3 days. -Blood cultures no growth -continue IV antibiotics with vancomycin and cefepime. -Patient instructed to elevate her leg, ice as needed. -ruled out acute DVT #Acute on chronic kidney disease stage 3- cr is trending down. - Nephro on consult. - We will monitor creatinine levels and avoid NSAIDs. #Diastolic congestive heart failure, acute on chronic. -CXR with pulm vac congestion. SOB this a.m. Requiring NC -BNP elevated. JVD & edema -1 dose 40mg IV lasix this a.m; will give another dose this evening. -Wean off supplemental oxygen. -Monitor I's and O's, fluid restriction. #Hypertensive heart disease. #Moderate pulmonary hypertension. #Diabetes mellitus type 2, [id number]-mhyepxmkc with chronic kidney disease and hyperglycemia. -Continue sliding scale insulin. Monitor blood glucose levels. #Mixed hyperlipidemia- Continue statin. #Coronary artery disease [place] artery and [place] heart without angina status post stent. #Status post defibrillator. #Essential hypertension, stable. Patient is a DNR and dw patient/daughter at bedside. DC home once weaned off supplemental oxygen
[2019-10-12] MEDS ORDERED: LORAZEPAM 1 MG TABLET PO ONE (16:00)
[2019-10-12] MEDS: ENOXAPARIN 30 MG/0.3 ML SQ SCH (16:36)
[2019-10-12] MEDS ORDERED: VANCOMYCIN 1.25 GM in NA CHLORIDE 0.9% 250 ML IVPB SCH (17:00)
[2019-10-12] MEDS ORDERED: hydroCHLOROthiazide 25 MG TAB PO ONE (19:16)
--- NOTE | 2019-10-12 19:19 | P.PN ---
Date of Service: 10/12/19 Vital Signs Temp Pulse Resp BP Pulse Ox 98.4 F 97 H 20 168/79 H 98 10/12/19 16:00 10/12/19 16:00 10/12/19 16:00 10/12/19 16:00 10/12/19 16:00 Medications Acetaminophen (Tylenol -Extra Strength) 500 mg PO Q6H PRN PRN Reason: Pain scale 2-4 (Mild) Stop: 11/08/19 20:31 Last Admin: 10/11/19 09:45 Dose: 500 mg Enoxaparin Sodium (Lovenox 30 Mg Inj) 30 mg SQ DAILY 5 PM [facility] Stop: 11/09/19 17:01 Last Admin: 10/12/19 16:36 Dose: 30 mg Fentanyl Citrate (Sublimaze) 25 mcg IV Q6H PRN PRN Reason: Pain scale 8-10 (Severe) Stop: 11/10/19 00:03 Last Admin: 10/12/19 12:14 Dose: 25 mcg Cefepime HCl (Maxipime 1 Gm/10 Ml Ivp) 10 mls @ 200 mls/hr IV Q24H [facility] Stop: 11/09/19 21:01 Last Admin: 10/11/19 20:38 Dose: 10 mls Vancomycin HCl 1.25 gm/ Sodium (Chloride) 250 mls @ 150 mls/hr IVPB Q48H [facility] Stop: 11/11/19 17:01 Last Admin: 10/12/19 16:36 Dose: 250 mls Insulin Human Regular (Novolin -R) 0 unit SQ ACHS [facility]; Protocol Stop: 11/08/19 21:01 Last Admin: 10/12/19 16:30 Dose: Not Given Ondansetron HCl (Zofran) 4 mg IV Q4H PRN PRN Reason: NAUSEA / VOMITING Stop: 11/08/19 20:31 Sodium Chloride (Normal Saline Flush) 10 ml IV BID [facility] Stop: 11/08/19 21:01 Last Admin: 10/12/19 08:08 Dose: 10 ml Microbiology Results 10/09/19 16:25 Blood - Blood Aerobic Blood Culture - Preliminary No growth in 24 hours. 10/09/19 16:25 Blood - Blood Anaerobic Blood Culture - Preliminary No growth in 24 hours. 10/09/19 16:15 Blood - Blood Aerobic Blood Culture - Preliminary No growth in 24 hours. 10/09/19 16:15 Blood - Blood Anaerobic Blood Culture - Preliminary No growth in 24 hours. Assessment/ Plan: Nephrology Feeling better but reports WHITAKER with walking to the bathroom. CPS stable without CP or SOB. No acute events overnight. IVF stopped yesterday due to hypervolemia. General: In no apparent distress, Oriented x3, Cooperative HEENT: Atraumatic Neck: Supple Respiratory: Clear to auscultation bilaterally, Normal air movement Cardiovascular: Regular rate/rhythm, Edema Gastrointestinal: Soft and benign, Non-distended Musculoskeletal: No clubbing, No contractures Integumentary: No cyanosis, Erythema Neurological: Normal speech Blood work reviewed in the chart. Hgb 9; BUN 97; Cr 3.52 Imagings Data: EXAM DESCRIPTION: RAD - Tib Fib Left - 10/09/2019 4:09 pm CLINICAL HISTORY: Left leg pain and swelling COMPARISON: January 2013 FINDINGS: No fracture is identified. There is no dislocation or periosteal reaction noted. Knee joint degenerative changes are present primarily in the medial compartment. These a showing a mild progression from 2013. Patella degenerative changes are mildly progressive. Bones are mildly osteopenic. No air or foreign body in the soft tissues. Soft tissues appear mildly edematous. IMPRESSION: Mild osteopenic change as well as degenerative change at the joints. No acute finding. Conclusions/Impression: A/ RAGHAVENDRA vs Progressive CKD. Hypernatremia. CKD V with proteinuria. DM II with CKD. HTN with CKD/ CHF. Diastolic CHF, chronic. Pulmonary HTN. CALISTA/ Secondary HyperPTH. Hypocalcemia. Hyperuricemia. Anemia in chronic illness/ CKD. LLE Cellulitis. P/ Continue current POC and Medications. Give HCTZ X1 dose. Restart Metoprolol. Continue abx. Follow up cultures. Give Retacrit PRN. No NSAIDs. AM Labs PRN. Daily weight.
[2019-10-12] MEDS ORDERED: METOPROLOL TAR 25 MG TAB PO SCH (19:30)
[2019-10-12] MEDS: CEFEPIME/SWI 1gm 10 ML IV SCH (21:12)
[2019-10-12 21:17] VITALS: BP 161/63
[2019-10-12 22:37] VITALS: TEMP 98.3
--- NOTE | 2019-10-13 09:08 | P.DS ---
Admission Date: 10/09/19 Discharge Date: 10/13/19 Disposition: ROUTINE DISCHARGE Discharge Condition: GOOD Reason for Admission: Improving. Consultations: Utility Technician - Problems (1) Cellulitis Status: Acute (2) CHF (congestive heart failure) Status: Acute Brief History of Present Illness: Admission diagnosis: Cellulitis of the left lower extremity with failed outpatient treatment Compensated diastolic heart failure Acute on chronic kidney disease stage 3 Hypertensive heart disease Diabetes mellitus type 2 Moderate pulmonary hypertension CAD Status post defibrillator Discharge diagnosis:Cellulitis of the left lower extremity with failed outpatient treatment Decompensated diastolic heart failure Acute on chronic kidney disease stage 3 Hypertensive heart disease Diabetes mellitus type 2 Moderate pulmonary hypertension CAD Status post defibrillator Hospital Course: Ms Gomez is 84-year-old female with a history of diastolic heart failure, CKD 3, hypertension who presented to the emergency room with complaints of left lower extremity swelling, pain, erythema. Patient was initiated on clindamycin by PCP for cellulitis however was not improving. She was admitted for cellulitis of the left lower extremity. Upper extremity venous Doppler ruled out acute DVT. She was initiated on IV antibiotics and improved significantly. On presentation, she had acute on chronic kidney failure, followed by her primary patch sander and creatinine did improve to baseline. While inpatient, patient went into decompensated diastolic heart failure, requiring diuretics. She did improve as expected and now euvolemic. She remained hemodynamically stable and will follow up with her PCP outpatient. Vital Signs/Physical Exam: Temp Pulse Resp BP Pulse Ox 98.3 F 80 20 161/63 H 100 10/12/19 20:00 10/12/19 21:13 10/12/19 20:00 10/12/19 21:13 10/12/19 20:00 General: Alert, In no apparent distress HEENT: Atraumatic, PERRLA, EOMI Neck: Supple, JVD not distended Respiratory: Normal air movement, Crackles/rales Cardiovascular: Regular rate/rhythm, Normal S1 S2 Gastrointestinal: Normal bowel sounds, No tenderness Musculoskeletal: No tenderness Integumentary: Rash(es), Erythema, Warmth Neurological: Normal speech, Normal tone, Normal affect Lymphatics: No axilla or inguinal lymphadenopathy Laboratory Data at Discharge: WBC 5.0 K/uL (4.3-10.9) 10/11/19 05:17 Hgb 8.8 g/dL (12.0-15.0) L 10/11/19 05:17 Hct 26.8 % (36.0-45.0) L 10/11/19 05:17 Plt Count 213 K/uL (152-406) 10/11/19 05:17 Sodium 148 mmol/L (136-145) H 10/12/19 07:09 Potassium 4.0 mmol/L (3.5-5.1) 10/12/19 07:09 BUN 63 mg/dL (7-18) H 10/12/19 07:09 Creatinine 2.53 mg/dL (0.55-1.3) H 10/12/19 07:09 Glucose 123 mg/dL (74-106) H 10/12/19 07:09 Uric Acid 12.2 mg/dL (2.6-6.0) H D 10/10/19 05:15 Phosphorus 4.5 mg/dL (2.5-4.9) 10/10/19 05:15 Magnesium 2.9 mg/dL (1.8-2.4) H 10/10/19 05:15 Total Bilirubin 0.6 mg/dL (0.2-1.0) 10/10/19 05:15 AST 30 U/L (15-37) 10/10/19 05:15 ALT 17 U/L (12-78) 10/10/19 05:15 Alkaline Phosphatase 44 U/L (45-117) L 10/10/19 05:15 Home Medications: Amlodipine [Norvasc*] 1 tab PO DAILY 09/18/18 Aspirin 81 mg PO DAILY 09/18/18 Clopidogrel Bisulfate [Plavix*] 1 tab PO DAILY 09/18/18 Fenofibrate Nanocrystallized [Fenofibrate] 140 mcg PO DAILY 09/18/18 Furosemide [Lasix] 80 mg PO DAILY 09/18/18 Gabapentin 100 mg PO BEDTIME 09/18/18 Levothyroxine Sodium 50 mcg PO DAILY 09/18/18 Multivitamin/Iron/Folic Acid [Centrum Women Tablet] 1 tab PO DAILY 09/18/18 Linagliptin [Tradjenta] 5 mg PO DAILY 12/30/18 Cetirizine HCl [Zyrtec] 1 tab PO DAILY 10/09/19 Metoprolol Tartrate 1 tab PO BID 10/09/19 Rosuvastatin Calcium 20 mg PO DAILY 10/09/19 Cefdinir [Omnicef] 300 mg PO BID #14 capsule 10/12/19 New Medications: Cefdinir [Omnicef] 300 mg PO BID #14 capsule Patient Discharge Instructions: Ok to DC IV and DC home. Follow-up wth PCP in 1 -2 weeks. Follow-up with Cardiology in 1-2 weeks. Return to the ER if symptoms worsens Diet: AHA Activity: Fall precautions Followup: Brandie Wilkerson, [Primary Care Provider] - 1-2 Weeks
== END 2019-10-12 23:04 | disposition home or self-care (01) | DRG 602 ==
LOC: ER 15:18 → ERHOLD 17:03 → 2ND 19:47
PROVIDERS: ADMIT Family Medicine; ATTEND Hospitalist
DX: L03.116 Cellulitis of left lower limb (principal); N17.0 Acute kidney failure with tubular necrosis; I13.0 Hypertensive heart and chronic kidney disease with heart failure and stage 1 through stage 4 chronic kidney disease, or unspecified chronic kidney disease; I50.32 Chronic diastolic (congestive) heart failure; E87.0 Hyperosmolality and hypernatremia; I25.2 Old myocardial infarction; Z95.5 Presence of coronary angioplasty implant and graft; N18.3 Chronic kidney disease, stage 3 (moderate); E11.22 Type 2 diabetes mellitus with diabetic chronic kidney disease; W18.30XA Fall on same level, unspecified, initial encounter; Y92.012 Bathroom of single-family (private) house as the place of occurrence of the external cause; Z90.710 Acquired absence of both cervix and uterus; Z90.49 Acquired absence of other specified parts of digestive tract; I27.20 Pulmonary hypertension, unspecified; E11.65 Type 2 diabetes mellitus with hyperglycemia; E78.2 Mixed hyperlipidemia; Z95.810 Presence of automatic (implantable) cardiac defibrillator; I25.10 Atherosclerotic heart disease of native coronary artery without angina pectoris; Z88.5 Allergy status to narcotic agent; Z88.0 Allergy status to penicillin; Z88.8 Allergy status to other drugs, medicaments and biological substances; Z79.899 Other long term (current) drug therapy; Z79.02 Long term (current) use of antithrombotics/antiplatelets; Z79.890 Hormone replacement therapy; Z79.84 Long term (current) use of oral hypoglycemic drugs; E11.51 Type 2 diabetes mellitus with diabetic peripheral angiopathy without gangrene; E21.1 Secondary hyperparathyroidism, not elsewhere classified; E79.0 Hyperuricemia without signs of inflammatory arthritis and tophaceous disease; D63.1 Anemia in chronic kidney disease
CPT/HCPCS: 36415; 71046; 80048; 80076; 80202; 81001; 82043; 82570; 82947; 83735; 83880; 84100; 84145; 84300; 84550; 85025; 86317; 86704; 87040; 87340; 93971; 94760; 96365; 96366; 99285; J0692; J1650; J1940; J3010; J3370; J7030

== ENCOUNTER 2019-12-30 11:09 | Observation (INO) | payer OTHER ==
--- OUTSIDE RECORDS SUMMARY | 2019-12-30 11:13 | XMS REPORT | Clinical Summary ---
:1935 Author Organization [facility] Address [address] [place] [address] Care Team Providers Name Role Phone Brandie Wilkerson DO Primary Care Provider Allergies Active Allergy Reactions Severity Noted Date Comments No Known Drug Allergies 05/27/2016 Medications Medication Sig Dispensed Refills Start End Status Date Date amLODIPine Take 5 mg by 0 06/24/20 Active (NORVASC) 5 mg mouth daily. 16 tablet TRADJENTA 5 mg Take 5 mg by 3 06/18/20 Ac tive tablet mouth daily 16 with breakfast. aspirin (ECOTRIN) Take 81 mg by 0 Active 81 MG enteric mouth daily. coated tablet levothyroxine Take 50 mcg by 0 01/22/20 A ctive (SYNTHROID, mouth every 18 LEVOXYL) 50 mcg morning. tablet metoprolol Take 25 mg by 3 07/07/20 Activ e succinate XL mouth 2 (two) 18 (TOPROL-XL) 25 mg times a day. 24 hr tablet omeprazole/sodium Take 1 tablet 0 Active bicarbonate by mouth (ZEGERID ORAL) nightly as needed (Heartburn). ergocalciferol Take 50,000 0 Act matt (VITAMIN D2) Units by mouth 50,000 unit once a week. capsule Wednesday gabapentin Take 100 mg by 0 Acti ve (NEURONTIN) 100 mg mouth nightly capsule as needed. multivitamin Take 1 tablet 0 Act matt (THERAGRAN) tablet by mouth daily. potassium chloride TAKE 2 CAPSULES 0 01/10/20 Active (MICRO-K) 10 MEQ (20 MEQ TOTAL) 19 CR capsule BY MOUTH ONCE FOR 1 DOSE. atorvastatin Take 1 tablet 90 tablet 0 02/21/20 Act matt (LIPITOR) 80 MG (80 mg total) 19 tablet by mouth daily. fenofibrate Take 1 tablet 90 tablet 3 03/22/20 Acti ve (TRICOR) 145 MG (145 mg total) 19 tablet by mouth daily. fenofibrate Take 1 tablet 30 tablet 0 07/18/20 Acti ve (TRICOR) 145 MG (145 mg total) 19 tabletIndications: by mouth daily. Coronary artery disease involving [place] heart with angina pectoris, unspecified vessel or lesion type (HCC) clopidogreL TAKE 1 TABLET 90 tablet 0 11/03/19 Acti ve (PLAVIX) 75 mg BY MOUTH EVERY 20 tablet DAY rosuvastatin TAKE 1 TABLET 90 tablet 0 12/05/19 Act matt (CRESTOR) 20 mg BY MOUTH EVERY 20 tablet DAY CHOLECALCIFEROL, Take 3,000 0 Di scontinued VITAMIN D3, Units by mouth 019 (VITAMIN D3 ORAL) daily. clopidogrel Take 1 tablet 90 tablet 3 03/03/20 Disc ontinued (PLAVIX) 75 mg (75 mg total) 17 019 ( Reorder) tablet by mouth once daily. alendronate Take 70 mg by 0 Disc ontinued (FOSAMAX) 70 MG mouth every 7 019 (Med List tablet days. Take in Cleanu p) the morning with a full glass of water on an empty stomach, do NOT take anything else by mouth or lie down for the next 30 min. famotidine TAKE 1 TABLET 60 tablet 0 09/24/19 Disco ntinued (PEPCID) 20 MG BY MOUTH 18 019 (Med List tablet NIGHTLY Cleanup) NEEDED FOR HEARTBURN FOR UP TO 30 DAYS fenofibrate TAKE 1 TABLET 90 tablet 2 05/19/20 Disc ontinued (TRICOR) 145 MG (145 MG TOTAL) 18 019 (Med List tabletIndications: BY MOUTH DAILY. Cleanup) Coronary artery disease involving [place] heart with angina pectoris, unspecified vessel or lesion type (HCC) furosemide (LASIX) Take 80 mg by 3 05/29/20 Discontinued 80 mg tablet mouth daily. 18 019 (Reo rder) rosuvastatin Take 1 tablet 30 tablet 0 12/06/19 Dis continued (CRESTOR) 20 MG (20 mg total) 19 019 (Reorder) tablet by mouth daily. rosuvastatin TAKE 1 TABLET 90 tablet 0 01/03/20 Dis continued (CRESTOR) 20 MG BY MOUTH EVERY 019 (Med List tablet DAY Cleanup) fenofibrate Take 145 mg by 0 Dis continued (TRICOR) 145 MG mouth daily. 019 ( Reorder) tablet pravastatin Take 80 mg by 0 Disc ontinued (PRAVACHOL) 80 MG mouth every 019 (Stop Taking at tablet morning. Discharge) amoxicillin-pot Take 1 tablet 0 Discontinued clavulanate by mouth 2 019 (Stop T aking at (AUGMENTIN) (two) times a Disc harge) 875-125 mg per day. For 13 tablet days Pt. Hasn't started yet prescription given 01/03/19 furosemide (LASIX) Take 1 tablet 60 tablet 0 01/10/20 80 mg tablet (80 mg total) 019 by mouth 2 (two) times a day for 30 days. atorvastatin Take 1 tablet 30 tablet 0 01/10/20 Exp ired (LIPITOR) 80 MG (80 mg total) tabletIndications: by mouth Near syncope nightly for 30 days. bisacodyl Insert 1 14 suppository 0 01/10/20 Expir ed (DULCOLAX) 10 mg suppository (10 suppository mg total) into the rectum daily as needed for constipation for up to 30 days. potassium chloride Take 2 capsules 2 capsule 0 01/10/2001/09 (MICRO-K) 10 MEQ (20 mEq total) CR capsule by mouth once for 1 dose. polyethylene Take 17 g by 30 packet 1 01/10/20 Expi red glycol (MIRALAX) mouth daily as 019 17 gram packet needed for constipation for up to 30 days. amoxicillin-pot Take 1 tablet 16 tablet 0 01/11/20 clavulanate by mouth 2 019 (AUGMENTIN) (two) times a 875-125 mg per day for 8 days. tablet fenofibrate TAKE 1 TABLET 90 tablet 2 01/26/20 Disc ontinued (TRICOR) 145 MG (145 MG TOTAL) 19 019 (Reorder) tabletIndications: BY MOUTH DAILY. Coronary artery disease involving [place] heart with angina pectoris, unspecified vessel or lesion type (HCC) clopidogrel Take 1 tablet 90 tablet 0 02/21/20 Disc ontinued (PLAVIX) 75 mg (75 mg total) 19 019 ( Reorder) tablet by mouth once daily. atorvastatin Take 1 tablet 90 tablet 0 02/21/20 Dis continued (LIPITOR) 80 MG (80 mg total) 19 019 (Reorder) tablet by mouth daily. clopidogrel TAKE 1 TABLET 90 tablet 0 05/09/20 Disc ontinued (PLAVIX) 75 mg BY MOUTH EVERY 020 tablet DAY rosuvastatin TAKE 1 TABLET 30 tablet 0 06/08/20 Dis continued (CRESTOR) 20 MG BY MOUTH EVERY 019 tablet DAY rosuvastatin TAKE 1 TABLET 30 tablet 0 07/10/20 Dis continued (CRESTOR) 20 MG BY MOUTH EVERY 019 tablet DAY rosuvastatin TAKE 1 TABLET 30 tablet 0 07/11/20 Dis continued (CRESTOR) 20 MG BY MOUTH EVERY 020 (Reorder) tablet DAY clopidogreL TAKE 1 TABLET 90 tablet 0 08/11/19 Disc ontinued (PLAVIX) 75 mg BY MOUTH EVERY 20 020 tablet DAY rosuvastatin Take 1 tablet 90 tablet 0 08/28/19 Dis continued (CRESTOR) 20 MG (20 mg total) 20 020 tablet by mouth daily. 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 an myah pectoris 07/06/2017 Overview: Added automatically from request for richard irizarry [id number] large anterior pericardial effusion s/p window 017 Systolic congestive heart failure 03/02/2017 Stented coronary artery 06/30/2016 PAD (peripheral artery disease) 06/30/2016 Chronic kidney disease, stage III (moderate) 6 Cardiomyopathy 05/27/2016 Coronary arteriosclerosis 05/27/2016 Essential hypertension 05/27/2016 Hyperlipidemia 05/27/2016 Encounters Date Type Specialty Care Team Description 12/05/2019 Refill Cardiology Ashok Matson, Med Refill 11/03/2019 Refill Cardiology Ashok Matson, Med Refill 08/28/2019 Orders Only Cardiology Ankit Purcell MA 08/10/2019 Refill Cardiology Ashok Matson, Med Refill 08/01/2019 Office Visit Cardiology Ashok Matson, Systolic co ngestive heart failure, unspecified HF chronicity (HCC) (Primary Dx); Stented coronar y artery 07/18/2019 Orders Only Cardiology Ankit Purcell MA Coronary arter y disease involving nativ e heart with angina pec toris, unspecified ves pattie or lesion type (HC C) 07/11/2019 Refill Cardiology Ashok Matson Med Refill 07/09/2019 Refill Cardiology Ashok Matson, Med Refill 06/08/2019 Refill Cardiology Ashok Matson Med Refill 05/09/2019 Refill Cardiology Ashok Matson, Med Refill 03/22/2019 Refill Cardiology Irina Mckeon, Med Refill RYLIE 03/14/2019 Refill Internal Medicine Alexi Samano MD 02/20/2019 Orders Only Cardiology Ankit Purcell MA 02/20/2019 Orders Only Cardiology Ankit Purcell MA 02/18/2019 Refill Internal Medicine Alexi Samano MD 02/07/2019 Refill Internal Medicine Alexi Samano Near panda Tripp MD 02/03/2019 Refill Internal Medicine Alexi Samano Near panda Tripp MD 01/31/2019 Office Visit Cardiology Ashok Matson, Systolic co ngestive heart failure, unspecified HF chronicity (HCC) (Primary Dx); H/O AICD; Ischemic cardio myopathy; Coronary arteri osclerosis 01/25/2019 Refill Cardiology Ashok Matson, Med Refill 01/12/2019 Orders Only Cardiology Ness Buck RN Essential h ypertension (Primary Dx) 01/05/2019 Patient Outreach Quality Carmen Rebollar 01/04/2019 [facility] Cardiology Ryder Zavala, Near sync ope (Primary Dx); - Encounter Shortness of breath; 01/09/2019 Idalia Camejo, Tachypnea; Chronic kidney disease, unspecified CKD stage; Baljinder Knutson PVD (bruna pheral vascular disease) ([facility]); MD Ryley Controlled type 2 diabetes mellitus with other specified complication, without long-term current use of insulin ([facility]); Pleural effusio n; Pericardial eff usion; Anemia, unspeci fied type; Elevated tropon in; Acute on chroni c congestive heart failure, unspecified heart failure type ([facility]); Ischemic cardio myopathy; Acute on chroni c combined systolic and diastolic heart failure ([facility]) 01/04/2019 Intake Access 12/31/2018 Refill Cardiology Ashok Matson, Med Refill MD after 12/29/2018 Family History Relation Name Status Comments Father [...] Vital Signs Vital Sign Reading Time Taken Comments Blood Pressure 130/62 08/01/2019 9:40 AM GAS REVERSER Pulse 68 08/01/2019 9:40 AM GAS REVERSER Temperature 36.6 C (97.8 F) 01/09/2019 3:48 PM CDT Respiratory Rate 18 01/09/2019 3:48 PM CDT Oxygen Saturation 95% 01/09/2019 3:48 PM CDT Inhaled Oxygen Concentration - - Weight 75.3 kg (166 lb) 08/01/2019 9:40 AM GAS REVERSER Height 149.9 cm (4' 11") 08/01/2019 9:40 AM GAS REVERSER Body Mass Index 33.53 08/01/2019 9:40 AM GAS REVERSER Plan of Treatment Date Type Specialty Care Team Description 01/30/2020 Office Visit Cardiology Ashok Matson MD [address] [facility] [address] [place], [place] [address] [phone] Health Maintenance Due Date Last Done Comments DIABETIC RETINAL EYE EXAM 1935 DIABETIC FOOT EXAM 1945 SHINGLES VACCINES (#1) 1987 65+ PNEUMOCOCCAL VACCINE (2 of 2 - PPSV23) 02/14/200204/26 INFLUENZA VACCINE 02/17/2020 Implants Implanted Type Area Recreation Counselor Device Shelf Model / Identifier Expiration Serial / Date Lot Kit Prcrdocnts Perivac - [id number] Central N/A: N/A [place] [id number] / Implanted: 07/09/2017 at [facility] (Quantity not on file) Antonino ous [employer] EDDI / Catheters Drain Wnd Chnl 24fr 16in Rnd Hbls Fl-Flut Pari - [id number] Surg ical N/A: N/A [employer] OF 11/15/2021 [id number] / Implanted: Qty: 1 on 07/21/2017 by Jose Dill MD at [facility] Implants; JESSE & / Expanders; JESSE Extenders; Surgical Wires Procedures Procedure Name Priority Date/Time Associated Comments Diagnosis POC GLUCOSE Routine 01/09/2019 11:51 Results for this AM CDT procedure are i n the results section. POC GLUCOSE Routine 01/09/2019 8:05 Results for this AM CDT procedure are i n the results section. ESTIMATED GFR Routine 01/09/2019 5:28 Results fo r this AM CDT procedure are i n the results section. PHOSPHORUS LEVEL Routine 01/09/2019 5:28 Results for this AM CDT procedure are i n the results section. MAGNESIUM LEVEL Routine 01/09/2019 5:28 Results for this AM CDT procedure are i n the results section. HC COMPLETE BLD COUNT Routine 01/09/2019 5:28 Re sults for this W/AUTO DIFF AM CDT procedure are i n the results section. BASIC METABOLIC PANEL Routine 01/09/2019 5:28 Re sults for this AM CDT procedure are i n the results section. POC GLUCOSE Routine 01/08/2019 9:08 Results for this PM CDT procedure are i n the results section. POC GLUCOSE Routine 01/08/2019 5:59 Results for this PM CDT procedure are i n the results section. POC GLUCOSE Routine 01/08/2019 11:08 Results for this AM CDT procedure are i n the results section. POC GLUCOSE Routine 01/08/2019 7:21 Results for this AM CDT procedure are i n the results section. ESTIMATED GFR Routine 01/08/2019 6:07 Results fo r this AM CDT procedure are i n the results section. PHOSPHORUS LEVEL Routine 01/08/2019 6:07 Results for this AM CDT procedure are i n the results section. MAGNESIUM LEVEL Routine 01/08/2019 6:07 Results for this AM CDT procedure are i n the results section. BASIC METABOLIC PANEL Routine 01/08/2019 6:07 Re sults for this AM CDT procedure are i n the results section. HC COMPLETE BLD COUNT Routine 01/08/2019 6:07 Re sults for this W/AUTO DIFF AM CDT procedure are i n the results section. URINALYSIS SCREEN AND Routine 01/07/2019 9:10 Re sults for this MICROSCOPY, WITH REFLEX PM CDT proc edure are in TO CULTURE the results section. URINE CULTURE Routine 01/07/2019 9:10 Results fo r this PM CDT procedure are i n the results section. POC GLUCOSE Routine 01/07/2019 8:28 Results for this PM CDT procedure are i n the results section. POC GLUCOSE Routine 01/07/2019 5:35 Results for this PM CDT procedure are i n the results section. URINALYSIS SCREEN AND Routine 01/07/2019 4:30 Re sults for this MICROSCOPY, WITH REFLEX PM CDT proc edure are in TO CULTURE the results section. POC GLUCOSE Routine 01/07/2019 11:56 Results for this AM CDT procedure are i n the results section. POC GLUCOSE Routine 01/07/2019 7:18 Results for this AM CDT procedure are i n the results section. HC COMPLETE BLD COUNT Routine 01/07/2019 4:10 Re sults for this W/AUTO DIFF AM CDT procedure are i n the results section. ESTIMATED GFR Routine 01/07/2019 4:00 Results fo r this AM CDT procedure are i n the results section. PHOSPHORUS LEVEL Routine 01/07/2019 4:00 Results for this AM CDT procedure are i n the results section. MAGNESIUM LEVEL Routine 01/07/2019 4:00 Results for this AM CDT procedure are i n the results section. BASIC METABOLIC PANEL Routine 01/07/2019 4:00 Re sults for this AM CDT procedure are i n the results section. POC GLUCOSE Routine 01/06/2019 9:48 Results for this PM CDT procedure are i n the results section. POC GLUCOSE Routine 01/06/2019 5:44 Results for this PM CDT procedure are i n the results section. POC GLUCOSE Routine 01/06/2019 11:38 Results for this AM CDT procedure are i n the results section. POC GLUCOSE Routine 01/06/2019 8:08 Results for this AM CDT procedure are i n the results section. HC COMPLETE BLD COUNT Routine 01/06/2019 4:05 Re sults for this W/AUTO DIFF AM CDT procedure are i n the results section. ESTIMATED GFR Routine 01/06/2019 4:00 Results fo r this AM CDT procedure are i n the results section. TROPONIN Routine 01/06/2019 4:00 Results for this AM CDT procedure are i n the results section. PHOSPHORUS LEVEL Routine 01/06/2019 4:00 Results for this AM CDT procedure are i n the results section. MAGNESIUM LEVEL Routine 01/06/2019 4:00 Results for this AM CDT procedure are i n the results section. BASIC METABOLIC PANEL Routine 01/06/2019 4:00 Re sults for this AM CDT procedure are i n the results section. POC GLUCOSE Routine 01/05/2019 10:46 Results for this PM CDT procedure are i n the results section. TROPONIN STAT 01/05/2019 9:30 Results for this PM CDT procedure are i n the results section. POC GLUCOSE Routine 01/05/2019 5:05 Results for this PM CDT procedure are i n the results section. ECG 12-LEAD STAT 01/05/2019 4:32 Results for this PM CDT procedure are i n the results section. POC GLUCOSE Routine 01/05/2019 12:21 Results for this PM CDT procedure are i n the results section. TTE COMPLETE, WO Routine 01/05/2019 12:00 Results for this CONTRAST, W DOPPLER PM CDT procedur e are in ([id number]) the results section. POC GLUCOSE Routine 01/05/2019 7:27 Results for this AM CDT procedure are i n the results section. MANUAL DIFFERENTIAL Routine 01/05/2019 6:00 Resu lts for this AM CDT procedure are i n the results section. ESTIMATED GFR Routine 01/05/2019 6:00 Results fo r this AM CDT procedure are i n the results section. PHOSPHORUS LEVEL Routine 01/05/2019 6:00 Results for this AM CDT procedure are i n the results section. MAGNESIUM LEVEL Routine 01/05/2019 6:00 Results for this AM CDT procedure are i n the results section. BASIC METABOLIC PANEL Routine 01/05/2019 6:00 Re sults for this AM CDT procedure are i n the results section. CBC WITH PLATELET AND Routine 01/05/2019 6:00 Re sults for this DIFFERENTIAL AM CDT procedure are i n the results section. TROPONIN Timed 01/04/2019 11:42 Results for this PM CDT procedure are i n the results section. TROPONIN Routine 01/04/2019 5:10 Results for this PM CDT procedure are i n the results section. XR CHEST 2 VW STAT 01/04/2019 2:10 Results fo r this PM CDT procedure are i n the results section. ESTIMATED GFR STAT 01/04/2019 2:09 Results fo r this PM CDT procedure are i n the results section. B NATRIURETIC PEPTIDE STAT 01/04/2019 2:09 Re sults for this PM CDT procedure are i n the results section. TROPONIN STAT 01/04/2019 2:09 Results for this PM CDT procedure are i n the results section. COMPREHENSIVE METABOLIC STAT 01/04/2019 2:09 Results for this PANEL PM CDT procedure are i n the results section. HC COMPLETE BLD COUNT STAT 01/04/2019 2:09 Re sults for this W/AUTO DIFF PM CDT procedure are i n the results section. ECG ED PRELIMINARY Routine 01/04/2019 1:37 Resul ts for this INTERPRETATION PM CDT procedure are in the results section. ECG 12-LEAD STAT 01/04/2019 1:27 Results for this PM CDT procedure are i n the results section. after 12/29/2018 Results POC glucose (01/09/2019 11:51 AM CDT)Only the most recent of18 resultswithin the time period is included. Pathologist Sig nature POC glucose 112 (H) 65 - 99 mg/dL [facility] Comment: HOSPITAL No Action Needed Meter ID: [id number] Poultry Killer: Rachid Douglas Specimen Performing Organization Address City/State/Zipcode Phone Number [facility]PARTMENT OF PATHOLOGY AND [address] [place] [phone] [facility] [address] [place] [address] Estimated GFR (01/09/2019 5:28 AM CDT)Only the most recent of6 resultswithin the time period is included. Pathologist [facility] [place] Estimated GFR 18 (A) mL/min/1.73 [facility] Comment: m2 HOSPITAL Catergory Units Interpretation G1 >=90 Normal or high G2 60-89 Mildly decreased G3a 45-59 Mildly to moderately decreas ed G3b 30-44 Moderately to severely decre ased G4 15-29 Severely decreased G5 <15 Kidney failure The eGFR was calculated using the Chronic Kidney Disea se Epidemiology Collaboration (CKD-EPI) equation. Interpretation is based on recommendations of the National Kidney Foundation-Kidney Disease Outcomes Jonny lity Initiative (NKF-KDOQI) published in 2014. Specimen Plasma specimen Performing Organization Address City/State/Zipcode Phone Number [facility] OF PATHOLOGY AND [address] [place], [place] [phone] [facility] [address] [place] [address] CBC with platelet and differential (01/09/2019 5:28 AM CDT)Only the most recent of6 resultswithin the time period is included. [facility] WBC 9.08 4.50 - 11.00 [facility] k/uL [facility] RBC 3.70 (L) 4.20 - 5.50 [facility] m/uL [facility] HGB 11.2 (L) 12.0 - 16.0 [facility] g/dL [facility] HCT 35.2 (L) 37.0 - 47.0 % [facility] MCV 95.1 82.0 - 100.0 [facility] MCH 30.3 27.0 - 34.0 pg [facility] MCHC 31.8 31.0 - 37.0 [facility] RDW - SD 45.5 37.0 - 55.0 fL [facility] MPV 11.1 8.8 - 13.2 fL [facility] Platelet count 262 150 - 400 k/uL [facility] Nucleated RBC 0.00 /100 WBC [facility] Neutrophils 69.8 (H) 39.0 - 69.0 % [facility] Lymphocytes 16.0 (L) 25.0 - 45.0 % [facility] Monocytes 9.3 0.0 - 10.0 % [facility] Eosinophils 3.2 0.0 - 5.0 % [facility] Basophils 0.4 0.0 - 1.0 % [facility] Immature granulocytes 1.3 0.0 - 1.0 % [facility] (H)Comment: HOSPITAL "Immature granulocytes" (promyelocytes , myelocytes, metamyelocytes ) Specimen Blood Performing Organization Address [facility] Phone Number [facility] AND [address] [place] [phone] Phosphorus level (01/09/2019 5:28 AM CDT)Only the most recent of5 resultswithin the time period is included. Pathologist Sig [facility] Phosphorus 3.3 2.4 - 4.5 mg/dL [facility] L Specimen Plasma specimen Performing Organization Address [facility] Phone Number [facility] PATHOLOG[facility] AND [address] [place] [address] [phone] [address] Magnesium level (01/09/2019 5:28 AM CDT)Only the most recent of5 resultswithin the time period is included. Pathologist [facility] Magnesium 2.0 1.6 - 2.4 mg/dL [facility] L Specimen Plasma specimen Performing Organization Address [facility] Phone Number [facility]OLOG[facility] AND [address] [place] [address] [phone] [address] Basic metabolic panel (01/09/2019 5:28 AM CDT)Only the most recent of5 results within the time period is included. Pathologist Sig [facility] Sodium 137 135 - 148 mEq/L [facility] Potassium 3.7 3.5 - 5.0 mEq/L [facility] Chloride 88 (L) 98 - 112 mEq/L [facility] CO2 35 (H) 24 - 31 mEq/L [facility] Anion gap 14@ANIO 7 - 15 mEq/L [facility] BUN 56 (H) 8 - 23 mg/dL [facility] Creatinine 2.41 (H) 0.50 - 0.90 mg/dL [facility] Glucose 105 (H) 65 - 99 mg/dL [facility] Calcium 10.0 8.8 - 10.2 mg/dL [facility] Specimen Plasma specimen Performing Organization Address City/[facility]/Zipcode Phone Number [facility] OF PATHOLOGY AND [address] [place] [address] [phone] [address] Urinalysis screen and microscopy, with reflex to culture (01/07/2019 9:10 PM CDT)Only the most recent of2 resultswithin the time period is included. Specimen site Clean catch [facility] Color, UA Straw [facility] Appearance, UA Clear [facility] Specific gravity, UA 1.008 1.001 - 1.035 [facility] pH, UA 7.0 5.0 - 8.5 [facility] Protein, UA Negative Negative [facility] Glucose, UA Negative Negative [facility] Ketones, UA Negative Negative [facility] Bilirubin, UA Negative Negative [facility] Blood, UA Negative Negative [facility] Nitrite, UA Negative Negative [facility] Urobilinogen, UA <2.0 <2.0 [facility] Leukocyte esterase, Negative Negative [facility] Epithelial cells, UA <1 /HPF [facility] WBC, UA <1 0 - 4 /HPF [facility] RBC, UA <1 0 - 5 /HPF [facility] Bacteria, UA None seen None seen [facility] Yeast, UA None seen [facility] Yeast with None seen [facility] pseudohyphae, [facility] Hyaline casts, UA 1 /LPF [facility] Specimen Urine Performing Organization Address City/[facility]/Zipcode Phone Number [facility] OF PATHOLOGY AND [address] [place] [address] [phone] [address] Urine culture (01/07/2019 9:10 PM CDT) Pathologist Sig nature Urine culture SEE COMMENTComment: [facility] Bacteriuria screen HOSPITAL negative. Specimen Performing Organization Address City/[facility]/Zipcode Phone Number [facility]PARTMENT OF PATHOLOGY AND [address] [place] [address] [phone] [address] Troponin (01/06/2019 4:00 AM CDT)Only the most recent of5 resultswithin the time period is included. Troponin 0.109 (H) 0.000 - 0.040 [facility] Comment: ng/mL [facility] changed methodology eff ective: 11/22/2018 at 10:00 am The new method has a 99th percentile cutoff of 0.040 n g/mL Specimen Plasma specimen Performing Organization Address [facility] Phone Number [facility] AND [address] [place], [place] [address] GENOMIC MEDICINE [facility] [address] [place] [address] ECG 12 lead (01/05/2019 4:32 PM CDT)Only the most recent of2 resultswithin the time period is included. Ventricular rate 56 [facility] Atrial rate 56 [facility] IA interval 158 [facility] QRSD interval 144 [facility] QT interval 480 [facility] QTC interval 463 [facility] P axis 1 84 [facility] QRS axis 1 -42 [facility] T wave axis -55 [facility] EKG impression Sinus bradycardia-Left [facility] axis deviation-Nonspecific intraventricular block-Cannot rule out Anteroseptal infarct , age undetermined-Abnormal ECG-- Specimen Narrative Performed At This result has an attachment that is no t available. Performing Organization Address [facility] Phone Number [facility] [address] [place] [address] Echocardiogram complete w contrast and 3D if needed (01/05/2019 12:00 PM CDT) Specimen Narrative Performed At [facility] Echo cardiography Report [id number] [facility], [facility] [address], [place] [address] Pat.Name: MENDY GOMEZ Pat.ID: [id number]Date: 01/05/2019 Refer.MD: IDALIA CAMEJO MD Exam Time: 11:05:00 AM Study Type:Ro utine Echo Height: 59in Weight: 151lb BSA: 1.64 m2 Ag e: 1935,83Y Sex: FEMALE BP: 155/84 HR: 55 bpm Sonogr phr: MARIELA Penaloza Pat. Stat.:Inpatient Room: A742 Study Status:Final Echo Event ID:[id number] Order ID: [id number] Reason for Study:SOB, suspected cardiac etiology History / Clinical:Diabetes, Hyperlipide leena, Hypertension Procedures:2D Echo, Colorflow Doppler, I ntravenous Definity Contrast Race: C SUMMARY: Estimated EF is 30-34%. Regional wall mo tion abnormalities present. Diastolic dysfunction Grade II (Moderat e): Impaired relaxation with elevated LV filling pressures. RV size is moderately enlarged. RV syst olic function is mildly depressed. Mild to moderate aortic valve stenosis. Severe tricuspid regurgitation Estimated PA systolic pressure is 46-51 mmHg, assuming a mean RAP of 0-5 mmHg. FINDINGS: LV: LV size is severely enlarge d. LV EF is moderately to severely depressed. Estimated EF is 3 0-34%. Regional wall motion abnormalities pr esent. RV: RV size is moderately enlar ged. A pacemaker wire is seen in the RV. RV systolic fun ction is mildly depressed. LA: LA volume is severely enlar ged. RA: RA volume is severely enlar ged. A pacemaker wire is seen. AO: Aortic root diameter is nor mal. BRUNA: No pericardial effusion. AV: Severe thickening and calci fication of AV leaflets. Mild aortic regurgitation. M ild to moderate aortic valve stenosis. Estimated mean aortic valve gradient 18 mmHg with a valve area of 1.1 cm2 . MV: Moderate mitral annular litzy cification. Mild mitral regurgitation. PV: No structural PV abnormalit ies noted. TV: Dilated tricuspid annulus. Moderate to severe tricuspid regurgitation [place]: Diastolic dysfunction Grade II (Moderate): Impaired relaxation with elevate d LV filling pressures. Other: Estimated PA systolic pressu re is 46-51 mmHg, assuming a mean RAP of 0-5 mmHg. MEASUREMENTS: 2D Parasternal [place] LVIDd 6.1 cm Index 3.7 cm/m LVM Index 82.7 g/m2 LVIDs 4.7 cm RWT 0.2 LV%fs 23.6 % LVOT 1.8 cm IVSd 0.7 cm LA Ds 5 cm LVPWd 0.5 cm Ao An 2.1 cm LV Mass 135.6 g (87-129) Ao Rtd 3 cm Index 1.8 cm/m LA Sng Plane LA Area 27 cm2 (8.8-23.4) LA Vol 92.8 ml Index 56.6 ml/m LA LngAx 6.3 cm RA Sng Plane RA Area 21.9 cm2 (8.3-19.5) RA Vol 79.6 ml Index 48.5 ml/m RA LngAx 4.9 cm DOPPLER AV For Flow/HAILEY AV pkVel 302.2 cm/s (100-170) AV AC/ET 0.3 AV mnVel 197.1 cm/s AV TVI 68.2 cm AV pkPG 36.5 mmHg AVpkAcRt 32696.2 cm/s2 AV Mean G 18.3 mmHg AV DeRt 873.9 cm/s2 AV AC 93 msec (83-118) AV Area 1.1 cm2 (3-5) AV ET 346 msec LVOT For Flow LVOT Area 2.5 cm2 LVOT SV 72 ml LVOTpkVel 135.6 cm/s HR 56.6 bpm LVOTpkPG 7.4 mmHg LVOT CO 4.1 l/min LVOTmnPG 3.7 mmHg LVOT CI 2.5 l/m/m2 LVOT TVI 28.3 cm TV PISA TV AliasVel 55 cm/s TV pkVel 335.2 cm/s (30-70) TV PISA rad 0.8 cm TV MOUNA 0.6 cm2 TV Rg Flw 202.1 ml/s TV Rg Vol 80.6 ml WALL MOTION: RESTING WALL MOTION: Apical Anterior, Apical Septal, Apical I nferior, Apical Lateral, Apical del angel are aneurysmal. Mid Anter ior, Mid Anteroseptal, Mid Inferolateral del angel are akinetic. Basa l Anteroseptal, Mid Inferoseptal, Mid Inferior, Mid Anterola teral del angel are hypokinetic. Normal in all other del angel. Wall Index = 2.8 Signed 01/05/2019 05:45 PM Kris Matson M.D. Procedure Note Interface, Radiology Results In - 2018 5:46 PM CDT Echocardiography Report [id number]Name: ARIELAMENDY Clarissa. D: [id number] .Date: 01/05/2019 Refer .MD: IDALIA CAMEJO MD Exam Time: 11:05:00 AM Study Type:Routine Echo Height: 59in Weigh t: 151lb BSA: 1.64 m2 Age: 9 1935,83Y Sex: FEMALE BP: 155/84 HR: 55 bpm Sonog rphr: MARIELA Penaloza Pat. Stat.:Inpatient Room: [facility] Study Status:Final Echo Event ID:[id number] Order ID: [id number] Reason for Study:SOB, suspected cardiac etiology History / Clinical:Diabetes, Hyperlipide leena, Hypertension Procedures:2D Echo, Colorflow Doppler, I ntravenous Definity Contrast Race: C SUMMARY: Estimated EF is 30-34%. Regional wall mo tion abnormalities present. Diastolic dysfunction Grade II (Moderat e): Impaired relaxation with elevated LV filling pressures. RV size is moderately enlarged. RV syst olic function is mildly depressed. Mild to moderate aortic valve stenosis. Severe tricuspid regurgitation Estimated PA systolic pressure is 46-51 mmHg, assuming a mean RAP of 0-5 mmHg. FINDINGS: LV: LV size is severely enlarged. LV EF is moderately to severely depressed. Estimated EF is 30-34%. Regional wall motion abnormalities present. RV: RV size is moderately enlarged . A pacemaker wire is seen in the RV. RV systolic function is mildly depressed. LA: LA volume is severely enlarged . RA: RA volume is severely enlarged . A pacemaker wire is seen. AO: Aortic root diameter is normal . BRUNA: No pericardial effusion. AV: Severe thickening and calcific ation of AV leaflets. Mild aortic regurgitation. Mild to moderate aortic valve stenosis. Estimated mean aort ic valve gradient 18 mmHg with a valve area of 1.1 cm2. MV: Moderate mitral annular calcif ication. Mild mitral regurgitation. PV: No structural PV abnormalities noted. TV: Dilated tricuspid annulus. Mod erate to severe tricuspid regurgitation [place]: Diastolic dysfunction Grade II (Moderate): Impaired relaxation with elevated LV f illing pressures. Other: Estimated PA systolic pressure is 46-51 mmHg, assuming a mean RAP of 0-5 mmHg. MEASUREMENTS: 2D Parasternal [place] LVIDd 6.1 cm Inde x 3.7 cm/m LVM Index 82.7 g/m2 LVIDs 4.7 cm RWT 0.2 LV%fs 23.6 % LVOT 1.8 cm IVSd 0.7 cm LA D s 5 cm LVPWd 0.5 cm Ao A n 2.1 cm LV Mass 135.6 g (87-129) Ao R td 3 cm Index 1.8 cm/m LA Sng Plane LA Area 27 cm2 (8.8-23.4) LA Vol 92.8 ml Index 56.6 ml/m LA LngAx 6.3 cm RA Sng Plane RA Area 21.9 cm2 (8.3-19.5) RA Vol 79.6 ml Index 48.5 ml/m RA LngAx 4.9 cm DOPPLER AV For Flow/HAILEY AV pkVel 302.2 cm/s (100-170) AV AC/ET 0.3 AV mnVel 197.1 cm/s AV T 68.2 cm AV pkPG 36.5 mmHg AVpk AcRt 47064.2 cm/s2 AV Mean G 18.3 mmHg AV D eRt 873.9 cm/s2 AV AC 93 msec (83-118) AV A golden 1.1 cm2 (3-5) AV ET 346 msec LVOT For Flow LVOT Area 2.5 cm2 LVOT SV 72 ml LVOTpkVel 135.6 cm/s HR 56.6 bpm LVOTpkPG 7.4 mmHg LVOT CO 4.1 l/min LVOTmnPG 3.7 mmHg LVOT CI 2.5 l/m/m2 LVOT TVI 28.3 cm TV PISA TV AliasVel 55 cm/s TV p kVel 335.2 cm/s (30-70) TV PISA rad 0.8 cm TV R OA 0.6 cm2 TV Rg Flw 202.1 ml/s TV R g Vol 80.6 ml WALL MOTION: RESTING WALL MOTION: Apical Anterior, Apical Septal, Apical I nferior, Apical Lateral, Apical del angel are aneurysmal. Mid Anteri or, Mid Anteroseptal, Mid Inferolateral del angel are akinetic. Basal Anteroseptal, Mid Inferoseptal, Mid Inferior, Mid Anterola teral del angel are hypokinetic. Normal in all other del angel. Wall Index = 2.8 Signed 01/05/2019 05:45 PM Kris Matson M.D. Performing Organization Address City/[facility]/Zipcode Phone Number [facility] [address] [place] [address] Manual differential (01/05/2019 6:00 AM CDT) Manual differential PERFORMED [facility] Neutrophils 58.0 39.0 - 69.0 % [facility] Lymphocytes 22.0 (L) 25.0 - 45.0 % [facility] Monocytes 8.0 0.0 - 10.0 % [facility] Eosinophils 6.0 (H) 0.0 - 5.0 % [facility] Basophils 0.0 0.0 - 1.0 % [facility] Metamyelocytes 3 % [facility] Myelocytes 3 % [facility] Promyelocytes 0 % [facility] Platelet slide review Hany adequate [facility] Enlarged platelets Moderate (A) [facility] Specimen Performing Organization Address [facility] Phone Number [facility] DEPARTMENT OF PATHOLOGY AND [address] [place], [place] [address] GENOMIC MEDICINE [facility] [address] [place] [address] XR Chest 2 Vw (01/04/2019 2:10 PM CDT) Specimen Narrative Performed At EXAMINATION: XR CHEST 2 VW RADIANT CLINICAL HISTORY: Shortness of breath COMPARISON: 08/10/2017 IMPRESSION: Left subclavian pacer device remains in place. There i s stable cardiomegaly with mild central vascular congestion. Th ere is mild bibasilar opacity suggesting atelectasis. There is no pneumothorax or significant effusion. Bones are deminera lized. [facility]-[id number] Procedure Note Interface, Radiology Results Incoming - 01/04/2019 2:16 PM CDT EXAMINATION: XR CHEST 2 VW CLINICAL HISTORY: Shortness of breath COMPARISON: 08/10/2017 IMPRESSION: Left subclavian pacer device remains in place. There is stable cardiomegaly with mild central vascular congestion. There is mild bibasilar opacity suggesting atelectasis. There is no pneumothorax or significant effusion. Bones are demineralized. [facility]-[id number] Performing Organization Address City/[facility]/Zipcode Phone Number [facility] [address] [place] [address] B natriuretic peptide (01/04/2019 2:09 PM CDT) Pathologist Sig nature BNP 2,331 (H) 0 - 100 pg/mL [facility] Specimen Blood Performing Organization Address City/State/Zipcode Phone Number [facility] DEPARTMENT OF PATHOLOGY AND [address] [place] [address] [phone] [address] Comprehensive metabolic panel (01/04/2019 2:09 PM CDT) Sodium 140 135 - 148 [facility] mEq/L [facility] Potassium 4.9 3.5 - 5.0 [facility] mEq/L [facility] Chloride 97 (L) 98 - 112 [facility] mEq/L [facility] CO2 29 24 - 31 mEq/L [facility] Anion gap 14@ANIO 7 - 15 mEq/L [facility] BUN 72 (H) 8 - 23 mg/dL [facility] Creatinine 2.41 (H) 0.50 - 0.90 [facility] mg/dL [facility] Glucose 120 (H) 65 - 99 mg/dL [facility] Calcium 9.9 8.8 - 10.2 [facility] mg/dL [facility] Protein 8.1 6.3 - 8.3 [facility] Comment: g/dL [facility] [place] 4.6-7.0 g/dL 1 week 4.4-7.6 g/dL 7 months-1year 5.1-7.3 g/dL 1-2 years 5.6-7.5 g/dL >3 years 6.0-8.0 g/dL 18-150 6.3-8.3 g/dL Albumin 3.1 (L) 3.5 - 5.0 [facility] g/dL [facility] A/G ratio 0.6 (L) 0.7 - 3.8 [facility] Alkaline phosphatase 57 35 - 104 U/L [facility] AST 34 10 - 35 U/L [facility] ALT 22 5 - 50 U/L [facility] Total bilirubin 0.5 0.0 - 1.2 [facility] mg/dL [facility] Specimen Plasma specimen Performing Organization Address City/State/Zipcode Phone Number [facility] DEPARTMENT OF PATHOLOGY AND [address] [place], [place] [address] [place] [id number] [place] [address] ECG ED Preliminary Interpretation - Not an Order (01/04/2019 1:37 PM CDT) Narrative Performed At Ryder Zavala MD 01/23/2019 9 :43 AM ECG ED Preliminary Interpretation - Not an Order Performed by: Ryder Zavala MD Authorized by: Ryder Zavala MD ECG reviewed by ED Physician in the abse nce of a office agent: yes Previous ECG: Previous ECG: Unavailable Interpretation: Interpretation: abnormal Rate: ECG rate: 62 ECG rate assessment: normal Rhythm: Rhythm: sinus rhythm QRS: QRS axis: Normal QRS intervals: Normal Conduction: Conduction: abnormal Abnormal conduction: complete RBBB ST segments: ST segments: Normal Q waves: Q wave noted on lead: q waves are present after 12/29/2018 Insurance Payer Benefit Plan / Subscriber ID Effective Dates Phone Addre ss Type Group MEDICARE MEDICARE PART A xxxxxxxxxxx 2002-Present [place], [place] Medicare AND B Advance Directives For more information, please contact: [phone] Type Date 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
--- OUTSIDE RECORDS SUMMARY | 2019-12-30 11:13 | XMS REPORT | Continuity of Care Document ---
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: 440.23 4 Medic al Center 440.[address] Peripheral Resolved Problem 09/01/2014 [facility] vascular Medical disease Center (disorder) Medications Medication Details Route Status Patient Ordering Order Source Instructions Provider Date Potassium Notes: (Same Inactive [facility] Chloride 10 MEQ as: [place]lor-Con 014 Med ical Extended Release 10) "Do Not Gita ter Tablet Crush" With food and full glass of water Lisinopril Notes: (Same [place]: 014 Medical Prinivil, Center Zestril) Linagliptin Notes: (Same Inactive [place] as: 014 [facility] Tradjenta) [place] Non-Formular y Furosemide 40 MG Notes: (Same Inactive [facility] Oral Tablet as: Lasix) 014 Medical [Lasix] May cause GI Center upset. Give with food or milk. Aspirin 81 MG Notes: Do [place]active [place] [facility] Coated not crush or 014 Medi litzy Tablet chew. (Same Center As: Ecotrin) Norvasc Notes: (Same Inactive [facility] as: Norvasc) [address] [place] [address] Center Pravastatin Notes: (Same [place] Longer [place] as: Active 014 [facility] Pravachol) [place] 24 HR Metoprolol Notes: (Same No Longer [facility] Tartrate 25 MG as: Toprol Active 014 Medica l Extended Release XL) Do Not Cent er Tablet [Toprol] Crush Saline Flush Notes: (Same No Longer [place] 0.9% as: BD Active 014 Medical Posiflush) Center clopidogrel Notes: (Same [place] Longer [place] As: Plavix) Active 014 [facility] Center clopidogrel 75 75 mg = 1 [place] oral tablet tab, PO, 014 Medical Daily, # 30 Center tab, 3 Refill(s) clopidogrel 75 mg = 1 Inactive [place] tab, PO, 014 Medical Daily, 3 Center Refill(s) tramadol Notes: Not No Longer [facility] hydrochloride 50 to exceed Active [facility][note 3] Medic al MG Oral Tablet 400mg/day. Center (Same As: Ultra) Saline Flush Notes: (Same No Longer [place] 0.9% as: BD Active 014 [facility] Posiflush) [place] Nitroglycerin Notes: (Same No Longer [facility] as:Nitroquic Active [address] [place] [address], Center Nitrostat) "Do Not Crush" Sublingual tablet metoprolol 25 mg 25 mg, PO, Active [place] oral tablet, BID, # 90 014 Medical extended release tab, 0 Center Refill(s) lisinopril 10 mg 10 mg = 1 [place] oral tablet tab, PO, 014 Medical Daily, # 90 Center tab, 0 Refill(s) Furosemide 40 MG 80 mg = 2 [place] Oral Tablet tab, PO, 014 Medical [Lasix] Daily, # 90 Center tab, 0 Refill(s) Aspirin 81 MG 81 mg = 1 Active [facility] Enteric Coated tab, PO, 014 Medical Tablet Daily, # 0 Center tab, 0 Refill(s) tramadol 50 mg = 1 Active [facility] hydrochloride 50 tab, PO, 014 Medica l MG Oral Tablet PRN, Pain, # Cent er 60 tab, 0 Refill(s) Linagliptin 5 MG PO, Daily, 0 Active [facility] Oral Tablet Refill(s) 014 Medical [Tradjenta] Center pravastatin 80 80 mg = 1 [place] oral tablet tab, PO, 014 Medical Bedtime, # Center 90 tab, 0 Refill(s) Potassium PO, Daily, 0 Active [facility] Chloride 10 MEQ Refill(s) 014 Medica l Extended Release Center Tablet Amlodipine 5 MG 5 mg = 1 [place] Oral Tablet tab, PO, 014 Medical [Norvasc] Daily, # 90 Center tab, 0 Refill(s) Saline Flush Notes: (Same Inactive [place] 0.9% as: BD 014 Medical Posiflush) [place] Sodium Chloride 750 mL, Inactive [place] 0.154 MEQ/ML Rate: 75 014 [facility] Injectable ml/hr, [place] Solution Infuse over: 10 hr, Route: IV, Total Volume: 750, Start date: 05/15/14 10:38:00, Duration: 1 doses or times, Stop date: 05/15/14 20:37:00 Allergies, Adverse Reactions, Alerts No Known Medication Allergies Immunizations No Data Provided for This Section Results Order Name Results Value Reference Date Interpretation Comments Kasie rce Range HEMATOLOGY POC 209 05/15 [facility] Medical Clotting Center Time HEMATOLOGY INR 1.08 0.85 - 05/15 <sup>3</sup>[place] 1.17 erpretive Data: [facility] Center RANGES FOR PROTIME INR:
2.0-3.0 for most medical and surgical thromboembolic states.
2.5-3.5 for artificial heart valves and recurrent embolism.
< br/>INR SHOULD BE USED ONLY FOR PATIENTS ON STABLE ANTICOAGULANT THERAPY. HEMATOLOGY PT 14.1 12.0 - 05/15 [facility] 14.7 /2013 Medical Center HEMATOLOGY PTT 30.4 22.9 - 05/15 <sup>4</sup>[place] 35.8 /2013 erpretive Data: [facility] Heparin Center Therapeutic Range: 57 - 92 Seconds CARDIAC Troponin-T <0.010 0.000 - 05/15 [facility] ENZYMES 0.100 [facility] Center CHEM PANEL Magnesium 1.8 1.8 - 2.4 05/15 [facility] Lvl [facility] CHEM PANEL eGFR 27 05/15 <sup>1</sup>[place] /2013 ult Comment: Medical The eGFR is Center calculated using the CKD-EPI formula. In most young, healthy individuals the eGFR will be >90 mL/min/1.73m2. The eGFR declines with age. An eGFR of 60-89 may be normal in some populations, particularly the elderly, for whom the CKD-EPI formula has not been extensively validated. Use of the eGFR is not recommended in the following populations:&lt ;br/>
Indiv iduals with unstable creatinine concentrations, including patients and those with serious co-morbid conditions.<br/ >
Patients with extremes in muscle mass or diet.

The data above are obtained from the National Kidney Disease Education Program (NKDEP) which additionally recommends that when the eGFR is used in patients with extremes of body mass index for purposes of drug dosing, the eGFR should be multiplied by the estimated BMI. CHEM PANEL Calcium Lvl 8.8 8.5 - 10.5 05/15 [facility] CHEM PANEL Potassium 3.8 3.5 - 5.1 05/15 [facility] CHEM PANEL Chloride Lvl 107 95 - 109 05/15 [facility] CHEM PANEL Sodium Lvl 141 135 - 145 05/15 [facility] CHEM PANEL Creatinine 1.8 0.5 - 1.4 05/15 [facility] CHEM PANEL Glucose Lvl 125 70 - 99 05/15 <sup>2</sup>Int M H erpretive Data: [facility] Adult reference Center range values reflect the clinical guidelines
of the [place] [employer]. CHEM PANEL BUN 27 7 - 22 05/15 [facility] CHEM PANEL CO2 26 24 - 32 05/15 [facility] CHEM PANEL AGAP 11.8 10.0 - 05/15 20. [facility] HEMATOLOGY MPV 10.2 7.4 - 10.4 05/15 [facility] HEMATOLOGY MCH 31.0 27.0 - 05/15 31.0 [facility] HEMATOLOGY MCHC 33.1 32.0 - 05/15 [place] 36.0 [facility] HEMATOLOGY RDW 13.2 11.5 - 05/15 [place] 14. [facility] HEMATOLOGY Platelet 202 133 - 450 05/15 [facility] HEMATOLOGY WBC 6.6 3.7 - 10.4 05/15 [facility] HEMATOLOGY RBC 3.90 4.20 - 05/15 [facility] [place] 5.40 /2013 [facility] HEMATOLOGY Hgb 12.1 12.0 - 05/15 [place] 16.0 Medical [place] HEMATOLOGY MCV 93.5 80.0 - 05/15 [place] 98.0 /2013 [facility] HEMATOLOGY Hct 36.5 36.0 - 05/15 [place] 48.0 /2013 [facility] HEMATOLOGY Segs 59.2 45.0 - 05/15 [place] 75.0 /2013 [facility] HEMATOLOGY Lymphocytes 25.0 20.0 - 05/15 [place] 40.0 [facility] HEMATOLOGY Monocytes 6.7 2.0 - 12.0 05/15 [facility] HEMATOLOGY Eosinophils 8.6 0.0 - 4.0 05/15 [facility] HEMATOLOGY Basophils 0.5 0.0 - 1.0 05/15 [facility] HEMATOLOGY Segs-Bands # 3.9 1.5 - 8.1 05/15 [facility] HEMATOLOGY Lymphocytes 1.7 1.0 - 5.5 05/15 [place] [facility] HEMATOLOGY Monocytes # 0.4 0.0 - 0.8 05/15 [facility] HEMATOLOGY Eosinophils 0.6 0.0 - 0.5 05/15 [facility] LIPIDS LDL 24 <=99 mg/dL 05/15 [facility] (Calculated) [facility] LIPIDS VLDL 52 05/15 [facility] LIPIDS Trig 260 <=149 05/15 [facility] mg/dL [facility] LIPIDS Chol 116 <=199 05/15 [facility] mg/dL [facility] LIPIDS HDL 40 >=61 mg/dL 05/15 [facility] LIPIDS CHD Risk 2.90 3.90 - 05/15 [place] 5.80 [facility] BLOOD BANK Antibody Negative 05/15 [facility] RESULTS Scrn (05/15/14 11:00 AM) /2013 [facility] BLOOD BANK ABO/Rh A POS 05/15 [facility] RESULTS [facility] Pathology Reports No Data Provided for This Section Diagnostic Reports No Data Provided for This Section Consultation Notes No Data Provided for This Section Discharge Summaries No Data Provided for This Section History and Physicals No Data Provided for This Section Vital Signs Vital Sign Value Date Comments Source Diastolic (mm Hg) 66 05/15/2014 [facility] Systolic (mm Hg) 117 05/15/2014 [facility] Diastolic (mm Hg) 73 05/15/2014 [facility] Systolic (mm Hg) 129 05/15/2014 [facility] Diastolic (mm Hg) 79 05/15/2014 [facility] Systolic (mm Hg) 130 05/15/2014 [facility] Respitory Rate 16 05/15/2014 [facility] Respitory Rate 15 05/15/2014 [facility] Respitory Rate 16 05/15/2014 [facility] Temperature Oral (F) 98.2 F 05/15/2014 [facility] BMI Calculated 29.94 05/15/2014 [facility] Weight 69.545 05/15/2014 [facility] [place] [facility] Height 152.4 cm 05/15/2014 [facility] Encounters Location Location Encounter Encounter Reason Attending ADM DC Stat us Source Details Type Number For Provider Date Date Visit [facility] [id number] Hayder Ragsdale 04/24 05/24 [facility] /2013 [facility] [id number] [place] 05/15 05/16 [facility] [id number] [place] 05/29 06/28 [facility] [id number] [place] 08/01 08/31 [facility] Procedures No Data Provided for This Section Assessment and Plan No Data Provided for This Section Plan of Care No Data Provided for This Section Social History Social History Date Source Social History TypeResponse 05/15/2014 [facility] Smoking Status Never smoker, Exposure to Tobacco Smoke None, Cigarette Smoking Last 365 Days No, Reg Smoking Cessation Counseling No Family History No Data Provided for This Section Advance Directives No Data Provided for This Section Functional Status No Data Provided for This Section
--- OUTSIDE RECORDS SUMMARY | 2019-12-30 11:16 | XMS REPORT | Continuity of Care Document ---
:1935 Author Organization [facility] t Address [address] [place] [address] [address]. [address]. [address] [place] [address] Care Team Providers Name Role Phone Terrie Wilkerson DO Primary Care Physician Mable Matson MD. Attending Clinician Jazzy YOUNGBLOOD Attending Clinician Unavailable Linda YOUNGBLOOD Attending Clinician Unavailable Qasim Samano MD Attending Clinician Cielo ADAMS Attending Clinician Unavailable Zain Zavala MD Attending Clinician Negrito Camejo MD Attending Clinician Ryley Knutson MD Attending Clinician Smooth Attending Clinician Unavailable Aileen Ragsdale Attending Clinician Mable Sánchez Attending Clinician Mable Sánchez Admitting Clinician Payers Payer Name Policy Policy Number Effective Expiration Source Type Date Date MEDICAREMEDICARE PART xxxxxxxxxxx 2002 Valentin Gallagher AND 00:00:00 [place]07/2001[place] Directive Decision Effective Date Termination Date Comments Sour ce Modified Code Yes 2017-07-20 2017-07-26 [place] Modified Code 00:00:00 00:00:00 V[place]oo restrictions: No Intubation Code Status decision reached by: Patient Problems Condition Condition Condition Status Onset Resolution Last Treating Co mments Source Name Details Category Date Date Treatment Clinician Date Bacteremia Bacteremia Disease Active H dashawn due to due to 01-06 Methodi [place] 00:00: st a coli a coli 00 E-coli UTI E-coli UTI Disease Active H dashawn 01-06 Methodi 00:00: st 00 Demand Demand Disease Active [place] ischemia ischemia 01-05 Method i 00:00: st 00 Tension Tension Disease Active [place] type type 01-05 [facility]i headache headache 00:00: st 00 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 01-05 Methodi tricuspid tricuspid 00:00: st valve valve 00 insufficie insufficie ncy ncy Acute on Acute on Disease Active [place] 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-05 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 hypotensio hypotensio Disease Active H dashawn n due to n due to 07-21 Method i pericardia pericardia 00:00: st l effusion l effusion 00 cardio-chaparro cardio-chaparro Disease Active H dashawn 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-21 Methodi syndrome syndrome 00:00: st 00 H/O AICD H/O AICD Disease Active Overview: Valentin smallwood 1-03 [employer] Methodi 00:00: st 00 Coronary Coronary Disease Active 2016-07 Overview: Valentin smallowod artery artery 2-19 Added Methodi disease disease 00:00: automatic st involving involving 00 ally [place] request heart with heart with for angina angina surgery pectoris pectoris [id number] large large Disease Active [place] anterior anterior 8-15 Method i pericardia pericardia 00:00: st l effusion l effusion 00 s/p window s/p window Systolic Systolic Disease Active [place] congestive congestive 8-15 Me thodi heart heart 00:00: st failure failure 00 Stented Stented Disease Active 2015-07 [place] coronary coronary 2-13 Method i artery artery 00:00: st 00 PAD PAD Disease Active 2015-07 [place] (periphera (periphera 2-13 Me thodi l artery l artery 00:00: st disease) disease) 00 Chronic Chronic Disease Active 2015-07 [place] kidney kidney 2- Methodi disease, disease, 00:00: st stage III stage III 00 (moderate) (moderate) Cardiomyop Cardiomyop Disease Active 2015-07 H dashawn levy athy 07-27 Methodi 00:00: st 00 Coronary Coronary Disease Active 2015-07 [place] arterioscl arterioscl 07-27 Me thodi erosis erosis 00:00: st 00 Essential Essential Disease Active 2015-07 Liorraquel rollins hypertensi hypertensi 07-27 Me thodi on on 00:00: st 00 Hyperlipid Hyperlipid Disease Active 2015-07 H dashawn patton emcaryn 07-27 Methodi 00:00: st 00 NON Diagnosis Active 2013-072014-08-20 Mem oria HEALING 08-12 10:02:00 l ULCER NON 00:00: [place] HEALING 00 ULCER Active 06/12/2014 [facility] CCL/RIGHT Diagnosis Active 2013-072014-05-11 Memoria LEG 0-23 16:51:00 l RECEPTION INTERVIEWER/DX: 00:00: Toby 440.23 CCL/RIGHT 00 LEG RECEPTION INTERVIEWER/DX: 440.23 Active 05/10/2014 [facility] 440.23 Diagnosis Active 2013-072014-05-15 Mem oria 0-23 10:49:00 l 440.23 00:00: [place] 00 Active 05/10/2014 [facility] Unsteady Unsteady Problem [facility] Congestive Congestive Problem Active [facility] heart heart [facility] - failure, failure, Memori a unspecifie unspecifie l d d Outpati congestive congestive en t heart heart Clinics failure failure chronicity chronicity , , unspecifie unspecifie d d congestive congestive heart heart failure failure type type Family Family Problem Active [facility] history of history of Laura kes - diabetes diabetes Memori a mellitus mellitus l Outpati ent Clinics Hyperlipid Hyperlipid Problem Active [facility] emia emia [facility] Diabetes Diabetes Problem Active [facility] mellitus mellitus [facility] - type 2, type 2, Memoria noninsulin noninsulin l dependent dependent Outp ati ent Clinics GERD GERD Problem Active [facility] (gastroeso (gastroeso Laura kes - phageal phageal Memoria reflux reflux l disease) disease) Outpat i ent Clinics Benign Benign Problem Active [facility] essential essential Luke s - HTN HTN Memoria l Outpati ent Clinics Vitamin D Vitamin D Problem Active [facility] deficiency deficiency Laura kes - [facility] Primary Primary Problem Active [facility] osteoarthr osteoarthr Laura kes - itis of itis of Memoria both knees both knees l [facility] Hypothyroi Hypothyroi Problem Active [facility] dism, dism, [facility] - unspecifie unspecifie Me moria d type d type l [facility] Elevated Elevated Problem Active [facility] TSH TSH [facility] Primary Primary Problem Active [facility] insomnia insomnia [facility] Anxiety Anxiety Problem Active [facility] 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[facility] mononeurop mononeurop Laura kes - athy athy Memoria associated associated l with with [facility] diabetes diabetes ent mellitus mellitus Clinic s due to due to underlying underlying condition condition Seasonal Seasonal Problem Active [facility] allergic allergic [facility] - rhinitis, rhinitis, Donovan chuck unspecifie unspecifie l d trigger d trigger Outp ati ent Clinics On On Problem Active [facility] supplement supplement Laura kes - al oxygen al oxygen Donovan chuck therapy therapy l [facility] Arterioscl Arterioscl Problem Active [facility] erosis of erosis of Luke s - coronary coronary Memori a artery artery l [facility] ent Clinics Other Other Problem Active [facility] chronic chronic [facility] - pain pain [facility]oria l [facility] Type 2 Type [address] [facility] diabetes diabetes [facility] - mellitus mellitus Memori a with other with other l specified specified Outp ati complicati complicati en t on on Clinics Type 2 Type [address] diabetes diabetes [facility] - mellitus mellitus Memori a with with l diabetic diabetic Outpat i chronic chronic ent kidney kidney Clinics disease disease Chronic Chronic Problem Active [facility] kidney kidney [facility] - disease, disease, Memori a stage 5 stage 5 l [facility] 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[facility] neuropathy neuropathy Laura kes - , painful , painful Donovan chuck l [facility] ent Clinics Allergies, Adverse Reactions, Alerts Allergy Allergy Status Severity Reaction(s) Onset Inactive Treating Comm ents Source Name Type Date Date Clinician Morphine Adverse Active Info Not [facility] Sulfate Reaction Available [facility] - Memoria l [facility] Codeine Adverse Active Info Not [facility] Sulfate Reaction Available [facility] - Memoria l [facility] Social History Social Habit Start Date Stop Date Quantity Comments Source Sex Assigned At [facility] ethodist Alcohol intake 2019-08-01 2019-08-01 Current [facility] thodist 00:00:00 00:00:00 non-drinker of alcohol (finding) Smoking Status Start Date Stop Date Source Never smoker [place] Jluis duffy Medications Ordered Filled Start Stop Current Ordering Indication Dosage Frequency Signature Comments Components Source Medication Medication Date Date Medication? Clinician (SIG) Name Name Glimepiride Glimepiride Yes Na Wilkerson [address] 6-04 with a [facility] - 00:00: meal Memoria 00 [facility] ent [facility] Januvia Januvia Yes Na Wilkerson [address] 5-22 [facility] - 00:00: Memoria 00 [facility] rosuvastati Yes TAKE 1 [place] (CRESTOR) 5-19 TABLET BY Met hodi 20 mg 00:00: MOUTH st tablet 00 EVERY DAY clopidogreL Yes TAKE 1 [place] (PLAVIX) 75 4-17 TABLET BY Met hodi mg tablet 00:00: MOUTH st 00 EVERY DAY rosuvastati 2019-0 2020- No 20mg QD Take 1 [place] (CRESTOR) 2-10 05-19 tablet (20 M ethodi 20 MG 00:00: 00:00 mg total) st tablet 00 :00 by mouth daily. clopidogreL 2019-0 2020- No TAKE 1 [place] (PLAVIX) 75 1-24 04-17 TABLET BY Vt thodi mg tablet 00:00: 00:[address] 00 :00 EVERY DAY aspirin 2019-0 Yes 81mg QD Take 81 mg [place] (ECOTRIN) 1-14 by mouth Method i 81 MG 09:41: daily. st enteric 25 coated tablet omeprazole/ 0 Yes 1{tbl} QD Take 1 [place] sodium 1-14 tablet by Methodi bicarbonate 09:41: mouth st (ZEGERID 25 nightly as ORAL) needed (Heartburn ). ergocalcife 2019-0 Yes [id number] Q7D Take [place] rol 1-14 50,000 Methodi (VITAMIN 09:41: Units by st D2) 50,000 25 mouth once unit a week. capsule Wednesday gabapentin 2019-0 Yes 100mg QD Take 100 [place] (NEURONTIN) 1-14 mg by Methodi 100 mg 09:41: mouth st capsule 25 nightly as needed. multivitami 2019- Yes 1{tbl} QD Take 1 [place] 1-14 tablet by Methodi (THERAGRAN) 09:41: mouth st tablet 25 daily. fenofibrate 2018-07 Yes Coronary 145mg QD Take 1 [place] (TRICOR) 2-31 artery tablet Methodi 145 MG 00:00: disease ([address] tablet 00 involving total) by [place] mouth heart with daily. angina pectoris, unspecified vessel or lesion type (HCC) rosuvastati 2018-07- No TAKE 1 [place] n (CRESTOR) 2-24 02-10 TABLET BY Me thodi 20 MG 00:00: 00:[address] tablet 00 :00 EVERY DAY rosuvastati 2018-07- No TAKE 1 [place] (CRESTOR) 2-23 12-24 TABLET BY Me thodi 20 MG 00:00: 00:[address] tablet 00 :00 EVERY DAY rosuvastati 2018-07- No TAKE 1 [place] (CRESTOR) 1-21 12-23 TABLET BY Me thodi 20 MG 00:00: 00:[address] tablet 00 :00 EVERY DAY clopidogrel 2018-07- No TAKE 1 [place] (PLAVIX) 75 0-22 01-24 TABLET BY Me thodi mg tablet 00:00: 00:[address] 00 :00 EVERY DAY fenofibrate 2018- No 145mg QD Take 145 [place] (TRICOR) 9-04 09-04 mg by Methodi 145 MG 11:02: 00:[address] tablet 06 :00 daily. fenofibrate 2018- Yes 145mg QD Take 1 [place] (TRICOR) 9-04 tablet Methodi 145 MG 00:00: ([address] tablet 00 total) by mouth daily. atorvastati 2018- Yes 80mg QD Take 1 [place] (LIPITOR) 8-05 tablet (80 Me thodi 80 MG 00:00: mg total) st tablet 00 by mouth daily. clopidogrel 2018- No 75mg QD Take 1 [place] (PLAVIX) 75 8-05 10-22 tablet (75 M ethodi mg tablet 00:00: 00:00 mg total) st 00 :00 by mouth once daily. atorvastati 2019- No 80mg QD Take 1 [place] (LIPITOR) 8-05 08-05 tablet (80 M ethodi 80 MG 00:00: 00:00 mg total) st tablet 00 :00 by mouth daily. fenofibrate 2018- 2019- No Coronary 145mg QD TAKE 1 [place] (TRICOR) 7-10 12-31 artery TABLET Method i 145 MG 00:00: 00:00 disease ([address] tablet 00 :00 involving TOTAL) BY [place] MOUTH heart with DAILY. angina pectoris, unspecified vessel or lesion type (HCC) amoxicillin 2019- No 1{tbl} Q.5D Take 1 [place] -pot 6-25 07-03 tablet by Methodi clavulanate 00:00: 23:[address] (AUGMENTIN) 00 :00 (two) 875-125 mg times a per tablet day for 8 days. CHOLECALCIF 2018- No 3000U QD Take 3,000 Gray SUMAN, 6-24 06-24 Units by Methodi VITAMIN D3, 17:02: 00:[address] (VITAMIN D3 52 :00 daily. ORAL) pravastatin 2018- No 80mg QD Take 80 mg [place] (PRAVACHOL) 6-24 06-24 by mouth Met hodi 80 MG 17:02: 00:[address] tablet 52 :00 morning. amoxicillin 2019- No 1{tbl} Q.5D Take 1 [place] -pot 6-24 06-24 tablet by Methodi clavulanate 17:02: 00:[address] (AUGMENTIN) 52 :00 (two) 875-125 mg times a per tablet day. For 13 days Pt. Hasn't started yet prescripti on given 01/03/19 potassium 2018- Yes TAKE 2 [place] chloride 6-24 CAPSULES Methodi (MICRO-K) 00:00: ([address] 10 MEQ CR 00 TOTAL) BY capsule MOUTH ONCE FOR 1 DOSE. furosemide 2019- No 80mg Q.5D Take 1 [place] (LASIX) 80 6-24 07-24 tablet (80 Me thodi mg tablet 00:00: 23:59 mg total) st 00 :00 by mouth 2 (two) times a day for 30 days. atorvastati 2019- No Near 80mg QD Take 1 [place] (LIPITOR) 01-09-24 syncope tablet (80 Methodi 80 MG 00:00: 23:59 mg total) st tablet 00 :00 by mouth nightly for 30 days. bisacodyl 2018- No 10mg Q24H Insert 1 [place] (DULCOLAX) 01-09 suppositor Me thodi 10 mg 00:00: 23:59 y ([address] suppository 00 :00 total) into the rectum daily as needed for constipati on for up to 30 days. polyethylen 2018- No 17g Q24H Take 17 g Gray e glycol 01-09 by mouth Method i (MIRALAX) 00:00: 23:[address] 17 gram 00 :00 needed for packet constipati on for up to 30 days. potassium 2018- No 20meq Take 2 [place] chloride 01-09 capsules Method i (MICRO-K) 00:00: 23:59 ([address] 10 MEQ CR 00 :00 total) by capsule mouth once for 1 dose. alendronate 2018- No 70mg Q1W Take 70 mg Gray (FOSAMAX) 01-04-19 by mouth Metho di 70 MG 14:39: 00:[address] tablet 07 :00 days. Take in the morning with a full glass of water on an empty stomach, do NOT take anything else by mouth or lie down for the next 30 min. rosuvastati 2018- No TAKE 1 [place] n (CRESTOR) 6-17 -19 TABLET BY Me thodi 20 MG 00:00: 00:[address] tablet 00 :00 EVERY DAY rosuvastati 2018- No 20mg QD Take 1 [place] n (CRESTOR) 5-20 06-15 tablet (20 M ethodi 20 MG 00:00: 00:00 mg total) st tablet 00 :00 by mouth daily. metoprolol 2017-07 Yes 25mg Q.5D Take 25 mg [place] succinate 2-20 by mouth 2 Meth linsey XL 00:00: (two) st (TOPROL-XL) 00 times a 25 mg 24 hr day. tablet furosemide 2017-07- No 80mg QD Take 80 mg Gray (LASIX) 80 1-11 06-24 by mouth Meth linsey mg tablet 00:00: 00:[address] 00 :00 fenofibrate 2017-07- No Coronary 145mg QD TAKE 1 [place] (TRICOR) 07-19 06-19 artery TABLET Method i 145 MG 00:00: 00:00 disease ([address] tablet 00 :00 involving TOTAL) BY [place] MOUTH heart with DAILY. angina pectoris, unspecified vessel or lesion type (HCC) levothyroxi Yes 50ug QD Take 50 [place] ne 7-06 mcg by Methodi (SYNTHROID, 00:00: mouth st LEVOXYL) 50 00 every mcg tablet morning. famotidine 2018- No TAKE 1 [place] (PEPCID) 20 09-23 TABLET BY Me thodi MG tablet 00:00: 00:[address] 00 :00 NIGHTLY NEEDED FOR HEARTBURN FOR UP TO 30 DAYS clopidogrel 2018- No 75mg QD Take 1 [place] (PLAVIX) 75 03-03 08-05 tablet (75 M ethodi mg tablet 00:00: 00:00 mg total) st 00 :00 by mouth once daily. amLODIPine 2015-07 Yes 5mg QD Take 5 mg [place] (NORVASC) 5 2-07 by mouth Meth linsey mg tablet 00:00: daily. st 00 TRADJENTA 5 2015-07 Yes 5mg QD Take 5 mg [place] mg tablet 2- by mouth Method i 00:00: daily with st 00 breakfast. Potassium 2013-07 No Notes: Memori a Chloride 10 0-29 (Same as: l MEQ 14:00: Klor-Con Toby Extended 00 10) "Do Release Not Crush" Tablet With food and full glass of water Lisinopril 2013-07 No Notes: Memor ia 0-29 (Same as: l 14:00: Prinivil, [place] 00 Zestril) Linagliptin 2013-07 No Notes: Donovan chuck 0-29 (Same as: l 14:00: Tradjenta) Toby 00 Non-Formu ame Furosemide 2013-07 No Notes: Memor ia 40 MG Oral 0-29 (Same as: l Tablet 14:00: Lasix) [place] [Lasix] 00 May cause GI upset. Give with food or milk. Aspirin 81 2013-07 No Notes: Do Me moria MG Enteric 0-29 not crush l Coated 14:00: or chew. [place] Tablet 00 (Same As: Ecotrin) Norvasc 2013-07 No Notes: Memoria 0-29 (Same as: l 14:00: Norvasc) [place]y 00 Pravastatin 2013-07 No Notes: Donovan chuck 0-29 (Same as: l 02:00: Pravachol) [place] 00 24 HR 2013-07 No Notes: Memoria Metoprolol 0-29 (Same as: l Tartrate 25 02:00: Toprol XL) [place] MG Extended 00 Do Not Release Crush Tablet [Toprol] Saline 2013-07 No Notes: Memoria Flush 0.9% 0-29 (Same as: l 02:00: BD [place] 00 Posiflush) clopidogrel 2013-07 No Notes: Donovan chuck 0-28 (Same As: l 20:00: Plavix) [place]y 00 clopidogrel 2013-07 Yes 75 mg = 1 M emoria 75 mg oral 0-28 tab, PO, l tablet 19:58: Daily, # [place] 00 30 tab, 3 Refill(s) clopidogrel 2013-07 No 75 mg = 1 M emoria 0-28 tab, PO, l 19:46: Daily, 3 [place] 00 Refill(s) tramadol 2013-07 No Notes: Not Mem oria hydrochlori 0-28 to exceed l de 50 MG 19:45: 400mg/day. [place] Oral Tablet 00 (Same As: Ultram) Saline 2013-07 No Notes: Memoria Flush 0.9% 0-28 (Same as: l 19:43: BD Toby 00 Posiflush) Nitroglycer 2013-07 No Notes: Donovan chuck in 0-28 (Same l 19:43: as:Nitroqu [place] 00 ick, Nitrostat) "Do Not Crush" Sublingual tablet metoprolol 2013-07 Yes 25 mg, PO, M emoria 25 mg oral 0-28 BID, # 90 l tablet, 16:44: tab, 0 [place] extended 00 Refill(s) release lisinopril 2013-07 Yes 10 mg = 1 Me moria 10 mg oral 0-28 tab, PO, l tablet 16:44: Daily, # Toby 00 90 tab, 0 Refill(s) Furosemide 2013-07 Yes 80 mg = 2 Me moria 40 MG Oral 0-28 tab, PO, l Tablet 16:44: Daily, # [place] [Lasix] 00 90 tab, 0 Refill(s) Aspirin 81 2013-07 Yes 81 mg = 1 Me moria MG Enteric 0-28 tab, PO, l Coated 16:44: Daily, # 0 Vicki nn Tablet 00 tab, 0 Refill(s) tramadol 2013-07 Yes 50 mg = 1 Donovan chuck hydrochlori 0-28 tab, PO, l de 50 MG 16:44: PRN, Pain, Her [place] Oral Tablet 00 # 60 tab, 0 Refill(s) Linagliptin 2013-07 Yes PO, Daily, Memoria 5 MG Oral 0-28 0 l Tablet 16:44: Refill(s) [place] n [Tradjenta] 00 pravastatin 2013-07 Yes 80 mg = 1 M emoria 80 mg oral 0-28 tab, PO, l tablet 16:44: Bedtime, # Vicki nn 00 90 tab, 0 Refill(s) Potassium 2013-07 Yes PO, Daily, Me moria Chloride 10 0-28 0 l MEQ 16:44: Refill(s) Toby Extended 00 Release Tablet Amlodipine 2013-07 Yes 5 mg = 1 Mem oria 5 MG Oral 0-28 tab, PO, l Tablet 16:44: Daily, # [place] [Norvasc] 00 90 tab, 0 Refill(s) Saline 2013-07 No Notes: Memoria Flush 0.9% 0-28 (Same as: l 15:38: BD [place] 00 Posiflush) Sodium 2013-07 No 750 mL, Memoria Chloride 0-28 Rate: 75 l 0.154 15:38: ml/hr, Toby MEQ/ML 00 Infuse Injectable over: 10 Solution hr, Route: IV, Total Volume: 750, Start date: 05/15/14 10:38:00, Duration: 1 doses or times, Stop date: 05/15/14 20:37:00 Tradjenta Tradjenta Yes Na Wilkerson [address] [facility] Immunizations Ordered Filled Immunization Date Status Comments Sour e Immunization Name Name Phyllis FluAD 2019-04-[address] [facility]00 [facility] Vital Signs Vital Name Observation Time Observation Value Comments Source Systolic blood 2019-08-01 09:40:00 130 mm[Hg] Evertto n Voodoo pressure Diastolic blood 2019-08-01 09:40:00 62 mm[Hg] Evertt on Voodoo pressure Heart rate 2019-08-01 09:40:00 68 /min Gray Voodoo Body height 2019-08-01 09:40:00 149.9 cm Gray Voodoo Body weight 2019-08-01 09:40:00 75.297 kg [place] V[facility]oo BMI 2019-08-01 09:40:00 33.53 kg/m2 [place] V[facility]oo Body temperature 2019-01-09 15:48:29 36.56 Mad[place] [facility]oo Respiratory rate 2019-01-09 15:48:29 18 /min [place] [facility]oo Oxygen saturation in 2019-01-09 15:48:29 95 /min [place] Voodoo Arterial blood by Pulse oximetry Diastolic (mm Hg) 2014-05-15 23:45:00 Mem orial [place] Systolic (mm Hg) 2014-05-15 23:45:00 Donovan rial [place] Diastolic (mm Hg) 2014-05-15 23:30:00 Mem orial [place] Systolic (mm Hg) 2014-05-15 23:30:00 Donovan rial [place] Diastolic (mm Hg) 2014-05-15 23:15:00 Mem orial [place] Systolic (mm Hg) 2014-05-15 23:15:00 Donovan rial [place] Respitory Rate 2014-05-15 22:30:00 Memori al [place] Respitory Rate 2014-05-15 22:15:00 Memori al Toby Respitory Rate 2014-05-15 22:00:00 Memori al [place] Temperature Oral (F) 2014-05-15 16:00:00 98.2 F [facility] BMI Calculated 2014-05-15 15:38:00 Memori al [place] Weight 2014-05-15 15:38:00 [facility] Height 2014-05-15 15:38:00 152.4 cm [facility] Procedures Procedure Date / Time Performing Clinician Source Performed POC GLUCOSE 2019-01-09 11:51:00 Idalia Camejo Met ryan POC GLUCOSE 2019-01-09 08:05:00 Idalia Camejo Met hodist BASIC METABOLIC PANEL 2019-01-09 05:28:00 Alexi Samano Voodoo HC COMPLETE BLD COUNT 2019-01-09 05:28:00 Alexi Samano Voodoo W/AUTO DIFF MAGNESIUM LEVEL 2019-01-09 05:28:00 Alexi Samano Voodoo PHOSPHORUS LEVEL 2019-01-09 05:28:00 Alexi Samano on Voodoo ESTIMATED GFR 2019-01-09 05:28:00 Baljinder Knutson ethodist R[place]y POC GLUCOSE 2019-01-08 21:08:00 Baljinder Knutson ethodist [place] POC GLUCOSE 2019-01-08 17:59:00 Baljinder Knutson ethodist [place] POC GLUCOSE 2019-01-08 11:08:00 Baljinder Knutson ethodist [place] POC GLUCOSE 2019-01-08 07:21:00 Baljinder Knutson ethodist [place] HC COMPLETE BLD COUNT 2019-01-08 06:07:00 Alexi Samano W/AUTO DIFF BASIC METABOLIC PANEL 2019-01-08 06:07:00 Alexi Samano Voodoo MAGNESIUM LEVEL 2019-01-08 06:07:00 Alexi Samano Voodoo PHOSPHORUS LEVEL 2019-01-08 06:07:00 Alexi Samano on Voodoo ESTIMATED GFR 2019-01-08 06:07:00 Idalia Camejo Met hodist URINE CULTURE 2019-01-07 21:10:00 Baljinder Knutson ethodist [place] URINALYSIS SCREEN AND 2019-01-07 21:10:00 Baljinder Knutson Voodoo MICROSCOPY, WITH REFLEX [place] TO CULTURE POC GLUCOSE 2019-01-07 20:28:00 Baljinder Knutson ethodist [place] POC GLUCOSE 2019-01-07 17:35:00 Baljinder Knutson ethodist [place] URINALYSIS SCREEN AND 2019-01-07 16:30:00 Dunia Stanley Voodoo MICROSCOPY, WITH REFLEX TO CULTURE POC GLUCOSE 2019-01-07 11:56:00 Baljinder Knutson ethodist [place] POC GLUCOSE 2019-01-07 07:18:00 Idalia Camejo Met hodist HC COMPLETE BLD COUNT 2019-01-07 04:10:00 Alexi Samano Voodoo W/AUTO DIFF BASIC METABOLIC PANEL 2019-01-07 04:00:00 Alexi Samano Voodoo MAGNESIUM LEVEL 2019-01-07 04:00:00 Alexi Samanoto n Voodoo PHOSPHORUS LEVEL 2019-01-07 04:00:00 Alexi Samano on Voodoo ESTIMATED GFR 2019-01-07 04:00:00 Idalia Camejo Met hodist POC GLUCOSE 2019-01-06 21:48:00 Idaila Camejo Met hodist POC GLUCOSE 2019-01-06 17:44:00 Idalia Camejo Met hodist POC GLUCOSE 2019-01-06 11:38:00 Idalia Camejo Met hodist POC GLUCOSE 2019-01-06 08:08:00 Idalia Camejo Met hodist HC COMPLETE BLD COUNT 2019-01-06 04:05:00 Alexi Samano Voodoo W/AUTO DIFF BASIC METABOLIC PANEL 2019-01-06 04:00:00 Lauren Davidson n Voodoo MAGNESIUM LEVEL 2019-01-06 04:00:00 Alexi Samano n Voodoo PHOSPHORUS LEVEL 2019-01-06 04:00:00 Alexi Samano on Voodoo TROPONIN 2019-01-06 04:00:00 LizethJarretlibrado Gray Meth odist ESTIMATED GFR 2019-01-06 04:00:00 Lauren Davidson Meth odist POC GLUCOSE 2019-01-05 22:46:00 Idalia Camejo Met hodist TROPONIN 2019-01-05 21:30:00 LizethJarretlibrado Gray Meth odist POC GLUCOSE 2019-01-05 17:05:00 Idalia Camejo Met hodist ECG 12-LEAD 2019-01-05 16:32:22 Dunia Stanley Meth odist POC GLUCOSE 2019-01-05 12:21:00 Idalia Camejo Met hodist TTE COMPLETE, WO 2019-01-05 12:00:00 Dunia Stanley Met hodist CONTRAST, W DOPPLER ([id number]) POC GLUCOSE 2019-01-05 07:27:00 Idalia Camejo Met hodist CBC WITH PLATELET AND 2019-01-05 06:00:00 Dunia Stanley Ceasar mcgarry Voodoo DIFFERENTIAL BASIC METABOLIC PANEL 2019-01-05 06:00:00 Jarert Stanleylibrado mcgarry Voodoo MAGNESIUM LEVEL 2019-01-05 06:00:00 Dunia Stanley Meth odist PHOSPHORUS LEVEL 2019-01-05 06:00:00 Dunia Stanley Met hodist ESTIMATED GFR 2019-01-05 06:00:00 Ryder Zavala Vt thodist MANUAL DIFFERENTIAL 2019-01-05 06:00:00 Ryder Zavala TROPONIN 2019-01-04 23:42:00 Dunia Stanley Meth odponce TROPONIN 2019-01-04 17:10:00 Ryder Zavala Vt thodist XR CHEST 2 VW 2019-01-04 14:10:06 Ryder Zavala Vt thodist HC COMPLETE BLD COUNT 2019-01-04 14:09:00 Ryder Zavala W/AUTO DIFF COMPREHENSIVE METABOLIC 2019-01-04 14:09:00 Ryder Zavala PANEL TROPONIN 2019-01-04 14:09:00 Dunia Stanley Meth odponce B NATRIURETIC PEPTIDE 2019-01-04 14:09:00 Ryder Zavala ESTIMATED GFR 2019-01-04 14:09:00 Ryder Zavala [facility] ECG ED PRELIMINARY 2019-01-04 13:37:13 Ryder Zavala INTERPRETATION ECG 12-LEAD 2019-01-04 13:27:15 Ryder Zavala [facility] Plan of Care Planned Activity Planned Date Details Comments Source Future Scheduled 2020-02-17 INFLUENZA VACCINE Ceasar Singh Test 00:00:00 [code = INFLUENZA VACCINE] Future Scheduled 2002 65+ PNEUMOCOCCAL [place] [facility] Test 00:00:00 VACCINE (2 of 2 - PPSV23) [code = 65+ PNEUMOCOCCAL VACCINE (2 of 2 - PPSV23)] Future Scheduled 1987 SHINGLES VACCINES (#1) [place] [facility] Test 00:00:00 [code = SHINGLES VACCINES (#1)] Future Scheduled 1947 DIABETIC FOOT EXAM [place] [facility] Test 00:00:00 [code = DIABETIC FOOT EXAM] Future Scheduled 1937 DIABETIC RETINAL EYE [place] [facility] Test 00:00:00 EXAM [code = DIABETIC RETINAL EYE EXAM] Encounters Start End Encounter Admission Attending Care Care Encounter Source Date/Time Date/Time Type Type Clinicians Facility Department ID 2019-12-20 2019-12-20 [facility] [id number] [facility] 14:07:00 14:07:00 [facility] Medicine l Medicine Outpati ent Clinics 2019-12-19 2019-12-19 [facility] [id number] [facility] 17:01:00 17:01:00 [facility] Medicine l Medicine Outpati ent Clinics 2019-12-07 2019-12-07 [facility] [id number] 16:54:00 16:54:00 t Specialty/U Laura kes - Specialty rology [facility] a /Urology Clinic l Clinic Outpati ent Clinics 2019-11-20 2019-11-20 [facility] [id number] [facility] 16:25:00 16:25:00 [facility] Medicine l Medicine Outpati ent Clinics 2019-11-14 2019-11-14 [facility] [id number] [facility] 16:24:00 16:24:00 [facility] Medicine l Medicine Outpati ent Clinics 2019-11-02 2019-11-02 [facility] [id number] [facility] 08:00:00 08:00:00 [facility] Medicine l Medicine Outpati ent Clinics 2019-10-20 2019-10-20 [facility] [id number] [facility] 16:08:00 16:08:00 [facility] Medicine l Medicine Outpati ent Clinics 2019-10-05 2019-10-05 [facility] [id number] [address] 16:01:00 16:01:00 t [employer]on [employer]on [employer] s - Drive [facility] Medicine l Medicine Outpati ent Clinics 2019-09-12 2019-09-12 [facility] [id number] [address] 15:35:00 15:35:00 t [employer] Al Detal s - Drive [facility] Medicine l Medicine Outpati ent Clinics 2019-08-24 2019-08-24 [facility] [id number] [address] 08:12:00 08:12:00 t [employer]on Elon Al Detal s - Drive [facility] Medicine l Medicine Outpati ent Clinics 2019-08-22 2019-08-22 [facility] [id number] 09:31:00 09:31:00 t Elon Elon Al Det[employer] s - [employer]lic[employer]pie [facility] Medicine Outpati ent Clinics 2019-08-22 2019-08-22 [facility] [id number] 09:28:00 09:28:00 t [employer]on El[employer] Al Detal s - Drive [facility] Medicine Medicine Outpati ent Clinics 2019-08-22 2019-08-22 [facility] [id number] 09:24:00 09:24:00 t [employer]on [employer] s - Slicethepie [facility] l Medicine Outpati ent Clinics 2019-08-04 2019-08-04 [facility] [id number] 15:37:00 15:37:00 t Elon Elon Al Detal s - Drive [facility] Medicine Outpati ent Clinics 2019-08-03 2019-08-03 [facility] [id number] 16:00:00 16:00:00 t Elon Elon Al Detal s - Drive [facility] Medicine Medicine Outpati ent Clinics 2019-06-20 2019-06-20 [facility] [id number] 11:29:00 11:29:00 t Elon El[employer] Al Detal s - Drive [facility] l Medicine Outpati ent Clinics 2019-06-20 2019-06-20 [facility] [id number] 09:43:00 09:43:[address] Luke s - Drive [facility] Medicine l Medicine Outpati ent Clinics 2019-05-16 2019-05-16 [facility] [id number] 17:04:00 17:04:00 t Elon Elon Slicethe[employer] Luke s - Drive [facility] l Medicine Outpati ent Clinics 2019-05-02 2019-05-02 [facility] [id number] 15:57:00 15:57:00 t Elon Elon [employer] s - Drive [facility] l Medicine Outpati ent Clinics 2019-04-07 2019-04-07 [facility] [id number] 10:40:00 10:40:00 t Elon El[employer] Al Detal s - Drive [facility] Medicine Outpati ent Clinics 2019-03-07 2019-03-07 [facility] [id number] 11:05:00 11:05:00 t [employer] s - Drive [facility] Medicine Outpati ent Clinics 2019-01-11 2019-01-11 [facility] [id number] 10:15:00 10:15:00 t [employer] s - Drive [facility] Medicine Outpati ent Clinics 2019-01-10 2019-01-10 [facility] [id number] 12:04:00 12:04:00 t [facility] Outpati ent Clinics 2019-01-03 2019-01-03 [facility] [id number] [facility] 14:36:00 14:36:00 t [employer] s - Drive [facility] Medicine Outpati ent Clinics 2018-12-29 2018-12-29 [facility] [id number] 15:23:00 15:23:00 t [facility] Road [employer] s - Road [facility] Medicine Outpati ent Clinics 2018-12-22 2018-12-22 [facility] [id number] 09:45:00 09:45:00 t [employer] s - Drive [facility] Medicine Outpati ent Clinics 2018-11-17 2018-11-17 [facility] [id number] 16:03:00 16:03:[address] Luke s - Drive [facility] Medicine Medicine Outpati ent Clinics 2018-11-07 2018-11-07 [facility] [id number] 09:20:00 09:20:[address] Luke s - Drive [facility] Medicine l Medicine Outpati ent Clinics 2018-09-28 2018-09-28 [facility] [id number] [facility] 12:08:00 12:08:[address] Luke s - Drive [facility] Medicine Medicine Outpati ent Clinics 2018-08-30 2018-08-30 [facility] [id number] [facility] 11:34:00 11:34:[address] Luke s - Drive [facility] l Medicine Outpati ent Clinics 2018-08-10 2018-08-10 [facility] [id number] 11:46:00 11:46:[address] Luke s - Drive [facility] Medicine Outpati ent Clinics 2018-07-21 2018-07-21 [facility] [id number] [facility] 14:45:00 14:45:[address] Luke s - Drive [facility] Medicine Outpati ent Clinics 2018-07-20 2018-07-20 [facility] [id number] [facility] 09:37:00 09:37:[address] Luke s - Drive [facility] Medicine Outpati ent Clinics 2018-01-20 2018-01-20 [facility] [id number] [facility] 08:45:00 08:45:[address] Luke s - Drive [facility] Medicine Medicine Outpati ent Clinics 2017-11-30 2017-11-30 [facility] [id number] 11:15:00 11:15:[address] Luke s - Drive [facility] Medicine Outpati ent Clinics 2014-08-01 2014-08-30 Outpatient Hayder Ragsdale [id number] 09:30:00 23:59:00 A 2014-05-29 2014-06-27 Outpatient Hayder Ragsdale [id number] 09:30:00 23:59:00 A 2014-04-24 2014-05-23 Outpatient Hayder Ragsdale REENA REENA [id number] 09:45:00 23:59:00 A 00 2014-05-15 2014-05-15 Outpatient HILARIA Sánchez REENA [id number] 10:40:00 19:15:00 Panfilo R 00 Results Test Description Test Time Test Comments Results Result Comments Source POC glucose 2019-01-09 11:53:07 Test Item Value Reference Range Interpretation Comme nts POC glucose (test code = 112 mg/dL 65-99 H No Action NeededMeter ID: [id number]) [id number] tor: Rachid Douglas Lab Interpretation (test code = Abnormal 62597-3) [facility] buoakcxafcqn2470-96-06 07:05:41 Test Item Value Reference Range Interpretation Comments WBC (test code = 95313-3) 9.08 4.50- 11.00 k/uL RBC (test code = 98328-4) 3.70 m/uL 4.2-5.5 L HGB (test code = 718-7) 11.2 g/dL 12-16 L HCT (test code = 4544-3) 35.2 % 37-47 L MCV (test code = 787-2) 95.1 fL 82-100 MCH (test code = 785-6) 30.3 pg 27-34 MCHC (test code = 786-4) 31.8 g/dL 31-37 RDW - SD (test code = 45.5 fL 37-55 78469-4) MPV (test code = 25263-8) 11.1 fL 8.8-13.2 Platelet count (test code 262 150- 400 k/uL = 72942-9) Nucleated RBC (test code 0.00 /100 WBC = 54206-2) Neutrophils (test code = 69.8 % 39-69 H 71920-6) Lymphocytes (test code = 16.0 % 25-45 L 67385-1) Monocytes (test code = 9.3 % 0-10 81082-9) Eosinophils (test code = 3.2 % 0-5 02852-9) Basophils (test code = 0.4 % 0-1 16673-4) Immature granulocytes 1.3 % 0-1 H "Immat ure (test code = 81323-1) granul ocytes" (promyelocytes, myelocytes, metamyelocytes) Lab Interpretation (test Abnormal code = 42632-6) [place] [facility] metabolic medoc5012-60-82 07:02:00 Test Item Value Reference Range Interpretation Comments Sodium (test code = 2951-2) 137 135- 148 mEq/L Potassium (test code = 2823-3) 3.7 3.5- 5.0 mEq/L Chloride (test code = 2075-0) 88 98- 112 mEq/L L CO2 (test code = 8-9) 35 24- 31 mEq/L H Anion gap (test code = 20846-0) 14@ANIO 7- 15 mEq/L BUN (test code = 3094-0) 56 mg/dL 8-23 H Creatinine (test code = 2160-0) 2.41 mg/dL 0.5-0.9 H Glucose (test code = 2345-7) 105 mg/dL 65-99 H Calcium (test code = 21292-0) 10.0 mg/dL 8.8-10.2 Lab Interpretation (test code = Abnormal 78693-7) [place] [facility]Magnesium przqx7646-90-34 07:01:59 Test Item Value Reference Range Interpretation Comments Magnesium (test code = 60236-3) 2.0 mg/dL 1.6-2.4 [place] MethodistPhosphorus tjhwa3782-18-47 07:01:59 Test Item Value Reference Range Interpretation Comments Phosphorus (test code = 2777-1) 3.3 mg/dL 2.4-4.5 [place] MethodistEstimated [id number] 07:01:59 Test Item Value Reference Range Interpretation Comments Estimated GFR (test 18 mL/min/1.73 m2 Aileen sloan Units code = 5488) InterpretationG 1 >=90 Karla l or highG2 60-89 Mildly decrease dG3a 45-59 Mil dly to moderately decr wqraoY8e 30-44 Moderately to s everely decreasedG4 15-29 Severe ly decreasedG5 <15 Kidney butch lureThe eGFR was calcul ated using the Chron ic Kidney Disease Epidemiology Collaboration ( CKD-EPI) equation. Interpretation is based on recommendati ons of the National Ki dney Foundation-Kidn ey Disease Outcome s Quality Initiat matt (NKF-KDOQI) pub lished in 2013. Lab Interpretation Abnormal (test code = 49207-3) [facility] MethodistUrinalysis screen and microscopy, with reflex to culture 2019-01-07 22:00:51 Test Item Value Reference Range Interpretation Comments Specimen site (test code = Clean catch 6319770) Color, UA (test code = 5778-6) Straw Appearance, UA (test code = Clear 5767-9) Specific gravity, UA (test code = 1.008 1.001-1.035 5811-5) pH, UA (test code = 5803-2) 7.0 5.0-8.5 Protein, UA (test code = 28217-1) Negative Negative Glucose, UA (test code = 10976-7) Negative Negative Ketones, UA (test code = 2514-8) Negative Negative Bilirubin, UA (test code = Negative Negative 5770-3) Blood, UA (test code = 5794-3) Negative Negative Nitrite, UA (test code = 5802-4) Negative Negative Urobilinogen, UA (test code = <2.0 <2.0 71891-0) Leukocyte esterase, UA (test code Negative Negative = 5799-2) Epithelial cells, UA (test code = <1 /HPF 5787-7) WBC, UA (test code = 5821-4) <1 0- 4 /HPF RBC, UA (test code = 74118-2) <1 0- 5 /HPF Bacteria, UA (test code = None seen None seen 58159-6) Yeast, UA (test code = 35891-6) None seen Yeast with pseudohyphae, UA (test None seen code = 54634-8) Hyaline casts, UA (test code = 1 /LPF 5796-8) [facility] MethodistUrine klyagiv9027-97-60 21:59:20 Test Item Value Reference Range Interpretation Comments Urine culture (test SEE COMMENT Bacteriu chuck screen code = 5663084) negative. Isaac MethodistECG 12 ndum2133-32-43 14:17:45 Test Item Value Reference Range Interpretation Comments Ventricular rate 56 (test code = 253) Atrial rate (test 56 code = 255) MD interval (test 158 code = 266) QRSD interval (test 144 code = 260) QT interval (test 480 code = 264) QTC interval (test 463 code = 265) P axis 1 (test code 84 = 267) QRS axis 1 (test -42 code = 268) T wave axis (test -55 code = 270) EKG impression (test Sinus bradycardia-Left code = 273) axis deviation-Nonspecific intraventricular block-Cannot rule out Anteroseptal infarct , age undetermined-Abnormal ECG-- [place] CdcjitkhfMaligzyc1210-85-15 06:10:24 Test Item Value Reference Range Interpretation Comments Troponin (test code = 0.109 ng/mL 0-0.04 [place] [facility] 77507-4) Laboratories ch anged methodology effective: 2018 at 10:00 amThe new method has a 99 th percentile cuto ff of 0.040 ng/mL Lab Interpretation Abnormal (test code = 15254-3) [place] MethodistEchocardiogram complete w contrast and 3D if uzvylp1503-67-82 17:45:00Interface, Radiology Results In - 01/05/2019 5:46 PM CDT Echocardiography Report [id number]Name: DOREEN TITUS Clarissa.ID: [id number].Date: 01/05/2019 Refer.MD: IDALIA CAMEJO MD Exam Time: 11:05:00 AM Study Type:Routine Echo Height: 59in Weight: 151lb BSA: 1.64 m2 Age: 7 1935,83Y Sex: FEMALE BP: 155/84 HR: 55 bpm Sonogrphr: Jose Roberto Lay [facility] Pat. Stat.:Inpatient Room: [facility] Study Status:Final Echo Event ID:[id number] Order ID: [id number] Reason forStudy:SOB, suspected cardiac etiologyHistory / Clinical:Diabetes, Hyperlipidemia, HypertensionProcedures:2D Echo, Colorflow Doppler, Intravenous Definity ContrastRace: C ----- SUMMARY: Estim ated EF is 30-34%. Regional wall motion abnormalities present. Diastolic dysfunction Grade II (Moderate): Impaired relaxation withelevated LV filling pressures. RV size is moderately enlarged. RV systolic function is mildly depressed. Mild to moderate aortic valve stenosis. Severe tricuspid regurgitation Estimated PA systolic pressure is 46-51 mmHg, assuming a mean RAP of0-5 mmHg. FINDING S: LV: LV size is severely enlarged. LV EF is moderately to severely depressed. Estimated EF is 30-34%. Regional wall motion abnormalities present.RV: RV size is moderately enlarged. A pacemaker wire is seen in the RV. RV systolic function is mildly depressed.LA: LA volume is severely enlarged.RA: RA volume is severely enlarged. A pacemaker wire is seen.AO: Aortic root diameter is normal.STEPHANIE: No pericardial effusion.AV: Severe thickening and calcification of AV leaflets. Mild aortic regurgitation. Mild to moderate aortic valve stenosis. Estimated mean aortic valve gradient 1 8 mmHg with a valve area of 1.1 cm2.MV: Moderate mitral annular calcification. Mild mitral regurgitation. PV: No structural PV abnormalities noted.TV: Dilated tricuspid annulus. Moderate to severe tricuspid regurgitation [place]: Diastolic dysfunction Grade II (Moderate): Impaired relaxation with elevated LV filling pressures.Other: Estimated PA systolic pressure is 46-51 mmHg, assuming a mean RAP of 0-5 mmHg. MEASUREMENTS: 2DParasternal Long [place] LVIDd 6.1 cm Index 3.7 cm/m2 LVM Index 82.7 g/m2 LVIDs 4.7 cm RWT 0.2 LV%fs 23.6 % LVOT 1.8 cm IVSd 0.7 cm LA Ds 5 cm LVPWd 0.5 cm Ao An 2.1 cm LV Mass 135.6 g (87-129) Ao Rtd 3 cm Index 1.8 cm/m2LA Sng Plane LA Area 27 cm2 (8.8-23.4) LA Vol 92.8 ml Index 56.6 ml/m2 LA LngAx 6.3 cm RA Sng Plane RA Area21.9 cm2 (8.3-19.5) RA Vol 79.6 ml Index 48.5 ml/m2 RA LngAx 4.9 cm DOPPLERAV For Flow/HAILEY AV pkVel 302.2 cm/s (100-170) AV AC/ET 0.3 AV mnVel 197.1 cm/s AV TVI 68.2 cm AV pkPG 36.5 mmHg AVpkAcRt 06954.2 cm/s2 AV Mean G 18.3 mmHg AV DeRt 873.9 cm/s2 AV AC 93 msec (83-118) AV Area 1.1 cm2 (3-5) AV ET 346 msec LVOT For Flow LVOT Area 2.5 cm2 LVOT SV 72 ml LVOTpkVel 135.6cm/s HR 56.6 bpm LVOTpkPG 7.4 mmHg LVOT CO 4.1 l/min LVOTmnPG 3.7 mmHg LVOT CI 2.5 l/m/m2 LVOT TVI 28.3 cm TVPISA TV AliasVel 55 cm/s TV pkVel 335.2 cm/s (30-70) TV PISA rad 0.8 cm TV MOUNA 0.6 cm2 TV Rg Flw 202.1 ml/s TV Rg Vol 80.6 ml ----- WALL MOTION: RESTING WALL MOTION:Apical Anterior, Apical Septal, Apical Inferior, Apical Lateral,Apical del angel are aneurysmal. Mid Anterior, Mid Anteroseptal, MidInferolateral del angel are akinetic. Basal Anteroseptal, MidInferoseptal, Mid Inferior, Mid Anterolateral del angel are hypokinetic. Normal in all other del angel.Wall Index = 2.8Signed 01/05/2019 05:45 Jmaa Marquez MethodistManual wwijlhjirvji5493-91-85 09:28:03 Test Item Value Reference Range Interpretation Comments Manual differential (test code = PERFORMED 49139-2) Neutrophils (test code = 58.0 % 39-69 65281-7) Lymphocytes (test code = 22.0 % 25-45 L 48310-0) Monocytes (test code = 15634-0) 8.0 % 0-10 Eosinophils (test code = 6.0 % 0-5 H 27033-3) Basophils (test code = 61648-5) 0.0 % 0-1 Metamyelocytes (test code = 3 % 740-1) Myelocytes (test code = 749-2) 3 % Promyelocytes (test code = 0 % 783-1) Platelet slide review (test code Hany adequate = 95231-2) Enlarged platelets (test code = Moderate A 15734-4) Lab Interpretation (test code = Abnormal 32927-5) [facility] MethodistComprehensive metabolic kxana4778-24-97 15:07:20 Test Item Value Reference Range Interpretation Comments Sodium (test code = 140 135- 148 mEq/L 2951-2) Potassium (test code = 4.9 3.5- 5.0 mEq/L 2823-3) Chloride (test code = 97 98- 112 mEq/L L 2075-0) CO2 (test code = 8-9) 29 24- 31 mEq/L Anion gap (test code = 14@ANIO 7- 15 mEq/L 97199-5) BUN (test code = 3094-0) 72 mg/dL 8-23 H Creatinine (test code = 2.41 mg/dL 0.5-0.9 H 2160-0) Glucose (test code = 120 mg/dL 65-99 H 2345-7) Calcium (test code = 9.9 mg/dL 8.8-10.2 83491-9) Protein (test code = 8.1 g/dL 6.3-8.3 2885-2) 4.6-7.0 g/dL 1 week 4.4-7.6 g/dL7 months-1year 5.1-7.3 g/dL 1-2 years 5.6-7.5 g/dL>3 years 6.0-8.0 g/dL18- 150 6.3-8.3 g/dL Albumin (test code = 3.1 g/dL 3.5-5 L 1751-7) A/G ratio (test code = 0.6 0.7-3.8 L 1759-0) Alkaline phosphatase 57 U/L 35-104 (test code = 6768-6) AST (test code = 1920-8) 34 U/L 10-35 ALT (test code = 1742-6) 22 U/L 5-50 Total bilirubin (test 0.5 mg/dL 0-1.2 code = 1975-2) Lab Interpretation (test Abnormal code = 88535-5) [place] AndieistB natriuretic dutddme8375-33-47 15:02:42 Test Item Value Reference Range Interpretation Comments BNP (test code = 69457-4) 2331 pg/mL 0-100 H Lab Interpretation (test code = Abnormal 05937-5) [place] MethodistXR Chest 2 [id number] 14:12:54Hm Interface, Radiology Results Incoming - 01/04/2019 2:16 PM CDTEXAMINATION: XR CHEST 2 VWCLINICAL HISTORY: Shortness of breathCOMPARISON: 08/10/2017 IMPRESSION:Left subclavian pacer device remains in place. There is stable cardiomegaly with mild central vascular congestion. There is mild bibasilaropacity suggesting atelectasis. There is no pneumothorax or significant effusion. Bones are demineralized. [facility]-[id number] [facility] ED Preliminary Interpretation - Not an [id number] 13:37:13 Test Item Value Reference Range Interpretation Comments PREETHI (test code = PREETHI) Ryder Zavala MD 01/23/2019 9:43 [facility] ED Preliminary Interpretation - Not an OrderPerformed by: Ryder Zavala MDAuthorized by: Ryder Zavala MD ECG reviewed by ED Physician in the absence of a messenger office: yes Previous ECG: Previous ECG: UnavailableInterpretat ion: Interpretation: abnormal Rate: ECG rate: 62 ECG rate assessment: normal Rhythm: Rhythm: sinus rhythm QRS: QRS axis: Normal QRS intervals: NormalConduction: Conduction: abnormal Abnormal conduction: complete RBBB ST segments: ST segments: NormalQ waves: Q wave noted on lead: q waves are present Lab Interpretation Abnormal (test code = 23670-2) [place] FaighjcohGOUSRAWEYE6472-72-88 19:57:00 Test Item Value Reference Range Interpretation Comments POC Activated Clotting Time (test code 209 s = POC Activated Clotting Time) [facility] HospitalZyednraLZWTIIEIQX8907-21-30 16:40:221.08[facility]annHEMATOLOGY 2014-05-15 16:40:22 Test Item Value Reference Range Interpretation Comments PT (test code = PT) 14.1 s 12.0-14.7 [facility] XlkjchxEUTKEBGOCS5690-11-72 16:40:22 Test Item Value Reference Range Interpretation Comments PTT (test code = PTT) 30.4 s 22.9-35.8 [facility] HermannCARDIAC UQLAONL8942-63-24 16:40:00<0.010[facility] HermannCHEM HZZTM9527-98-49 16:40:001.8[facility] HermannCHEM SDVCH3026-93-15 16:40:0027 [facility] HermannCHEM GUPKK8884-77-04 16:40:008.8[facility] HermannCHEM PANEL 2014-05-15 16:40:003.8[facility] HermannCHEM RKNSB9533-88-81 16:40:99391Nmqdskps HermannCHEM KLYZE9077-63-67 16:40:17917Aniixsth HermannCHEM ZYDPL4445-52-15 16:40:001.8[facility] HermannCHEM IMXRL4370-03-01 16:40:98112Gmgdecyp HermannCHEM VVGUX3105-92-13 16:40:0027[facility] HermannCHEM FKTFR9720-45-00 16:40:0026 [facility]annCHEM IZLRU2588-91-61 16:40:0011.8[facility] HermannHEMATOLOGY 2014-05-15 16:40:0010.2[facility] MlcyagdAIBIVJOOVY9765-40-03 16:40:00 Test Item Value Reference Range Interpretation Comments MCH (test code = MCH) 31.0 pg 27.0-31.0 [facility] RinohqjYGPALMJKCP2017-55-22 16:40:0033.1[facility]annHEMATOLOGY 2014-05-15 16:40:0013.2[facility] CgvsruoAPUJQMHBRJ2585-26-69 16:40:00361Wwcloyxc VkyfgboZDLCOJNVAP3446-46-97 16:40:006.6[facility] OljweleGNMDHGOUUO7343-39-84 16:40:003.90[facility] AnihjqbNUORDKNXPI7988-62-67 16:40:0012.1[facility] VJCKISPWWX9723-36-09 16:40:0093.5[facility] AvnkgfgQTWNDSOYFS2659-74-65 16:40:00 36.5Memorial GfadsgyZGTGTXEGOA7277-93-88 16:40:0059.2[facility] HermannHEMATOLOGY 2014-05-15 16:40:0025.0[facility] HzknawnWWZCFDIPQR7445-49-22 16:40:006.7[facility]orial QdwsspqUZVETZRISV8315-31-71 16:40:008.6[facility] HugfupuFQRMCXZDYM9979-58-27 16:40:000.5[facility] EvtnqfrJEUCCYWHQS0873-16-02 16:40:003.9[facility] XFTTJTXBPL1887-57-11 16:40:001.7[facility] LidmgqbZWWSBOFMTR6020-49-14 16:40:000.4 [facility] IrjmhzyMNAQIYBZAC5742-72-07 16:40:000.6[facility] KimhklpBALOFP1508-06-52 16:40:0024[facility] LcnxhavJGPXBS6498-65-14 16:40:0052[facility] HermannLIPIDS 2014-05-15 16:40:98993Qrjwrwwn DrlisxoQTEEZX7447-98-81 16:40:66330Gycvpcmi SkyzhbfFRSKJG5929-39-61 16:40:0040[facility] NgczknoTZCNLF9298-32-83 16:40:002.90 [facility]annBLOOD BANK ENOBDLQ9071-10-18 16:00:00Negative (05/15/14 11:00 AM)[facility]
--- OUTSIDE RECORDS SUMMARY | 2019-12-30 11:17 | XMS REPORT ---
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
--- OUTSIDE RECORDS SUMMARY | 2019-12-30 11:17 | XMS REPORT ---
[...] System Code Instructions Start End Date Status Dos age Date Keflex [facility] [id number] 500 MG Orally November 20, November 30, Active 1 caps ule every 12 hrs 2019 2019 Results No Known Results Summary Purpose [employer]ClinicalWorks Submission
--- OUTSIDE RECORDS SUMMARY | 2019-12-30 11:17 | XMS REPORT ---
:1935 Author Organization e[employer]Works Care Team Providers Name Role Phone Rock, Brandie Provider Role Unavailable Allergies No Known [...] disease) Problem Vitamin D deficiency E55.9 Active Assessment Primary osteoarthritis of both knees M17.0 Active Problem Family history of diabetes mellitus Z83.3 Active Problem Benign essential HTN I10 Active Problem CHF (congestive heart failure) I50.9 Active Problem Congestive heart failure, I50.9 Ac tive unspecified congestive heart failure chronicity, unspecified congestive heart failure type Medications Medication Code Code Instructions Start End Status Dosage System Date Date Mupirocin [facility] 94898234576 2 % Externally OctoberNovember 28, Active 1 a pplication Three times a 2019 to affect ed day area Tramadol HCl [facility] 38196157043 50 MG Orally OctoberDecember 14, Active 1 tablet as once a night as 2019 needed needed for pain ( 5-10 pain scale) Results No Known Results Summary Purpose [employer] Submission
--- OUTSIDE RECORDS SUMMARY | 2019-12-30 11:17 | XMS REPORT ---
:1935 Author Organization eClinicalWorks Care Team Providers Name Role Phone Wilkerson, Na Provider Role Unavailable Allergies, Adverse Reactions, Alerts Substance Reaction Event Type Morphine Sulfate Info Not Available Drug Allergy Codeine Sulfate Info Not Available Drug Allergy Problems Problem Type Condition Code Onset Dates Condition Statu s Assessment Primary osteoarthritis of both M17.0 Active knees Assessment Diabetic neuropathy, painful E11.40 Active Assessment Hyperlipidemia E78.5 Active Assessment Benign essential HTN I10 Active Assessment Chronic kidney disease, stage 5 N18.5 Active Assessment Hypothyroidism, unspecified type E03.9 Active Assessment 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 chronic kidney disease Assessment CHF (congestive heart failure) I50.9 Active Assessment Cellulitis of left lower limb L03.116 Active Problem Benign essential HTN I10 Active Assessment Cellulitis of right lower limb L03.115 Active Problem Congestive heart failure, I50.9 Ac tive unspecified congestive heart failure chronicity, unspecified congestive heart failure type Problem Diabetes mellitus type 2, E11.9 Ac tive noninsulin dependent Problem Anxiety F41.9 Active Problem Primary insomnia F51.01 Active Problem 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 chronic kidney disease Problem Chronic kidney disease, stage 5 N18.5 Active Problem On supplemental oxygen therapy Z99.81 Active Problem Hyperlipidemia E78.5 Active Problem Diabetic neuropathy, painful E11.40 Active Problem Type 2 diabetes mellitus with other E11.69 Active specified complication Problem Primary osteoarthritis of both M17.0 Active knees Problem Hypothyroidism, unspecified type E03.9 Active Problem [...] Start End Status Dosage System Date Date Aspirin 81 ND 95088380183 81 MG Orally Active 1 ta blet Once a day Klor-Con M10 [facility] 74986810346 10 MEQ Orally Active 1 tablet with Twice a day food Levothyroxine [facility] 27004292752 50 MCG Orally Active 1 tablet on Sodium Once a day an empty stomach in the morning Lasix ND 09905083506 80 MG Orally Active 1 table t twice a day Fosamax [facility] 36368342025 70 MG Active TAKE 1 TABLE T ONCE A WEEK Gabapentin [facility] 04238113736 100 MG Orally Active 1 c apsule Three times a day Macrobid [facility] 57523742419 100 MG Orally October Active 1 cap jony every 12 hrs , with food 2017 Amlodipine [facility] 36407944323 5 MG Orally Active 5 mg Besylate Once a day Tylenol Extra ND 85054713008 500 MG Orally Active 1 tablet as Strength every 6 hrs needed Flonase [facility] 24280080244 50 MCG/ACT Active 1 spray i n Nasally Once a each nost day Plavix [facility] 60864202191 75 MG Orally Active 1 table t Once a day Macrobid [facility] 64666428179 100 MG Orally Apr 21, Active 1 cap jony every 12 hrs 2017 with food Valsartan [facility] 52570036288 40 MG Orally Active 1 tab let Twice a day Mupirocin [facility] 38973612667 2 % Externally October Active 1 a pplication Three times a , to affecte 2019 area Toprol XL [facility] 77138272967 25 MG Orally Active 1 tab let Once a day Tradjenta [facility] 08610914281 5 MG Orally Active 1 tabl et Once a day Levothyroxine ND 29644986185 50 MCG Orally Active 1 tablet on Sodium Once a day an empty stomach in the morning Lidocaine HCl [facility] 94378604750 3 % Externally Active 1 application Twice a day to affected area as needed Lasix [facility] 87146786285 80 MG Orally Active 1 table t twice a day Tricor ND 60710650193 145 MG Orally Active 1 tabl et with Once a day food Vitamin D-3 [facility] 23383165731 1000 UNIT Active 1 caps ule Orally Once a day Pravachol [facility] 30055975264 80 MG Orally Active 1 tab let Once a day Alprazolam [facility] 46604252840 0.25 MG Orally Active 1 tablet once a day prn anxiety Loratadine [facility] 25702953603 10 MG Orally Active 1 ta blet Once a day Tramadol HCl [facility] 00532342963 50 MG Orally October Active 1 tablet as once a night as 29, needed needed for pain 2020 ( 5-10 pain scale) Results No Known Results Summary Purpose [employer] Submission
--- OUTSIDE RECORDS SUMMARY | 2019-12-30 11:17 | XMS REPORT ---
[...] Medications Medication Code Code Instructions Start End Date Status Dosage System Date Juluvia [facility] 47753576691 50 MG Orally December 07, Active 1 table t Once a day with 2019 food Tramadol HCl [facility] 89737037455 50 MG Orally November 14, Active 1 tablet once a night as 2019 as neede d needed for pain ( 5-10 pain scale) Results No Known Results Summary Purpose [employer]Works Submission
--- OUTSIDE RECORDS SUMMARY | 2019-12-30 11:18 | XMS REPORT ---
[...] Problem Vitamin D deficiency E55.9 Active Assessment 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 chronic kidney disease Problem Family history of diabetes mellitus Z83.3 Active Problem Benign essential HTN I10 Active Problem CHF (congestive heart failure) I50.9 Active Problem Congestive heart failure, I50.9 Ac tive unspecified congestive heart failure chronicity, unspecified congestive heart failure type Medications Medication Code Code Instructions Start End Date Status Dosage System Date Tradjenta ND 68003242881 5 MG Orally Once Inactive 1 tablet a day Januvia ND 23851022699 50 MG Orally December 07, Inactive 1 tabl et Once a day with 2019 food Glimepiride ND 74489255671 2 MG Orally December 20, Active 1 t ablet twice a day 2019 with a meal Results No Known Results Summary Purpose [employer] Submission
[2019-12-30] MEDS ORDERED: D50W 25 GM/50 ML SYRINGE/VIAL IV ONE (11:26)
[2019-12-30 11:47] LABS: Protime INR 1.21
[2019-12-30 11:48] LABS: Absolute Lymphocytes (CBC) 0.7 K/uL (0.7-4.9); Basophils % 0.1 % (0-1.3); Hematocrit 33.5 % (36.0-45.0); Lymphocytes % 7.4 % (15.3-44.8); MPV 10.1 fL (7.6-11.3); RBC Red Blood Cell Count 3.63 M/uL (3.86-4.86)
[2019-12-30 12:05] LABS: Bilirubin Direct 0.3 mg/dL (0-0.2); Bilirubin Total 0.5 mg/dL (0.2-1.0); Magnesium 2.5 mg/dL (1.8-2.4); Potassium 3.3 mmol/L (3.5-5.1); Protein, Total 7.6 g/dL (6.4-8.2); Troponin (Emerg Dept Use Only) 0.08 ng/mL (0.0-0.045)
--- NOTE | 2019-12-30 12:14 | RAD REPORT ---
EXAM DESCRIPTION: CT - Head C Spine Mpr Wo Con - 12/30/2019 11:51 am CLINICAL HISTORY: Head and neck injury status post fall. Head and neck pain COMPARISON: 2017 TECHNIQUE: Computed axial tomography of the head and cervical spine was obtained. Sagittal and coronal reconstruction was performed. All CT scans are performed using dose optimization technique as appropriate and may include automated exposure control or mA/KV adjustment according to patient size. FINDINGS: Right parietal scalp hematoma. No underlying skull fracture An intracranial bleed is not seen. The ventricles are normal in caliber. An extra-axial fluid collect ion is not noted.Fluid within the visualized sinuses and mastoids is not seen Mild to moderate anterior subluxation C3 on C4 is without significant change. Spondylosis involves th e cervical spine. No fracture or dislocation. IMPRESSION: No acute intracranial abnormality is seen. A cervical fracture is not visualized. If the patient continues to have symptoms to suggest intracra nial /spinal cord pathology then MRI would be recommended
--- NOTE | 2019-12-30 12:17 | RAD REPORT ---
EXAM DESCRIPTION: Anai Single View12/30/2019 11:59 am CLINICAL HISTORY: Chest pain COMPARISON: 2018 FINDINGS: The lungs appear clear of acute infiltrate. The heart is mildly to moderately enlarged. P acemaker leads are in place. IMPRESSION: No acute abnormalities displayed
--- NOTE | 2019-12-30 12:36 | ER ---
Nurse's Notes [facility] Name: Mendy Gomez Age: 84 yrs Sex: Female : 1935 Arrival Date: 12/30/2019 Time: 11:14 Bed 2 Private MD: Diagnosis: Hypoglycemia, unspecified;Type 2 diabetes mellitus;Fall due to bumping against object;Superficial injury of head;Non-ST elevation (NSTEMI) myocardial infarction;Cardiomegaly Presentation: 12/29 11:14 Chief complaint: EMS states: Pt. 84 yr. old A \T\ O x 4, got up this morning to use the [facility] restroom when she fell and hit her head on a laminate juan. Denies LOC. C/o feeling dizzy and weak. EMS checked blood sugar it was 48, administered 1 tube of glucose, BGL 38, and they administered 1 tube of glucose, BGL 41 \T\ 1108. BP 108/56, P 62, R 18, T 97.6, O2 95% RA. History of hypertension, KS, Diabetes. Recently was prescribed Hydrocodone and believes that is what is making her dizzy, so she stopped the medication yesterday. Pt. did not eat today, has a hematoma on the back of her head, bruising on the right arm, and a wound on her left leg that infected per pt. report. Care prior to arrival: Medication(s) given: Oral Glucose x 2. Mechanism of Injury: Fall from standing position. 11:14 Acuity: [facility] [address] [facility] 11:14 Method Of Arrival: EMS: [facility] 11:14 Coronavirus screen: Proceed with normal triage. Ebola Screen: Patient denies travel to [facility] an Ebola-affected area in the 21 days before illness onset. Initial Sepsis Screen: Does the patient meet any 2 criteria? No. Patient's initial sepsis screen is negative. Does the patient have a suspected source of infection? No. Patient's initial sepsis screen is negative. Risk Assessment: Do you want to hurt yourself or someone else? Patient reports no desire to harm self or others. Onset of symptoms was December 30, 2019. 11:28 Trauma event details: Injury occurred in the [facility], Injury occurred: at [facility] home. Injury occurred: December 30, 2019 Injury occurred at: 10:00. Trauma Activation: Alert Physician: ED Physician; Name: Jenaro; Notified At: 11:03; Arrived At: 11:03 Physician: General Surgeon; Name: ; Notified At: 11:03; Arrived At: Physician: Radiology; Name: ; Notified At: 11:03; Arrived At: Physician: Respiratory; Name: CT - Cherie, X-Ray Zora and Lia; Notified At: 11:03; Arrived At: 11:04 Physician: Lab; Name: ; Notified At: 11:03; Arrived At: Historical: - Allergies: 11:14 Codeine; rb1 11:14 Doxycycline; rb1 11:14 Morphine; rb1 11:14 PENICILLINS; rb1 - Home Meds: 11:14 amlodipine 5 mg tab 1 tab once daily [Active]; aspirin 81 mg Oral chew 1 tab once daily rb1 [Active]; fenofibrate 145 mg Oral tab 1 tab once daily [Active]; furosemide 80 mg Oral tab 1 tab once daily [Active]; gabapentin 100 mg Oral cap nightly [Active]; levothyroxine 50 mcg tab 1 tab once daily [Active]; metoprolol succinate 25 mg Oral Tb24 1 tab once daily [Active]; multivitamin Oral tab daily [Active]; Plavix 75 mg Oral tab 1 tab once daily [Active]; pravastatin 10 mg Oral tab 1 tab once daily [Active]; Zegerid OTC 20-1.1 mg-gram Oral cap 1 cap nightly [Active]; glipizide 2.5 mg Oral tr24 1 tabs twice a day [Active]; Zyrtec 10 mg Oral tab 1 tab once daily [Active]; alendronate oral oral once wkly [Active]; - PMHx: 11:14 Anemia; CHF; Diabetes - NIDDM; ESRD; High Cholesterol; Hyperlipidemia; Hypertension; rb1 Hypothyroidism; KS; pacemaker/defibrillator; - PSHx: 11:14 Heart stents; rb1 - Immunization history:: Adult Immunizations up to date. - Social history:: Smoking status: Patient/guardian denies using. - Family history:: not pertinent. Screenin:14 Abuse screen: Denies threats or abuse. Nutritional screening: No deficits noted. Pt. rb1 has not eating today. Tuberculosis screening: No symptoms or risk factors identified. 11:14 Fall Risk Fall in past 12 months (25 points). Secondary diagnosis (15 points) impaired rb1 mobility, IV access (20 points). Ambulatory Aid- Crutches/Cane/Walker (15 pts). Gait- Impaired (20 pts.). Mental Status- Oriented to own ability (0 pts). Total Clay Fall Scale indicates High Risk Score (45 or more points). Fall prevention measures have been instituted. Side Rails Up X 2 Placed Close to Nursing Station 1:1 Attendant Assigned Frequent Obs/Assessments Occuring Family Present and informed to notify staff if the need to leave the bedside As available patient and family educated on Fall Prevention Program and Strategies. Primary Survey: 11:14 NO uncontrolled hemorrhage observed. A: The patient is alert. Airway: patent. rb1 Breathing/Chest: Respiratory pattern: regular, Respiratory effort: spontaneous, unlabored, Chest inspection: symmetrical rise and fall of the chest. Circulation: Pulses: palpable right radial artery and left radial artery. Skin color: pink, Skin temperature: warm, dry. Disability Alert. Exposure/Environment: There is no evidence of uncontrolled external bleeding. Obvious injury(ies) are noted at this time: Hematoma to the back of her head. 11:30 Reassessment Airway Airway Patent Breathing/Chest Respiratory pattern Regular rb1 Respiratory effort Spontaneous Unlabored Circulation Color [place] Temperature Warm Dry Disability Alert. Secondary Survey: 11:14 HEENT: No deficits noted. Gastrointestinal: No deficits noted. : No signs and/or rb1 symptoms were reported regarding the genitourinary system. Musculoskeletal: Range of motion: intact in all extremities. Assessment: 11:14 General: Appears in no apparent distress. comfortable, Behavior is calm, cooperative. rb1 Pain: Denies pain. Neuro: Level of Consciousness is awake, alert, obeys commands, Oriented to person, place, time, situation. Cardiovascular: Capillary refill < 3 seconds. Respiratory: Airway is patent Respiratory effort is even, unlabored, Respiratory pattern is regular, symmetrical. GI: No signs and/or symptoms were reported involving the gastrointestinal system. : No signs and/or symptoms were reported regarding the genitourinary system. Derm: Wound noted left lower leg Wound is Pt. reports it was a sore that got infected. Bruising that is dark purple, on right arm. Musculoskeletal: Range of motion: intact in all extremities. 11:41 Reassessment: PT. went to CT. rb1 12:14 Reassessment: Patient appears in no apparent distress at this time. Patient and/or rb1 family updated on plan of care and expected duration. Pain level reassessed. Patient is alert, oriented x 3, equal unlabored respirations, skin warm/dry/pink. Granddaughter at the bedside. 12:25 Reassessment: Pt. is eating a food tray. rb1 13:21 Reassessment: Patient appears in no apparent distress at this time. Pt. was resting rb1 with eyes closed, respirations even, unlabored. Opens eyes and responds when spoken to. Family at the bedside. 13:49 Reassessment: Pt. and family are concerned that the pt. cannot have a family member rb1 stay on the floor with the pt. I spoke with YUNG Ribeiro, and she checked to confirm the regulations on visitors during this time and was told that visiting hours were 7 AM to 4 PM and that no visitors were allowed to spend the night. 14:03 Reassessment: Dr. Calloway is at the pt. bedside. He educated the pt. and her family on rb1 the risks of going home AMA but the pt. insists on leaving. She does not want to be admitted. 14:19 Reassessment: Unable to give report to BRYAN Lester at this time because she is at lunch.rb1 14:26 Reassessment: Pt. is leaving AMA. rb1 Vital Signs: 11:14 BP 103 / 63; Pulse 60; Resp 19; Temp 97.4(TE); Pulse Ox 100% on R/A; Weight 73.94 kg rb1 (R); Height 5 ft. 0 in. (152.40 cm) (R); Pain 0/10; 12:23 BP 118 / 62; Pulse 69; Resp 17; Pulse Ox 99% on R/A; rb1 13:23 BP 104 / 81; Pulse 66; Resp 17; Pulse Ox 98% on R/A; rb1 14:22 BP 105 / 66; Pulse 60; Resp 16; Pulse Ox 99% ; rb1 11:14 Body Mass Index 31.83 (73.94 kg, 152.40 cm) rb1 Allen Coma Score: 11:14 Eye Response: spontaneous(4). Verbal Response: oriented(5). Motor Response: obeys rb1 commands(6). Total: 15. 11:30 Eye Response: spontaneous(4). Verbal Response: oriented(5). Motor Response: obeys rb1 commands(6). Total: 15. 11:38 Eye Response: spontaneous(4). Verbal Response: oriented(5). Motor Response: obeys jaguar commands(6). Total: 15. Trauma Score (Adult): 11:14 Eye Response: spontaneous(1); Verbal Response: oriented(1); Motor Response: obeys rb1 commands(2); Systolic BP: > 89 mm Hg(4); Respiratory Rate: 10 to 29 per min(4); Allen Score: 15; Trauma Score: 12 11:30 Eye Response: spontaneous(1); Verbal Response: oriented(1); Motor Response: obeys rb1 commands(2); Systolic BP: > 89 mm Hg(4); Respiratory Rate: 10 to 29 per min(4); Ken Score: 15; Trauma Score: 12 12:00 Eye Response: spontaneous(1); Verbal Response: oriented(1); Motor Response: obeys rb1 commands(2); Systolic BP: > 89 mm Hg(4); Respiratory Rate: 10 to 29 per min(4); Ken Score: 15; Trauma Score: 12 ED Course: 11:14 Patient arrived in ED. rb1 11:14 Patient maintains SpO2 saturation greater than 95% on room air. rb1 11:14 Thermoregulation: warm blanket given to patient. rb1 11:14 Patient has correct armband on for positive identification. Bed in low position. Call rb1 light in reach. Side rails up X2. Patient maintains SpO2 saturation greater than 95% on room air. 11:14 Arm band placed on right wrist. rb1 11:15 Jeremy Eason MD is Attending Physician. jaguar 11:20 Inserted saline lock: 20 gauge in right antecubital area, using aseptic technique. aa5 Blood collected. 11:30 Initial lab(s) drawn, by sd, sent to lab. aa5 11:33 Triage completed. rb1 11:51 CT Head C Spine In Process Unspecified. EDMS 11:51 CT completed. Patient tolerated procedure well. Patient moved back from CT. bq 11:52 Jany Thorne, RN is Primary Nurse. rb1 11:54 Patient moved to radiology. bq 11:58 XRAY Chest (1 view) In Process Unspecified. EDSD 12:32 Travis Calloway MD is Hospitalizing Provider. [facility] 14:27 No provider procedures requiring assistance completed. IV discontinued, intact, rb1 bleeding controlled, No redness/swelling at site. Pressure dressing applied. Administered Medications: 11:20 Drug: D50W 50 ml Route: IVP; Site: right antecubital; rb1 11:47 Follow up: Response: No adverse reaction; Blood sugar is elevated; BS 178 rb1 Point of Care Testing: Blood Glucose: 11:20 Blood Glucose: 36 mg/dL; aa5 12:22 Blood Glucose: 124 mg/dL; rb1 13:23 Blood Glucose: 177 mg/dL; rb1 11:20 Dr. Eason notified. aa5 Ranges: Intake: Outcome: 12:35 Decision to Hospitalize by Provider. [facility] 14:27 AMA AMA form signed [facility] 14:27 Condition: stable 14:27 Instructed on Test results and the risk of leaving. 14:28 Patient left the ED. rb1 Signatures: Dispatcher [employer] EDSD Jeremy Eason MD MD cha Quilty, Betty bq Calderon, Audri, RN RN aa5 Jany Thorne, RN RN rb1
--- NOTE | 2019-12-30 12:37 | EDPHYS ---
Physician Documentation [facility] Name: Mendy Gomez Age: 84 yrs Sex: Female : 1935 Arrival Date: 12/30/2019 Time: 11:14 Bed 2 Private MD: ED Physician Jeremy Eason HPI: 12/29 11:34 This 84 yrs old Female presents to ER via EMS with complaints of hypoglycemia jaguar and syncope. 11:34 The patient complains of pain to the right side of the back of head and right occipital jaguar area. The patient describes the headache as constant. Onset: The symptoms/episode began/occurred just prior to arrival. The patient or guardian reports hypoglycemia, that was potentially precipitated by adjusting medication dose, with the patient's symptoms witnessed by family. Onset: The symptoms/episode began/occurred just prior to arrival. Associated signs and symptoms: Pertinent positives: None. got weak, sugar bottomed out, hit head. Associated signs and symptoms: Pertinent positives: dizziness. Severity of symptoms: At its worst the pain was mild, in the emergency department the pain is unchanged. Headache History: Denies prior headaches. Historical: - Allergies: 11:14 Codeine; rb1 11:14 Doxycycline; rb1 11:14 Morphine; rb1 11:14 PENICILLINS; rb1 - Home Meds: 11:14 amlodipine 5 mg tab 1 tab once daily [Active]; aspirin 81 mg Oral chew 1 tab once daily rb1 [Active]; fenofibrate 145 mg Oral tab 1 tab once daily [Active]; furosemide 80 mg Oral tab 1 tab once daily [Active]; gabapentin 100 mg Oral cap nightly [Active]; levothyroxine 50 mcg tab 1 tab once daily [Active]; metoprolol succinate 25 mg Oral Tb24 1 tab once daily [Active]; multivitamin Oral tab daily [Active]; Plavix 75 mg Oral tab 1 tab once daily [Active]; pravastatin 10 mg Oral tab 1 tab once daily [Active]; Zegerid OTC 20-1.1 mg-gram Oral cap 1 cap nightly [Active]; glipizide 2.5 mg Oral tr24 1 tabs twice a day [Active]; Zyrtec 10 mg Oral tab 1 tab once daily [Active]; alendronate oral oral once wkly [Active]; - PMHx: 11:14 Anemia; CHF; Diabetes - NIDDM; ESRD; High Cholesterol; Hyperlipidemia; Hypertension; rb1 Hypothyroidism; ID; pacemaker/defibrillator; - PSHx: 11:14 Heart stents; rb1 - Immunization history:: Adult Immunizations up to date. - Social history:: Smoking status: Patient/guardian denies using. - Family history:: not pertinent. ROS: 11:34 Constitutional: Negative for fever, chills, and weight loss, Eyes: Negative for injury, jaguar pain, redness, and discharge, ENT: Negative for injury, pain, and discharge, Neck: Negative for injury, pain, and swelling, Cardiovascular: Negative for chest pain, palpitations, and edema, Respiratory: Negative for shortness of breath, cough, wheezing, and pleuritic chest pain, Abdomen/GI: Negative for abdominal pain, nausea, vomiting, diarrhea, and constipation, Back: Negative for injury and pain, : Negative for injury, bleeding, discharge, and swelling, MS/Extremity: Negative for injury and deformity, Skin: Negative for injury, rash, and discoloration, Psych: Negative for depression, anxiety, suicide ideation, homicidal ideation, and hallucinations, Allergy/Immunology: Negative for hives, rash, and allergies, Endocrine: Negative for neck swelling, polydipsia, polyuria, polyphagia, and marked weight changes, Hematologic/Lymphatic: Negative for swollen nodes, abnormal bleeding, and unusual bruising. 11:34 Neuro: Positive for headache. Exam: 11:34 Constitutional: This is a well developed, well nourished patient who is awake, alert, jaguar and in no acute distress. Eyes: Pupils equal round and reactive to light, extra-ocular motions intact. Lids and lashes normal. Conjunctiva and sclera are non-icteric and not injected. Cornea within normal limits. Periorbital areas with no swelling, redness, or edema. ENT: Nares patent. No nasal discharge, no septal abnormalities noted. Tympanic membranes are normal and external auditory canals are clear. Oropharynx with no redness, swelling, or masses, exudates, or evidence of obstruction, uvula midline. Mucous membranes moist. Neck: Trachea midline, no thyromegaly or masses palpated, and no cervical lymphadenopathy. Supple, full range of motion without nuchal rigidity, or vertebral point tenderness. No Meningismus. Chest/axilla: Normal chest wall appearance and motion. Nontender with no deformity. No lesions are appreciated. Cardiovascular: Regular rate and rhythm with a normal S1 and S2. No gallops, murmurs, or rubs. Normal PMI, no JVD. No pulse deficits. Respiratory: Lungs have equal breath sounds bilaterally, clear to auscultation and percussion. No rales, rhonchi or wheezes noted. No increased work of breathing, no retractions or nasal flaring. Abdomen/GI: Soft, non-tender, with normal bowel sounds. No distension or tympany. No guarding or rebound. No evidence of tenderness throughout. Back: No spinal tenderness. No costovertebral tenderness. Full range of motion. Female : Normal external genitalia. Skin: Warm, dry with normal turgor. Normal color with no rashes, no lesions, and no evidence of cellulitis. MS/ Extremity: Pulses equal, no cyanosis. Neurovascular intact. Full, normal range of motion. Neuro: Awake and alert, GCS 15, oriented to person, place, time, and situation. Cranial nerves II-XII grossly intact. Motor strength 5/5 in all extremities. Sensory grossly intact. Cerebellar exam normal. Normal gait. Psych: Awake, alert, with orientation to person, place and time. Behavior, mood, and affect are within normal limits. 11:34 Head/face: Noted is contusion, hematoma, that is moderate, of the right side of the back of head and right occipital area. 11:37 Musculoskeletal/extremity: DVT Exam: No signs of deep vein thrombosis. no pain, no jaguar swelling, negative Homans' sign noted on exam, no appreciated bluish discoloration, no erythema, no increased warmth, tenderness. 12:24 ECG was reviewed by the Attending Physician. [facility] Vital Signs: 11:14 BP 103 / 63; Pulse 60; Resp 19; Temp 97.4(TE); Pulse Ox 100% on R/A; Weight 73.94 kg rb1 (R); Height 5 ft. 0 in. (152.40 cm) (R); Pain 0/10; 12:23 BP 118 / 62; Pulse 69; Resp 17; Pulse Ox 99% on R/A; rb1 13:23 BP 104 / 81; Pulse 66; Resp 17; Pulse Ox 98% on R/A; rb1 14:22 BP 105 / 66; Pulse 60; Resp 16; Pulse Ox 99% ; rb1 11:14 Body Mass Index 31.83 (73.94 kg, 152.40 cm) rb1 Prospect Coma Score: 11:14 Eye Response: spontaneous(4). Verbal Response: oriented(5). Motor Response: obeys rb1 commands(6). Total: 15. 11:30 Eye Response: spontaneous(4). Verbal Response: oriented(5). Motor Response: obeys rb1 commands(6). Total: 15. 11:38 Eye Response: spontaneous(4). Verbal Response: oriented(5). Motor Response: obeys jaguar commands(6). Total: 15. Trauma Score (Adult): 11:14 Eye Response: spontaneous(1); Verbal Response: oriented(1); Motor Response: obeys rb1 commands(2); Systolic BP: > 89 mm Hg(4); Respiratory Rate: 10 to 29 per min(4); Prospect Score: 15; Trauma Score: 12 11:30 Eye Response: spontaneous(1); Verbal Response: oriented(1); Motor Response: obeys rb1 commands(2); Systolic BP: > 89 mm Hg(4); Respiratory Rate: 10 to 29 per min(4); Prospect Score: 15; Trauma Score: 12 12:00 Eye Response: spontaneous(1); Verbal Response: oriented(1); Motor Response: obeys rb1 commands(2); Systolic BP: > 89 mm Hg(4); Respiratory Rate: 10 to 29 per min(4); Prospect Score: 15; Trauma Score: 12 MDM: 11:15 Patient medically screened. [facility] 11:38 Data reviewed: vital signs, nurses notes, lab test result(s), EKG, radiologic studies, jaguar CT scan, plain films. 11:38 Differential diagnosis: cervical epidural bleed, epidural hematoma, hypoglycemia, jaguar hyponatremia, neoplasm, subarachnoid bleed, subdural hematoma, tension headache. Data interpreted: quality assurance monitor: rate is 60 beats/min, rhythm is normal sinus rhythm, Pulse oximetry: on room air is 100 %. Test interpretation: by ED physician or midlevel provider: ECG, plain radiologic studies. Counseling: I had a detailed discussion with the patient and/or guardian regarding: the historical points, exam findings, and any diagnostic results supporting the discharge/admit diagnosis, lab results, radiology results. 12:35 ED course: pt has chronic medical problem, will obs , dw patient and dr hull, tele obs.[facility] 12/29 11:26 Order name: Glucose, Ancillary Testing; Complete Time: 12:10 [facility] 12/29 11:30 Order name: Basic Metabolic Panel; Complete Time: 12:10 [facility] 12/29 11:30 Order name: CBC with Diff; Complete Time: 12:10 [facility] 12/29 11:30 Order name: LFT's; Complete Time: 12:10 [facility] 12/29 11:30 Order name: Magnesium; Complete Time: 12:10 [facility] 12/29 11:30 Order name: NT PRO-BNP; Complete Time: 12:10 [facility] 12/29 11:30 Order name: PT-INR; Complete Time: 12:10 [facility] 12/29 11:30 Order name: Troponin (emerg Dept Use Only); Complete Time: 12:10 [facility] 12/29 11:30 Order name: XRAY Chest (1 view); Complete Time: 12:38 [facility] 12/29 11:33 Order name: CT Head C Spine; Complete Time: 12:38 [facility] 12/29 11:47 Order name: Glucose, Ancillary Testing; Complete Time: 12:10 [facility] 12/29 12:22 Order name: Glucose, Ancillary Testing; Complete Time: 12:38 [facility] 12/29 12:56 Order name: Urine Dipstick--Ancillary (enter results); Complete Time: 13:58 12/29 13:37 Order name: Glucose, Ancillary Testing; Complete Time: 13:58 [facility] 12/29 11:25 Order name: IV; Complete Time: 11:25 [facility] 12/29 11:30 Order name: EKG; Complete Time: 11:31 12/29 11:30 Order name: Cardiac monitoring; Complete Time: 11:53 [facility] 12/29 11:30 Order name: EKG - Nurse/Tech; Complete Time: 12:43 [facility] 12/29 11:30 Order name: Labs collected and sent; Complete Time: 11:52 12/29 11:30 Order name: O2 Per Protocol; Complete Time: 11:52 12/29 11:30 Order name: O2 Sat Monitoring; Complete Time: 11:52 [facility] 12/29 11:33 Order name: Diet Ada 1800 Asad; Complete Time: 11:34 [facility] 12/29 11:33 Order name: Urine Dipstick-Ancillary (obtain specimen); Complete Time: 12:49 [facility] 12/29 11:42 Order name: Ice pack; Complete Time: 12:49 [facility] EC:24 Rate is 63 beats/min. Rhythm is regular. QRS [place] is Normal. MA interval is normal. QRS jaguar interval is prolonged. QT interval is normal. No Q waves. T waves are Normal. No ST changes noted. Clinical impression: No evidence of ischemia. Interpreted by me. Administered Medications: 11:20 Drug: D50W 50 ml Route: IVP; Site: right antecubital; rb1 11:47 Follow up: Response: No adverse reaction; Blood sugar is elevated; BS 178 rb1 Point of Care Testing: Blood Glucose: 11:20 Blood Glucose: 36 mg/dL; aa5 12:22 Blood Glucose: 124 mg/dL; rb1 13:23 Blood Glucose: 177 mg/dL; rb1 11:20 Dr. Eason notified. aa5 Ranges: Critical Glucose Levels:Adult <50 mg/dl or >400 mg/dl <40 mg/dl or >180 mg/dl Disposition: 12/30/19 12:35 Hospitalization ordered by Travis Hull for Observation. Preliminary diagnosis are Hypoglycemia, unspecified, Type 2 diabetes mellitus, Fall due to bumping against object, Superficial injury of head, Non-ST elevation (NSTEMI) myocardial infarction, Cardiomegaly. - Bed requested for Telemetry/MedSurg (observation). - Status is Observation. rb1 - Condition is Fair. - Problem is new. - Symptoms have improved. Signatures: Dispatcher [employer] [facility] Jeermy Eason MD MD cha Calderon, Audri, RN RN aa5 Jany Thorne, RN RN rb1 Ileana Isidro Corrections: (The following items were deleted from the chart) 12:39 12:35 Hospitalization Ordered by Travis Hull MD for Observation. Preliminary diagnosis jaguar is Hypoglycemia, unspecified; Type 2 diabetes mellitus; Unspecified combined systolic (congestive) and diastolic (congestive) heart failure; Fall due to bumping against object; Superficial injury of head; Non-ST elevation (NSTEMI) myocardial infarction. Bed requested for Telemetry/MedSurg (observation). Status is Observation. Condition is Fair. Problem is new. Symptoms have improved. jaguar 13:32 12:39 12/30/2019 12:35 Hospitalization Ordered by Travis Hull MD for Observation. eb Preliminary diagnosis is Hypoglycemia, unspecified; Type 2 diabetes mellitus; Fall due to bumping against object; Superficial injury of head; Non-ST elevation (NSTEMI) myocardial infarction; Cardiomegaly. Bed requested for Telemetry/MedSurg (observation). Status is Observation. Condition is Fair. Problem is new. Symptoms have improved. jaguar 14:28 13:32 12/30/2019 12:35 Hospitalization Ordered by Travis Hull MD for Observation. rb1 Preliminary diagnosis is Hypoglycemia, unspecified; Type 2 diabetes mellitus; Fall due to bumping against object; Superficial injury of head; Non-ST elevation (NSTEMI) myocardial infarction; Cardiomegaly. Bed requested for Telemetry/MedSurg (observation). Status is Observation. Condition is Fair. Problem is new. Symptoms have improved. eb
[2019-12-30 13:21] LABS: Urine Blood NEGATIVE (NEG); Urine Glucose NEGATIVE (NEG); Urine Protein TRACE (NEG); Urine Specific Gravity 1.025 (1.005-1.030); Urine pH 5.5 (5.0-7.0)
[2019-12-30 14:35] VITALS: TEMP 97.4
[2019-12-30 14:39] VITALS: BP 105/66; O2SAT 99
--- NOTE | 2019-12-30 21:26 | HP ---
Date of Admission: 12/30/2019 Chief Complaint: Syncopal episode, hypoglycemia. Primary Care Physician: Brandie Wilkerson DO Code Status: Do not intubate. 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 History Of Present Illness: Patient is an 84-year-old female with past medical history of diabetes, [id number], who was recently started on glipizide; hypertension; hyperlipidemia; congestive heart failure; systolic dysfunction; history of ME, status post stents; chronic kidney disease; comes in with syncopal episode and fall, where she hit her head. Patient apparently was started on glipizide 2 mg twice a day and had been feeling somewhat jittery, was repeating her sentences, somewhat confused and lethargic. Patient had a fall and hit her head. This was last night, a night prior to admission. In the morning, patient still woke up somewhat lethargic, therefore was brought into the ER. When EMS brought her in, her blood sugars were then 30s. She was given amp of D50. Patient's symptoms are constant, moderate, progressively worsening. Otherwise, no nausea, vomiting, fever, chills, or chest pain. In the ER, her workup revealed a glucose of 40, potassium was 3.3, creatinine was 2.94. Troponin was 0.08. Patient again had a drop in her blood glucose level and was given another amp of D50 and she ate lunch. Her blood sugars improved to 177. Head, cervical spine was negative for any acute abnormality. No fracture on the cervical spine. Chest x-ray was normal. Patient was then referred for admission. When seen in the ER, she was awake, alert, and oriented x3, in some mild distress. Past Medical History: Diabetes mellitus type 2, [id number]; hypertension; hyperlipidemia; chronic kidney disease, stage 3; systolic congestive heart failure; history of ME, status post stent. Past Surgical History: Hysterectomy, defibrillator placement, coronary stents, appendectomy, right leg stent. Allergies: NO KNOWN DRUG ALLERGIES. Medications: List reviewed. Social History: Patient denies any tobacco use, alcohol use, or illicit drug use. Lives at home. Does have good social support with multiple family members in the area. Does need assistance with her activities of daily living. Family History: Father had cancer. Mother had lung disease. Review of Systems: Ten-point system reviewed, negative except as per HPI. Physical Examination: Vital Signs: Blood pressure 103/63, pulse 60, respirations 19, temperature 97.4, O2 100% on room air, BMI 31. General: Awake, alert, oriented x3. Elderly female, in some mild distress. HEENT: Normocephalic, atraumatic. PERRLA. EOMI. Dry mucous membranes. Oropharynx is clear. Poor dentition. Conjunctivae anicteric. Neck: Supple. No JVD. Trachea midline. CV: S1, S2. Regular rate and rhythm. Peripheral pulses are weak. Respiratory: Moving air well bilaterally. No wheezing or stridor. No use of accessory muscles. Gastrointestinal: Abdomen is soft, nontender, nondistended. Positive bowel sounds. No guarding or rigidity. Extremities: No clubbing, cyanosis. Patient does have pedal edema. No calf tenderness. Neuro: Cranial nerves 2 through 12 intact grossly. No focal neurological deficits. Speech is normal. Strength is symmetric, bilateral upper and lower extremities. Sensation is decreased to light touch. Skin: Patient has diabetic leg wound on the left upper extremity. Otherwise, no rashes. Psych: Mood is okay. Affect is full. Insight and judgment are good. Laboratory Data: UA negative. Sodium 142, potassium 3.3, chloride 105, CO2 of 27, BUN 66, creatinine 2.94, glucose 40, calcium 8.3, magnesium 2.5, troponin 0.08, BNP 51899. INR 1.21. WBC 9.1, H and H 10.7 and 33.5, platelets 201, neutrophils 81%. Imaging Studies: CT scan of the head and C-spine shows no acute intracranial abnormality. Cervical fracture not visualized. She does have parietal scalp hematoma. Chest x-ray personally reviewed shows no acute abnormalities. Assessment: 84-year-old female with: 1. Acute syncopal episode, likely due to hypoglycemia. Blood sugar was in the 30s. No further episode. Blood sugar has improved with 2 amps of D50 and is likely secondary to her medication changes. 2. Right parietal scalp hematoma secondary to fall. We will continue to monitor pain control as needed. Ice to affected site. 3. Diabetes mellitus type 2, [id number] with hypoglycemia secondary to glipizide, which has been held. We will need to continue monitoring her blood glucose levels. We will start on D5 half NS at a slower rate due to her congestive heart failure. 4. Chronic systolic congestive heart failure. We will have judicious use of IV fluids. We will continue to monitor her I's and O's and continue with free fluid restriction. 5. Elevated troponin level likely due to cardiac strain from her hypoglycemia. Cardiology has been consulted. 6. Status post defibrillator. 7. Check edema in January. 8. Essential hypertension, stable. 9. Moderate pulmonary hypertension. 10. Hypertensive heart disease. 11. Chronic kidney disease stage 3. We will continue to monitor creatinine and have Dr. Frank follow up with the patient. Avoid NSAIDs. 12. Hypermagnesemia, likely secondary to above. 13. Mixed hyperlipidemia. Continue statin. 14. Coronary artery disease, [place] artery, [place] heart without angina status post stent, stable. 15. Peripheral vascular disease. 16. Diabetic leg wound. Continue topical wound care and dressing changes. 17. Deep vein thrombosis prophylaxis with Lovenox, renally dosed. Plan: Admit patient to Med-Surg, place as inpatient. Length of stay greater than 2 midnights. ADDENDUM: Patient left AMA. She reported a bad experience during a previous visit and did not wish to stay again. She was counseled. She understands the risks including worsening hypoglycemia and possibly even coma or . She is awake, alert and oriented x3. Her daughter is at the bedside. BRYAN Carmichael at bedside. JACQUELYN Voice ID: [id number]
== END 2019-12-30 14:28 | disposition left against medical advice (07) ==
LOC: ER 11:09 → ERHOLD 12:50
PROVIDERS: ADMIT Family Medicine; ATTEND Family Medicine
DX: R55 Syncope and collapse (principal); E11.649 Type 2 diabetes mellitus with hypoglycemia without coma; S00.03XA Contusion of scalp, initial encounter; W18.00XA Striking against unspecified object with subsequent fall, initial encounter; Z53.29 Procedure and treatment not carried out because of patient's decision for other reasons; I13.0 Hypertensive heart and chronic kidney disease with heart failure and stage 1 through stage 4 chronic kidney disease, or unspecified chronic kidney disease; I11.0 Hypertensive heart disease with heart failure; I50.22 Chronic systolic (congestive) heart failure; R79.89 Other specified abnormal findings of blood chemistry; I27.20 Pulmonary hypertension, unspecified; E11.22 Type 2 diabetes mellitus with diabetic chronic kidney disease; N18.3 Chronic kidney disease, stage 3 (moderate); E83.42 Hypomagnesemia; E78.2 Mixed hyperlipidemia; I25.10 Atherosclerotic heart disease of native coronary artery without angina pectoris; E11.51 Type 2 diabetes mellitus with diabetic peripheral angiopathy without gangrene; I45.2 Bifascicular block; D63.1 Anemia in chronic kidney disease; D64.9 Anemia, unspecified; E03.9 Hypothyroidism, unspecified; I25.2 Old myocardial infarction; Z79.84 Long term (current) use of oral hypoglycemic drugs; Z79.82 Long term (current) use of aspirin; Z79.02 Long term (current) use of antithrombotics/antiplatelets; Z79.899 Other long term (current) drug therapy; Z95.810 Presence of automatic (implantable) cardiac defibrillator; Z95.5 Presence of coronary angioplasty implant and graft
CPT/HCPCS: 93005; 85025; 80048; 36415; 83735; 85610; 82947 ×4; 80076; 81003; 84484; 83880; 70450; 72125; 71045; 96374; 99285; G0378